=== PATIENT | female | born 1945 | race Caucasian/White ===

== ENCOUNTER 2016-09-04 14:56 | Emergency (ER) | payer MEDICARE ==
[2016-09-04 16:29] LABS: Urine Bacteria 3+ (Absent); Urine Bilirubin Negative (Negative); Urine Glucose Negative (Negative); Urine Nitrite Negative (Negative)
--- NOTE | 2016-09-04 17:33 | RAD ---
HISTORY: Weakness COMPARISONS: June 07, 2013 VIEWS:1: Single frontal portable view of the chest at 5:14 PM FINDINGS: LINES AND TUBES: None. CARDIOMEDIASTINAL SILHOUETTE: The cardiomediastinal silhouette is normal for portable technique. PLEURA: The costophrenic angles are sharp. No pleural abnormalities are noted. LUNG PARENCHYMA: The lungs are clear. ABDOMEN: The upper abdomen is clear. There is no subphrenic gas. 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
[2016-09-04] MEDS: NS 0.9% 1000 ML* 2,000 ML IV ONE (17:38)
[2016-09-04 17:41] LABS: Hematocrit 34 % (35-47); Hemoglobin 11.6 g/dl (12.0-16.0); Mean Corpuscular HGB Conc 34 g/dl (31-36); Mean Corpuscular Hemoglobin 31 pg (27-31); Mean Corpuscular Volume 90 fL (80-97); Mean Platelet Volume 11 um3 (7.4-10.4); Red Blood Count 3.79 10^6/ul (4.0-5.4); Red Cell Distribution Width 14 % (10.5-15); White Blood Count 9.5 10^3/ul (3.5-10.8)
[2016-09-04 18:02] LABS: Troponin I 0.01 ng/mL (<0.04)
[2016-09-04 18:08] LABS: ALT < 3 U/L (7-52); AST 9 U/L (13-39); Albumin 3.7 g/dL (3.2-5.2); Alkaline Phosphatase 57 U/L (34-104); Anion Gap 7 mmol/L (2-11); Blood Urea Nitrogen 29 mg/dL (6-24); C Reactive Protein 4.89 mg/L (< 5.00); CO2 Carbon Dioxide 25 mmol/L (22-32); Calcium 9.3 mg/dL (8.6-10.3); Chloride 102 mmol/L (101-111); Creatine Kinase 85 U/L (10-223); EGFR African American 51.3 (>60); EGFR Non-African American 39.9 (>60); Globulin 3.9 g/dL (2-4); Glucose 106 mg/dL (70-100); Lipase 18 U/L (11.0-82.0); Magnesium 2.2 mg/dL (1.9-2.7); Potassium 3.6 mmol/L (3.5-5.0); Sodium 134 mmol/L (133-145); Total Protein 7.6 g/dL (6.4-8.9)
[2016-09-04 18:44] LABS: TSH (Thyroid Stimulating Horm) 1.31 mcIU/mL (0.34-5.60)
[2016-09-04] MEDS ORDERED: Nitrofurantoin Macrocrystals* 50 MG CAP PO ONE (19:01)
--- NOTE | 2016-09-04 19:30 | ED ---
Cony Bartlett Matthew, scribed for Cecilio Read MD on 09/04/16 at 1713 . GI/ HPI - HPI Summary HPI Summary: A 71 y/o female presents to the ED with diarrhea since Jul. The patient has been having watery diarrhea approximately 3 times daily. The patient was seen at her neurologist's office to check-up on the patient's Parkinson's. At that time, she was having difficulty sleeping because of the resting tremors, so she was started on Comtan. After starting the new medication, the patient began to have diarrhea. She hasn't taken the medication since 08/23, but continues to have diarrhea. Associated symptoms include weakness and decreased appetite. The patient denies chest pain, SOB, cough, and abdominal pain. As a result of the weakness, the patient states that she fell 2 days ago. - History of Current Complaint Chief Complaint: EDWeakness Time Seen by Provider: 09/04/16 16:27 Stated Complaint: WEAKNESS/DIARRHEA Hx Obtained From: Patient, Family/Scrap Drop Engineer - Onset/Duration: Started Weeks Ago, Atraumatic, Still Present Timing: Constant Severity: Moderate Current Severity: Moderate Pain Intensity: 0 Associated Signs and Symptoms: Positive: Weakness, Diarrhea, Change in Appetite - decreased. Negative: Abdominal Pain, Cough, Chest Pain - Allergy/Home Medications Allergies/Adverse Reactions: Allergies Allergy/AdvReac Type Severity Reaction Status Date / Time Penicillin V [From Pen-Vee-K] Allergy Intermediate Rash Verified 11/12/13 07:58 Lisinopril Allergy Mild Rash Verified 11/12/13 07:58 Prasugrel [From Effient] Allergy FULL BODY Verified 11/12/13 07:58 RASH PMH/Surg Hx/FS Hx/Imm Hx Endocrine/Hematology History: Reports: Hx Diabetes - DM2 Denies: Hx Anticoagulant Therapy, Hx Thyroid Disease, Hx Anemia Cardiovascular History: Reports: Hx Hypercholesterolemia, Hx Hypertension Respiratory History: Denies: Hx Seasonal Allergies, Hx Sleep Apnea GI History: Denies: Hx Diverticulosis, Hx Gall Bladder Disease, Hx Gastroesophageal Reflux Disease, Hx Irritable Bowel, Hx Ulcer Musculoskeletal History: Reports: Hx Arthritis - knees and shoulders, Hx Bursitis Denies: Hx Fibromyalgia, Hx Gout, Hx Osteoporosis Sensory History: Reports: Hx Contacts or Glasses - reading only Denies: Hx Hearing Aid Opthamlomology History: Reports: Hx Contacts or Glasses - reading only Neurological History: Reports: Other Neuro Impairments/Disorders - tremors Denies: Hx Headaches, Hx Migraine, Hx Seizures Psychiatric History: Reports: Hx Depression - citalapram Denies: Hx Eating Disorder, Hx Panic Disorder, Hx Post Traumatic Stress Disorder, Hx Suicide Attempt, Hx Substance Abuse Infectious Disease History: No Infectious Disease History: Denies: Hx Hepatitis, Traveled Outside the [place] in Last 30 Days - Family History Known Family History: Positive: Cardiac Disease - Social History Lives: With Family Alcohol Use: None Substance Use Type: Reports: None Review of Systems Constitutional: Other - decreased appetite Eyes: Negative ENT: Negative Cardiovascular: Negative Negative: Chest Pain Respiratory: Negative Negative: Shortness Of Breath Positive: Diarrhea. Negative: Abdominal Pain, Nausea Genitourinary: Negative Musculoskeletal: Negative Skin: Negative Positive: Weakness - generalized Psychological: Normal All Other Systems Reviewed And Are Negative: Yes Physical Exam Triage Information Reviewed: Yes Vital Signs On Initial Exam: Initial Vitals Temp Pulse Resp BP Pulse Ox 98.2 F 79 18 87/56 100 09/04/16 14:59 09/04/16 14:59 09/04/16 14:59 09/04/16 14:59 09/04/16 14:59 Vital Signs Reviewed: Yes Appearance: Positive: No Pain Distress, Obese Skin: Positive: Warm, Dry Head/Face: Positive: Normal Head/Face Inspection Eyes: Positive: EOMI, ДМИТРИЙ ENT: Positive: Normal ENT inspection Neck: Positive: Supple, Nontender Respiratory/Lung Sounds: Positive: Clear to Auscultation, Breath Sounds Present Cardiovascular: Positive: RRR, Murmur Abdomen Description: Positive: Nontender, Soft Bowel Sounds: Positive: Present Musculoskeletal: Positive: Strength/ROM Intact Neurological: Positive: Other - parkinson's resting tremors Psychiatric: Positive: Normal Diagnostics - Vital Signs Vital Signs Temp Pulse Resp BP Pulse Ox 09/04/16 16:33 97.3 F 73 18 142/122 100 09/04/16 14:59 98.2 F 79 18 87/56 100 - Laboratory Lab Results: Lab Results 09/04/16 Range/Units 15:55 Urine Color Yellow Urine Appearance Cloudy Urine pH 6.0 (5-9) Ur Specific Leigh 1.011 (1.010-1.030) Urine Protein Negative (Negative) Urine Ketones Negative (Negative) Urine Blood Negative (Negative) Urine Nitrate Negative (Negative) Urine Bilirubin Negative (Negative) Urine Urobilinogen Negative (Negative) Ur Leukocyte Esterase 2+ H (Negative) Urine WBC (Auto) 2+(11-20/hpf) H (Absent) Urine RBC (Auto) Trace(0-2/hpf) (Absent) Ur Squamous Epith Cells Present H (Absent) Urine Bacteria 3+ H (Absent) Urine Glucose Negative (Negative) Result Diagrams: 09/04/16 17:30 09/04/16 17:30 Lab Statement: Any lab studies that have been ordered have been reviewed, and results considered in the medical decision making process. - Radiology CXR Xray Interpretation: No Acute Changes - IMPRESSION: NO ACTIVE CARDIOPULMONARY DISEASE. Radiology Interpretation Completed By: Radiologist - EKG 15:24 Cardiac Rate: NL - 74 bpm EKG Rhythm: Sinus Rhythm Ectopy: None EKG Interpretation: Flipped T Waves in the anterior and inferior leads GIGU Course/Dx - Course Assessment/Plan: DISCUSSED RESULTS WITH PATIENT. SHE WISHES TO GO HOME IF POSSIBLE. RX MACROBID FOR UTI. AFTER IVF IN ED, WILL CHECK FOR STRENGTH/ABILITY TO GO HOME SAFELY. IF SHE IS AT HER BASELINE STRENGTH, SHE WILL BE DISCHARGE HOME STABLE. - Diagnoses Provider Diagnoses: Dehydration, UTI (urinary tract infection), Weakness Discharge - Discharge Plan Condition: Stable Disposition: HOME Prescriptions: Nitrofurantoin Monohyd Macro [Macrobid] 100 mg PO BID #13 cap Patient Education Materials: Dehydration (ED), Urinary Tract Infection in Women (ED) Referrals: Jacques Kumar MD [Primary Care Provider] - Additional Instructions: FOLLOW UP WITH YOUR DOCTOR. RETURN TO THE EMERGENCY DEPARTMENT FOR ANY WORSENING OF YOUR CONDITION; WEAKNESS , YOU FEEL ILL OR QUESTIONS OR CONCERNS. The documentation as recorded by the [facility] Matthew accurately reflects the service I personally performed and the decisions made by me, Cecilio Read MD.
[2016-09-04 20:29] VITALS: BP 109/81
== END 2016-09-04 21:05 | disposition home or self-care (01) ==
LOC: ED 14:56
DX: N39.0 Urinary tract infection, site not specified (principal); R53.1 Weakness; R19.7 Diarrhea, unspecified; E86.0 Dehydration
CPT/HCPCS: 36415; 71010; 80053; 81003; 81015; 82550; 82553; 83605; 83690; 83735; 83880; 84443; 84484; 85025; 85610; 85730; 86140; 87086; 93005; 99283; A9270-GY

== ENCOUNTER 2016-09-21 14:09 | Inpatient (IN) | payer MEDICARE ==
[2016-09-21] MEDS ORDERED: NS 0.9% 1000 ML* 1,000 ML IV ONE ×2 (15:37→16:46)
[2016-09-21 15:57] LABS: Hematocrit 32 % (35-47); Hemoglobin 11.1 g/dl (12.0-16.0); Mean Corpuscular HGB Conc 35 g/dl (31-36); Mean Corpuscular Hemoglobin 31 pg (27-31); Mean Corpuscular Volume 89 fL (80-97); Mean Platelet Volume 11 um3 (7.4-10.4); Red Cell Distribution Width 14 % (10.5-15); White Blood Count 9.5 10^3/ul (3.5-10.8)
[2016-09-21 16:07] LABS: Ammonia 24 mol/L (16-53)
[2016-09-21 16:10] LABS: ALT < 3 U/L (7-52); AST 11 U/L (13-39); Albumin 3.5 g/dL (3.2-5.2); Alkaline Phosphatase 60 U/L (34-104); Amylase 44 U/L (29-103); BUN/Creatinine Ratio 17.1 (8-20); Blood Urea Nitrogen 37 mg/dL (6-24); C Reactive Protein 5.23 mg/L (< 5.00); CO2 Carbon Dioxide 22 mmol/L (22-32); Calcium 8.9 mg/dL (8.6-10.3); Chloride 95 mmol/L (101-111); Creatine Kinase 54 U/L (10-223); EGFR African American 29.1 (>60); EGFR Non-African American 22.6 (>60); Globulin 3.9 g/dL (2-4); Glucose 128 mg/dL (70-100); Lipase 41 U/L (11.0-82.0); Magnesium 2.4 mg/dL (1.9-2.7); Sodium 127 mmol/L (133-145); Total Protein 7.4 g/dL (6.4-8.9); Troponin I 0.03 ng/mL (<0.04)
[2016-09-21 16:12] LABS: B Type Natriuretic Peptide 41 pg/mL
[2016-09-21 16:26] LABS: Anion Gap 10 mmol/L (2-11); Potassium 2.7 mmol/L (3.5-5.0)
--- NOTE | 2016-09-21 16:33 | RAD ---
Indication: Weakness, diarrhea. Flat and decubitus views of the abdomen demonstrates no free air. Degenerative changes of lower lumbar spine is noted. Pelvic ring is intact. IMPRESSION: No free air or obstruction is noted.
[2016-09-21] MEDS ORDERED: Potassium Chloride LIQUID* 20 MEQ PACKET PO ONE (16:45)
[2016-09-21] MEDS ORDERED: NS 0.9% 1000 ML* 2,000 ML IV ONE (17:18)
[2016-09-21] MEDS ORDERED: Ondansetron INJ* 2 MG/ML VIAL IV PRN (17:18)
[2016-09-21] MEDS ORDERED: Potassium Chlor TAB* 10 MEQ TAB.ER PO ONE ×2 (17:22→22:00)
[2016-09-21] MEDS ORDERED: Magnesium Sulf 4 GM/100 ML IV* 4,000 MG/100 ML BAG IVPB ONE (17:23)
[2016-09-21] MEDS ORDERED: Potassium Phosphate IV* 15 MMOLE in NS 0.9% 250 ML* 250 ML IVPB ONE (17:25)
[2016-09-21 17:45] LABS: Phosphorus 4.2 mg/dL (2.5-5.0)
--- NOTE | 2016-09-21 18:41 | ED ---
Cony Bartlett Matthew, scribed for Luis Wade MD on 09/21/16 at 1544 . Complex/Multi-Sys Presentation - HPI Summary HPI Summary: A 71 y/o female presents to the ED c/o of general weakness. Associated symptoms include diarrhea for the past 2 months at a frequency of 2-3 times per day, and decreased PO intake. The patient denies blood w/ stool, SOB, fever, abdominal pain, chest pain, headache, and dizziness. The patient had a UTI a couple of weeks ago and was treated with Abx. She also reports that she fell 2 weeks ago. - History Of Current Complaint Chief Complaint: EDGeneral Time Seen by Provider: 09/21/16 15:32 Hx Obtained From: Patient Onset/Duration: Lasting Days, Still Present Timing: Constant Severity Currently: Moderate Severity Initially: Moderate Associated Signs And Symptoms: Positive: Weakness, Diarrhea, Decreased Oral Intake. Negative: Dizziness, Headache, SOB, Chest Pain, Fever - Allergies/Home Medications Allergies/Adverse Reactions: Allergies Allergy/AdvReac Type Severity Reaction Status Date / Time Penicillin V [From Pen-Vee-K] Allergy Intermediate Rash Verified 11/12/13 07:58 Lisinopril Allergy Mild Rash Verified 11/12/13 07:58 Prasugrel [From Effient] Allergy FULL BODY Verified 11/12/13 07:58 RASH Home Medications: Home Medications Carbidopa/Levodop CR 50/200(*) [Sinemet CR 50/200(*)] 1 tab.cr PO DAILY [History Confirmed 09/21/16] Ticagrelor* [Brilinta*] 180 mg PO DAILY 09/21/16 [History Confirmed 09/21/16] Triamterene/HCTZ 37.5-25 MG* [Dyazide CAP*] 1 cap PO DAILY 09/21/16 [History Confirmed 09/21/16] PMH/Surg Hx/FS Hx/Imm Hx Endocrine/Hematology History: Reports: Hx Diabetes - DM2 Denies: Hx Anticoagulant Therapy, Hx Thyroid Disease, Hx Anemia Cardiovascular History: Reports: Hx Hypercholesterolemia, Hx Hypertension Respiratory History: Denies: Hx Seasonal Allergies, Hx Sleep Apnea GI History: Denies: Hx Diverticulosis, Hx Gall Bladder Disease, Hx Gastroesophageal Reflux Disease, Hx Irritable Bowel, Hx Ulcer Musculoskeletal History: Reports: Hx Arthritis - knees and shoulders, Hx Bursitis Denies: Hx Fibromyalgia, Hx Gout, Hx Osteoporosis Sensory History: Reports: Hx Contacts or Glasses - reading only Denies: Hx Hearing Aid Opthamlomology History: Reports: Hx Contacts or Glasses - reading only Neurological History: Reports: Other Neuro Impairments/Disorders - tremors Denies: Hx Headaches, Hx Migraine, Hx Seizures Psychiatric History: Reports: Hx Depression - citalapram Denies: Hx Eating Disorder, Hx Panic Disorder, Hx Post Traumatic Stress Disorder, Hx Suicide Attempt, Hx Substance Abuse Infectious Disease History: Denies: Hx Hepatitis, Traveled Outside the [place] in Last 30 Days - Family History Known Family History: Positive: Cardiac Disease - Social History Alcohol Use: None Substance Use Type: Reports: None Smoking Status (MU): Never Smoked Tobacco Review of Systems Constitutional: Other - decreased PO intake Negative: Fever Eyes: Negative ENT: Negative Cardiovascular: Negative Negative: Chest Pain Respiratory: Negative Negative: Shortness Of Breath Positive: Diarrhea Genitourinary: Negative Musculoskeletal: Negative Skin: Negative Positive: Weakness - general Psychological: Normal All Other Systems Reviewed And Are Negative: Yes Physical Exam - Summary Physical Exam Summary: Vital signs: reviewed General: Patient is an obese female who is lying comfortable in the stretcher. HEENT: within normal limits excepto for dry oral mucosa. poor dental hygiene. Lungs: CTA B/L CVS: S1 & S2 present. No murmurs appreciated. ABDOMEN: Soft, non-tender. No signs of distention. No rebound no guarding, and no masses palpated. Bowel sounds are normal. EXTREMITIES: FROM in all major joints, no edema, no cyanosis or clubbing. NEURO: Alert and oriented x 3. No acute neurological deficits. Speech is normal and follows commands. SKIN: Dry and warm Triage Information Reviewed: Yes Vital Signs On Initial Exam: Initial Vitals Temp Pulse Resp BP Pulse Ox 97.4 F 64 16 114/95 100 09/21/16 14:12 09/21/16 14:12 09/21/16 14:12 09/21/16 14:12 09/21/16 14:12 Vital Signs Reviewed: Yes Diagnostics - Vital Signs Vital Signs Temp Pulse Resp BP Pulse Ox 09/21/16 15:06 97.2 F 63 16 75/45 99 09/21/16 14:12 97.4 F 64 16 114/95 100 - Laboratory Lab Results: Lab Results 09/21/16 09/21/16 09/21/16 Range/Units 15:26 15:26 15:26 WBC 9.5 (3.5-10.8) 10^3/ul RBC 3.60 L (4.0-5.4) 10^6/ul Hgb 11.1 L (12.0-16.0) g/dl Hct 32 L (35-47) % MCV 89 (80-97) fL MCH 31 (27-31) pg MCHC 35 (31-36) g/dl RDW 14 (10.5-15) % Plt Count 184 (150-450) 10^3/ul MPV 11 H (7.4-10.4) um3 Neut % (Auto) 75.8 (38-83) % Lymph % (Auto) 13.8 L (25-47) % Trinity % (Auto) 8.6 (1-9) % Eos % (Auto) 1.3 (0-6) % Baso % (Auto) 0.5 (0-2) % Absolute Neuts (auto) 7.2 (1.5-7.7) 10^3/ul Absolute Lymphs (auto) 1.3 (1.0-4.8) 10^3/ul Absolute Monos (auto) 0.8 (0-0.8) 10^3/ul Absolute Eos (auto) 0.1 (0-0.6) 10^3/ul Absolute Basos (auto) 0 (0-0.2) 10^3/ul Absolute Nucleated RBC 0 10^3/ul Nucleated RBC % 0 Sodium 127 L (133-145) mmol/L Potassium 2.7 L* (3.5-5.0) mmol/L Chloride 95 L (101-111) mmol/L Carbon Dioxide 22 (22-32) mmol/L Anion Gap 10 (2-11) mmol/L BUN 37 H (6-24) mg/dL Creatinine 2.16 H (0.51-0.95) mg/dL Est GFR ( Amer) 29.1 (>60) Est GFR (Non-Af Amer) 22.6 (>60) BUN/Creatinine Ratio 17.1 (8-20) Glucose 128 H (70-100) mg/dL Lactic Acid 0.9 (0.5-2.0) mmol/L Calcium 8.9 (8.6-10.3) mg/dL Phosphorus 4.2 (2.5-5.0) mg/dL Magnesium 2.4 (1.9-2.7) mg/dL Total Bilirubin 0.30 (0.2-1.0) mg/dL AST 11 L (13-39) U/L ALT < 3 L (7-52) U/L Alkaline Phosphatase 60 (34-104) U/L Ammonia (16-53) mol/L Total Creatine Kinase 54 (10-223) U/L Troponin I 0.03 (<0.04) ng/mL C-Reactive Protein 5.23 H (< 5.00) mg/L B-Natriuretic Peptide ( - 100) pg/mL Total Protein 7.4 (6.4-8.9) g/dL Albumin 3.5 (3.2-5.2) g/dL Globulin 3.9 (2-4) g/dL Albumin/Globulin Ratio 0.9 L (1-3) Amylase 44 (29-103) U/L Lipase 41 (11.0-82.0) U/L / Range/Units 15:26 WBC (3.5-10.8) 10^3/ul RBC (4.0-5.4) 10^6/ul Hgb (12.0-16.0) g/dl Hct (35-47) % MCV (80-97) fL MCH (27-31) pg MCHC (31-36) g/dl RDW (10.5-15) % Plt Count (150-450) 10^3/ul MPV (7.4-10.4) um3 Neut % (Auto) (38-83) % Lymph % (Auto) (25-47) % Trinity % (Auto) (1-9) % Eos % (Auto) (0-6) % Baso % (Auto) (0-2) % Absolute Neuts (auto) (1.5-7.7) 10^3/ul Absolute Lymphs (auto) (1.0-4.8) 10^3/ul Absolute Monos (auto) (0-0.8) 10^3/ul Absolute Eos (auto) (0-0.6) 10^3/ul Absolute Basos (auto) (0-0.2) 10^3/ul Absolute Nucleated RBC 10^3/ul Nucleated RBC % Sodium (133-145) mmol/L Potassium (3.5-5.0) mmol/L Chloride (101-111) mmol/L Carbon Dioxide (22-32) mmol/L Anion Gap (2-11) mmol/L BUN (6-24) mg/dL Creatinine (0.51-0.95) mg/dL Est GFR ( Amer) (>60) Est GFR (Non-Af Amer) (>60) BUN/Creatinine Ratio (8-20) Glucose (70-100) mg/dL Lactic Acid (0.5-2.0) mmol/L Calcium (8.6-10.3) mg/dL Phosphorus (2.5-5.0) mg/dL Magnesium (1.9-2.7) mg/dL Total Bilirubin (0.2-1.0) mg/dL AST (13-39) U/L ALT (7-52) U/L Alkaline Phosphatase (34-104) U/L Ammonia 24 (16-53) mol/L Total Creatine Kinase (10-223) U/L Troponin I (<0.04) ng/mL C-Reactive Protein (< 5.00) mg/L B-Natriuretic Peptide 41 ( - 100) pg/mL Total Protein (6.4-8.9) g/dL Albumin (3.2-5.2) g/dL Globulin (2-4) g/dL Albumin/Globulin Ratio (1-3) Amylase (29-103) U/L Lipase (11.0-82.0) U/L Result Diagrams: 09/21/16 15:26 09/21/16 15:26 Lab Statement: Any lab studies that have been ordered have been reviewed, and results considered in the medical decision making process. Complex Multi-Symp Course/Dx Assessment/Plan: A 71 y/o female presents to the ED c/o of general weakness. Associated symptoms include diarrhea for the past 2 months at a frequency of 2- 3 times per day, and decreased PO intake. The patient denies blood w/ stool, SOB , fever, abdominal pain, chest pain, headache, and dizziness. The patient had a UTI a couple of weeks ago and was treated with Abx. She also reports that she fell 2 weeks ago. Blood work WNL except chronic anemia, sodium 127, potassium of 2.7, chloride 95. Acute and chronic renal failure, glucose 128. Abd XR shows no free air or obstruction. In the ED course, the patient was started with IV fluids since the patient appears dehydrate, potassium chloride PO, and also IV x3 runs. The patient seems to be very weak and dehydrated. She hasnt been able to give any urine after 2L of fluids. Possibly this is due to her chronic diarrhea and decreased PO intake. I discussed the case with Dr. Jada Srivastava who is covering for Dr. Kumar and she requested the patient be admitted to the hospitalist services. Therefore I discussed the case with Dr. Mae who accepted the patient for admission. The patient is hemodynamically stable. Dr. Mae will follow-up on cultures for stool and CDiff. - Diagnoses Differential Diagnoses/HQI/PQRI: Urinary Tract Infection, Other - Pneumonia, CVA , ACS, weakness, fatigue Provider Diagnoses: Hypokalemia, Chronic diarrhea, Dehydration, Acute on chronic renal failure - Physician Notifications Discussed Care Of Patient With: Dr. Arzate (PCP) at 17:08 -- Notified of patient's history and requested the patient be admitted. Dr. Mae ( Hospitalist) at 17:13 -- Notified of patient's history and will admit the patient into his servcies. Discharge - Discharge Plan Condition: Stable Disposition: [facility]ITT[facility] TO [facility] The documentation as recorded by the [facility] Matthew accurately reflects the service I personally performed and the decisions made by me, Luis Wade MD.
[2016-09-21] MEDS: Carvedilol TAB* 6.25 MG PO SCH (20:34)
[2016-09-21] MEDS: Pregabalin CAP(*) 50 MG PO SCH (20:34)
[2016-09-21] MEDS: Acetaminophen TAB* 325 MG PO PRN (20:35)
[2016-09-21] MEDS ORDERED: Losartan TAB* 25 MG PO SCH (21:00)
[2016-09-21] MEDS: Primidone TAB(*) 50 MG PO SCH (22:03)
[2016-09-21] MEDS: Heparin VIAL(*) 5000 UNITS/ML VIAL (FIVE THOUSAND) SUBCUT SCH (22:03)
[2016-09-21] MEDS: KCL 10 MEQ/50 ML IVPREMIX* 10 MEQ/50 ML BAG IV SCH ×2 (22:23→22:24)
[2016-09-21 22:52] LABS: Urine Bacteria 2+ (Absent); Urine Bilirubin Negative (Negative); Urine Glucose Negative (Negative); Urine Nitrite Negative (Negative)
[2016-09-21] MEDS ORDERED: KCL 20 MEQ/100 ML IVPREMIX* 100 ML BAG IV ONE (23:00)
[2016-09-22 01:04] LABS: BUN/Creatinine Ratio 18.5 (8-20); Calcium 8.4 mg/dL (8.6-10.3); EGFR African American 38.9 (>60); EGFR Non-African American 30.2 (>60); Potassium 3.3 mmol/L (3.5-5.0)
--- NOTE | 2016-09-22 01:06 | HP ---
HISTORY AND PHYSICAL: DATE OF ADMISSION: 09/21/16 TIME OF MY EVALUATION: 5 p.m. PRIMARY CARE PROVIDER: Jacques Kumar MD. CHIEF COMPLAINT: Ongoing diarrhea and weakness. HISTORY OF PRESENT ILLNESS: Ms. Cooper is a pleasant 71-year-old female who is accompanied by her and other family members in the emergency room. I am asked to evaluate her for ongoing diarrhea, multiple electrolyte abnormalities, dehydration, and weakness. Ms. Cooper explains that she has been having progressive and steady diarrhea for the past 2 months. She states that his happened at the time that she started extended release carbidopa/levodopa and also approximately around this time she started taking Comtan, both for Parkinson's disease. The Comtan was quickly stopped as was the extended release carbidopa/levodopa. She remains on her longstanding carbidopa/levodopa that she has tolerated well. The patient did have one course of antibiotics - nitrofurantoin - in response to a lower urinary tract infection, but the diarrhea had already started before this. To my knowledge, she has not been tested for Clostridium difficile nor did she have a history of that. She does not have a history of any diarrheal illnesses. She has not traveled to any area. She has not eaten suspicious foods. She does not describe any rectal bleeding. The patient has not tried any antimotility agents. Currently, she is lying in a hospital [facility] and is not in any distress. She has had an episode of diarrhea which was sent to the lab for both Clostridium difficile and stool cultures. The patient is subjectively weak and referred to the hospitalist service for admission on behalf of Dr. Jacques Kumar. Multiple electrolyte abnormalities include a sodium that is depressed at 127, a potassium low at 2.7, elevated CRP of 5.23, but a normal white count at 9.5. Her abdominal x-ray in the emergency room showed no free air or obstruction. She did not have a surgical abdomen per the emergency room provider. Likewise, she denies any shortness of breath, fever, abdominal pain, headache, or dizziness. She did have a fall about 2 weeks ago, but did not suffer any significant injury. PAST MEDICAL HISTORY: 1. Type 2 diabetes mellitus - fairly well controlled - hemoglobin A1c not in our system recently. 2. Hyperlipidemia. 3. Hypertension. 4. Osteoarthritis of shoulders, knees/back. 5. Obesity. 6. Simple depression. 7. Essential tremor. 8. Parkinson's disease. 9. History of candidal infection of the skin. 10. History of colonic polyps. 11. History of punctured right ear drum. 12. Menopause at age 56. PAST SURGICAL HISTORY: 1. Tonsillectomy. 2. Left knee arthroscopy. OUTPATIENT MEDICATIONS: 1. Calcium carbonate/vitamin D 600/400 two tabs by mouth once daily. 2. Ibuprofen 600 mg by mouth every 6 hours p.r.n. pain/fever. 3. Multivitamin with minerals 1 tablet by mouth twice daily. 4. Triamterene/hydrochlorothiazide 37.5/25 one capsule by mouth twice daily. 5. Enteric-coated aspirin 81 mg by mouth daily. 6. Lipitor 80 mg by mouth daily. 7. Carbidopa/levodopa CR 50/200 one tab by mouth daily. 8. Coreg 6.25 mg by mouth twice daily. 9. Losartan 100 mg by mouth at bedtime. 10. Pregabalin/Lyrica 150 mg by mouth twice daily. 11. Mysoline/primidone 50 mg by mouth twice daily. 12. Brilinta 180 mg by mouth daily. ALLERGIES: PENICILLIN B, LISINOPRIL, PRASUGREL. FAMILY HISTORY: Reviewed but noncontributory based on the current presentation. SOCIAL HISTORY: The patient lives with her who accompanies her now. The patient is a nonsmoker, nondrinker. The patient does occasionally drink caffeine. REVIEW OF SYSTEMS: The patient reports diminished appetite. She has been trying to keep up with her liquids, but has found this difficult. She certainly feels dehydrated. The patient thinks she might have fibromyalgia. PHYSICAL EXAMINATION ON ADMISSION GENERAL APPEARANCE: Elderly appearing woman lying in the [facility] in no apparent distress, but tired appearing and obese. VITAL SIGNS: Temperature 97.4 degrees Fahrenheit, pulse 64, respirations 16, oxygen saturation 100% on room air, blood pressure one teens/90s. Initially, she was as low as the 80s/50s, but with hydration, systolics are now above 100. HEENT: Oropharynx is clear. Mucous membranes are dry. No posterior pharyngeal erythema or exudate. NECK: Supple. No elevated JVD. The patient was positioned at 45 degrees. CHEST: Clear to auscultation. No rales, rhonchi, or wheezing noted. HEART: Regular rhythm. No murmurs appreciated. ABDOMEN: Obese and diffusely tender. Her bladder, she expressed the desire to urinate when I pressed her lower abdomen, but certainly not an acute abdomen. SKIN: Dry and intact. No rashes, lesions, or breakdown. EXTREMITIES: Without clubbing, cyanosis, or edema. She was not walked in the emergency room. NEUROLOGIC: I did not perform a complete neurologic evaluation. Her diarrhea was observed as collected by the nursing staff and was nonbloody. ADMISSION DATA: Included an abdominal x-ray as above without free air or other abnormality noted. No evidence of obstruction. Labs were significant for sodium of 127 with a normal baseline, potassium of 2.7 , chloride of 95, elevated creatinine to 2.16 with baseline noted at 0.54, elevated BUN to 37 with similarly baseline in the teens, glucose elevated at 128 - known diabetes. Preserved phosphorus and magnesium at 4.2 and 2.4 respectively, AST and ALT of 11 and less than 3 respectively. CRP 5.23. Amylase and lipase 44 and 41 respectively. White blood cell count was normal at 9.5, hemoglobin 11.1, platelets 184. Stool cultures were sent and pending as is a C. difficile PCR. IMPRESSION: Ms. Cooper is a 71-year-old female with Parkinson's disease and diabetes who has 1 to 2 months of diarrhea with multiple episodes per day, weakness, acute renal failure, and electrolyte deficiencies as a result. She is being admitted to the hospital by the hospitalist service. I will contact Dr. Kumar in the morning to see about his intentions of following this patient in the hospital, although we would be willing to do so on his behalf. In the interim, I am hydrating the patient as she is certainly dehydrated evidenced by the acute renal failure and she has also lost significant electrolytes as evidenced by the hypokalemia undoubtedly from her diarrhea. In terms of the etiology of the diarrhea, I think we have to rule out Clostridium difficile. I am going to treat the patient with empiric Flagyl at this time until the stool cultures come back. It may be that the patient wound benefit from a colonoscopy and I will contact GI in the morning and also review her medication list for a couple of medications. Carbidopa/levodopa does cause diarrhea in less than 5% of patients. Though she has been taking this normally , it seems to be the extended release formulation that caused the problem. Likewise, the Comtan the patient was taking is also known to cause diarrhea, but this was discontinued sometime ago. In terms of her other medications, the Lyrica, the primidone, the Brilinta, the Coreg, her Lipitor, I do not see in my initial research that these are classic causes for diarrhea. It is possible she might be suffering from intestinal overgrowth owing to her limited mobility and if she does not have C. difficile, it might be reasonable to try an antimotility agent. For her other conditions, we will continue her normal outpatient regimen, specifically for coronary artery disease, we will continue her statin, aspirin, and beta brianna as well as her ARB for concurrent hypertension and diabetes, but also Brilinta as per outpatient regimen. In terms of her diabetes, we will follow fingersticks every 6 hours. I am going to go ahead and give her a regular diet to see how she tolerates it after rehydration and further decisions will be based on her clinical course. The patient is full code. Her surrogate decision maker is her . TIME SPENT: Total time taken to admit Ms. Cooper was 75 minutes, greater than half that time was spent conducting the interview in the emergency room, physical examination, and explaining the hospital plan of care to the patient at the bedside. CC: Jacques Kumar MD* [id number]/[facility] #: [id number] EVIE
[2016-09-22] MEDS: KCL 10 MEQ/50 ML IVPREMIX* 10 MEQ/50 ML BAG IV SCH ×2 (01:23→02:17)
[2016-09-22] MEDS ORDERED: KCL 20 MEQ/100 ML IVPREMIX* 40 MEQ/200 ML BAG ONE (01:27)
[2016-09-22] MEDS: Heparin VIAL(*) 5000 UNITS/ML VIAL (FIVE THOUSAND) SUBCUT SCH ×3 (06:31→22:21)
[2016-09-22 06:32] LABS: Hematocrit 30 % (35-47); Hemoglobin 10.3 g/dl (12.0-16.0); Mean Corpuscular HGB Conc 34 g/dl (31-36); Mean Corpuscular Hemoglobin 30 pg (27-31); Mean Corpuscular Volume 89 fL (80-97); Mean Platelet Volume 11 um3 (7.4-10.4); Red Cell Distribution Width 14 % (10.5-15); White Blood Count 8.8 10^3/ul (3.5-10.8)
--- NOTE | 2016-09-22 08:12 | PN ---
Subjective - Subjective History: I reviewed her presentation with the patient and with Dr. Mae's admitting H and P. She has a history of progressive, watery diarrhea. Outpatient evaluation recently demonstrated this to be inflammatory. She presented with hypovolemia, pre-renal acute renal insufficiency, hypotension, weakness and electrolyte abnormalities. She has had no history of travel, there have been no contacts with similar conditions. She notes the changes in her Parkinson's drugs mentioned in Dr. Mae's H and P. She has no abdominal pain, nausea/vomiting. She has a poor appetite. This morning she has no new symptoms - but she continues to have diarrhea. There has been no blood in the diarrhea. She denies chest pain, dyspnea, palpitations, cough, sputum. She has no dysuria/hematuria. She denies headache. She feels generally weak. Active Problems: Active Problems Diarrhea (Acute) R19.7 Hypovolemia (Acute) E86.1 Prerenal renal failure (Acute) N19 Weakness (Acute) R53.1 Coronary artery disease (Chronic) I25.10 Essential hypertension (Chronic) I10 History of falling (Chronic) Z91.81 Hyperlipidemia (Chronic) E78.5 Morbid obesity (Chronic) E66.01 Parkinsons disease (Chronic) G20 Type 2 diabetes mellitus (Chronic) Current Medications: Current Medications Acetaminophen (Tylenol Tab*) 650 mg PO Q4H PRN PRN Reason: FEVER/PAIN Last Admin: 09/21/16 20:35 Dose: 650 mg Aspirin (Aspirin Ec Low Dose*) 81 mg PO DAILY [facility] Atorvastatin Calcium (Lipitor*) 80 mg PO DAILY [facility] Carbidopa/Levodopa (Sinemet Cr 50/200(*)) 1 tab.cr PO DAILY [facility] Carvedilol (Coreg Tab*) 6.25 mg PO BID [facility] Last Admin: 09/21/16 20:34 Dose: 6.25 mg Heparin Sodium (Porcine) (Heparin Vial(*)) 5,000 units SUBCUT Q8HR [facility] Last Admin: 09/22/16 06:31 Dose: 5,000 units Losartan Potassium (Cozaar Tab*) 100 mg PO BEDTIME [facility] Last Admin: 09/21/16 20:35 Dose: 100 mg Ondansetron HCl (Zofran Inj*) 4 mg IV Q4H PRN PRN Reason: NAUSEA/VOMITING Pregabalin (Lyrica Cap(*)) 150 mg PO BID [facility] Last Admin: 09/21/16 20:34 Dose: 150 mg Primidone (Mysoline Tab(*)) 50 mg PO BID [facility] Last Admin: 09/21/16 22:03 Dose: 50 mg Ticagrelor (Brilinta*) 180 mg PO DAILY [facility] Home Medications: Home Medications Medication Instructions Recorded Confirmed Type Aspirin EC Low Dose* [Ecotrin EC 81 mg PO DAILY 06/07/13 09/21/16 History Low Dose 81 MG*] Atorvastatin* [Lipitor*] 80 mg PO DAILY 06/07/13 09/21/16 History Calcium Carbonate-Vitamin D 2 tab PO DAILY 06/07/13 09/21/16 History [Calcium 600+D3] Ibuprofen TAB* [Motrin TAB*] 600 mg PO Q6H PRN 06/07/13 09/21/16 History Losartan TAB* [Cozaar TAB*] 100 mg PO BEDTIME 06/07/13 09/21/16 History Multivitamins/Minerals TAB* [Thera 1 tab PO DAILY 06/07/13 09/21/16 History M Plus TAB*] Pregabalin CAP(*) [Lyrica CAP(*)] 150 mg PO BID 06/07/13 09/21/16 History Primidone TAB(*) [Mysoline(*)] 50 mg PO BID 06/07/13 09/21/16 History Carvedilol TAB* [Coreg TAB*] 6.25 mg PO BID 10/30/13 09/21/16 History Carbidopa/Levodop CR 50/200(*) 1 tab.cr PO DAILY 09/21/16 09/21/16 History [Sinemet CR 50/200(*)] Ticagrelor* [Brilinta*] 180 mg PO DAILY 09/21/16 09/21/16 History Triamterene/HCTZ 37.5-25 MG* 1 cap PO DAILY 09/21/16 09/21/16 History [Dyazide CAP*] Allergies: Allergies Allergy/AdvReac Type Severity Reaction Status Date / Time Penicillin V [From Pen-Vee-K] Allergy Intermediate Rash Verified 11/12/13 07:58 Lisinopril Allergy Mild Rash Verified 11/12/13 07:58 Prasugrel [From Effient] Allergy FULL BODY Verified 11/12/13 07:58 RASH Objective - Vital Signs Vital Signs: Vital Signs 09/21/16 09/21/16 09/21/16 17:30 18:00 18:30 Temperature Pulse Rate 68 Respiratory 11 13 13 Rate Blood Pressure 112/85 107/56 (mmHg) O2 Sat by Pulse 100 Oximetry 09/21/16 09/21/16 09/21/16 19:00 19:27 19:44 Temperature 98.0 F 98.3 F Pulse Rate 66 72 Respiratory 14 15 16 Rate Blood Pressure 102/57 102/57 117/41 (mmHg) O2 Sat by Pulse 99 Oximetry 09/21/16 09/21/16 09/21/16 20:34 22:34 23:32 Temperature 100.1 F Pulse Rate 67 Respiratory 14 16 16 Rate Blood Pressure 95/36 (mmHg) O2 Sat by Pulse 98 Oximetry 09/22/16 09/22/16 04:07 08:00 Temperature 97.5 F 97.6 F Pulse Rate 66 70 Respiratory 16 18 Rate Blood Pressure 86/45 91/42 (mmHg) O2 Sat by Pulse 97 100 Oximetry - Intake and Output Intake and Output: Intake & Output 09/19/16 09/20/16 09/21/16 09/22/16 11:59 11:59 11:59 11:59 Intake Total 2037 Output Total 0 Balance 2037 Weight 202 lb 9.6 oz Intake: IV Fluids 1275 NS (0.9%) 275 IVPB 323 KCL in Sterile Water 224 Oral 440 Output: Urine 0 Other: Estimated Void Medium # Bowel Movements 1 Estimated Stool Amount Large # Voids 10 Intake and Output Start: 09/21/16 19: 00 Freq: DAILY@0600,1400,2200 Status: Active Document 09/21/16 22:00 [id number] (Rec: 09/21/16 23:35 [id number]) Document 09/22/16 06:00 [id number] (Rec: 09/22/16 06:22 [id number]) - Physical Exam General Physical Exam Comment: She is weak, pale, has her usual tremor. Her mucus membranes are dry. General: No Cyanosis, No Anemia, No Jaundice, No Clubbing Lungs and Chest: Yes: Chest Expansion Full, Chest Expansion Symetrica, Percussion Note Resonant, Vessicular Breath Sounds, Other - anterior chest only. No: Crackles, Wheezes, Respiratory Distress, Use of Accessory Muscles Heart Rate and Rhythm: Regular Additional Cardiovascular: Yes: Normal Heart Sounds, Pedal Edema - trace. No: Heart Murmur, Carotid Bruits Abdominal Exam: Yes: Soft, Bowel Sounds Present. No: Distention, Abdominal Mass , Hepatomegaly, Splenomegaly, Abdominal Tenderness, Guarding, Rebound Tenderness - Extremities Cranial Nerves II-XII Intact: Yes Limbs: Abnormal Power - generalized weakness - Neuro Orientation: A/O x3 Speech: Normal, Dysphasia, Dysarthria - caused by Parkinson's Results - Results Lab Results: Laboratory Results - last 24 hr 09/21/16 09/22/16 09/22/16 22:25 00:40 06:14 WBC 8.8 RBC 3.40 L Hgb 10.3 L Hct 30 L MCV 89 MCH 30 MCHC 34 RDW 14 Plt Count 149 L MPV 11 H Neut % (Auto) 65.0 Lymph % (Auto) 20.7 L [place] % (Auto) 12.1 H Eos % (Auto) 1.5 Baso % (Auto) 0.7 Absolute Neuts (auto) 5.7 Absolute Lymphs (auto) 1.8 Absolute Monos (auto) 1.1 H Absolute Eos (auto) 0.1 Absolute Basos (auto) 0.1 Absolute Nucleated RBC 0.02 Nucleated RBC % 0.3 Sodium 131 L Potassium 3.3 L Chloride 104 Carbon Dioxide 19 L Anion Gap 8 BUN 31 H Creatinine 1.68 H Est GFR ( Amer) 38.9 Est GFR (Non-Af Amer) 30.2 BUN/Creatinine Ratio 18.5 Glucose 103 H Calcium 8.4 L Urine Color Straw Urine Appearance Cloudy Urine pH 6.0 Ur Specific [place] 1.004 L Urine Protein Negative Urine Ketones Negative Urine Blood 1+ H Urine Nitrate Negative Urine Bilirubin Negative Urine Urobilinogen Negative Ur Leukocyte Esterase 2+ H Urine WBC (Auto) Trace(0-5/hpf) Urine RBC (Auto) 1+(3-5/hpf) H Ur Squamous Epith Cells Present H Urine Bacteria 2+ H Urine Glucose Negative Assessment - Problem List Assessment: Patient Problems Diarrhea (Acute) Hypovolemia (Acute) Prerenal renal failure (Acute) Weakness (Acute) Coronary artery disease (Chronic) Essential hypertension (Chronic) History of falling (Chronic) Hyperlipidemia (Chronic) Morbid obesity (Chronic) Parkinsons disease (Chronic) Type 2 diabetes mellitus (Chronic) Plan: Diarrhea (Acute) She has had diarrhea since June. At that time C. diff was negative. on 09/14 a test for Calprotectin was 592 (normal <50) strongly suggestive of inflammatory diarrhea. She also now has a positive lactoferrin - confirming this. She requires a GI consultation and colonoscopy to determine if this is a form of colitis (infectious or otherwise). I will replace her potassium/Magnesium. I note her CRP is not elevated particularly and she has not got a high WBC - this makes infection less likely. Hypovolemia (Acute) She is hypotensive and I think hypovolemic. I am giving her an IV saline bolus and continued IVF. I will check her troponin I and EKG. Prerenal renal failure (Acute) this is secondary to her hypovolemia Weakness (Acute) She has chronic weakness from her Parkinoson's disease, this is exacerbated by her acute electrolyte abnormalities Coronary artery disease (Chronic) She has no cardiac symptoms. I will check an EKG Essential hypertension (Chronic) inactive History of falling (Chronic) This is due to her weakness Hyperlipidemia (Chronic) secondary diagnosis Morbid obesity (Chronic) she has been losing weight Parkinsons disease (Chronic) major secondary diagnosis Type 2 diabetes mellitus (Chronic) This is controlled by diet and is not exacerbated. I explained the above with the patient and called her . He has cellulitis of her legs. He will try to come up to the hospital later.
[2016-09-22 08:22] LABS: Calcium 8.2 mg/dL (8.6-10.3); EGFR African American 45.3 (>60); EGFR Non-African American 35.2 (>60)
[2016-09-22] MEDS ORDERED: NS 0.9% 500 ML BAG* 500 ML IV ONE (08:45)
[2016-09-22] MEDS: Primidone TAB(*) 50 MG PO SCH ×2 (08:52→20:24)
[2016-09-22] MEDS: Carvedilol TAB* 6.25 MG PO SCH ×2 (08:52→20:24)
[2016-09-22] MEDS: Atorvastatin* 80 MG TAB PO SCH (08:52)
[2016-09-22] MEDS: Aspirin EC Low Dose* 81 MG TAB.EC PO SCH (08:53)
[2016-09-22] MEDS: Ticagrelor* 90 MG TAB PO SCH (08:53)
[2016-09-22] MEDS: Carbidopa/Levodop CR 50/200(*) TAB.CR PO SCH (08:53)
[2016-09-22] MEDS: Pregabalin CAP(*) 50 MG PO SCH ×2 (08:53→20:25)
[2016-09-22] MEDS ORDERED: NS 0.9% w/ 40 Meq KCL 1000 ML* 1,000 ML IV SCH (09:00)
[2016-09-22 09:37] LABS: Magnesium 3.1 mg/dL (1.9-2.7)
[2016-09-22 09:39] LABS: Troponin I 0.02 ng/mL (<0.04)
[2016-09-22] MEDS ORDERED: Midazolam* 1 MG/ML 10 ML VIAL (10 MG) ONE (13:48)
[2016-09-22] MEDS ORDERED: fentaNYL* 50 MCG/ML 2 ML VIAL (100 MCG VIAL) ONE (13:48)
[2016-09-22 15:53] LABS: Magnesium 2.9 mg/dL (1.9-2.7)
[2016-09-22 16:05] LABS: BUN/Creatinine Ratio 16.1 (8-20); Calcium 8.2 mg/dL (8.6-10.3); EGFR African American 55.2 (>60); EGFR Non-African American 42.9 (>60); Potassium 3.5 mmol/L (3.5-5.0)
[2016-09-22] MEDS ORDERED: D5W 1/2 NS KCl 20 Meq 1000 ML* 1,000 ML IV SCH (18:00)
[2016-09-23] MEDS: Heparin VIAL(*) 5000 UNITS/ML VIAL (FIVE THOUSAND) SUBCUT SCH ×3 (06:19→21:28)
[2016-09-23] MEDS: Atorvastatin* 80 MG TAB PO SCH (08:00)
[2016-09-23] MEDS: Ticagrelor* 90 MG TAB PO SCH (08:00)
[2016-09-23] MEDS: Pregabalin CAP(*) 50 MG PO SCH ×2 (08:00→21:24)
[2016-09-23] MEDS: Carvedilol TAB* 6.25 MG PO SCH ×2 (08:01→21:24)
[2016-09-23] MEDS: Carbidopa/Levodop CR 50/200(*) TAB.CR PO SCH (08:01)
[2016-09-23] MEDS: Aspirin EC Low Dose* 81 MG TAB.EC PO SCH (08:01)
[2016-09-23] MEDS: Primidone TAB(*) 50 MG PO SCH ×2 (08:01→21:24)
[2016-09-23] MEDS: CMCS: Budesonide CAP(NF) 3 MG PO SCH (08:01)
--- NOTE | 2016-09-23 09:57 | PN ---
Subjective - Subjective Reason for Note: Progress Note History: She is tearful and depressed this morning as she wants to get home. She continues to have diarrhea, but she states it has improved since she started the budesonide yesterday. She is eating and drinking - with a poor appetite. She has no pain/dyspnea or palpitations. Active Problems: Active Problems Colitis (Acute) K52.9 Diarrhea (Acute) R19.7 Hypovolemia (Acute) E86.1 Prerenal renal failure (Acute) N19 Weakness (Acute) R53.1 Coronary artery disease (Chronic) I25.10 Essential hypertension (Chronic) I10 History of falling (Chronic) Z91.81 Hyperlipidemia (Chronic) E78.5 Morbid obesity (Chronic) E66.01 Parkinsons disease (Chronic) G20 Type 2 diabetes mellitus (Chronic) Current Medications: Current Medications Acetaminophen (Tylenol Tab*) 650 mg PO Q4H PRN PRN Reason: FEVER/PAIN Last Admin: 09/21/16 20:35 Dose: 650 mg Aspirin (Aspirin Ec Low Dose*) 81 mg PO DAILY [facility] Last Admin: 09/23/16 08:01 Dose: 81 mg Atorvastatin Calcium (Lipitor*) 80 mg PO DAILY [facility] Last Admin: 09/23/16 08:00 Dose: 80 mg Budesonide (Budesonide Cap(Nf)) 9 mg PO DAILY [facility] Last Admin: 09/23/16 08:01 Dose: 9 mg Carbidopa/Levodopa (Sinemet Cr 50/200(*)) 1 tab.cr PO DAILY [facility] Last Admin: 09/23/16 08:01 Dose: 1 tab.cr Carvedilol (Coreg Tab*) 6.25 mg PO BID [facility] Last Admin: 09/23/16 08:01 Dose: 6.25 mg Heparin Sodium (Porcine) (Heparin Vial(*)) 5,000 units SUBCUT Q8HR [facility] Last Admin: 09/23/16 06:19 Dose: 5,000 units Potassium Chloride/Dextrose (D5w 1/2 Ns Kcl 20 Meq 1000 Ml*) 1,000 mls @ 100 mls/hr IV PER RATE [facility] Last Admin: 09/22/16 23:22 Dose: 100 mls/hr Ondansetron HCl (Zofran Inj*) 4 mg IV Q4H PRN PRN Reason: NAUSEA/VOMITING Pregabalin (Lyrica Cap(*)) 150 mg PO BID [facility] Last Admin: 09/23/16 08:00 Dose: 150 mg Primidone (Mysoline Tab(*)) 50 mg PO BID [facility] Last Admin: 09/23/16 08:01 Dose: 50 mg Ticagrelor (Brilinta*) 180 mg PO DAILY [facility] Last Admin: 09/23/16 08:00 Dose: 180 mg Home Medications: Home Medications Medication Instructions Recorded Confirmed Type Aspirin EC Low Dose* [Ecotrin EC 81 mg PO DAILY 06/07/13 09/21/16 History Low Dose 81 MG*] Atorvastatin* [Lipitor*] 80 mg PO DAILY 06/07/13 09/21/16 History Calcium Carbonate-Vitamin D 2 tab PO DAILY 06/07/13 09/21/16 History [Calcium 600+D3] Ibuprofen TAB* [Motrin TAB*] 600 mg PO Q6H PRN 06/07/13 09/21/16 History Losartan TAB* [Cozaar TAB*] 100 mg PO BEDTIME 06/07/13 09/21/16 History Multivitamins/Minerals TAB* [Thera 1 tab PO DAILY 06/07/13 09/21/16 History M Plus TAB*] Pregabalin CAP(*) [Lyrica CAP(*)] 150 mg PO BID 06/07/13 09/21/16 History Primidone TAB(*) [Mysoline(*)] 50 mg PO BID 06/07/13 09/21/16 History Carvedilol TAB* [Coreg TAB*] 6.25 mg PO BID 10/30/13 09/21/16 History Carbidopa/Levodop CR 50/200(*) 1 tab.cr PO DAILY 09/21/16 09/21/16 History [Sinemet CR 50/200(*)] Ticagrelor* [Brilinta*] 180 mg PO DAILY 09/21/16 09/21/16 History Triamterene/HCTZ 37.5-25 MG* 1 cap PO DAILY 09/21/16 09/21/16 History [Dyazide CAP*] Allergies: Allergies Allergy/AdvReac Type Severity Reaction Status Date / Time Penicillin V [From Pen-Vee-K] Allergy Intermediate Rash Verified 11/12/13 07:58 Lisinopril Allergy Mild Rash Verified 11/12/13 07:58 Prasugrel [From Effient] Allergy FULL BODY Verified 11/12/13 07:58 RASH Objective - Vital Signs Vital Signs: Vital Signs 09/22/16 09/22/16 09/22/16 10:53 12:40 15:36 Temperature 97.7 F 97.2 F Pulse Rate 98 64 Respiratory 18 16 Rate Blood Pressure 119/74 122/80 (mmHg) O2 Sat by Pulse 93 97 Oximetry 09/22/16 09/22/16 09/22/16 20:00 20:25 20:40 Temperature 97.6 F Pulse Rate 262 84 Respiratory 16 18 Rate Blood Pressure 147/99 (mmHg) O2 Sat by Pulse 89 Oximetry 09/22/16 09/22/16 09/22/16 22:25 23:16 23:55 Temperature 98.5 F Pulse Rate 216 76 Respiratory 16 20 Rate Blood Pressure 135/66 (mmHg) O2 Sat by Pulse Oximetry 09/23/16 09/23/16 09/23/16 03:24 04:00 07:26 Temperature 97.9 F 98.2 F Pulse Rate 236 76 72 Respiratory 20 14 Rate Blood Pressure 102/51 121/43 (mmHg) O2 Sat by Pulse 97 100 Oximetry 09/23/16 09/23/16 08:00 08:43 Temperature Pulse Rate Respiratory 18 18 Rate Blood Pressure (mmHg) O2 Sat by Pulse Oximetry - Intake and Output Intake and Output: Intake & Output 09/20/16 09/21/16 09/22/16 09/23/16 11:59 11:59 11:59 11:59 Intake Total 2158 3698 Output Total 0 0 Balance 2158 3698 Weight 202 lb 9.6 oz Intake: IV Fluids 1275 2998 D5W 1/2 NS 20 meq KCL 694 NS (0.9%) 275 500 NS (0.9%) 40 meq KCL 1804 IVPB 323 KCL in Sterile Water 224 Oral 560 700 Output: Urine 0 0 Other: Estimated Void Medium Small # Bowel Movements 1 1 Estimated Stool Amount Large Medium # Voids 10 1 ADLs: Meal Record Start: 09/21/16 19: 00 Freq: DAILY@0900,1400,1800 Status: Active Document 09/22/16 09:00 [id number] (Rec: 09/22/16 10:35 [id number] MED-C09) Document 09/22/16 14:00 [id number] (Rec: 09/22/16 14:54 [id number] MED-C09) Document 09/22/16 18:00 [id number] (Rec: 09/22/16 22:26 [id number] MED-C11) Intake and Output Start: 09/21/16 19: 00 Freq: DAILY@0600,1400,2200 Status: Active Document 09/21/16 22:00 [id number] (Rec: 09/21/16 23:35 [id number] MED-C11) Document 09/22/16 06:00 [id number] (Rec: 09/22/16 06:22 [id number] MEDL-C01) Document 09/22/16 14:00 [id number] (Rec: 09/22/16 14:54 [id number] MED-C09) Document 09/22/16 22:00 [id number] (Rec: 09/22/16 22:31 [id number] MED-C11) Document 09/23/16 05:32 [id number] (Rec: 09/23/16 05:33 [id number] MED-C42) - Physical Exam General: No Cyanosis, Yes Anemia, No Jaundice, No Clubbing Lungs and Chest: Yes: Chest Expansion Full, Chest Expansion Symetrica, Percussion Note Resonant, Vessicular Breath Sounds. No: Crackles, Wheezes, Respiratory Distress, Use of Accessory Muscles Heart Rate and Rhythm: Regular Additional Cardiovascular: Yes: Normal Heart Sounds, Pedal Edema - 1+. No: Heart Murmur Abdominal Exam: Yes: Soft, Bowel Sounds Present. No: Distention, Abdominal Mass , Hepatomegaly, Abdominal Tenderness Results - Results Lab Results: Laboratory Results - last 24 hr 09/22/16 09/22/16 15:31 15:31 Sodium 134 Potassium 3.5 Chloride 108 Carbon Dioxide 20 L Anion Gap 6 BUN 20 Creatinine 1.24 H Est GFR ( Amer) 55.2 Est GFR (Non-Af Amer) 42.9 BUN/Creatinine Ratio 16.1 Glucose 125 H Lactic Acid 1.0 Calcium 8.2 L Magnesium 2.9 H EKG Report: SR 60 ID 71 QTC 380 Q%RS axis 27 Diffuse T wave abnormalities Assessment - Problem List Assessment: Patient Problems Colitis (Acute) Diarrhea (Acute) Hypovolemia (Acute) Prerenal renal failure (Acute) Weakness (Acute) Coronary artery disease (Chronic) Essential hypertension (Chronic) History of falling (Chronic) Hyperlipidemia (Chronic) Morbid obesity (Chronic) Parkinsons disease (Chronic) Type 2 diabetes mellitus (Chronic) Plan: Colitis (Acute) Dr. Nuno found diffuse colitis during his colonoscopy. Pathology of biopsies are pending. Dr. Nuno has started her on budesonide - we will discover from the pathology and also from her response if she needs a systemic steroid. Diarrhea (Acute) This has yet to resolve Hypovolemia (Acute) This has resolved. I have stopped IVF. She has some 3rd spacing of the fluid. I will add a diuretic for this today. She is now eating /drinking Prerenal renal failure (Acute) Mostly resolved Weakness (Acute) She needs OT/PT evaluation Coronary artery disease (Chronic) No evidence of acute problems Essential hypertension (Chronic) BP not elevated History of falling (Chronic) This remains a risk Hyperlipidemia (Chronic) continue current rx Morbid obesity (Chronic) Barrier. Parkinsons disease (Chronic) Barrier to mobilization Type 2 diabetes mellitus (Chronic) She is not hyperglycemic and is back on her usual diet. Phone call to . He has cellulitis/ulcer of his foot. He is not going to be able to help her transfer. He is not confident that he has enough family to be there at night. She needs to be able to get out of bed to transfer her to the commode. He is going to figure out if home is a realistic plan.
[2016-09-23] MEDS ORDERED: Furosemide TAB* 40 MG PO ONE (10:04)
--- NOTE | 2016-09-23 11:58 | PRO ---
PROCEDURE NOTE: DATE OF PROCEDURE: 09/22/16 - inpatient, room #420-01 PROCEDURE: Colonoscopy with biopsies. MEDICINES USED: 1. Versed 3 mg IV. 2. Fentanyl 25 mcg IV. NARRATIVE: Ms. Cooper is a 71-year-old woman with a background history of coronary disease with stent, Parkinson's disease, and diabetes. For the last 2 months, she has had high-volume dehydrating diarrhea. She has had no associated rectal bleeding or abdominal pain. She was admitted for this reason and was found to have evidence of electrolyte imbalances consistent with dehydration. Stool evaluation demonstrates no sign of infection, but positive lactoferrin. She did have a colonoscopy about 5 or 6 years ago for screening purposes which was a normal study. Due to her ongoing symptoms, colonoscopy was recommended. Of note, this is an unprepped exam. DESCRIPTION OF PROCEDURE: After the procedure was discussed with the patient and her daughter, risks and benefits were outlined, written consent was obtained. The patient was placed in the left lateral decubitus position and a rectal exam was performed. The rectal exam was normal without any palpable abnormality. At that point, colonoscopy was carried out. A video pediatric flexible colonoscope was inserted anally and advanced very carefully into the cecum. The cecum was identified by the appendiceal orifice and the ileocecal valve. This was an unprepped exam and there was murky fluid seen throughout but quite liquid in consistency and easy to aspirate that. The patient tolerated the procedure well. There were no immediate complications. FINDINGS: Colonoscopy to the cecum was successful. At that level, the colonoscope was slowly withdrawn and careful inspection was carried out. Diffusely throughout the colon, there was a mild inflammatory change characterized by a reduced vascular pattern and some minimal friability to the mucosa. There was no true erosion or ulceration, I do not appreciate any diverticulosis, polyp, or mass. I did perform biopsies throughout the colon. The rectum was viewed both in the forward view and retroflex manner and notable for internal hemorrhoids, but no other pathology. CONCLUSION: Mild nonspecific colitis involving the entire colon, which may be consistent with microscopic colitis (biopsies obtained). RECOMMENDATION: We will certainly await the results of the biopsies. I am going to put her on budesonide 9 mg a day to see if she would respond as I do think it is quite likely she may have microscopic colitis. Additionally, the patient uses NSAIDs fairly regularly and to a high dose and that may be inducing colopathy or an enteropathy, which may also account for her diarrhea and I have counseled the patient to refrain from NSAID use. Thank you very much, Dr. Kumar, for involving me in the care of this pleasant woman. CC: Dr. Kumar* [id number]/[facility] #: [id number] MTDD
[2016-09-23 12:07] LABS: Hematocrit 29 % (35-47); Hemoglobin 9.9 g/dl (12.0-16.0); Mean Corpuscular HGB Conc 34 g/dl (31-36); Mean Corpuscular Hemoglobin 31 pg (27-31); Mean Corpuscular Volume 90 fL (80-97); Mean Platelet Volume 11 um3 (7.4-10.4); Red Blood Count 3.25 10^6/ul (4.0-5.4); Red Cell Distribution Width 14 % (10.5-15)
[2016-09-23 12:57] LABS: ALT < 3 U/L (7-52); Albumin 2.9 g/dL (3.2-5.2); Alkaline Phosphatase 53 U/L (34-104); Anion Gap 5 mmol/L (2-11); Blood Urea Nitrogen 13 mg/dL (6-24); C Reactive Protein 6.93 mg/L (< 5.00); CO2 Carbon Dioxide 20 mmol/L (22-32); Calcium 8.2 mg/dL (8.6-10.3); Chloride 109 mmol/L (101-111); EGFR African American 70.7 (>60); Globulin 3.1 g/dL (2-4); Glucose 125 mg/dL (70-100); Potassium 3.7 mmol/L (3.5-5.0); Sodium 134 mmol/L (133-145)
[2016-09-23 12:58] LABS: AST 13 U/L (13-39); Indirect Bilirubin 0.2 mg/dL (0.3-1.0)
[2016-09-24] MEDS: Heparin VIAL(*) 5000 UNITS/ML VIAL (FIVE THOUSAND) SUBCUT SCH ×3 (05:43→22:00)
[2016-09-24] MEDS: Primidone TAB(*) 50 MG PO SCH ×2 (07:33→20:00)
[2016-09-24] MEDS: CMCS: Budesonide CAP(NF) 3 MG PO SCH (07:33)
[2016-09-24] MEDS: Carbidopa/Levodop CR 50/200(*) TAB.CR PO SCH (07:33)
[2016-09-24] MEDS: Carvedilol TAB* 6.25 MG PO SCH ×2 (07:37→19:56)
[2016-09-24] MEDS: Atorvastatin* 80 MG TAB PO SCH (07:37)
[2016-09-24] MEDS: Aspirin EC Low Dose* 81 MG TAB.EC PO SCH (07:37)
[2016-09-24] MEDS: Ticagrelor* 90 MG TAB PO SCH (07:38)
[2016-09-24] MEDS: Pregabalin CAP(*) 50 MG PO SCH ×2 (07:38→19:56)
[2016-09-24] MEDS: Triamterene/HCTZ 37.5-25 MG* CAP PO SCH (07:38)
--- NOTE | 2016-09-24 11:44 | PN ---
Subjective - Subjective Reason for Note: Progress Note History: She is a little stronger today - she stood for 1 minute. I reviewed PT yesterday - she was not yet able to have the strength and endurance to be independent enough for transfers. Her diarrhea has improved - she thinks she had none overnight and that her diarrhea in the commode was more formed this morning. She is tolerating the budesonide. Active Problems: Active Problems Colitis (Acute) K52.9 Diarrhea (Acute) R19.7 Hypovolemia (Acute) E86.1 Prerenal renal failure (Acute) N19 Weakness (Acute) R53.1 Coronary artery disease (Chronic) I25.10 Essential hypertension (Chronic) I10 History of falling (Chronic) Z91.81 Hyperlipidemia (Chronic) E78.5 Morbid obesity (Chronic) E66.01 Parkinsons disease (Chronic) G20 Type 2 diabetes mellitus (Chronic) Current Medications: Current Medications Acetaminophen (Tylenol Tab*) 650 mg PO Q4H PRN PRN Reason: FEVER/PAIN Last Admin: 09/21/16 20:35 Dose: 650 mg Aspirin (Aspirin Ec Low Dose*) 81 mg PO DAILY [facility] Last Admin: 09/24/16 07:37 Dose: 81 mg Atorvastatin Calcium (Lipitor*) 80 mg PO DAILY [facility] Last Admin: 09/24/16 07:37 Dose: 80 mg Budesonide (Budesonide Cap(Nf)) 9 mg PO DAILY [facility] Last Admin: 09/24/16 07:33 Dose: 9 mg Carbidopa/Levodopa (Sinemet Cr 50/200(*)) 1 tab.cr PO DAILY [facility] Last Admin: 09/24/16 07:33 Dose: 1 tab.cr Carvedilol (Coreg Tab*) 6.25 mg PO BID [facility] Last Admin: 09/24/16 07:37 Dose: 6.25 mg Heparin Sodium (Porcine) (Heparin Vial(*)) 5,000 units SUBCUT Q8HR [facility] Last Admin: 09/24/16 05:43 Dose: 5,000 units Ondansetron HCl (Zofran Inj*) 4 mg IV Q4H PRN PRN Reason: NAUSEA/VOMITING Pregabalin (Lyrica Cap(*)) 150 mg PO BID [facility] Last Admin: 09/24/16 07:38 Dose: 150 mg Primidone (Mysoline Tab(*)) 50 mg PO BID [facility] Last Admin: 09/24/16 07:33 Dose: 50 mg Ticagrelor (Brilinta*) 180 mg PO DAILY [facility] Last Admin: 09/24/16 07:38 Dose: 180 mg Triamterene/HCTZ (Dyazide Cap*) 1 cap PO DAILY [facility] Last Admin: 09/24/16 07:38 Dose: 1 cap Home Medications: Home Medications Medication Instructions Recorded Confirmed Type Aspirin EC Low Dose* [Ecotrin EC 81 mg PO DAILY 06/07/13 09/21/16 History Low Dose 81 MG*] Atorvastatin* [Lipitor*] 80 mg PO DAILY 06/07/13 09/21/16 History Calcium Carbonate-Vitamin D 2 tab PO DAILY 06/07/13 09/21/16 History [Calcium 600+D3] Ibuprofen TAB* [Motrin TAB*] 600 mg PO Q6H PRN 06/07/13 09/21/16 History Losartan TAB* [Cozaar TAB*] 100 mg PO BEDTIME 06/07/13 09/21/16 History Multivitamins/Minerals TAB* [Thera 1 tab PO DAILY 06/07/13 09/21/16 History M Plus TAB*] Pregabalin CAP(*) [Lyrica CAP(*)] 150 mg PO BID 06/07/13 09/21/16 History Primidone TAB(*) [Mysoline(*)] 50 mg PO BID 06/07/13 09/21/16 History Carvedilol TAB* [Coreg TAB*] 6.25 mg PO BID 10/30/13 09/21/16 History Carbidopa/Levodop CR 50/200(*) 1 tab.cr PO DAILY 09/21/16 09/21/16 History [Sinemet CR 50/200(*)] Ticagrelor* [Brilinta*] 180 mg PO DAILY 09/21/16 09/21/16 History Triamterene/HCTZ 37.5-25 MG* 1 cap PO DAILY 09/21/16 09/21/16 History [Dyazide CAP*] Allergies: Allergies Allergy/AdvReac Type Severity Reaction Status Date / Time Penicillin V [From Pen-Vee-K] Allergy Intermediate Rash Verified 11/12/13 07:58 Lisinopril Allergy Mild Rash Verified 11/12/13 07:58 Prasugrel [From Effient] Allergy FULL BODY Verified 11/12/13 07:58 RASH Objective - Vital Signs Vital Signs: Vital Signs 09/23/16 09/23/16 09/23/16 12:01 15:27 19:54 Temperature 97.6 F 97.8 F Pulse Rate 67 81 73 Respiratory 15 16 16 Rate Blood Pressure 148/48 126/80 (mmHg) O2 Sat by Pulse 100 100 99 Oximetry 09/23/16 09/23/16 09/23/16 20:00 21:24 23:24 Temperature Pulse Rate Respiratory 18 18 16 Rate Blood Pressure (mmHg) O2 Sat by Pulse Oximetry 09/23/16 09/24/16 09/24/16 23:29 03:03 07:16 Temperature 97.8 F 97.8 F 97.8 F Pulse Rate 76 70 75 Respiratory 19 18 15 Rate Blood Pressure 125/54 123/57 124/71 (mmHg) O2 Sat by Pulse 93 98 99 Oximetry 09/24/16 09/24/16 09/24/16 07:38 08:53 09:38 Temperature Pulse Rate Respiratory 18 18 20 Rate Blood Pressure (mmHg) O2 Sat by Pulse Oximetry - Intake and Output Intake and Output: Intake & Output 09/21/16 09/22/16 09/23/16 09/24/16 11:59 11:59 11:59 11:59 Intake Total 2158 4058 1932 Output Total 0 400 300 Balance 2158 3658 1632 Weight 202 lb 9.6 oz Intake: IV Fluids 1275 2998 1152 D5W 1/2 NS 20 meq KCL 694 1152 NS (0.9%) 275 500 NS (0.9%) 40 meq KCL 1804 IVPB 323 KCL in Sterile Water 224 Oral 560 1060 780 Output: Urine 0 0 300 Liquid Stool 400 Other: Estimated Void Medium Small Medium # Bowel Movements 1 2 0 Estimated Stool Amount Large Medium Small # Voids 10 1 1 ADLs: Meal Record Start: 09/21/16 19: 00 Freq: DAILY@0900,1400,1800 Status: Active Document 09/22/16 09:00 [id number] (Rec: 09/22/16 10:35 [id number] MED-C09) Document 09/22/16 14:00 [id number] (Rec: 09/22/16 14:54 [id number] MED-C09) Document 09/22/16 18:00 [id number] (Rec: 09/22/16 22:26 [id number] MED-C11) Document 09/23/16 09:00 [id number] (Rec: 09/23/16 15:18 [id number] MED-C09) Document 09/23/16 14:00 [id number] (Rec: 09/23/16 15:20 [id number] MED-C09) Document 09/23/16 18:00 [id number] (Rec: 09/23/16 20:43 [id number] MED-C11) Document 09/24/16 09:00 [id number] (Rec: 09/24/16 09:19 [id number] MED-C11) Intake and Output Start: 09/21/16 19: 00 Freq: DAILY@0600,1400,2200 Status: Active Document 09/21/16 22:00 [id number] (Rec: 09/21/16 23:35 [id number] MED-C11) Document 09/22/16 06:00 [id number] (Rec: 09/22/16 06:22 [id number] MEDL-C01) Document 09/22/16 14:00 [id number] (Rec: 09/22/16 14:54 [id number] MED-C09) Document 09/22/16 22:00 [id number] (Rec: 09/22/16 22:31 [id number] MED-C11) Document 09/23/16 05:32 [id number] (Rec: 09/23/16 05:33 [id number] MED-C42) Document 09/23/16 14:00 [id number] (Rec: 09/23/16 15:20 [id number] MED-C09) Document 09/23/16 22:00 [id number] (Rec: 09/23/16 22:08 [id number] MED-C11) Document 09/24/16 05:46 [id number] (Rec: 09/24/16 05:47 [id number] MED-C11) - Physical Exam General: No Cyanosis, Yes Anemia, No Jaundice, No Clubbing Lungs and Chest: Yes: Chest Expansion Full, Chest Expansion Symetrica, Percussion Note Resonant, Vessicular Breath Sounds. No: Crackles, Wheezes Heart Rate and Rhythm: Regular JVP: Not Elevated Additional Cardiovascular: Yes: Normal Heart Sounds, Pedal Edema - trace. No: Heart Murmur Abdominal Exam: Yes: Soft, Bowel Sounds Present. No: Distention, Abdominal Tenderness Results - Results Lab Results: Laboratory Results - last 24 hr 09/23/16 09/23/16 11:51 11:51 WBC 7.0 RBC 3.25 L Hgb 9.9 L Hct 29 L MCV 90 MCH 31 MCHC 34 RDW 14 Plt Count 154 MPV 11 H Neut % (Auto) 67.0 Lymph % (Auto) 18.5 L [place] % (Auto) 11.4 H Eos % (Auto) 2.1 Baso % (Auto) 1.0 Absolute Neuts (auto) 4.7 Absolute Lymphs (auto) 1.3 Absolute Monos (auto) 0.8 Absolute Eos (auto) 0.1 Absolute Basos (auto) 0.1 Absolute Nucleated RBC 0 Nucleated RBC % 0.1 Sodium 134 Potassium 3.7 Chloride 109 Carbon Dioxide 20 L Anion Gap 5 BUN 13 Creatinine 1.00 H Est GFR ( Amer) 70.7 Est GFR (Non-Af Amer) 55.0 BUN/Creatinine Ratio 13.0 Glucose 125 H Calcium 8.2 L Total Bilirubin 0.30 Direct Bilirubin 0.10 Indirect Bilirubin 0.2 L AST 13 ALT < 3 L Alkaline Phosphatase 53 C-Reactive Protein 6.93 H Total Protein 6.0 L Albumin 2.9 L Globulin 3.1 Albumin/Globulin Ratio 0.9 L Assessment - Problem List Assessment: Patient Problems Colitis (Acute) Diarrhea (Acute) Hypovolemia (Acute) Prerenal renal failure (Acute) Weakness (Acute) Coronary artery disease (Chronic) Essential hypertension (Chronic) History of falling (Chronic) Hyperlipidemia (Chronic) Morbid obesity (Chronic) Parkinsons disease (Chronic) Type 2 diabetes mellitus (Chronic) Plan: Colitis (Acute) Diarrhea (Acute) The results of her colonoscopic biopsies are pending. She appears to be improving with her current diet/budesonide. However , she is very weak. I think she needs another day of acute medical care for her electrolytes/diarrhea. Hypovolemia (Acute) resolved Prerenal renal failure (Acute) Mostly resolved Weakness (Acute) History of falling (Chronic) I will ask for a PMRU consult Coronary artery disease (Chronic) no evidence of acute issue Essential hypertension (Chronic) stable Hyperlipidemia (Chronic) continue current Rx Morbid obesity (Chronic) major secondary diagnosis Parkinsons disease (Chronic) barrier to mobilization Type 2 diabetes mellitus (Chronic) controlled I spent 20 mins speaking with the patient,daughter and son. She would like to go home, but she remains too weak to be safe. I will obtain OT/PT consult. I explained that she would likely need / care at home as her has cellulitis at present. She would benefit from either PMRU or subacute rehab. However, I would like to have OT/PT/PMRU consult first. She agrees with this. I discussed her depression - she thinks this is reactive and due to circumstances - not a barrier to rehab.
[2016-09-24 12:50] LABS: C Reactive Protein 4.58 mg/L (< 5.00); EGFR Non-African American 49.8 (>60); Potassium 3.7 mmol/L (3.5-5.0)
[2016-09-24 13:00] LABS: Hematocrit 33 % (35-47); Hemoglobin 11.2 g/dl (12.0-16.0); Mean Corpuscular HGB Conc 34 g/dl (31-36); Mean Corpuscular Hemoglobin 30 pg (27-31); Mean Corpuscular Volume 89 fL (80-97); Mean Platelet Volume 11 um3 (7.4-10.4); Red Blood Count 3.71 10^6/ul (4.0-5.4); Red Cell Distribution Width 15 % (10.5-15); White Blood Count 9.2 10^3/ul (3.5-10.8)
[2016-09-25] MEDS: Heparin VIAL(*) 5000 UNITS/ML VIAL (FIVE THOUSAND) SUBCUT SCH (06:16)
--- NOTE | 2016-09-25 07:26 | PN ---
Subjective - Subjective Reason for Note: Discharge Note History: She is much better - no bowel movements since yesterday. Her came in and thinks he can manage with transfers. She wants to go home. She has had some problems with urination overnight Active Problems: Active Problems Colitis (Acute) K52.9 Diarrhea (Acute) R19.7 Hypovolemia (Acute) E86.1 Prerenal renal failure (Acute) N19 Weakness (Acute) R53.1 Coronary artery disease (Chronic) I25.10 Essential hypertension (Chronic) I10 History of falling (Chronic) Z91.81 Hyperlipidemia (Chronic) E78.5 Morbid obesity (Chronic) E66.01 Parkinsons disease (Chronic) G20 Type 2 diabetes mellitus (Chronic) Current Medications: Current Medications Acetaminophen (Tylenol Tab*) 650 mg PO Q4H PRN PRN Reason: FEVER/PAIN Last Admin: 09/21/16 20:35 Dose: 650 mg Aspirin (Aspirin Ec Low Dose*) 81 mg PO DAILY [facility] Last Admin: 09/24/16 07:37 Dose: 81 mg Atorvastatin Calcium (Lipitor*) 80 mg PO DAILY [facility] Last Admin: 09/24/16 07:37 Dose: 80 mg Budesonide (Budesonide Cap(Nf)) 9 mg PO DAILY [facility] Last Admin: 09/24/16 07:33 Dose: 9 mg Carbidopa/Levodopa (Sinemet Cr 50/200(*)) 1 tab.cr PO DAILY [facility] Last Admin: 09/24/16 07:33 Dose: 1 tab.cr Carvedilol (Coreg Tab*) 6.25 mg PO BID [facility] Last Admin: 09/24/16 19:56 Dose: 6.25 mg Heparin Sodium (Porcine) (Heparin Vial(*)) 5,000 units SUBCUT Q8HR [facility] Last Admin: 09/25/16 06:16 Dose: 5,000 units Ondansetron HCl (Zofran Inj*) 4 mg IV Q4H PRN PRN Reason: NAUSEA/VOMITING Pregabalin (Lyrica Cap(*)) 150 mg PO BID [facility] Last Admin: 09/24/16 19:56 Dose: 150 mg Primidone (Mysoline Tab(*)) 50 mg PO BID [facility] Last Admin: 09/24/16 20:00 Dose: 50 mg Ticagrelor (Brilinta*) 180 mg PO DAILY [facility] Last Admin: 09/24/16 07:38 Dose: 180 mg Triamterene/HCTZ (Dyazide Cap*) 1 cap PO DAILY [facility] Last Admin: 09/24/16 07:38 Dose: 1 cap Home Medications: Home Medications Medication Instructions Recorded Confirmed Type Aspirin EC Low Dose* [Ecotrin EC 81 mg PO DAILY 06/07/13 09/21/16 History Low Dose 81 MG*] Atorvastatin* [Lipitor 80 MG*] 80 mg PO DAILY 06/07/13 09/21/16 History Calcium Carbonate-Vitamin D 2 tab PO DAILY 06/07/13 09/21/16 History [Calcium 600+D3 600-400 mg-Unit] Ibuprofen TAB* [Motrin TAB* 600 MG] 600 mg PO Q6H PRN 06/07/13 09/21/16 History Losartan TAB* [Cozaar TAB*] 100 mg PO BEDTIME 06/07/13 09/21/16 History Multivitamins/Minerals TAB* [Thera 1 tab PO DAILY 06/07/13 09/21/16 History M Plus TAB*] Pregabalin CAP(*) [Lyrica CAP(*)] 150 mg PO BID 06/07/13 09/21/16 History Primidone TAB(*) [Mysoline TAB(*)] 50 mg PO BID 06/07/13 09/21/16 History Carvedilol TAB* [Coreg TAB*] 6.25 mg PO BID 10/30/13 09/21/16 History Carbidopa/Levodop CR 50/200(*) 1 tab.cr PO DAILY 09/21/16 09/21/16 History [Sinemet CR 50/200(*)] Ticagrelor* [Brilinta 90 MG*] 180 mg PO DAILY 09/21/16 09/21/16 History Triamterene/HCTZ 37.5-25 MG* 1 cap PO DAILY 09/21/16 09/21/16 History [Dyazide CAP*] Budesonide CAP(NF) 9 mg PO DAILY #270 cap 09/25/16 Rx Allergies: Allergies Allergy/AdvReac Type Severity Reaction Status Date / Time Penicillin V [From Pen-Vee-K] Allergy Intermediate Rash Verified 11/12/13 07:58 Lisinopril Allergy Mild Rash Verified 11/12/13 07:58 Prasugrel [From Effient] Allergy FULL BODY Verified 11/12/13 07:58 RASH Objective - Vital Signs Vital Signs: Vital Signs 09/24/16 09/24/16 09/24/16 07:38 08:53 09:38 Temperature Pulse Rate Respiratory 18 18 20 Rate Blood Pressure (mmHg) O2 Sat by Pulse Oximetry 09/24/16 09/24/16 09/24/16 12:11 15:56 19:52 Temperature 98.4 F 99.4 F 98.9 F Pulse Rate 76 81 Respiratory 15 20 Rate Blood Pressure 122/62 134/78 (mmHg) O2 Sat by Pulse 100 100 Oximetry 09/24/16 09/24/16 09/24/16 19:56 20:00 22:00 Temperature Pulse Rate Respiratory 18 18 18 Rate Blood Pressure (mmHg) O2 Sat by Pulse Oximetry 09/24/16 23:55 Temperature 97.6 F Pulse Rate 73 Respiratory 16 Rate Blood Pressure 126/62 (mmHg) O2 Sat by Pulse 99 Oximetry - Intake and Output Intake and Output: Intake & Output 09/22/16 09/23/16 09/24/16 09/25/16 11:59 11:59 11:59 11:59 Intake Total 2158 4058 1932 590 Output Total 0 400 300 300 Balance 2158 3658 1632 290 Weight 202 lb 9.6 oz Intake: IV Fluids 1275 2998 1152 D5W 1/2 NS 20 meq KCL 694 1152 NS (0.9%) 275 500 NS (0.9%) 40 meq KCL 1804 IVPB 323 KCL in Sterile Water 224 Oral 560 1060 780 590 Output: Urine 0 0 300 300 Liquid Stool 400 Other: Estimated Void Medium Small Medium Small # Bowel Movements 1 2 0 0 Estimated Stool Amount Large Medium Small # Voids 10 1 1 0 ADLs: Meal Record Start: 09/21/16 19: 00 Freq: DAILY@0900,1400,1800 Status: Active Document 09/22/16 09:00 [id number] (Rec: 09/22/16 10:35 [id number] MED-C09) Document 09/22/16 14:00 [id number] (Rec: 09/22/16 14:54 [id number] MED-C09) Document 09/22/16 18:00 [id number] (Rec: 09/22/16 22:26 [id number] MED-C11) Document 09/23/16 09:00 [id number] (Rec: 09/23/16 15:18 [id number] MED-C09) Document 09/23/16 14:00 [id number] (Rec: 09/23/16 15:20 [id number] MED-C09) Document 09/23/16 18:00 [id number] (Rec: 09/23/16 20:43 [id number] MED-C11) Document 09/24/16 09:00 [id number] (Rec: 09/24/16 09:19 [id number] MED-C11) Document 09/24/16 13:13 [id number] (Rec: 09/24/16 13:13 [id number] MED-C11) Document 09/24/16 18:00 [id number] (Rec: 09/24/16 19:00 [id number] MED-C11) Intake and Output Start: 09/21/16 19: 00 Freq: DAILY@0600,1400,2200 Status: Active Document 09/21/16 22:00 [id number] (Rec: 09/21/16 23:35 [id number] MED-C11) Document 09/22/16 06:00 [id number] (Rec: 09/22/16 06:22 [id number] MEDL-C01) Document 09/22/16 14:00 [id number] (Rec: 09/22/16 14:54 [id number] MED-C09) Document 09/22/16 22:00 [id number] (Rec: 09/22/16 22:31 [id number] MED-C11) Document 09/23/16 05:32 [id number] (Rec: 09/23/16 05:33 [id number] MED-C42) Document 09/23/16 14:00 [id number] (Rec: 09/23/16 15:20 [id number] MED-C09) Document 09/23/16 22:00 [id number] (Rec: 09/23/16 22:08 [id number] MED-C11) Document 09/24/16 05:46 [id number] (Rec: 09/24/16 05:47 [id number] MED-C11) Document 09/24/16 14:00 [id number] (Rec: 09/24/16 14:43 [id number] MED-C11) Document 09/24/16 21:48 [id number] (Rec: 09/24/16 22:05 [id number] MED-C11) Document 09/25/16 06:00 [id number] (Rec: 09/25/16 06:21 [id number] MED-C09) - Physical Exam General: No Cyanosis, Yes Anemia, No Jaundice, No Clubbing Lungs and Chest: Yes: Chest Expansion Full, Chest Expansion Symetrica, Percussion Note Resonant, Vessicular Breath Sounds. No: Crackles, Wheezes Heart Rate and Rhythm: Regular Additional Cardiovascular: Yes: Normal Heart Sounds. No: Heart Murmur, Pedal Edema Abdominal Exam: Yes: Soft, Bowel Sounds Present. No: Distention, Abdominal Tenderness Results - Results Lab Results: Laboratory Results - last 24 hr 09/24/16 09/24/16 12:19 12:19 WBC 9.2 RBC 3.71 L Hgb 11.2 L Hct 33 L MCV 89 MCH 30 MCHC 34 RDW 15 Plt Count 174 MPV 11 H Neut % (Auto) 74.7 Lymph % (Auto) 14.9 L [place] % (Auto) 8.7 Eos % (Auto) 1.2 Baso % (Auto) 0.5 Absolute Neuts (auto) 6.9 Absolute Lymphs (auto) 1.4 Absolute Monos (auto) 0.8 Absolute Eos (auto) 0.1 Absolute Basos (auto) 0 Absolute Nucleated RBC 0 Nucleated RBC % 0 Sodium 133 Potassium 3.7 Chloride 106 Carbon Dioxide 20 L Anion Gap 7 BUN 12 Creatinine 1.09 H Est GFR ( Amer) 64.0 Est GFR (Non-Af Amer) 49.8 BUN/Creatinine Ratio 11.0 Glucose 128 H Calcium 9.0 C-Reactive Protein 4.58 Assessment - Problem List Assessment: Patient Problems Colitis (Acute) Diarrhea (Acute) Hypovolemia (Acute) Prerenal renal failure (Acute) Weakness (Acute) Coronary artery disease (Chronic) Essential hypertension (Chronic) History of falling (Chronic) Hyperlipidemia (Chronic) Morbid obesity (Chronic) Parkinsons disease (Chronic) Type 2 diabetes mellitus (Chronic) Plan: Colitis (Acute) Diarrhea (Acute) Improving rapidly. She will go home on budesonide Hypovolemia (Acute) resolved Prerenal renal failure (Acute) resolved Weakness (Acute) Requires home PT Coronary artery disease (Chronic) stable Essential hypertension (Chronic) stable History of falling (Chronic) Big concern - discussed with patient/ Hyperlipidemia (Chronic) secondary diagnosis Morbid obesity (Chronic) secondary diagnosis Parkinsons disease (Chronic) secondary diagnosis Type 2 diabetes mellitus (Chronic) secondary diagnosis - controlled I spoke with the patient and her . The family are putting together a plan for home coverage. They want home PT. I think she is ready for discharge clinically
[2016-09-25 07:27] LABS: Hematocrit 31 % (35-47); Hemoglobin 10.7 g/dl (12.0-16.0); Mean Corpuscular HGB Conc 34 g/dl (31-36); Mean Corpuscular Hemoglobin 31 pg (27-31); Mean Corpuscular Volume 90 fL (80-97); Mean Platelet Volume 10 um3 (7.4-10.4); Red Blood Count 3.48 10^6/ul (4.0-5.4); Red Cell Distribution Width 15 % (10.5-15); White Blood Count 7.8 10^3/ul (3.5-10.8)
[2016-09-25 07:44] LABS: BUN/Creatinine Ratio 11.3 (8-20); C Reactive Protein 3.21 mg/L (< 5.00); Calcium 8.9 mg/dL (8.6-10.3); EGFR African American 66.1 (>60); EGFR Non-African American 51.4 (>60); Potassium 3.1 mmol/L (3.5-5.0)
[2016-09-25] MEDS: Acetaminophen TAB* 325 MG PO PRN (08:05)
[2016-09-25 08:35] VITALS: BP 145/68
[2016-09-25] MEDS: CMCS: Budesonide CAP(NF) 3 MG PO SCH (09:09)
[2016-09-25] MEDS: Carbidopa/Levodop CR 50/200(*) TAB.CR PO SCH (09:10)
[2016-09-25] MEDS: Aspirin EC Low Dose* 81 MG TAB.EC PO SCH (09:10)
[2016-09-25] MEDS: Carvedilol TAB* 6.25 MG PO SCH (09:10)
[2016-09-25] MEDS: Atorvastatin* 80 MG TAB PO SCH (09:10)
[2016-09-25] MEDS: Pregabalin CAP(*) 50 MG PO SCH (09:11)
[2016-09-25] MEDS: Primidone TAB(*) 50 MG PO SCH (09:11)
[2016-09-25] MEDS: Ticagrelor* 90 MG TAB PO SCH (09:13)
[2016-09-25] MEDS: Triamterene/HCTZ 37.5-25 MG* CAP PO SCH (09:14)
--- NOTE | 2016-09-30 01:52 | DS ---
CC: Dr. Ivan Nuno DISCHARGE SUMMARY: DATE OF ADMISSION: 09/21/16 DATE OF DISCHARGE: 09/25/16 DISCHARGE DIAGNOSES: 1. Severe diarrhea. 2. Prerenal failure. 3. Electrolyte imbalance. 4. Superficial colitis with focal cryptitis. 5. Generalized weakness. SECONDARY DIAGNOSES: 1. Parkinson's disease. 2. Coronary artery disease. 3. Essential hypertension. 4. History of falling. 5. Dyslipidemia. 6. Morbid obesity. 7. Controlled type 2 diabetes mellitus. HISTORY: Dori Cooper is a 71-year-old white female. Her presentation is documented in Dr. Irineo gomez's admitting history and physical, which is part of the electronic medical record. She has h ad ongoing diarrhea for approximately 2 months. This appears to be inflammatory as she had a positi ve stool calprotectin of 592 on 09/14/16. She became increasingly weak and the diarrhea more severe , hence she presented to the emergency room. Physical examination in the emergency room, temperature 97.4, oxygen saturation 100%, blood pressure systolic between 90s and one-teens as low as 80/50. Abdomen: Obese, tender diffusely, not an acute abdomen. Otherwise, her chest is clear. Heart: Normal to auscultation. Initial investigation, sodium 137, potassium 2.7, chloride 95, creatinine 2.16 with a baseline of 0. 54, BUN 37, hemoglobin 11.1, platelets 184. White cells 9.5. She was admitted for IV fluids, rule out C difficile, treated with empiric metronidazole. PROCEDURES: On 09/22/16, she had a colonoscopy with Dr. Nuno, mild nonspecific colitis involving the entire colon consistent with microscopic colitis. Biopsies were positive for acute superficial colitis with focal cryptitis, minimal architectural disorder. CONSULTATIONS: She was seen in consultation by Dr. Nuno, who suggested starting her on budesonide orally. OTHER INVESTIGATIONS: On 09/21/16, abdominal x-ray, no free air or obstruction. Other labs that are significant, stool was negative for C difficile, negative for Shigella toxin 1 and 2. Urine cultur e was positive for Klebsiella pneumoniae. Blood cultures were negative. HOSPITAL COURSE: During the hospital stay, the patient's diarrhea slowly improved and her electroly gretta corrected with IV fluids. We treated her aggressively initially for hypokalemia. On the day of discharge, she is feeling much better. She had no bowel movements overnight. She had no abdominal pain, nausea, vomiting. She was feeling stronger. She had managed to work with physic al therapy, stand and walk a few steps. PHYSICAL EXAMINATION: On the day of discharge, temperature 97.7, pulse 77, respirations 16, oxygen saturation 98%, blood pressure 145/68. She had no cyanosis, anemia, jaundice, clubbing or lymphaden opathy. Her chest is clear. Cardiovascular System: Pulse is regular. Normal character and volume. Heart sounds are normal. Abdomen: Not distended. Bowel sounds are present. There is no abdomin al tenderness or organomegaly. LABORATORY DATA: Chemistry on the day of discharge, sodium 134, potassium 3.1, chloride 104, bicarb 25, anion gap 5, BUN 12, creatinine 1.42, eGFR 51.4. DISCHARGE MEDICATIONS: 1. Budesonide 9 mg daily. 2. Phenytoin 50 mg twice daily. 3. Pregabalin 150 mg twice daily. 4. Multivitamin one a day. 5. Ibuprofen 600 mg every 6 hours as needed for pain. 6. Calcium carbonate vitamin D 600/400 two tablets a day. 7. Atorvastatin 80 mg at bedtime. 8. Losartan 100 mg daily. 9. Carvedilol 6.25 mg twice daily. 10. Carbidopa/levodopa 50/200 one tablet every day, extended release. 11. Dyazide one tablet daily. 12. Ticagrelor 180 mg daily. 13. Aspirin 81 mg daily. We have arranged home PT. We had a family discussion about her management and safety. She was ruchi amezcua safe to go home and she has a followup at my office. [id number]/[facility] #: [id number]
== END 2016-09-25 11:45 | disposition home health service (06) | DRG 392 ==
LOC: ED 14:09 → MED 17:18
PROVIDERS: ADMIT Internal Medicine; ATTEND Internal Medicine
PROC: 0DBN8ZX Excision of Sigmoid Colon, Via Natural or Artificial Opening Endoscopic, Diagnostic (ICD-10-PCS; principal; 2016-09-22)
PROC: 0DBH8ZX Excision of Cecum, Via Natural or Artificial Opening Endoscopic, Diagnostic (ICD-10-PCS; 2016-09-22)
DX: K52.9 Noninfective gastroenteritis and colitis, unspecified (principal); N17.9 Acute kidney failure, unspecified; I95.9 Hypotension, unspecified; G20 Parkinson's disease; E11.22 Type 2 diabetes mellitus with diabetic chronic kidney disease; Z68.41 Body mass index [BMI] 40.0-44.9, adult; E86.0 Dehydration; M17.0 Bilateral primary osteoarthritis of knee; M19.012 Primary osteoarthritis, left shoulder; M19.011 Primary osteoarthritis, right shoulder; M47.9 Spondylosis, unspecified; F32.9 Major depressive disorder, single episode, unspecified; E87.6 Hypokalemia; I12.9 Hypertensive chronic kidney disease with stage 1 through stage 4 chronic kidney disease, or unspecified chronic kidney disease; N18.9 Chronic kidney disease, unspecified; E86.1 Hypovolemia; I25.10 Atherosclerotic heart disease of native coronary artery without angina pectoris; E66.01 Morbid (severe) obesity due to excess calories; R47.02 Dysphasia; R47.1 Dysarthria and anarthria; G25.0 Essential tremor; K64.8 Other hemorrhoids; E78.00 Pure hypercholesterolemia, unspecified; D53.9 Nutritional anemia, unspecified; Z88.0 Allergy status to penicillin; Z88.8 Allergy status to other drugs, medicaments and biological substances; Z82.49 Family history of ischemic heart disease and other diseases of the circulatory system; Z87.440 Personal history of urinary (tract) infections; Z86.19 Personal history of other infectious and parasitic diseases; Z91.81 History of falling; Z86.010 Personal history of colon polyps; Z95.5 Presence of coronary angioplasty implant and graft
CPT/HCPCS: 36415; 74020; 80048; 80053; 80076; 81003; 81015; 82140; 82150; 82550; 83605; 83630; 83690; 83735; 83880; 84100; 84484; 85025; 86140; 87040; 87045; 87046; 87077; 87086; 87186; 87493; 87899; 88305; 93005; A9270-GY; J1644; J2250; J3010; J3480

== ENCOUNTER 2016-11-05 08:34 | Emergency (ER) | payer MEDICARE ==
[2016-11-05] MEDS ORDERED: NS 0.9% 1000 ML* 1,000 ML IV ONE (09:23)
[2016-11-05 09:59] LABS: Hematocrit 38 % (35-47); Hemoglobin 12.7 g/dl (12.0-16.0); Mean Corpuscular HGB Conc 33 g/dl (31-36); Mean Corpuscular Hemoglobin 31 pg (27-31); Mean Corpuscular Volume 94 fL (80-97); Mean Platelet Volume 9 um3 (7.4-10.4); Red Blood Count 4.06 10^6/ul (4.0-5.4); Red Cell Distribution Width 16 % (10.5-15); White Blood Count 6.7 10^3/ul (3.5-10.8)
--- NOTE | 2016-11-05 10:01 | RAD ---
HISTORY: Abdominal pain COMPARISONS: September 21, 2016 VIEWS: Frontal supine and upright views of the abdomen. FINDINGS: BOWEL: There is a nonobstructive bowel gas pattern. There is a large amount of stool within the colon. CALCULI: There are no abnormal calculi. BONES AND SOFT TISSUES: There is a scoliotic curvature of the spine. Degenerative changes are noted OTHER FINDINGS: The lung bases are clear. There is no subphrenic gas. IMPRESSION: NONOBSTRUCTIVE BOWEL GAS PATTERN. NO SUBPHRENIC GAS.
[2016-11-05 10:09] LABS: Urine Bilirubin Negative (Negative); Urine Glucose Negative (Negative); Urine Nitrite Negative (Negative)
[2016-11-05 10:15] LABS: Albumin 3.1 g/dL (3.2-5.2); BUN/Creatinine Ratio 22.6 (8-20); C Reactive Protein 2.26 mg/L (< 5.00); Calcium 8.5 mg/dL (8.6-10.3); EGFR African American 76.9 (>60); EGFR Non-African American 59.8 (>60); Globulin 3.5 g/dL (2-4); Potassium 3.1 mmol/L (3.5-5.0); Total Bilirubin 0.3 mg/dL (0.2-1.0); Total Protein 6.6 g/dL (6.4-8.9)
[2016-11-05] MEDS ORDERED: Iodixanol* (CONTRAST) 320 MG/ML 100 ML SDV IV ONE (12:17)
--- NOTE | 2016-11-05 13:05 | RAD ---
CLINICAL HISTORY: Abdominal pain COMPARISON: None TECHNIQUE: Multiple contiguous axial CT scans were obtained of the abdomen and pelvis after the administration of intravenous contrast. Coronal and sagittal multiplanar reformations are submitted for review. Oral contrast was administered. Delayed images were obtained through the abdomen and pelvis. FINDINGS: LUNG BASES: The lung bases are clear. LIVER: The liver is normal in shape, size, contour, and attenuation. BILE DUCTS: There is no intrahepatic or extrahepatic biliary dilatation. GALLBLADDER: The gallbladder is normal, without pericholecystic inflammatory change. PANCREAS: The pancreas is normal, without mass or ductal dilatation. SPLEEN: Normal in size and appearance. UPPER GI TRACT: Evaluation of the gastrointestinal tract is limited by incomplete gastric distention. The upper GI tract is unremarkable. SMALL BOWEL AND MESENTERY: The small bowel is normal in contour, course, and caliber. There is no obstruction or dilatation. COLON: The colon is normal in contour, course, caliber. There is no pericolonic inflammatory change. ADRENALS: Normal bilaterally. KIDNEYS: The kidneys are normal in shape, size, contour, and axis. There is no hydronephrosis or nephrolithiasis. BLADDER: The bladder is smooth in contour. PELVIC ORGANS: There is hypoattenuation centrally within the body of the uterus measuring up to 1.4 cm in caliber which may represent fluid within endometrial cavity versus thickening of the endometrium. The pelvic organs are otherwise normal for age and technique AORTA: There is calcific atherosclerotic disease of the abdominal aorta and its branches, without aneurysmal dilatation IVC: Unremarkable LYMPH NODES: There is no lymphadenopathy by size criteria. ABDOMINAL WALL: There is no evidence for abdominal wall hernia. BONES AND SOFT TISSUES: There is a scoliotic curvature of the spine. Degenerative changes are noted of the spine OTHER: None IMPRESSION: 1. ENDOMETRIAL THICKENING VERSUS FLUID WITHIN THE ENDOMETRIAL CAVITY, NOT EXPECTED TO BE PHYSIOLOGIC WITHIN A POSTMENOPAUSAL FEMALE. RECOMMEND CONSIDERATION OF CORRELATION WITH DEDICATED IMAGING OF THE PELVIS IN THE NONACUTE SETTING AND/OR GYNECOLOGIC CONSULTATION. 2. ATHEROSCLEROSIS
[2016-11-05] MEDS ORDERED: Potassium Chlor TAB* 20 MEQ TAB.ER PO ONE (13:47)
[2016-11-05 14:03] VITALS: BP 113/61
--- NOTE | 2016-11-05 18:29 | ED ---
Kyle Bartlett Auryana, scribed for Luis Wade MD on 11/05/16 at 1050 . Abdominal Pain/Female - HPI Summary HPI Summary: 71 year old female presents with suprapubic pain starting a few days ago. She reports that with initial urination she urinated a lot but much smaller amounts after that. She denies any nausea, vomiting, or burning with urination. PMHx is significant for DM, HTN, HLD, ID, OA, obesity, depression, Parkinsons disease, colon polyps, and U.T.I. - History of Current Complaint Chief Complaint: EDAbdPain Stated Complaint: POSSIBLE UTI Time Seen by Provider: 11/05/16 09:17 Hx Last Menstrual Period: N/A ?: No Onset/Duration: Gradual Onset, Lasting Days - FEW DAYS AGO, Still Present Timing: Constant Severity Initially: Mild Severity Currently: Moderate Pain Intensity: 8 Pain Scale Used: 0-10 Numeric Location: Suprapubic Radiates: No Associated Signs and Symptoms: Positive: Urinary Symptoms - see HPI. Negative: Nausea, Vomiting Simlar Episode/Dx as:: HISTORY OF U.T.I. Allergies/Adverse Reactions: Allergies Allergy/AdvReac Type Severity Reaction Status Date / Time Penicillin V [From Pen-Vee-K] Allergy Intermediate Rash Verified 11/05/16 08:35 Lisinopril Allergy Mild Rash Verified 11/05/16 08:35 Prasugrel [From Effient] Allergy FULL BODY Verified 11/05/16 08:35 RASH PMH/Surg Hx/FS Hx/Imm Hx Endocrine/Hematology History: Reports: Hx Diabetes - DM2, Hx Anemia Denies: Hx Anticoagulant Therapy, Hx Thyroid Disease Cardiovascular History: Reports: Hx Hypercholesterolemia, Hx Hypertension Respiratory History: Denies: Hx Seasonal Allergies, Hx Sleep Apnea GI History: Denies: Hx Diverticulosis, Hx Gall Bladder Disease, Hx Gastroesophageal Reflux Disease, Hx Irritable Bowel, Hx Jaundice, Hx Ulcer Musculoskeletal History: Reports: Hx Arthritis - knees and shoulders, Hx Bursitis Denies: Hx Fibromyalgia, Hx Gout, Hx Osteoporosis Sensory History: Denies: Hx Contacts or Glasses, Hx Hearing Aid Opthamlomology History: Denies: Hx Contacts or Glasses Neurological History: Reports: Other Neuro Impairments/Disorders - tremors Denies: Hx Headaches, Hx Migraine, Hx Seizures Psychiatric History: Reports: Hx Depression - citalapram Denies: Hx Eating Disorder, Hx Panic Disorder, Hx Post Traumatic Stress Disorder, Hx Suicide Attempt, Hx Substance Abuse Infectious Disease History: No Infectious Disease History: Denies: Hx Hepatitis, Traveled Outside the [place] in Last 30 Days - Family History Known Family History: Positive: Cardiac Disease - Social History Occupation: Retired Lives: With Family Alcohol Use: None Substance Use Type: Reports: None Smoking Status (MU): Never Smoked Tobacco Review of Systems Constitutional: Negative Negative: Fever Eyes: Negative ENT: Negative Cardiovascular: Negative Respiratory: Negative Positive: Abdominal Pain - suprapubic . Negative: Vomiting, Nausea Genitourinary: Negative Positive: no symptoms reported Musculoskeletal: Negative Skin: Negative Neurological: Negative Psychological: Normal All Other Systems Reviewed And Are Negative: Yes Physical Exam - Summary Physical Exam Summary: VITAL SIGNS: Reviewed. GENERAL: Patient is a well-developed and obese female who is lying comfortable in the stretcher. Patient is not in any acute respiratory distress. HEAD AND FACE: Normocephalic and atraumatic. EYES: PERRLA, EOMI x 2, No injected conjunctiva. EARS: Hearing grossly intact. Ear canals and tympanic membranes are WNL. MOUTH: Oropharynx within normal limits. NECK: Supple, trachea is midline, no adenopathy, no JVD. CHEST: Symmetric, no tenderness at palpation LUNGS: Clear to auscultation bilaterally. No wheezing or crackles. CVS: RRR, S1 and S2 present, no murmurs or gallops appreciated. ABDOMEN: Soft, non-tender, and obese. No signs of distention. Positive bowel sounds. No rebound no guarding, and no masses palpated. No abdominal bruit or pulsations. EXTREMITIES: FROM in all major joints, no edema, no cyanosis or clubbing. Tremor in the upper extremities - parkinsons dx. NEURO: Alert and oriented x 3. No acute neurological deficits. Speech is normal. SKIN: Dry and warm Triage Information Reviewed: Yes Vital Signs On Initial Exam: Initial Vitals Temp Pulse Resp BP Pulse Ox 97.7 F 88 18 86/67 99 11/05/16 08:36 11/05/16 08:36 11/05/16 08:36 11/05/16 08:36 11/05/16 08:36 Vital Signs Reviewed: Yes Diagnostics - Vital Signs Vital Signs Temp Pulse Resp BP Pulse Ox 11/05/16 08:36 97.7 F 88 18 86/67 99 - Laboratory Lab Results: Lab Results 11/05/16 11/05/16 11/05/16 Range/Units 08:45 09:23 09:23 WBC (3.5-10.8) 10^3/ul RBC (4.0-5.4) 10^6/ul Hgb (12.0-16.0) g/dl Hct (35-47) % MCV (80-97) fL MCH (27-31) pg MCHC (31-36) g/dl RDW (10.5-15) % Plt Count (150-450) 10^3/ul MPV (7.4-10.4) um3 Neut % (Auto) (38-83) % Lymph % (Auto) (25-47) % Bay % (Auto) (1-9) % Eos % (Auto) (0-6) % Baso % (Auto) (0-2) % Absolute Neuts (auto) (1.5-7.7) 10^3/ul Absolute Lymphs (auto) (1.0-4.8) 10^3/ul Absolute Monos (auto) (0-0.8) 10^3/ul Absolute Eos (auto) (0-0.6) 10^3/ul Absolute Basos (auto) (0-0.2) 10^3/ul Absolute Nucleated RBC 10^3/ul Nucleated RBC % Sodium 133 (133-145) mmol/L Potassium 3.1 L (3.5-5.0) mmol/L Chloride 97 L (101-111) mmol/L Carbon Dioxide 30 (22-32) mmol/L Anion Gap 6 (2-11) mmol/L BUN 21 (6-24) mg/dL Creatinine 0.93 (0.51-0.95) mg/dL Est GFR ( Amer) 76.9 (>60) Est GFR (Non-Af Amer) 59.8 (>60) BUN/Creatinine Ratio 22.6 H (8-20) Glucose 120 H (70-100) mg/dL Lactic Acid 1.7 (0.5-2.0) mmol/L Calcium 8.5 L (8.6-10.3) mg/dL Total Bilirubin 0.30 (0.2-1.0) mg/dL AST 17 (13-39) U/L ALT 4 L (7-52) U/L Alkaline Phosphatase 45 (34-104) U/L C-Reactive Protein 2.26 (< 5.00) mg/L Total Protein 6.6 (6.4-8.9) g/dL Albumin 3.1 L (3.2-5.2) g/dL Globulin 3.5 (2-4) g/dL Albumin/Globulin Ratio 0.9 L (1-3) Lipase 35 (11.0-82.0) U/L Urine Color Colorless Urine Appearance Clear Urine pH 7.0 (5-9) Ur Specific [place] 1.004 L (1.010-1.030) Urine Protein Negative (Negative) Urine Ketones Negative (Negative) Urine Blood Negative (Negative) Urine Nitrate Negative (Negative) Urine Bilirubin Negative (Negative) Urine Urobilinogen Negative (Negative) Ur Leukocyte Esterase Negative (Negative) Urine Glucose Negative (Negative) 11/05/16 Range/Units 09:49 WBC 6.7 (3.5-10.8) 10^3/ul RBC 4.06 (4.0-5.4) 10^6/ul Hgb 12.7 (12.0-16.0) g/dl Hct 38 (35-47) % MCV 94 (80-97) fL MCH 31 (27-31) pg MCHC 33 (31-36) g/dl RDW 16 H (10.5-15) % Plt Count 228 (150-450) 10^3/ul MPV 9 (7.4-10.4) um3 Neut % (Auto) 68.4 (38-83) % Lymph % (Auto) 17.4 L (25-47) % Bay % (Auto) 8.9 (1-9) % Eos % (Auto) 4.0 (0-6) % Baso % (Auto) 1.3 (0-2) % Absolute Neuts (auto) 4.6 (1.5-7.7) 10^3/ul Absolute Lymphs (auto) 1.2 (1.0-4.8) 10^3/ul Absolute Monos (auto) 0.6 (0-0.8) 10^3/ul Absolute Eos (auto) 0.3 (0-0.6) 10^3/ul Absolute Basos (auto) 0.1 (0-0.2) 10^3/ul Absolute Nucleated RBC 0 10^3/ul Nucleated RBC % 0.1 Sodium (133-145) mmol/L Potassium (3.5-5.0) mmol/L Chloride (101-111) mmol/L Carbon Dioxide (22-32) mmol/L Anion Gap (2-11) mmol/L BUN (6-24) mg/dL Creatinine (0.51-0.95) mg/dL Est GFR ( Amer) (>60) Est GFR (Non-Af Amer) (>60) BUN/Creatinine Ratio (8-20) Glucose (70-100) mg/dL Lactic Acid (0.5-2.0) mmol/L Calcium (8.6-10.3) mg/dL Total Bilirubin (0.2-1.0) mg/dL AST (13-39) U/L ALT (7-52) U/L Alkaline Phosphatase (34-104) U/L C-Reactive Protein (< 5.00) mg/L Total Protein (6.4-8.9) g/dL Albumin (3.2-5.2) g/dL Globulin (2-4) g/dL Albumin/Globulin Ratio (1-3) Lipase (11.0-82.0) U/L Urine Color Urine Appearance Urine pH (5-9) Ur Specific [place] (1.010-1.030) Urine Protein (Negative) Urine Ketones (Negative) Urine Blood (Negative) Urine Nitrate (Negative) Urine Bilirubin (Negative) Urine Urobilinogen (Negative) Ur Leukocyte Esterase (Negative) Urine Glucose (Negative) Result Diagrams: 11/05/16 09:49 11/05/16 09:23 Lab Statement: Any lab studies that have been ordered have been reviewed, and results considered in the medical decision making process. - Radiology ABD XR Xray Interpretation: No Acute Changes - IMPRESSION: NONOBSTRUCTIVE BOWEL GAS PATTERN. NO SUBPHRENIC GAS. Radiology Interpretation Completed By: Radiologist - CT ABD/PEL CT Interpretation: Positive (See Comments) - IMPRESSION: 1. ENDOMETRIAL THICKENING VERSUS FLUID WITHIN THE ENDOMETRIAL CAVITY, NOT EXPECTED TO BE PHYSIOLOGIC WITHIN A POSTMENOPAUSAL FEMALE. RECOMMEND CONSIDERATION OF CORRELATION WITH DEDICATED IMAGING OF THE PELVIS IN THE NONACUTE SETTING AND/OR GYNECOLOGIC CONSULTATION. 2. ATHEROSCLEROSIS CT Interpretation Completed By: Radiologist Abdominal Pain Fem Course/Dx - Course Course Of Treatment: ASSESSMENT AND PLAN: 71 year old female presents with suprapubic pain starting a few days ago. She reports that with initial urination she urinated a lot but much smaller amounts after that. She denies any nausea, vomiting, or burning with urination. PMHx is significant for DM, HTN , HLD, ID, OA, obesity, depression, Parkinsons disease, colon polyps, and U.T.I. Test results WNL except potassium 3.1 given potassium chloride, glucose 120, calcium 8.5 . UA shows no U.T.I. ABD XR- IMPRESSION: NONOBSTRUCTIVE BOWEL GAS PATTERN. NO SUBPHRENIC GAS. In ED course patient was give IV fluids. Since patient has no U.T.I. and slight lower abdominal pain did CT to r/o diverticulitis. CT ABD pel IMPRESSION: 1. ENDOMETRIAL THICKENING VERSUS FLUID WITHIN THE ENDOMETRIAL CAVITY, NOT EXPECTED TO BE PHYSIOLOGIC WITHIN A POSTMENOPAUSAL FEMALE. RECOMMEND CONSIDERATION OF CORRELATION WITH DEDICATED IMAGING OF THE PELVIS IN THE NONACUTE SETTING AND/OR GYNECOLOGIC CONSULTATION. 2. ATHEROSCLEROSIS. At this time, I offered patient pelvic exam and patient declined. Patient reports that she would prefer an OB/ BGYN referral. Patient is comfortable and denies any abdominal pain at the moment but because of the endometrial thickening she probably needs an endometrial biopsy to r/o malignancy. Therefore, since patient is asymptomatic, I will discharge patient home with referral to GENETIC COORDINATOR physician. The patient s daughter and were emphasized in the importance of follow up with OB/ [facility]BLER and they understand. Patient will be discharged home with PCP physician and follow up with [facility]ET[facility] COORDINATOR. I discussed all the findings and test results with the patient. Patient was instructed to return to the emergency room immediately if any of the symptoms return or worsens. They were explained the possibility of an early abdominal pathology which was not detected at this time despite the physical exam and testing. They understand and agree. Abdominal exam before discharge: Soft, NT. No signs of distention. BS present. No rebound no guarding, and no masses palpated. Patient is alert and oriented and hemodynamically stable. Patient is to follow up with primary care physician in the next 2 to 3 days. Patient agree and understands. - Diagnoses Differential Diagnosis: Positive: Bowel Obstruction, Constipation, Diverticulitis, Renal Colic, Urinary Tract Infection Provider Diagnoses: Pelvic pain, Abdominal pain Discharge - Discharge Plan Condition: Stable Disposition: HOME Patient Education Materials: Abdominal Pain (ED), Pelvic Pain (ED) Referrals: Patrizia Galan MD [Medical Doctor] - 2 Days The documentation as recorded by the Kyle park Auryana accurately reflects the service I personally performed and the decisions made by Mauro dawson Walter, MD.
== END 2016-11-05 14:07 | disposition home or self-care (01) ==
LOC: ED 08:34
DX: R10.2 Pelvic and perineal pain (principal); R10.9 Unspecified abdominal pain; I70.90 Unspecified atherosclerosis
CPT/HCPCS: 36415; 74020; 74177; 80053; 81003; 83605; 83690; 85025; 86140; 96360; 99283; A9270-GY; Q9967

== ENCOUNTER 2016-11-09 11:38 | Inpatient (IN) | payer MEDICARE ==
[2016-11-09] MEDS ORDERED: NS 0.9% 1000 ML* 1,000 ML IV ONE ×2 (12:12→16:37)
[2016-11-09] MEDS ORDERED: methylPREDNISolone 125 MG* 2 ML VIAL IV ONE (12:14)
[2016-11-09 12:20] LABS: Hematocrit 39 % (35-47); Hemoglobin 12.8 g/dl (12.0-16.0); Mean Corpuscular HGB Conc 33 g/dl (31-36); Mean Corpuscular Hemoglobin 31 pg (27-31); Mean Corpuscular Volume 95 fL (80-97); Mean Platelet Volume 9 um3 (7.4-10.4); Red Blood Count 4.07 10^6/ul (4.0-5.4); Red Cell Distribution Width 16 % (10.5-15); White Blood Count 13.1 10^3/ul (3.5-10.8)
[2016-11-09 12:32] LABS: Albumin 2.7 g/dL (3.2-5.2); BUN/Creatinine Ratio 22.2 (8-20); C Reactive Protein 22.77 mg/L (< 5.00); Calcium 8.3 mg/dL (8.6-10.3); EGFR Non-African American 45.9 (>60); Globulin 3.2 g/dL (2-4); Potassium 3.6 mmol/L (3.5-5.0); Total Bilirubin 0.4 mg/dL (0.2-1.0); Total Protein 5.9 g/dL (6.4-8.9)
[2016-11-09 12:33] LABS: Troponin I 0.01 ng/mL (<0.04)
--- NOTE | 2016-11-09 12:45 | RAD ---
HISTORY: Sepsis COMPARISONS: September 04, 2016 VIEWS:1: Single frontal portable view of the chest at 12:35 PM FINDINGS: LINES AND TUBES: None. CARDIOMEDIASTINAL SILHOUETTE: The cardiomediastinal silhouette is normal for portable technique. PLEURA: The costophrenic angles are sharp. No pleural abnormalities are noted. LUNG PARENCHYMA: The lungs are clear. ABDOMEN: The upper abdomen is clear. There is no subphrenic gas. BONES AND SOFT TISSUES: Degenerative changes are noted of the spine and shoulders IMPRESSION: NO ACTIVE CARDIOPULMONARY DISEASE.
[2016-11-09 13:37] LABS: Urine Bacteria 1+ (Absent); Urine Bilirubin Negative (Negative); Urine Glucose Negative (Negative); Urine Nitrite Negative (Negative)
[2016-11-09] MEDS ORDERED: Levofloxacin 750 MG IVPREMIX(* 750 MG/150 ML BAG IVPB ONE (13:49)
--- NOTE | 2016-11-09 19:04 | ED ---
Nneo Bartlett Benjamin, scribed for Quique Warren MD on 11/09/16 at 1225 . Complex/Multi-Sys Presentation - HPI Summary HPI Summary: 71yo female c/o weakness with low BP this morning. Measured BP this morning was 65/44. Pt was recently seen for UTI and cervix enlargement. Pt still states having trouble urinating. Hx of Parkinson's disease. Denies abdominal pain. - History Of Current Complaint Chief Complaint: EDGeneral Time Seen by Provider: 11/09/16 11:53 Hx Obtained From: Patient, Family/Official Court Reporter - Onset/Duration: Sudden Onset, Still Present Timing: Constant Severity Currently: Mild Severity Initially: Mild Associated Signs And Symptoms: Positive: Weakness, Other - low BP - Allergies/Home Medications Allergies/Adverse Reactions: Allergies Allergy/AdvReac Type Severity Reaction Status Date / Time Penicillin V [From Pen-Vee-K] Allergy Intermediate Rash Verified 11/05/16 08:35 Lisinopril Allergy Mild Rash Verified 11/05/16 08:35 Prasugrel [From Effient] Allergy FULL BODY Verified 11/05/16 08:35 RASH IV Contrast Allergy Rash Uncoded 11/09/16 16:15 Home Medications: Home Medications Calcium Carbonate-Vitamin D W/ [Calcium 1200] 1 chw PO DAILY 11/09/16 [History Confirmed 11/09/16] Carbidopa/Levodop 25/100 MG(*) [Sinemet 25/100 TAB(*)] 1 tab PO QID 11/09/16 [ History Confirmed 11/09/16] Carbidopa/Levodop CR 50/200(*) [Sinemet CR 50/200(*)] 1 tab.cr PO BEDTIME [History Confirmed 11/09/16] Lansoprazole CAP (NF) [Prevacid CAP (NF)] 15 mg PO DAILY 11/09/16 [History Confirmed 11/09/16] Ticagrelor* [Brilinta*] 90 mg PO BID 11/09/16 [History Confirmed 11/09/16] PMH/Surg Hx/FS Hx/Imm Hx Endocrine/Hematology History: Reports: Hx Diabetes - DM2, Hx Anemia Denies: Hx Anticoagulant Therapy, Hx Thyroid Disease Cardiovascular History: Reports: Hx Hypercholesterolemia, Hx Hypertension Respiratory History: Denies: Hx Seasonal Allergies, Hx Sleep Apnea GI History: Denies: Hx Diverticulosis, Hx Gall Bladder Disease, Hx Gastroesophageal Reflux Disease, Hx Irritable Bowel, Hx Jaundice, Hx Ulcer Musculoskeletal History: Reports: Hx Arthritis - knees and shoulders, Hx Bursitis Denies: Hx Fibromyalgia, Hx Gout, Hx Osteoporosis Sensory History: Denies: Hx Contacts or Glasses, Hx Hearing Aid Opthamlomology History: Denies: Hx Contacts or Glasses Neurological History: Reports: Other Neuro Impairments/Disorders - tremors Denies: Hx Headaches, Hx Migraine, Hx Seizures Psychiatric History: Reports: Hx Depression - citalapram Denies: Hx Eating Disorder, Hx Panic Disorder, Hx Post Traumatic Stress Disorder, Hx Suicide Attempt, Hx Substance Abuse Infectious Disease History: No Infectious Disease History: Denies: Hx Hepatitis, Traveled Outside the [place] in Last 30 Days - Family History Known Family History: Positive: Cardiac Disease - Social History Occupation: Retired Lives: With Family Alcohol Use: None Substance Use Type: Reports: None Smoking Status (MU): Never Smoked Tobacco Review of Systems Constitutional: Negative Eyes: Negative ENT: Negative Cardiovascular: Negative Respiratory: Negative Gastrointestinal: Negative Positive: dysuria, urgency Musculoskeletal: Negative Skin: Negative Positive: Weakness Psychological: Normal All Other Systems Reviewed And Are Negative: Yes Physical Exam Triage Information Reviewed: Yes Vital Signs On Initial Exam: Initial Vitals Temp Pulse Resp BP Pulse Ox 98.1 F 91 20 92/56 98 11/09/16 11:44 11/09/16 11:44 11/09/16 11:44 11/09/16 11:44 11/09/16 11:44 Vital Signs Reviewed: Yes Appearance: Positive: No Pain Distress, Obese Skin: Positive: Warm, Skin Color Reflects Adequate Perfusion, Erythema @ - diffusely, Other - urticaria diffusely Head/Face: Positive: Normal Head/Face Inspection Eyes: Positive: Normal ENT: Positive: Normal ENT inspection Neck: Positive: Supple, Nontender Respiratory/Lung Sounds: Positive: Clear to Auscultation, Breath Sounds Present Cardiovascular: Positive: RRR Abdomen Description: Positive: Nontender, Soft Bowel Sounds: Positive: Present Musculoskeletal: Positive: Normal Neurological: Positive: Alert, Oriented to Person Place, Time, CN Intact II-III , Reflexes Intact, Other - resting tremmers Psychiatric: Positive: Affect/Mood Appropriate Diagnostics - Vital Signs Vital Signs Temp Pulse Resp BP Pulse Ox 11/09/16 11:46 98.1 F 91 99 11/09/16 11:44 98.1 F 91 98 - Laboratory Lab Results: Lab Results 11/09/16 11/09/16 11/09/16 Range/Units 12:00 12:00 12:00 WBC 13.1 H (3.5-10.8) 10^3/ul RBC 4.07 (4.0-5.4) 10^6/ul Hgb 12.8 (12.0-16.0) g/dl Hct 39 (35-47) % MCV 95 (80-97) fL MCH 31 (27-31) pg MCHC 33 (31-36) g/dl RDW 16 H (10.5-15) % Plt Count 237 (150-450) 10^3/ul MPV 9 (7.4-10.4) um3 Neut % (Auto) 82.9 (38-83) % Lymph % (Auto) 5.1 L (25-47) % [place] % (Auto) 5.3 (1-9) % Eos % (Auto) 6.3 H (0-6) % Baso % (Auto) 0.4 (0-2) % Absolute Neuts (auto) 10.9 H (1.5-7.7) 10^3/ul Absolute Lymphs (auto) 0.7 L (1.0-4.8) 10^3/ul Absolute Monos (auto) 0.7 (0-0.8) 10^3/ul Absolute Eos (auto) 0.8 H (0-0.6) 10^3/ul Absolute Basos (auto) 0 (0-0.2) 10^3/ul Absolute Nucleated RBC 0 10^3/ul Nucleated RBC % 0 INR (Anticoag Therapy) 0.90 (0.89-1.11) APTT 26.5 (26.0-36.3) seconds Sodium 128 L (133-145) mmol/L Potassium 3.6 (3.5-5.0) mmol/L Chloride 97 L (101-111) mmol/L Carbon Dioxide 24 (22-32) mmol/L Anion Gap 7 (2-11) mmol/L BUN 26 H (6-24) mg/dL Creatinine 1.17 H (0.51-0.95) mg/dL Est GFR ( Amer) 59.0 (>60) Est GFR (Non-Af Amer) 45.9 (>60) BUN/Creatinine Ratio 22.2 H (8-20) Glucose 136 H (70-100) mg/dL Lactic Acid (0.5-2.0) mmol/L Calcium 8.3 L (8.6-10.3) mg/dL Total Bilirubin 0.40 (0.2-1.0) mg/dL AST 13 (13-39) U/L ALT 4 L (7-52) U/L Alkaline Phosphatase 39 (34-104) U/L Troponin I 0.01 (<0.04) ng/mL C-Reactive Protein 22.77 H (< 5.00) mg/L Total Protein 5.9 L (6.4-8.9) g/dL Albumin 2.7 L (3.2-5.2) g/dL Globulin 3.2 (2-4) g/dL Albumin/Globulin Ratio 0.8 L (1-3) Urine Color Urine Appearance Urine pH (5-9) Ur Specific [place] (1.010-1.030) Urine Protein (Negative) Urine Ketones (Negative) Urine Blood (Negative) Urine Nitrate (Negative) Urine Bilirubin (Negative) Urine Urobilinogen (Negative) Ur Leukocyte Esterase (Negative) Urine WBC (Auto) (Absent) Urine RBC (Auto) (Absent) Ur Squamous Epith Cells (Absent) Urine Bacteria (Absent) Hyaline Casts (Absent) Urine Glucose (Negative) 11/09/16 11/09/16 Range/Units 12:00 13:13 WBC (3.5-10.8) 10^3/ul RBC (4.0-5.4) 10^6/ul Hgb (12.0-16.0) g/dl Hct (35-47) % MCV (80-97) fL MCH (27-31) pg MCHC (31-36) g/dl RDW (10.5-15) % Plt Count (150-450) 10^3/ul MPV (7.4-10.4) um3 Neut % (Auto) (38-83) % Lymph % (Auto) (25-47) % [place] % (Auto) (1-9) % Eos % (Auto) (0-6) % Baso % (Auto) (0-2) % Absolute Neuts (auto) (1.5-7.7) 10^3/ul Absolute Lymphs (auto) (1.0-4.8) 10^3/ul Absolute Monos (auto) (0-0.8) 10^3/ul Absolute Eos (auto) (0-0.6) 10^3/ul Absolute Basos (auto) (0-0.2) 10^3/ul Absolute Nucleated RBC 10^3/ul Nucleated RBC % INR (Anticoag Therapy) (0.89-1.11) APTT (26.0-36.3) seconds Sodium (133-145) mmol/L Potassium (3.5-5.0) mmol/L Chloride (101-111) mmol/L Carbon Dioxide (22-32) mmol/L Anion Gap (2-11) mmol/L BUN (6-24) mg/dL Creatinine (0.51-0.95) mg/dL Est GFR ( Amer) (>60) Est GFR (Non-Af Amer) (>60) BUN/Creatinine Ratio (8-20) Glucose (70-100) mg/dL Lactic Acid 2.4 H* (0.5-2.0) mmol/L Calcium (8.6-10.3) mg/dL Total Bilirubin (0.2-1.0) mg/dL AST (13-39) U/L ALT (7-52) U/L Alkaline Phosphatase (34-104) U/L Troponin I (<0.04) ng/mL C-Reactive Protein (< 5.00) mg/L Total Protein (6.4-8.9) g/dL Albumin (3.2-5.2) g/dL Globulin (2-4) g/dL Albumin/Globulin Ratio (1-3) Urine Color Yellow Urine Appearance Cloudy Urine pH 6.0 (5-9) Ur Specific [place] 1.011 (1.010-1.030) Urine Protein Negative (Negative) Urine Ketones Negative (Negative) Urine Blood Negative (Negative) Urine Nitrate Negative (Negative) Urine Bilirubin Negative (Negative) Urine Urobilinogen Negative (Negative) Ur Leukocyte Esterase 1+ H (Negative) Urine WBC (Auto) 2+(11-20/hpf) H (Absent) Urine RBC (Auto) 1+(3-5/hpf) H (Absent) Ur Squamous Epith Cells Present H (Absent) Urine Bacteria 1+ H (Absent) Hyaline Casts Present H (Absent) Urine Glucose Negative (Negative) Result Diagrams: 11/09/16 12:00 11/09/16 12:00 Lab Statement: Any lab studies that have been ordered have been reviewed, and results considered in the medical decision making process. - Radiology CXR Xray Interpretation: No Acute Changes Radiology Interpretation Completed By: Radiologist - EKG 12:02. Cardiac Rate: NL - 87bpm EKG Rhythm: Sinus Rhythm Complex Multi-Symp Course/Dx Course Of Treatment: Dori Cooper was quite hypotensive in the rig and still 80/ 60 on arrival. She was C/O weakness only. She has had a recent allergic reaction and took benadryl yesterday. She had mild diffuse urticaria on arrival that she says is improved. (No benadryl today). She has had recent dysuria, frequency, and urgency that is beiing worked up. She is also on chronic PO steroids. She was given IV fluids, steroids and antibiotics and her BP improved and remained stable here. I'm not sure if this is sepsis, anaphylaxis or an addisonian crisis. - Diagnoses Provider Diagnoses: Hypotension - Physician Notifications Discussed Care Of Patient With: Yolande Alegria Law(PUMPER GAUGER) and Sher - Critical Care Time Critical Care Time: 30-74 min Discharge - Discharge Plan Condition: Stable Disposition: ADMITTED TO [facility] The documentation as recorded by the [place] Benjamin accurately reflects the service I personally performed and the decisions made by me, Quique Warren MD.
[2016-11-09] MEDS: Carbidopa/Levodop 25/100 MG TAB(*) PO SCH ×2 (19:30→20:32)
[2016-11-09] MEDS: NS 0.9% 1000 ML* 1,000 ML IV SCH (19:33)
[2016-11-09] MEDS: Acetaminophen TAB* 325 MG PO PRN (20:23)
[2016-11-09] MEDS ORDERED: Ciprofloxacin TAB* 500 MG PO SCH (21:00)
[2016-11-09] MEDS: Atorvastatin* 80 MG TAB PO SCH (22:53)
[2016-11-09] MEDS: Carbidopa/Levodop CR 50/200(*) TAB.CR PO SCH (22:53)
[2016-11-09] MEDS: Sulfamethox/Trimethoprim DS 800/160* TAB PO SCH (22:54)
[2016-11-09] MEDS: Pregabalin CAP(*) 50 MG PO SCH (22:54)
[2016-11-09] MEDS: Primidone TAB(*) 50 MG PO SCH (22:54)
[2016-11-09] MEDS: Ticagrelor* 90 MG TAB PO SCH (22:55)
[2016-11-09] MEDS: Heparin VIAL(*) 5000 UNITS/ML VIAL (FIVE THOUSAND) SUBCUT SCH (22:55)
--- NOTE | 2016-11-09 23:07 | HP ---
HOSPITAL MEDICINE HISTORY AND PHYSICAL: DATE OF ADMISSION: 11/09/16 PRIMARY CARE PHYSICIAN: Dr. Kumar. ATTENDING PHYSICIAN: Dr. Mary Olivarez *(dictation provided by Marti Burk NP) . CHIEF COMPLAINT: Weakness. HISTORY OF PRESENT ILLNESS: Ms. Cooper is a 71-year-old female with a past medical history of recent diagnosis as of July of inflammatory colitis as well as long- standing history of Parkinson's and hypertension, who presents today to the hospital with concern for weakness. Ms. Cooper states that her problems started back in July when she had a change to her medications for her Parkinson's disease. It was about the same time that she developed diarrhea. She was seen in our emergency room on 09/04/16 for diarrhea and came back and was admitted on 09/21/16. At that time, the patient had a colonoscopy with Dr. Nuno, who noted that she had "mild nonspecific colitis involving the entire colon which may be consistent with microscopic colitis." The patient was started on budesonide. She reports that she had good resolution of her diarrhea. Recently, the patient saw Dr. Nuno and the plan was for her to discontinue the budesonide, as it was felt that she likely did not have colitis based on biopsy results. Since then, the patient notes that she has had increasing watery stool, but that was not clearly diarrhea. She has poor oral intake in general as sh has a poor appetite. She has not had nausea or vomiting. Her noted that she had decreased urine output. Yesterday, she seemed a bit weaker, but this morning, she was very weak. He checked her blood pressure with a wrist cuff and found that she had a systolic blood pressure running in the 60s. He asked nursing staff from [facility] to come up to check on her and they confirmed that her blood pressure was low. They called EMS for her to be brought to the emergency room. The patient denies any fevers, chills, cough, chest pain, or shortness of breath. She has discomfort in her low abdomen, which she describes as feeling that she cannot completely void. She states this has been going on for months. She has had no vaginal bleeding. The patient was recently seen in our ED on 11/05/16 with concern for feeling that she was unable to completely void and discomfort in her lower abdomen. She had a CT abdomen and pelvis, which showed that she had what appeared to be either fluid or thickening of the endometrium. The patient denies any vaginal discharge or vaginal bleeding. However she does not a history of significant uterine fibroids. She has an appointment to follow up with [facility] for likely endometrial biopsy on the 16 of November. In the emergency room, Ms. Cooper was initially hypotensive, but responded well to fluid resuscitation. Now, her systolic blood pressure running in the 90s. She is not tachycardic, but she does take carvedilol regularly. She is mildly hyponatremic with a sodium of 128. Her BUN and creatinine are mildly elevated at 26 and 1.17 respectively. Her lactic acid is mildly elevated at 2.4. She has mild leukocytosis at 13.1. Her urine shows 1+ leuk esterase and 1+ bacteria. Chest x- ray shows no acute process. PAST MEDICAL HISTORY: 1. Recent microscopic colitis. 2. Type 2 diabetes, not currently on any medications. 3. Hyperlipidemia. 4. Hypertension. 5. Osteoarthritis of shoulders, knees, back. 6. Obesity. 7. Depression. 8. Essential tremor. 9. Parkinson's disease. 10. History of colonic polyps. 11. History of punctured right eardrum. 12. Menopause at age 54 per her report today. PAST SURGICAL HISTORY: Tonsillectomy, left knee arthroscopy. MEDICATIONS: Budesonide has been discontinued. 1. The patient is on calcium carbonate with vitamin D 1 chewable tab p.o. daily. 2. Carbidopa/levodopa 25/100 one tab p.o. four times a day. 3. Carbidopa/levodopa 50/200 one tab at bedtime. 4. Carvedilol 6.25 mg p.o. b.i.d. 5. Lansoprazole 15 mg p.o. daily. 6. Losartan 50 mg p.o. at bedtime. 7. Triamterene/hydrochlorothiazide 37.5/25 one cap p.o. daily. 8. Aspirin 81 mg p.o. daily. 9. Atorvastatin 80 mg p.o. bedtime. 10. Pregabalin 150 mg p.o. b.i.d. 11. Primidone 100 mg p.o. b.i.d. 12. Ticagrelor 90 mg p.o. b.i.d. ALLERGIES: To PENICILLIN, LISINOPRIL, PRASUGREL, and IV CONTRAST. FAMILY HISTORY: Father had heart disease. Mother had kidney disease and when the patient was 5 months old. SOCIAL HISTORY: No report of alcohol, tobacco, or drug use. The patient lives with her who is the healthcare proxy. REVIEW OF SYSTEMS: A 14-point review of systems was completed with Ms. Cooper and all those not mentioned above were negative. PHYSICAL EXAMINATION GENERAL: Ms. Cooper is lying in the bed. She is in no acute distress. VITAL SIGNS: Temperature 98.1, heart rate 94, respiratory rate 13, O2 saturation 99% on room air, blood pressure is 96/43. LUNGS: Clear to auscultation bilaterally with no accessory muscle use and good aeration. HEART: S1, S2. No murmur, rub, or gallop, and regular. ABDOMEN: Soft, nontender. Bowel sounds positive x4. EXTREMITIES: No cyanosis. Positive for 1+ to 2+ edema. NEURO: She is alert. She is oriented x3. She moves all extremities equally. She has persistent tremor with intentional movement. No facial asymmetry or focal weakness. Extraocular movements are intact. SKIN: The patient does have a rash across her torso which developed after she got IV CONTRAST DYE at our hospital on 11/05/16. DIAGNOSTIC STUDIES/LAB DATA: Sodium 128, potassium 3.6, chloride 97, serum bicarbonate 24, BUN 26, creatinine 1.17, glucose 136, lactic acid 2.4. CRP 22.77. WBC 13.1, hemoglobin 12.8, hematocrit 39, platelet count 237. INR 0.90. Urine shows 1+ leuk esterase and 1+ bacteria. Chest x-ray shows no acute process. ASSESSMENT AND PLAN: Ms. Cooper is a 71-year-old female with a past medical history of recent microscopic colitis, recently discontinued her budesonide as well as hypertension, Parkinson's disease, who presents today to the hospital with concern for weakness. Our plans are for observation in the hospital for the followin. Weakness: The patient states her symptoms are exactly as she has had in the past when she has had diarrhea. She has recently discontinued budesonide under direction of Dr. Nuno and had noticed increase in the frequency and wateriness of her stools. She also has decreased appetite and poor oral intake in general. I suspect these factors plus the fact that she normally takes carvedilol, losartan, and dyazide have contributed to her hypotension and weakness. Plans will be for hydration and to hold her blood pressure medications this evening. She does have a mild leukocytosis and it appears that her UA is mildly positive. It could be a urinary tract infection is also contributing to her symptoms. She has had urinary tract infection in the past with Klebsiella pneumoniae and strep group B. Plan to treat with Bactrim for now while we await urine cultures. 2. Question of colitis: The patient does have worsening symptoms per her report since going off budesonide. I spoke with Dr. Nuno who confirmed that he did not think patient had previously had colitis based on biopsy results. He did not recommend resuming budesonide but suggested motility slowing agents if patient was actually having significant loss stool. I do not plan to start said agents at this point as she is having only three small bowel movements per day. 3. Parkinson's disease: Continue home Sinemet. 4. Type 2 diabetes: The patient is not on any home medications. Sliding scale insulin can be added as needed. 5. History of hypertension: Plan to hold losartan, carvedilol, Dyazide while she is acutely ill. 6. Endometrial thickening versus fluid in the uterus: Again, the patient has no vaginal bleeding. Recommend that she continue followup as scheduled on the 16 of November for likely biopsy. 7. DVT prophylaxis: Heparin subcu. 8. Code status is DNR and a form has been completed. TIME SPENT: Approximately 60 minutes was spent on the admission of this patient , more than half time spent with the patient at the bedside reviewing the events leading up to this hospitalization, performing the physical examination, and reviewing the plan of care. MARTI BURK NP CC: Dr. Kumar * [id number]/CPS #: [id number] EVIE
[2016-11-10] MEDS: NS 0.9% 1000 ML* 1,000 ML IV SCH (03:15)
[2016-11-10] MEDS: Heparin VIAL(*) 5000 UNITS/ML VIAL (FIVE THOUSAND) SUBCUT SCH ×3 (06:12→21:01)
[2016-11-10 06:45] LABS: Hematocrit 35 % (35-47); Hemoglobin 11.9 g/dl (12.0-16.0); Mean Corpuscular HGB Conc 34 g/dl (31-36); Mean Corpuscular Hemoglobin 32 pg (27-31); Mean Corpuscular Volume 94 fL (80-97); Mean Platelet Volume 9 um3 (7.4-10.4); Red Blood Count 3.74 10^6/ul (4.0-5.4); Red Cell Distribution Width 17 % (10.5-15)
[2016-11-10 06:54] LABS: BUN/Creatinine Ratio 18.4 (8-20); Calcium 7.8 mg/dL (8.6-10.3); EGFR Non-African American 64.6 (>60)
[2016-11-10] MEDS ORDERED: Potassium Chlor TAB* 20 MEQ TAB.ER PO ONE (07:14)
[2016-11-10 07:46] LABS: Magnesium 1.7 mg/dL (1.9-2.7)
--- NOTE | 2016-11-10 08:06 | PN ---
Subjective - Subjective Reason for Note: Progress Note History: History from patient, but mostly from her : She was seeing Dr. Nuno for presumed colitis/diarrhea and treating her successfully with budesonide. On 10/20/2016 - Dr. Nuno told her stop budesonide over a 5 day period. She was fine until this started to be tapered. 11/05/2016 - symptoms of wanting to urinate, but couldn't. CT scan/X-rays - thickening in cervix - referred to gynecology Patrizia Galan MD. She has not seen her - has appt 11/16/2016. She has had some issues with urinating. 2 days urine flow problems. She is passing water through her back passage, she had wet stool. That evening became weaker. Yesterday morning - BP 67/44 on left wrist - same bilaterally. Bought in the [employer] RN - checked BP - 70/46. No nausea or vomiting. No fevers or sweats. Feeling of wanting to urinate - but can't. Fever/sweats - no Rash - she had a contrast CT scan - developed a rash the next day. Active Problems: Active Problems Diarrhea (Acute) R19.7 Endometrial thickening on ultra sound (Acute) R93.8 Hypotension (Acute) Hypovolemia (Acute) E86.1 Prolonged QT interval (Acute) R94.31 Urinary tract infection (Acute) Weakness (Acute) R53.1 Colitis (Chronic) K52.9 Coronary artery disease (Chronic) I25.10 Depression (Chronic) F32.9 Essential hypertension (Chronic) I10 History of falling (Chronic) Z91.81 Hyperlipidemia (Chronic) E78.5 Morbid obesity (Chronic) E66.01 Parkinsons disease (Chronic) G20 Type 2 diabetes mellitus (Chronic) Current Medications: Current Medications Acetaminophen (Tylenol Tab*) 650 mg PO Q6H PRN PRN Reason: PAIN Last Admin: 11/09/16 20:23 Dose: 650 mg Aspirin (Aspirin Ec Low Dose*) 81 mg PO DAILY KEISHA Atorvastatin Calcium (Lipitor*) 80 mg PO BEDTIME KEISHA Last Admin: 11/09/16 22:53 Dose: 80 mg Carbidopa/Levodopa (Sinemet Cr 50/200(*)) 1 tab.cr PO BEDTIME KEISHA Last Admin: 11/09/16 22:53 Dose: 1 tab.cr Carbidopa/Levodopa (Sinemet 25/100 Tab(*)) 1 tab PO 0900,1200,1500,1800 [facility] Heparin Sodium (Porcine) (Heparin Vial(*)) 5,000 units SUBCUT Q8HR [facility] Last Admin: 11/10/16 06:12 Dose: 5,000 units Sodium Chloride (Ns 0.9% 1000 Ml*) 1,000 mls @ 125 mls/hr IV PER RATE [facility] Last Admin: 11/10/16 03:15 Dose: 125 mls/hr Potassium Chloride (Potassium Chloride 20 Meq/100 Ml Ivpremix*) 20 meq in 100 mls @ 50 mls/hr IV Q2H [facility] Stop: 11/10/16 11:59 Pregabalin (Lyrica Cap(*)) 150 mg PO BID [facility] Last Admin: 11/09/16 22:54 Dose: 150 mg Primidone (Mysoline Tab(*)) 100 mg PO BID [facility] Last Admin: 11/09/16 22:54 Dose: 100 mg Ticagrelor (Brilinta*) 90 mg PO BID [facility] Last Admin: 11/09/16 22:55 Dose: 90 mg Trimethoprim/Sulfamethoxazole (Bactrim Ds 800/160 Tab*) 1 tab PO BID [facility] Last Admin: 11/09/16 22:54 Dose: 1 tab Home Medications: Home Medications Medication Instructions Recorded Confirmed Type Aspirin EC Low Dose* [Ecotrin EC 81 mg PO DAILY 06/07/13 11/09/16 History Low Dose 81 MG*] Atorvastatin* [Lipitor 80 MG*] 80 mg PO BEDTIME 06/07/13 11/09/16 History Losartan TAB* [Cozaar TAB*] 50 mg PO BEDTIME 06/07/13 11/09/16 History Pregabalin CAP(*) [Lyrica CAP(*)] 150 mg PO BID 06/07/13 11/09/16 History Primidone TAB(*) [Mysoline TAB(*)] 100 mg PO BID 06/07/13 11/09/16 History Carvedilol TAB* [Coreg TAB*] 6.25 mg PO BID 10/30/13 11/09/16 History Triamterene/HCTZ 37.5-25 MG* 1 cap PO DAILY 09/21/16 11/09/16 History [Dyazide CAP*] Budesonide CAP(NF) 9 mg PO DAILY #270 cap 09/25/16 11/09/16 Rx Calcium Carbonate-Vitamin D W/ 1 chw PO DAILY 11/09/16 11/09/16 History [Calcium 1200] Carbidopa/Levodop 25/100 MG(*) 1 tab PO QID 11/09/16 11/09/16 History [Sinemet 25/100 TAB(*)] Carbidopa/Levodop CR 50/200(*) 1 tab.cr PO BEDTIME 11/09/16 11/09/16 History [Sinemet CR 50/200(*)] Lansoprazole CAP (NF) [Prevacid 15 mg PO DAILY 11/09/16 11/09/16 History CAP (NF)] Ticagrelor* [Brilinta*] 90 mg PO BID 11/09/16 11/09/16 History Allergies: Allergies Allergy/AdvReac Type Severity Reaction Status Date / Time Penicillin V [From Pen-Vee-K] Allergy Intermediate Rash Verified 11/05/16 08:35 Lisinopril Allergy Mild Rash Verified 11/05/16 08:35 Iodinated Diagnostic Agents Allergy See Comment Verified 11/10/16 07:56 Prasugrel [From Effient] Allergy FULL BODY Verified 11/05/16 08:35 RASH IV Contrast Allergy Rash Uncoded 11/09/16 16:15 Objective - Vital Signs Vital Signs: Vital Signs 11/09/16 11/09/16 11/09/16 16:46 16:50 17:00 Temperature Pulse Rate 97 105 98 Respiratory 15 16 16 Rate Blood Pressure 171/131 98/49 99/59 (mmHg) O2 Sat by Pulse 99 99 99 Oximetry 11/09/16 11/09/16 11/09/16 18:40 18:45 20:02 Temperature 99.2 F 99.2 F 98.7 F Pulse Rate 103 103 98 Respiratory 18 18 20 Rate Blood Pressure 125/98 125/98 89/52 (mmHg) O2 Sat by Pulse 100 100 100 Oximetry 11/09/16 11/09/16 11/09/16 20:04 22:54 23:24 Temperature 99.4 F Pulse Rate 233 Respiratory 18 20 Rate Blood Pressure 98/60 96/52 (mmHg) O2 Sat by Pulse 98 Oximetry 11/09/16 11/10/16 11/10/16 23:46 00:54 04:09 Temperature 98.4 F Pulse Rate 99 101 Respiratory 16 Rate Blood Pressure 122/69 146/81 (mmHg) O2 Sat by Pulse 92 80 Oximetry - Intake and Output Intake and Output: Intake & Output 11/07/16 11/08/16 11/09/16 11/10/16 11:59 11:59 11:59 11:59 Intake Total 5 Output Total 700 Balance 1355 Weight 184 lb Intake: IV Fluids 1954 Oral 100 Output: Urine 700 Other: # Bowel Movements 0 ADLs: Meal Record Start: 11/09/16 17: 11 Freq: DAILY@0900,1400,1800 Status: Active Created 11/09/16 17:11 System (Rec: 11/09/16 17:11 System [id number]) Intake and Output Start: 11/09/16 11: 45 Freq: Status: Cancelled Created 11/09/16 11:45 System (Rec: 11/09/16 11:45 System ED-C24) Intake and Output Start: 11/09/16 16: 37 Freq: 06,14,2200 Status: Active Created 11/09/16 16:37 [id number] (Rec: 11/09/16 16:37 [facility]-BG10) Document 11/09/16 22:00 [id number] (Rec: 11/09/16 22:11 [id number] MED-C09) Document 11/10/16 06:00 [id number] (Rec: 11/10/16 06:37 [id number] MEDL-C02) Intake and Output Start: 11/09/16 17: 11 Freq: DAILY@0600,1400,2200 Status: Complete Created 11/09/16 17:11 System (Rec: 11/09/16 17:11 System MED-C04) Document 11/09/16 22:00 [id number] (Rec: 11/09/16 22:11 [id number] MED-C09) - Physical Exam General Physical Exam Comment: She is distressed and unable to think clearly, give a clear account of herself. General: No Cyanosis, Yes Anemia, No Jaundice, No Clubbing Skin: Abnormal: Rash - maculopapular rash over chest, elbow flexures, axilla Lungs and Chest: Yes: Chest Expansion Full, Chest Expansion Symetrica, Percussion Note Resonant, Vessicular Breath Sounds. No: Crackles, Wheezes Heart Rate and Rhythm: Regular JVP: Not Elevated Additional Cardiovascular: Yes: Normal Heart Sounds. No: Heart Murmur, Pedal Edema Abdominal Exam: Yes: Distention, Soft, Bowel Sounds Present. No: Abdominal Mass , Hepatomegaly, Abdominal Tenderness Results - Results Lab Results: Laboratory Results - last 24 hr 11/09/16 11/10/16 11/10/16 18:08 06:27 06:27 WBC 9.0 RBC 3.74 L Hgb 11.9 L Hct 35 MCV 94 MCH 32 H MCHC 34 RDW 17 H Plt Count 210 MPV 9 Neut % (Auto) 77.2 Lymph % (Auto) 10.7 L Nash % (Auto) 8.0 Eos % (Auto) 3.4 Baso % (Auto) 0.7 Absolute Neuts (auto) 7.0 Absolute Lymphs (auto) 1.0 Absolute Monos (auto) 0.7 Absolute Eos (auto) 0.3 Absolute Basos (auto) 0.1 Absolute Nucleated RBC 0.01 Nucleated RBC % 0.1 Sodium 130 L Potassium 3.0 L Chloride 100 L Carbon Dioxide 25 Anion Gap 5 BUN 16 Creatinine 0.87 Est GFR ( Amer) 83.0 Est GFR (Non-Af Amer) 64.6 BUN/Creatinine Ratio 18.4 Glucose 85 Lactic Acid 1.4 Calcium 7.8 L Magnesium 1.7 L Radiology Results: Patient Name: JOSIAS JCAKSON Medical Record#: [id number] Ordering Physician: Quique Warren MD Acct.#: [id number] : 1945 Age: 71 Sex: F Location: EMERGENCY DEPARTMENT Exam Date: 11/09/16 121 ADM Status: REG ER Order Information: CHEST AP PORTABLE Accession Number: [id number] CPT: 87029 HISTORY: Sepsis COMPARISONS: September 04, 2016 VIEWS:1: Single frontal portable view of the chest at 12:35 PM FINDINGS: LINES AND TUBES: None. CARDIOMEDIASTINAL SILHOUETTE: The cardiomediastinal silhouette is normal for portable technique. PLEURA: The costophrenic angles are sharp. No pleural abnormalities are noted. LUNG PARENCHYMA: The lungs are clear. ABDOMEN: The upper abdomen is clear. There is no subphrenic gas. BONES AND SOFT TISSUES: Degenerative changes are noted of the spine and shoulders IMPRESSION: NO ACTIVE CARDIOPULMONARY DISEASE. <Electronically signed by Rod Derw MD in OV> 11/09/16 1242 Dictated By: Rod Drew MD Dictated Date/Time: 11/09/16 1242 Transcribed Date/Time: 11/09/16 1241 Copy to: CC:Jacques Kumar MD; Quique Warren MD Imaging - [facility] Imaging - [place] [facility] [place] Imaging - [facility] [address] [address] ph ([phone]) ph ([phone]) ph ([phone]) Patient Name: JOSIAS JACKSON Medical Record#: [id number] Ordering Physician: Luis Wade MD Acct.#: [id number] : 1945 Age: 71 Sex: F Location: EMERGENCY DEPARTMENT Exam Date: 11/05/16 1027 ADM Status: REG ER Order Information: CT ABD/PEL W Accession Number: [id number] CPT: 90364 CLINICAL HISTORY: Abdominal pain COMPARISON: None TECHNIQUE: Multiple contiguous axial CT scans were obtained of the abdomen and pelvis after the administration of intravenous contrast. Coronal and sagittal multiplanar reformations are submitted for review. Oral contrast was administered. Delayed images were obtained through the abdomen and pelvis. FINDINGS: LUNG BASES: The lung bases are clear. LIVER: The liver is normal in shape, size, contour, and attenuation. BILE DUCTS: There is no intrahepatic or extrahepatic biliary dilatation. GALLBLADDER: The gallbladder is normal, without pericholecystic inflammatory change. PANCREAS: The pancreas is normal, without mass or ductal dilatation. SPLEEN: Normal in size and appearance. UPPER GI TRACT: Evaluation of the gastrointestinal tract is limited by incomplete gastric distention. The upper GI tract is unremarkable. SMALL BOWEL AND MESENTERY: The small bowel is normal in contour, course, and caliber. There is no obstruction or dilatation. COLON: The colon is normal in contour, course, caliber. There is no pericolonic inflammatory change. ADRENALS: Normal bilaterally. KIDNEYS: The kidneys are normal in shape, size, contour, and axis. There is no hydronephrosis or nephrolithiasis. BLADDER: The bladder is smooth in contour. PELVIC ORGANS: There is hypoattenuation centrally within the body of the uterus measuring up to 1.4 cm in caliber which may represent fluid within endometrial cavity versus thickening of the endometrium. The pelvic organs are otherwise normal for age and technique AORTA: There is calcific atherosclerotic disease of the abdominal aorta and its branches, without aneurysmal dilatation IVC: Unremarkable LYMPH NODES: There is no lymphadenopathy by size criteria. ABDOMINAL WALL: There is no evidence for abdominal wall hernia. BONES AND SOFT TISSUES: There is a scoliotic curvature of the spine. Degenerative changes are noted of the spine OTHER: None IMPRESSION: 1. ENDOMETRIAL THICKENING VERSUS FLUID WITHIN THE ENDOMETRIAL CAVITY, NOT EXPECTED TO BE PHYSIOLOGIC WITHIN A POSTMENOPAUSAL FEMALE. RECOMMEND CONSIDERATION OF CORRELATION WITH DEDICATED IMAGING OF THE PELVIS IN THE NONACUTE SETTING AND/OR GYNECOLOGIC CONSULTATION. 2. ATHEROSCLEROSIS [facility] IMAGING Patient Name:JOSIAS JACKSON MR: [id number] : 1944 <Electronically signed by Rod Drew MD in OV> 11/05/16 1301 Dictated By: Rod Drew MD Dictated Date/Time: 11/05/16 1301 Transcribed Date/Time: 11/05/16 1258 Copy to: CC:Jacques Kumar MD; Luis Wade MD Imaging - [facility] Imaging - [place] [facility] [place] Imaging - [facility] [address] [address] ph [phone]) ph ([phone]) ph ([phone]) 2 of 2 1 of 2 1 of 1 EKG Report: sinus rhythm 87 [place] 169 QTc 574 QRS axis 7. Prolonged QTc Assessment - Problem List Assessment: Patient Problems Diarrhea (Acute) Endometrial thickening on ultra sound (Acute) Hypotension (Acute) Hypovolemia (Acute) Prolonged QT interval (Acute) Urinary tract infection (Acute) Weakness (Acute) Colitis (Chronic) Coronary artery disease (Chronic) Depression (Chronic) Essential hypertension (Chronic) History of falling (Chronic) Hyperlipidemia (Chronic) Morbid obesity (Chronic) Parkinsons disease (Chronic) Type 2 diabetes mellitus (Chronic) Plan: Hypotension (Acute)Hypovolemia (Acute) She presented after stopping budesonide with hypotension, hypovolemia, mild pre-renal azotemia, urinary tract infection. She is feeling improved on IVF. Differential diagnosis includes recurrent diarrhea with volume loss, poor intake/failure to thrive/adrenal insufficiency from discontinuation of budesonide. She is hypokalemic - I will correct this. Her BUN/Cr have recovered. I note that she has no elevation of her CRP. Diarrhea (Acute) The patient states she has not had recurrent diarrhea. Her states she has loose stool and water coming out her rectum. Dr. Nuno is supposed to not think she has colitis, and has recommended anti diarrhea agent Endometrial thickening on ultra sound (Acute) This is a skilled nursing problem and doesn't account for her urinary symptoms. Prolonged QT interval (Acute) I have asked pharmacy to review her medications. I will restore her electrolyte imbalance (hypomagnesemia/hypokalemia) Urinary tract infection (Acute) We have started her on oral bactrim Weakness (Acute) She is weak from her Parkinson's, but she is showing signs of acute weakness ontop of this associated with her presentation. I have requested a stat cortisol. I will check a cosyntropin test and then start her on an oral steroid for tapering Colitis (Chronic) This diagnosis is in question Coronary artery disease (Chronic) ongoing - maintain her anti-platelet agents plus heparin Depression (Chronic) She is tearful and wants to go home - but understands she needs to be here Essential hypertension (Chronic) I have stopped her anti-hypertensives History of falling (Chronic) ongoing problem - I will mobilize her Hyperlipidemia (Chronic) secondary diagnosis Morbid obesity (Chronic) secondary diagnosis Parkinsons disease (Chronic) major disability Type 2 diabetes mellitus (Chronic) controlled by diet I discussed the above with her
[2016-11-10] MEDS: Pregabalin CAP(*) 50 MG PO SCH ×2 (08:16→21:00)
[2016-11-10] MEDS: KCL 20 MEQ/100 ML IVPREMIX* 20 MEQ/100 ML BAG IV SCH ×2 (08:17→10:13)
[2016-11-10] MEDS: Sulfamethox/Trimethoprim DS 800/160* TAB PO SCH ×2 (08:17→21:00)
[2016-11-10] MEDS: Acetaminophen TAB* 325 MG PO PRN (08:17)
[2016-11-10] MEDS: Primidone TAB(*) 50 MG PO SCH ×2 (08:17→20:59)
[2016-11-10] MEDS: Aspirin EC Low Dose* 81 MG TAB.EC PO SCH (08:17)
[2016-11-10] MEDS: Carbidopa/Levodop 25/100 MG TAB(*) PO SCH ×4 (08:22→17:46)
[2016-11-10] MEDS ORDERED: Cosyntropin* 0.001 MG in Sodium Chloride * 0.5 ML IV ONE (08:25)
[2016-11-10] MEDS ORDERED: Magnesium Sulfate 2 GM IV* 2 GM/50 ML BAG IVPB ONE (08:27)
[2016-11-10] MEDS ORDERED: diPHENhydraMINE PO* 25 MG PO PRN (09:08)
[2016-11-10] MEDS: Potassium Chlor TAB* 20 MEQ TAB.ER PO SCH ×2 (09:55→20:59)
[2016-11-10] MEDS: Ticagrelor* 90 MG TAB PO SCH ×2 (10:25→20:59)
[2016-11-10] MEDS: diPHENhydraMINE PO* 50 MG PO PRN ×2 (11:23→21:02)
[2016-11-10] MEDS: Carbidopa/Levodop CR 50/200(*) TAB.CR PO SCH (21:00)
[2016-11-10] MEDS: Atorvastatin* 80 MG TAB PO SCH (21:00)
[2016-11-11] MEDS: Heparin VIAL(*) 5000 UNITS/ML VIAL (FIVE THOUSAND) SUBCUT SCH (05:47)
[2016-11-11 08:01] VITALS: BP 152/89
[2016-11-11 08:50] LABS: Hematocrit 39 % (35-47); Hemoglobin 13.2 g/dl (12.0-16.0); Mean Corpuscular HGB Conc 34 g/dl (31-36); Mean Corpuscular Hemoglobin 32 pg (27-31); Mean Corpuscular Volume 93 fL (80-97); Mean Platelet Volume 9 um3 (7.4-10.4); Red Blood Count 4.17 10^6/ul (4.0-5.4); Red Cell Distribution Width 16 % (10.5-15)
[2016-11-11 08:51] LABS: Add Diff/Slide Review? Slide Review Added; Comments Flag Yes
[2016-11-11] MEDS: Acetaminophen TAB* 325 MG PO PRN (09:04)
[2016-11-11] MEDS: Potassium Chlor TAB* 20 MEQ TAB.ER PO SCH (09:04)
[2016-11-11] MEDS: Pregabalin CAP(*) 50 MG PO SCH (09:04)
[2016-11-11] MEDS: Aspirin EC Low Dose* 81 MG TAB.EC PO SCH (09:05)
[2016-11-11] MEDS: Sulfamethox/Trimethoprim DS 800/160* TAB PO SCH (09:05)
[2016-11-11] MEDS: Ticagrelor* 90 MG TAB PO SCH (09:05)
[2016-11-11] MEDS: diPHENhydraMINE PO* 50 MG PO PRN (09:05)
[2016-11-11] MEDS: Primidone TAB(*) 50 MG PO SCH (09:05)
[2016-11-11] MEDS: Carbidopa/Levodop 25/100 MG TAB(*) PO SCH (09:05)
[2016-11-11 09:25] LABS: C Reactive Protein 17.58 mg/L (< 5.00); Magnesium 2.1 mg/dL (1.9-2.7)
--- NOTE | 2016-11-11 09:51 | PN ---
Subjective - Subjective Reason for Note: Discharge Note History: She is much improved today. She is eating and drinking independently. She had a normally formed BM yesterday. The discomfort on urination has gone. Her rash is improving Active Problems: Active Problems Allergic drug rash (Acute) L27.0 Diarrhea (Acute) R19.7 Endometrial thickening on ultra sound (Acute) R93.8 Hypotension (Acute) Hypovolemia (Acute) E86.1 Prolonged QT interval (Acute) R94.31 Urinary tract infection (Acute) Weakness (Acute) R53.1 Colitis (Chronic) K52.9 Coronary artery disease (Chronic) I25.10 Depression (Chronic) F32.9 Essential hypertension (Chronic) I10 History of falling (Chronic) Z91.81 Hyperlipidemia (Chronic) E78.5 Morbid obesity (Chronic) E66.01 Parkinsons disease (Chronic) G20 Type 2 diabetes mellitus (Chronic) Current Medications: Current Medications Acetaminophen (Tylenol Tab*) 650 mg PO Q6H PRN PRN Reason: PAIN Last Admin: 11/11/16 09:04 Dose: 650 mg Aspirin (Aspirin Ec Low Dose*) 81 mg PO DAILY [facility] Last Admin: 11/11/16 09:05 Dose: 81 mg Atorvastatin Calcium (Lipitor*) 80 mg PO BEDTIME [facility] Last Admin: 11/10/16 21:00 Dose: 80 mg Carbidopa/Levodopa (Sinemet Cr 50/200(*)) 1 tab.cr PO BEDTIME [facility] Last Admin: 11/10/16 21:00 Dose: 1 tab.cr Carbidopa/Levodopa (Sinemet 25/100 Tab(*)) 1 tab PO 0900,1200,1500,1800 [facility] Last Admin: 11/11/16 09:05 Dose: 1 tab Diphenhydramine HCl (Benadryl Po*) 25 mg PO Q8H PRN PRN Reason: ITCHINESS Diphenhydramine HCl (Benadryl Po*) 50 mg PO Q8H PRN PRN Reason: ITCHINESS Last Admin: 11/11/16 09:05 Dose: 50 mg Heparin Sodium (Porcine) (Heparin Vial(*)) 5,000 units SUBCUT Q8HR [facility] Last Admin: 11/11/16 05:47 Dose: 5,000 units Potassium Chloride (Klor Con Er Tab*) 20 meq PO BID [facility] Last Admin: 11/11/16 09:04 Dose: 20 meq Pregabalin (Lyrica Cap(*)) 150 mg PO BID [facility] Last Admin: 11/11/16 09:04 Dose: 150 mg Primidone (Mysoline Tab(*)) 100 mg PO BID [facility] Last Admin: 11/11/16 09:05 Dose: 100 mg Ticagrelor (Brilinta*) 90 mg PO BID [facility] Last Admin: 11/11/16 09:05 Dose: 90 mg Trimethoprim/Sulfamethoxazole (Bactrim Ds 800/160 Tab*) 1 tab PO BID [facility] Last Admin: 11/11/16 09:05 Dose: 1 tab Home Medications: Home Medications Medication Instructions Recorded Confirmed Type Aspirin EC Low Dose* [Ecotrin EC 81 mg PO DAILY 06/07/13 11/09/16 History Low Dose 81 MG*] Atorvastatin* [Lipitor 80 MG*] 80 mg PO BEDTIME 06/07/13 11/09/16 History Losartan TAB* [Cozaar TAB*] 50 mg PO BEDTIME 06/07/13 11/09/16 History Pregabalin CAP(*) [Lyrica CAP(*)] 150 mg PO BID 06/07/13 11/09/16 History Primidone TAB(*) [Mysoline TAB(*)] 100 mg PO BID 06/07/13 11/09/16 History Carvedilol TAB* [Coreg TAB*] 6.25 mg PO BID 10/30/13 11/09/16 History Triamterene/HCTZ 37.5-25 MG* 1 cap PO DAILY 09/21/16 11/09/16 History [Dyazide CAP*] Budesonide CAP(NF) 9 mg PO DAILY #270 cap 09/25/16 11/09/16 Rx Calcium Carbonate-Vitamin D W/ 1 chw PO DAILY 11/09/16 11/09/16 History [Calcium 1200] Carbidopa/Levodop 25/100 MG(*) 1 tab PO QID 11/09/16 11/09/16 History [Sinemet 25/100 TAB(*)] Carbidopa/Levodop CR 50/200(*) 1 tab.cr PO BEDTIME 11/09/16 11/09/16 History [Sinemet CR 50/200(*)] Lansoprazole CAP (NF) [Prevacid 15 mg PO DAILY 11/09/16 11/09/16 History CAP (NF)] Ticagrelor* [Brilinta*] 90 mg PO BID 11/09/16 11/09/16 History Allergies: Allergies Allergy/AdvReac Type Severity Reaction Status Date / Time Penicillin V [From Pen-Vee-K] Allergy Intermediate Rash Verified 11/05/16 08:35 Lisinopril Allergy Mild Rash Verified 11/05/16 08:35 Iodinated Diagnostic Agents Allergy See Comment Verified 11/10/16 07:56 Prasugrel [From Effient] Allergy FULL BODY Verified 11/05/16 08:35 RASH IV Contrast Allergy Rash Uncoded 11/09/16 16:15 Objective - Vital Signs Vital Signs: Vital Signs 11/10/16 11/10/16 11/10/16 10:16 11:23 13:23 Temperature Pulse Rate Respiratory 16 18 16 Rate Blood Pressure (mmHg) O2 Sat by Pulse Oximetry 11/10/16 11/10/16 11/10/16 16:27 19:59 20:00 Temperature 98.0 F 98.7 F Pulse Rate 89 96 Respiratory 20 20 16 Rate Blood Pressure 120/67 136/66 (mmHg) O2 Sat by Pulse 99 100 Oximetry 11/10/16 11/10/16 11/10/16 21:00 21:02 23:00 Temperature Pulse Rate Respiratory 16 16 16 Rate Blood Pressure (mmHg) O2 Sat by Pulse Oximetry 11/10/16 11/11/16 11/11/16 23:42 00:09 00:10 Temperature 96.4 F 98.7 F Pulse Rate 92 Respiratory 16 Rate Blood Pressure 110/64 (mmHg) O2 Sat by Pulse 97 Oximetry 11/11/16 11/11/16 11/11/16 04:14 07:29 09:04 Temperature 97.4 F 98.4 F Pulse Rate 99 90 Respiratory 16 18 20 Rate Blood Pressure 123/54 152/89 (mmHg) O2 Sat by Pulse 100 100 Oximetry 11/11/16 09:05 Temperature Pulse Rate Respiratory 20 Rate Blood Pressure (mmHg) O2 Sat by Pulse Oximetry - Intake and Output Intake and Output: Intake & Output 11/08/16 11/09/16 11/10/16 11/11/16 11:59 11:59 11:59 11:59 Intake Total 460 1160 Output Total 1600 Balance 460 -440 Intake: IVPB 100 Oral 360 1160 Output: Urine 1600 Other: Estimated Void Small Medium # Bowel Movements 1 Estimated Stool Amount Medium Medium # Voids 1 ADLs: Meal Record Start: 11/09/16 17: 11 Freq: DAILY@0900,1400,1800 Status: Active Created 11/09/16 17:11 System (Rec: 11/09/16 17:11 System MED-C04) Document 11/10/16 09:00 [id number] (Rec: 11/10/16 10:57 [id number] MED-C11) Document 11/10/16 14:00 [id number] (Rec: 11/10/16 14:41 [id number] MED-C11) Document 11/10/16 18:00 [id number] (Rec: 11/10/16 18:23 [id number] MED-C09) Intake and Output Start: 11/09/16 11: 45 Freq: Status: Cancelled Created 11/09/16 11:45 System (Rec: 11/09/16 11:45 System ED-C24) Intake and Output Start: 11/09/16 16: 37 Freq: 06,14,2200 Status: Active Created 11/09/16 16:37 [id number] (Rec: 11/09/16 16:37 BKG [id number]) Document 11/09/16 22:00 [id number] (Rec: 11/09/16 22:11 [id number] MED-C09) Document 11/10/16 06:00 [id number] (Rec: 11/10/16 06:37 [id number] MEDL-C02) Document 11/10/16 14:00 [id number] (Rec: 11/10/16 14:41 [id number] MED-C11) Document 11/10/16 22:00 [id number] (Rec: 11/10/16 22:03 [id number] MED-C09) Document 11/11/16 05:56 [id number] (Rec: 11/11/16 05:57 [id number] MED-C42) Intake and Output Start: 11/09/16 17: 11 Freq: DAILY@0600,1400,2200 Status: Complete Created 11/09/16 17:11 System (Rec: 11/09/16 17:11 System MED-C04) Document 11/09/16 22:00 [id number] (Rec: 11/09/16 22:11 [id number] [facility]-C09) - Physical Exam General Physical Exam Comment: Her rash is slowly diminishing General: No Cyanosis, No Jaundice, No Clubbing Lungs and Chest: Yes: Chest Expansion Full, Chest Expansion Symetrica, Percussion Note Resonant, Vessicular Breath Sounds. No: Crackles, Wheezes, Respiratory Distress Heart Rate and Rhythm: Regular JVP: Not Elevated Additional Cardiovascular: Yes: Normal Heart Sounds. No: Heart Murmur, Pedal Edema Abdominal Exam: Yes: Soft, Bowel Sounds Present. No: Distention, Abdominal Tenderness Results - Results Lab Results: Laboratory Results - last 24 hr 11/10/16 11/10/16 11/10/16 11:19 12:54 17:42 WBC RBC Hgb Hct MCV MCH MCHC RDW Plt Count MPV Neut % (Auto) Lymph % (Auto) Bland % (Auto) Eos % (Auto) Baso % (Auto) Absolute Neuts (auto) Absolute Lymphs (auto) Absolute Monos (auto) Absolute Eos (auto) Absolute Basos (auto) Absolute Nucleated RBC Nucleated RBC % POC Glucose (mg/dL) 118 H 125 H Magnesium C-Reactive Protein Cortisol 29.72 11/11/16 11/11/16 11/11/16 08:11 08:39 08:39 WBC 13.0 H RBC 4.17 Hgb 13.2 Hct 39 MCV 93 MCH 32 H MCHC 34 RDW 16 H Plt Count 216 MPV 9 Neut % (Auto) 70.8 Lymph % (Auto) 11.0 L Bland % (Auto) 6.8 Eos % (Auto) 10.9 H Baso % (Auto) 0.5 Absolute Neuts (auto) 9.2 H Absolute Lymphs (auto) 1.4 Absolute Monos (auto) 0.9 H Absolute Eos (auto) 1.4 H Absolute Basos (auto) 0.1 Absolute Nucleated RBC 0.02 Nucleated RBC % 0.1 POC Glucose (mg/dL) 111 H Magnesium 2.1 C-Reactive Protein 17.58 H Cortisol Assessment - Problem List Assessment: Patient Problems Allergic drug rash (Acute) Diarrhea (Acute) Endometrial thickening on ultra sound (Acute) Hypotension (Acute) Hypovolemia (Acute) Prolonged QT interval (Acute) Urinary tract infection (Acute) Weakness (Acute) Colitis (Chronic) Coronary artery disease (Chronic) Depression (Chronic) Essential hypertension (Chronic) History of falling (Chronic) Hyperlipidemia (Chronic) Morbid obesity (Chronic) Parkinsons disease (Chronic) Type 2 diabetes mellitus (Chronic) Plan: Urinary tract infection (Acute) E.coli with multiple sensitivities including bactrim - I think this is the underlying problem leading to her admission Allergic drug rash (Acute) improving Diarrhea (Acute) This has stopped Endometrial thickening on ultra sound (Acute) We will follow this as an out patient Hypotension (Acute) Resolved Hypovolemia (Acute) resolved Prolonged QT interval (Acute) ongoing Weakness (Acute) improving Colitis (Chronic) this is improved Coronary artery disease (Chronic) ongoing Depression (Chronic) improved Essential hypertension (Chronic) I will hold her antihypertensives History of falling (Chronic) Hyperlipidemia (Chronic) continue Rx Morbid obesity (Chronic) Parkinsons disease (Chronic) Major issue Type 2 diabetes mellitus (Chronic) controlled with diet I spoke to patient and family and they agree with plan
--- NOTE | 2016-11-11 21:05 | DS ---
DISCHARGE SUMMARY: DATE OF ADMISSION: 11/09/16 DATE OF DISCHARGE: 11/11/16 DISCHARGE DIAGNOSES: 1. Urinary tract infection. 2. Hypovolemia. 3. Dehydration. 4. Weakness. 5. Recent history of diarrhea, resolved. COMORBIDITIES: Severe Parkinson's disease. SECONDARY DIAGNOSES: 1. Morbid obesity. 2. Hyperlipidemia. 3. History of falling. 4. Essential hypertension. 5. Depression. 6. Coronary artery disease. 7. Colitis. 8. Prolonged QT interval. 9. Endometrial thickening on ultrasound. 10. Type 2 diabetes mellitus. HISTORY: Dori Cooper is a 71-year-old white female. Her presentation is documented in Marti Burk, nurse practitioner's admitting history and physical which is part of the electronic medical record. In short, she had recently stopped taking budesonide for an inflammatory colitis. She had poor oral intake of fluids. She became progressively weaker. She had some problems with urination. She denied fevers or chills. She had discomfort in her lower abdomen as though she could not fully void. PHYSICAL EXAMINATION: Temperature 98.1, heart rate 94, respirations 13, oxygen saturation 99% on room air. No focal findings on physical examination aside from her Parkinson's disease and a rash which she obtained from [facility] on 11/05/16. DIAGNOSTIC STUDIES/LAB DATA: Sodium 128, potassium 3.6, chloride 97, bicarbonate 24, BUN 26, creatinine 1.17, glucose 136, lactic acid 2.4, CRP 32.77. White count 13.1, hemoglobin 12.8, hematocrit 39, platelets 237. Urinalysis showed 1+ esterase, 1+ bacteria. Chest x-ray noted nothing acute. Initial impression was weakness and a number of different possibilities were entertained including the recent discontinuation of budesonide. Decreased appetite, poor oral intake, urinary tract infection. INVESTIGATIONS: Microbiology: E. coli growing from her urine, colony count 10, 000 to 25,000 sensitive to oral antibacterials including Bactrim. Other laboratory findings: Initial percent neutrophils 82.9%, on the day of discharge 70.8%. CRP came down to 18 on the day of discharge. HOSPITAL COURSE: We started her on Bactrim DS 1 twice a day. She had a rapid improvement in her symptoms with following replacement and holding her antihypertensives. Her sensation of difficulty in voiding urine and pain in the lower abdomen when she tried disappeared. Her weakness improved. PHYSICAL EXAMINATION ON THE DAY OF DISCHARGE: Temperature 98.4, pulse 90, respirations 18, oxygen saturation 100% on room air, blood pressure 152/89. No cyanosis, anemia, jaundice, clubbing, or adenopathy. She has stigmata of advanced Parkinson's disease with marked tremor. Cardiovascular System: Pulse regular, normal character and volume. Heart sounds normal. No added sounds or murmurs. No pedal edema. Respiratory System: Her chest was clear. Abdomen: Soft, nontender, obese. No masses or organomegaly. Bowel sounds present. Nervous System: Alert and oriented, normal speech, Parkinson's disease findings ; otherwise, no focal neurological problems. ASSESSMENT AND PLAN: 1. Urinary tract infection. I think this is the underlying cause of her problems. Her symptoms are much improved. I will check a post void volume of her bladder; however, she has not had prior problems with urinary tract infection. We will complete a 1-week course of Bactrim and determine if she has any problems with urine outflow tract. I have also encouraged her to drink more fluids which is difficult when she has such a strong underlying tremor, particularly when she has an acute illness. 2. Hypovolemia, prerenal azotemia. This has all resolved. 3. Allergic drug rash. This was to [facility]. This should be placed on her allergy list. 4. Endometrial thickening on ultrasound. She will follow up as an outpatient with Gynecology. 5. History of colitis and diarrhea, this has resolved. She had an episode of bowel movement that was normal and had no frequency of bowel movements during the hospitalization. 6. Hypertension. We have stopped her antihypertensives on this admission owing to her presentation with hypovolemia. I will review this as an outpatient. 7. Prolonged QTc interval. We will ensure she does not take agents to exacerbate this. 8. Coronary artery disease. She will remain on her usual antiplatelet medications, which include clopidogrel and aspirin. 9. Depression. This seems to have cleared now that she knows she is going home. 10. Hyperlipidemia. Continue current treatment. 11. Parkinson's disease. Per Neurology. 12. Type 2 diabetes mellitus, essentially well controlled on consistent carbohydrate diet DISCHARGE MEDICATIONS: 1. Bactrim DS 1 twice a day for 7 days. 2. Diphenhydramine 25 mg every 8 hours as needed for rash, she can double this if needed. 3. Primidone 100 mg twice daily. 4. Pregabalin 150 mg twice daily. 5. Aspirin 81 mg daily. 6. Atorvastatin 80 mg q.h.s. 7. Carvedilol 6.25 mg twice daily. 8. Lansoprazole 15 mg daily. 9. Carbidopa/L-dopa 50/200 one at bedtime. 10. Carbidopa/L-dopa 25/100 one 4 times a day. 11. Ticagrelor 90 mg twice daily. I had held losartan, triamterene/hydrochlorothiazide, budesonide, and calcium carbonate until she sees me as an outpatient. DISCHARGE INSTRUCTIONS: I have stressed to the patient and the family that they need to ensure she drinks 2 L of fluids a day even when she stops to get sick. [id number]/CPS #: [id number] MTDD
== END 2016-11-11 11:00 | disposition home or self-care (01) | DRG 690 ==
LOC: ED 11:38 → MED 16:36 → OBSVTOIN 11-10 08:45
PROVIDERS: ADMIT Hospitalist; ATTEND Internal Medicine
DX: N39.0 Urinary tract infection, site not specified (principal); G20 Parkinson's disease; I11.9 Hypertensive heart disease without heart failure; B96.20 Unspecified Escherichia coli [E. coli] as the cause of diseases classified elsewhere; F32.9 Major depressive disorder, single episode, unspecified; E11.9 Type 2 diabetes mellitus without complications; E86.1 Hypovolemia; E86.0 Dehydration; E66.9 Obesity, unspecified; Z68.38 Body mass index [BMI] 38.0-38.9, adult; E78.5 Hyperlipidemia, unspecified; I25.10 Atherosclerotic heart disease of native coronary artery without angina pectoris; K52.9 Noninfective gastroenteritis and colitis, unspecified; I45.81 Long QT syndrome; L23.3 Allergic contact dermatitis due to drugs in contact with skin; T50.8X5A Adverse effect of diagnostic agents, initial encounter; Y92.9 Unspecified place or not applicable; X58.XXXA Exposure to other specified factors, initial encounter; M19.012 Primary osteoarthritis, left shoulder; M19.011 Primary osteoarthritis, right shoulder; M17.0 Bilateral primary osteoarthritis of knee; M47.9 Spondylosis, unspecified; G25.0 Essential tremor; Z79.82 Long term (current) use of aspirin; Z79.84 Long term (current) use of oral hypoglycemic drugs; Z79.899 Other long term (current) drug therapy; Z88.0 Allergy status to penicillin; Z88.8 Allergy status to other drugs, medicaments and biological substances; Z91.041 Radiographic dye allergy status; Z82.49 Family history of ischemic heart disease and other diseases of the circulatory system; Z84.1 Family history of disorders of kidney and ureter
CPT/HCPCS: 36415; 71010; 80048; 80053; 81003; 81015; 82533; 83605; 83735; 84484; 85025; 85610; 85730; 86140; 87040; 87077; 87086; 87186; 93005; A9270-GY; G0378; J0834; J1644; J2930; J3480

== ENCOUNTER 2017-05-28 09:08 | Inpatient (IN) | payer MEDICARE ==
[2017-05-28] MEDS ORDERED: Ketorolac INJ* 30 MG/ML 1 ML VIAL IV ONE (09:47)
[2017-05-28] MEDS ORDERED: NS 0.9% 1000 ML* 1,000 ML IV ONE (09:47)
[2017-05-28 10:08] LABS: Hematocrit 40 % (35-47); Hemoglobin 13.5 g/dl (12.0-16.0); Mean Corpuscular HGB Conc 33 g/dl (31-36); Mean Corpuscular Hemoglobin 30 pg (27-31); Mean Corpuscular Volume 89 fL (80-97); Mean Platelet Volume 10 um3 (7.4-10.4); Red Blood Count 4.52 10^6/ul (4.0-5.4); Red Cell Distribution Width 19 % (10.5-15); White Blood Count 6.6 10^3/ul (3.5-10.8)
[2017-05-28 10:24] LABS: Albumin 3.2 g/dL (3.2-5.2); BUN/Creatinine Ratio 27.5 (8-20); C Reactive Protein 1.44 mg/L (< 5.00); Calcium 9.4 mg/dL (8.6-10.3); EGFR African American 108.2 (>60); EGFR Non-African American 84.1 (>60); Globulin 4.2 g/dL (2-4); Magnesium 2.1 mg/dL (1.9-2.7); Potassium 3.8 mmol/L (3.5-5.0); Total Bilirubin 0.5 mg/dL (0.2-1.0); Total Protein 7.4 g/dL (6.4-8.9)
[2017-05-28 10:26] LABS: Troponin I 0.01 ng/mL (<0.04)
[2017-05-28 10:57] LABS: TSH (Thyroid Stimulating Horm) 1.69 mcIU/mL (0.34-5.60)
[2017-05-28] MEDS ORDERED: Morphine INJ* 4 MG/ML 1 ML CARPUJECT IV ONE (12:10)
[2017-05-28 12:20] LABS: Urine Bilirubin Negative (Negative); Urine Glucose Negative (Negative); Urine Nitrite Negative (Negative)
[2017-05-28] MEDS ORDERED: traMADol TAB* 50 MG PO PRN (13:19)
[2017-05-28] MEDS ORDERED: Ondansetron INJ* 2 MG/ML VIAL IV PRN (13:19)
[2017-05-28] MEDS ORDERED: Carbidopa/Levodop 25/100 MG TAB(*) ONE (13:30)
[2017-05-28] MEDS: Carbidopa/Levodop 25/100 MG TAB(*) PO SCH ×2 (13:34→15:14)
--- NOTE | 2017-05-28 13:50 | RAD ---
INDICATION: Weakness COMPARISON: Most recent comparison chest x-rays dated January 24, 2017 TECHNIQUE: Single AP portable view of the chest was obtained. FINDINGS: Image quality is compromised due to the relative inferiority of a portable chest x-ray. The heart and mediastinum exhibit normal size and contour. The lungs are grossly clear. There is no evidence of a large pleural effusion. Again noted are advanced degenerative changes of the bilateral glenohumeral joints. IMPRESSION: No radiographic evidence for acute cardiopulmonary abnormality on this portable chest x-ray.
--- NOTE | 2017-05-28 14:14 | RAD ---
INDICATION: Right flank pain COMPARISON: CT abdomen pelvis October 28, 2016 TECHNIQUE: Noncontrast axial source images were acquired from the level hemidiaphragms to the symphysis pubis as part of CT imaging for renal stone. Lung bases: The lung bases are clear. Liver: The liver is normal in size. Noncontrast imaging shows no evidence of a hepatic mass or ductal dilatation. Gallbladder: There are no calcified gallstones. There is no evidence of wall thickening or pericholecystic fluid.. Spleen: The spleen is normal in size. The noncontrast CT appearance is normal. Pancreas: Noncontrast imaging shows no pancreatic mass or ductal dilitation. Adrenal glands: No masses are identified. Kidneys/Bladder: There is nonobstructive right-sided nephrolithiasis with a 3 mm mid pole calculus and adjacent 2 mm calculus. There is no CT evidence of hydronephrosis. Noncontrast imaging shows no evidence of a new renal mass. There is a lower pole cyst of the right measuring 1.3 cm which is better imaged on the earlier contrast-enhanced exam The bladder is decompressed with a Nagel catheter. Adenopathy: There is no evidence of intraperitoneal or retroperitoneal adenopathy. Evaluation is limited without oral contrast. Fluid collections: There are no free or localized fluid collections. Vessels: There are atherosclerotic changes of the aorta and iliac vessels. There is no focal aneurysm. The IVC appears normal Pelvic organs: The uterus and adnexa appear normal GI tract: Evaluation of the bowel is limited without oral contrast. The stomach, small bowel, and lower GI tract appear grossly normal. There are no obstructive findings. The appendix is visualized and appears normal. Soft tissues: No soft tissue abnormalities of the extraperitoneal abdomen or pelvis are identified. Osseous structures: There is advanced spondylitic change of the lumbar spine. Please refer to corresponding CT lumbar spine report IMPRESSION: NONOBSTRUCTIVE RIGHT-SIDED NEPHROLITHIASIS
--- NOTE | 2017-05-28 14:15 | RAD ---
HISTORY: Low back pain COMPARISONS: None TECHNIQUE: Multiple contiguous axial CT scans were obtained of the lumbar spine without intravenous contrast, with coronal and sagittal multiplanar reformations. FINDINGS: SPINAL CANAL: Evaluation of the central canal is limited on CT technique; however, there is no obvious canalicular mass or epidural hemorrhage. ALIGNMENT: There is a scoliotic curvature of the spine. VERTEBRAL BODIES: There is diffuse osteopenia. Is multilevel anterolateral marginal osteophyte formation. JOINTS: There is diffuse facet osteoarthritis MUSCULATURE: Unremarkable INTERVERTEBRAL DISCS: There is diffuse loss of intervertebral disc height throughout the spine. AXIAL IMAGES: T10-T11: There is posterior osteophytic ridging at bilateral facet hypertrophy. There is moderate bilateral neuroforaminal narrowing. There is moderate narrowing of the central canal. T11-T12: There is posterior osteophytic ridging with bilateral facet hypertrophy. There is a calcified disc protrusion versus posterior osteophyte in the left paracentral space measuring 0.8 cm in depth. There is moderate narrowing of the central canal. There is moderate bilateral neural foraminal narrowing. T12-L1: There is bilateral facet hypertrophy. There is moderate bilateral neuroforaminal narrowing. There is no osseous central canal stenosis. There is a small right lateral recess calcified disc protrusion versus posterior osteophyte measuring 0.3 cm in depth. L1-L2: There is bilateral facet hypertrophy. There is vacuum phenomena consistent with a left lateral recess inferior disc extrusion measuring 0.4 cm in depth and 0.7 cm in craniocaudal dimension. There is posterior osteophytic ridging with marginal osteophyte formation at the neural foramina bilaterally. There is severe bilateral neural foraminal narrowing. There is mild narrowing of central canal. L2-L3: There is posterior osteophytic ridging with bilateral facet hypertrophy and marginal osteophyte formation at the neural foramina bilaterally. There is severe bilateral neural foraminal narrowing. There is moderate narrowing of the central canal. L3-L4: There is a broad-based disc bulge with a broad-based right lateral recess disc protrusion versus ossified disc measuring 0.5 cm in depth. There is severe left and moderate right neural foraminal narrowing. There is mild narrowing of the central canal. L4-L5: There is broad-based disc bulge. There is marginal osteophyte formation at the neural foramina bilaterally. There is severe bilateral neural foraminal narrowing. There is mild narrowing of central canal. L5-S1: There is bilateral facet hypertrophy. There is marginal osteophyte formation at the neural foramina bilaterally. There is a broad-based disc bulge. There is severe bilateral neuroforaminal narrowing. There is no osseous central canal stenosis. SOFT TISSUES: There is atherosclerosis of the abdominal aorta. OTHER: None IMPRESSION: 1. SCOLIOSIS. 2. OSTEOPENIA. 3. DEGENERATIVE DISC DISEASE AND OSTEOARTHRITIS. 4. THERE IS MODERATE NARROWING OF CENTRAL CANAL AT T10-T11, T11-T12, AND L2-L3, WITH MILD NARROWING AT L1-L2 AND L3-L4. 5. THERE IS MULTILEVEL NEURAL FORAMINAL NARROWING DESCRIBED ABOVE. 6. THERE IS A LEFT-SIDED DISC EXTRUSION AT L1-L2.
--- NOTE | 2017-05-28 15:12 | HP ---
CC: Dr. Kumar * HISTORY AND PHYSICAL: DATE OF ADMISSION: 05/28/17 PRIMARY CARE PROVIDER: Dr. Kumar. ATTENDING PHYSICIAN WHILE IN THE HOSPITAL: Dr. Mae * (report being dictated by Atul Nevarez NP) CHIEF COMPLAINT: Weakness. HISTORY OF PRESENT ILLNESS: Mrs. Cooper is a 72-year-old female patient, who has a history of microscopic colitis, former history of diabetes, history of hyperlipidemia, hypertension, osteoarthritis, obesity, depression, history of essential tremor, Parkinson's, polyps. She has a history of CAD, NH, uterine cancer, status post hysterectomy just done in February and a history of a right punctured eardrum. She comes in to our ER today. The says that since February after having surgery, she has had a decline and even before then , they have noticed that she has been declining in the sense that she has been requiring more care at home with her and has not really been walking as much as what she used to. I noticed today that the patient was sitting on the commode and she could not get up. She normally can stand and pivot, sometimes she can walk a short distance with a walker, but today she was having pain in the right buttock, right flank and going down the backside of her leg, and the says that she has been having this pain ever since having her hysterectomy done in February and it has not been getting any better. She denied having any abdominal pain and there has been no vaginal bleeding she has reported. No dysuria or frequency and she says that she has not been having any diarrhea. In fact, she said she felt constipated, but she has been taking [id number] stool softeners and this has been helping. There was concern though today because when they tried to stand her up, she says her right leg felt very weak and she was having a significant amount of pain down that right buttock and down the back side of her right leg. The was concerned because this was not her baseline and he called 911 because he could not get her up. There has been no reports of fevers or chills or vomiting or diarrhea. She says she has not been incontinent of urine or stool and she says that the right leg to her feels a little more weak than her baseline at this point, but there has been no numbness or tingling, exception in her right toes and again mostly the pain is in the right buttock down the backside of the right leg described as a shooting stabbing pain. This has been intermittent since the surgery in February. She denied any chest pain, denied any shortness of breath. There has been no coughing. There has been no upper respiratory symptoms. No aching and no arthralgias or myalgias. She was evaluated in the ED because of the weakness. We were asked to evaluate for admission. PAST MEDICAL HISTORY: Again significant for: 1. Microscopic colitis. 2. Diabetes in the past. 3. Hyperlipidemia. 4. Hypertension. 5. Osteoarthritis. 6. Obesity. 7. Depression. 8. Essential tremor. 9. Parkinson's. 10. History of polyps. 11. Menopause at age 54. 12. CAD. 13. History of NH. 14. Uterine cancer. 15. Ruptured right eardrum. PAST SURGICAL HISTORY: 1. The patient has had a tonsillectomy. 2. Left knee arthroscopy. 3. Hysterectomy. 4. Cardiac catheterization. MEDICATIONS: Home meds according to the list that she provided to us includes: 1. Carbidopa/levodopa controlled release 1 tablet at 1700. 2. Carbidopa/levodopa immediate release 1.5 tabs at 8:30, 12:30, and 1530. 3. Atorvastatin 80 mg a day. 4. Tylenol extra strength 1000 to 1500 mg p.o. t.i.d. 5. Prevacid 15 mg daily. 6. Carbidopa/levodopa 50/200 controlled release 1 tablet at bedtime. 7. Calcium with vitamin D 2 tablets p.o. daily. 8. Primidone 100 mg p.o. b.i.d. 9. Lyrica 150 mg a day. 10. Coreg 6.25 mg p.o. b.i.d. 11. Aspirin 81 mg a day. 12. Brilinta 90 mg p.o. b.i.d. ALLERGIES TO MEDICATIONS: Include PENICILLIN, LISINOPRIL, EFFIENT, and IV DYE. FAMILY HISTORY: Mother had a history of kidney disease. Father had a history of heart disease. SOCIAL HISTORY: She does not smoke. She does not drink. She lives with her , who is also her surrogate decision maker. REVIEW OF SYSTEMS: There is no documented fever. She denied any significant weight change. There was no double vision. She denied having any ear discharge. There was no rhinorrhea. No sore throat. No thyroid enlargement. Denied having any chest pain. There was no orthopnea. No nocturnal dyspnea. She denied any abdominal pain. No nausea. No vomiting. There was no dysuria. No frequency. There was no seizure. She denied having any loss of consciousness. No pruritus and no skin ulcerations. Review of 14 systems completed, all others negative. PHYSICAL EXAMINATION GENERAL: At this time, Mrs. Cooper is a 72-year-old female patient. She is sitting in the ED stretcher. She does not appear to be in any acute distress. She is awake and she is alert. VITAL SIGNS: Blood pressure 158/89, pulse 98, respirations 18, O2 sat 99%, and temperature 97.4. HEENT: Head: Atraumatic. Eyes: Sclerae anicteric, not pale. Throat: Oral mucosa appears to be dry. No oropharyngeal erythema. NECK: Supple. LUNGS: Clear to auscultation. No wheezes, rales, or rhonchi. HEART: Sounds S1, S2. Regular rate and rhythm. No murmurs, rubs, or gallops. ABDOMEN: Soft, flat, nontender. She did have some CVA tenderness on the right side. She had no palpable tenderness along the lumbar and thoracic spine. EXTREMITIES: Pulses were 2+ throughout. She did have +2 pitting edema bilaterally. She had about 4/5 strength bilaterally to the lower extremities. She had positive plantar and dorsiflexion with 5/5 strength. Flexion at the knee bilaterally. She had about 4/5 strength at this point. She had a negative straight leg test bilaterally. No obvious focal weaknesses were noted and there was no decreased sensation noted in the lower extremities. NEUROLOGIC: She is awake, alert. She is oriented x3. Her speech was slow, but according to the family, at her baseline. Tongue was midline. Brace End [place] Former were equal. She had no gross focal deficits. SKIN: Intact. DIAGNOSTIC STUDIES/LAB DATA: WBC of 6.6, RBC of 4.52, hemoglobin of 13.5, hematocrit of 40, platelet count of 192,000. Sodium 135, potassium 3.8, chloride of 102, bicarb 28, BUN 19, creatinine 0.69, glucose 117, lactic 0.8, calcium 9.4, mag 2.1. Total bili 0.5, AST 20, ALT 3, alk phos 52. Troponin 0.01. CRP at 1.44. BNP 125. TSH normal. Urine was negative. She did have an EKG obtained today as well, showed a normal sinus rhythm, rate of 91. No ST elevations or T-waves inversions were noted. Old medical records were reviewed. ASSESSMENT AND PLAN: Mrs. Cooper is a 72-year-old female patient with Parkinson disease coming into our ER today with complaints of weakness and having trouble transferring from a commode today and had progressive decline since February. We were asked to evaluate for admission. She will be admitted under observation status for: 1. Weakness. Again, I suspect this is probably related to her lumbar radiculopathy and possible sciatic nerve pain. She is nontender. There is no incontinence of urine or stools. I do not think a stat MRI is needed at this point, but my plan will be to at least get the lumbar spine CT. There was no reports of trauma, so I think a fracture is less likely. She probably has some spinal stenosis which could be contributing to this pain. I would get a CT. I am going to put her on Lidoderm patch, give her tramadol as well. We will do the CT of the abdomen and pelvis because of the recent hysterectomy and because she did have some CVA tenderness to make sure she does not have a stone, although I think this is highly unlikely given the negative urine. Await the imaging. If we need to, we can consider getting neurosurgical input, but at this point I think we will get PT/OT, tramadol, Lidoderm patch. I discussed with my attending, Dr. Mae, he was in agreement and we will continue to follow her closely. There was no active sign of infection. If she spikes a fever, I would put her on antibiotics, but at this point no obvious source was noted. I also will be checking a chest x- ray. 2. History of microscopic colitis. At this point not an active issue. Follow up with primary. 3. Diabetes. Again, this is stable with diet management. 4. Hyperlipidemia. Continue statin therapy. 5. Hypertension. Continue her Coreg. 6. Osteoarthritis. I have ordered p.r.n. tramadol and Tylenol for pain. 7. History of depression. Continue supportive care. 8. History of Parkinson's. Continue meds as prescribed. 9. Essential tremor. Continue meds as prescribed. 10. History of coronary artery disease. She is on aspirin, statin, Brilinta, and a beta brianna. We will continue these medications. 11. DVT prophylaxis. She is high risk. I am going to put her on heparin subcu. 12. Code status. Full code. 13. Fluids, electrolytes, and nutrition. She can have a regular diet. TIME SPENT: On the admission 60 minutes, greater than half the time spent face- to- face with the patient obtaining my history and physical, other half of the time spent going over the plan of care with the patient and implementing my plan of care. I did discuss plan of care with my attending, Dr. Mae, who is in agreement. ATUL NEVAREZ, PAOLA [id number]/CPS #: [id number] EVIE
[2017-05-28] MEDS: Heparin VIAL(*) 5000 UNITS/ML VIAL (FIVE THOUSAND) SUBCUT SCH ×2 (15:14→21:09)
[2017-05-28] MEDS: Lidocaine PATCH 5%* 1 PATCH TRANSDERM SCH (15:15)
--- NOTE | 2017-05-28 18:15 | ED ---
[facility] Angela, scribed for Quique Warren MD on 05/28/17 at 0952 . Neurological HPI - HPI Summary HPI Summary: This pt is a 72 y/o female, accompanied by her , presenting to [facility] c/o increased weakness and low back pain for the past few days. reports that this morning it was difficult for the pt to ambulate from her bed to the commode (which is next to her bed). Pt fell over and had to hold her up. Pt has taken acetaminophen and ibuprofen for her back pain with minimal relief over the past few days. PMHx includes Parkinson's disease, [place] with cardiac stent, HTN, uterine CA s/p hysterectomy. - History of Current Complaint Chief Complaint: EDWeakness Stated Complaint: GENERAL ILLNESS Time Seen by Provider: 05/28/17 09:16 Hx Obtained From: Patient Hx Last Menstrual Period: N/A Onset/Duration: Started days ago, Still Present Timing: Constant Pain Intensity: 10 Pain Scale Used: 0-10 Numeric Character: Weak - increased, Other: - low back pain Associated Signs and Symptoms: Positive: Weakness - Additional Pertinent History Primary Care Physician: [id number] - Allergy/Home Medications Allergies/Adverse Reactions: Allergies Allergy/AdvReac Type Severity Reaction Status Date / Time Penicillin V [From Pen-Vee-K] Allergy Intermediate Rash Verified 11/05/16 08:35 Lisinopril Allergy Mild Rash Verified 11/05/16 08:35 Iodinated Diagnostic Agents Allergy See Comment Verified 11/10/16 07:56 Prasugrel [From Effient] Allergy FULL BODY Verified 11/05/16 08:35 RASH IV Contrast Allergy Rash Uncoded 11/09/16 16:15 Home Medications: Home Medications Acetaminophen [Acetaminophen Extra Stren] 1,000 - 1,500 mg PO TID 05/28/17 [ History Confirmed 05/28/17] Calcium Carbonate-Vitamin D W/ [Caltrate 600+D Plus] 2 tab PO DAILY 05/28/17 [ History Confirmed 05/28/17] Carbidopa/Levodop Cr 25/100 1 tab.cr PO 1700 05/28/17 [History Confirmed ] PMH/Surg Hx/FS Hx/Imm Hx Endocrine/Hematology History: Reports: Hx Diabetes - DM2, Hx Anemia Denies: Hx Anticoagulant Therapy, Hx Thyroid Disease Cardiovascular History: Reports: Hx Hypercholesterolemia, Hx Hypertension Respiratory History: Denies: Hx Seasonal Allergies, Hx Sleep Apnea GI History: Denies: Hx Diverticulosis, Hx Gall Bladder Disease, Hx Gastroesophageal Reflux Disease, Hx Irritable Bowel, Hx Jaundice, Hx Ulcer Musculoskeletal History: Reports: Hx Arthritis - knees and shoulders, Hx Bursitis Denies: Hx Fibromyalgia, Hx Gout, Hx Osteoporosis Sensory History: Denies: Hx Contacts or Glasses, Hx Hearing Aid Opthamlomology History: Denies: Hx Contacts or Glasses Neurological History: Reports: Other Neuro Impairments/Disorders - tremors, Parkinson's disease Denies: Hx Headaches, Hx Migraine, Hx Seizures Psychiatric History: Reports: Hx Depression - citalapram Denies: Hx Eating Disorder, Hx Panic Disorder, Hx Post Traumatic Stress Disorder, Hx Suicide Attempt, Hx Substance Abuse - Cancer History Cancer Type, Location and Year: Uterine CA - Surgical History Surgery Procedure, Year, and Place: Hysterectomy Infectious Disease History: No Infectious Disease History: Denies: Hx Hepatitis, Traveled Outside the [place] in Last 30 Days - Family History Known Family History: Positive: Cardiac Disease - Social History Alcohol Use: None Substance Use Type: Reports: None Smoking Status (MU): Never Smoked Tobacco Review of Systems Negative: Fever, Chills Eyes: Negative ENT: Negative Cardiovascular: Negative Musculoskeletal: Other - low back pain Positive: Weakness - generalized All Other Systems Reviewed And Are Negative: Yes Physical Exam - Summary Physical Exam Summary: Appearance: The patient is well-nourished in no acute distress. Skin: The skin is warm and dry and skin color reflects adequate perfusion. HEENT: The head is normocephalic and atraumatic. The pupils are equal and reactive. The conjunctivae are clear and without drainage. Nares are patent and without drainage. Mouth reveals moist mucous membranes and the throat is without erythema and exudate. The external ears are intact. The ear canals are patent and without drainage. The tympanic membranes are intact. Neck: the neck is supple with full range of motion and non-tender. There are no carotid bruits. There is no neck vein distension. Respiratory: Chest is non-tender. Lungs are clear to auscultation and breath sounds are symmetrical and equal. Cardiovascular: Heart is regular rate and rhythm. There is no murmur or rub auscultated. There is no peripheral edema and pulses are symmetrical and equal. Abdomen: The abdomen is soft and non-tender. There are normal bowel sounds heard in all four quadrants and there is no organomegaly palpated. Musculoskeletal: There is no back tenderness noted. Extremities are non-tender with full range of motion. There is good capillary refill. There is no peripheral edema or calf tenderness elicited. Neurological: Patient is alert and oriented to person, place and time. The patient has symmetrical motor strength in all four extremities. Cranial nerves are grossly intact. Deep tendon reflexes are symmetrical and equal in all four extremities. Psychiatric: The patient has an appropriate affect and does not exhibit any anxiety or depression. Triage Information Reviewed: Yes Vital Signs On Initial Exam: Initial Vitals Temp Pulse Resp BP Pulse Ox 97.4 F 92 12 169/89 100 05/28/17 09:14 05/28/17 09:14 05/28/17 09:14 05/28/17 09:14 05/28/17 09:14 Vital Signs Reviewed: Yes - [place] Coma Scale Coma Scale Total: 15 Diagnostics - Vital Signs Vital Signs Temp Pulse Resp BP Pulse Ox 05/28/17 09:14 97.4 F 92 12 169/89 100 - Laboratory Lab Results: Lab Results 05/28/17 05/28/17 05/28/17 Range/Units 09:57 09:57 09:57 WBC 6.6 (3.5-10.8) 10^3/ul RBC 4.52 (4.0-5.4) 10^6/ul Hgb 13.5 (12.0-16.0) g/dl Hct 40 (35-47) % MCV 89 (80-97) fL MCH 30 (27-31) pg MCHC 33 (31-36) g/dl RDW 19 H (10.5-15) % Plt Count 192 (150-450) 10^3/ul MPV 10 (7.4-10.4) um3 Neut % (Auto) 73.3 (38-83) % Lymph % (Auto) 13.4 L (25-47) % [place] % (Auto) 9.8 H (1-9) % Eos % (Auto) 2.6 (0-6) % Baso % (Auto) 0.9 (0-2) % Absolute Neuts (auto) 4.9 (1.5-7.7) 10^3/ul Absolute Lymphs (auto) 0.9 L (1.0-4.8) 10^3/ul Absolute Monos (auto) 0.6 (0-0.8) 10^3/ul Absolute Eos (auto) 0.2 (0-0.6) 10^3/ul Absolute Basos (auto) 0.1 (0-0.2) 10^3/ul Absolute Nucleated RBC 0.01 10^3/ul Nucleated RBC % 0.2 Sodium 135 (133-145) mmol/L Potassium 3.8 (3.5-5.0) mmol/L Chloride 102 (101-111) mmol/L Carbon Dioxide 28 (22-32) mmol/L Anion Gap 5 (2-11) mmol/L BUN 19 (6-24) mg/dL Creatinine 0.69 (0.51-0.95) mg/dL Est GFR ( Amer) 108.2 (>60) Est GFR (Non-Af Amer) 84.1 (>60) BUN/Creatinine Ratio 27.5 H (8-20) Glucose 117 H (70-100) mg/dL Lactic Acid 0.8 (0.5-2.0) mmol/L Calcium 9.4 (8.6-10.3) mg/dL Magnesium 2.1 (1.9-2.7) mg/dL Total Bilirubin 0.50 (0.2-1.0) mg/dL AST 20 (13-39) U/L ALT 3 L (7-52) U/L Alkaline Phosphatase 62 (34-104) U/L Troponin I 0.01 (<0.04) ng/mL C-Reactive Protein 1.44 (< 5.00) mg/L B-Natriuretic Peptide ( - 100) pg/mL Total Protein 7.4 (6.4-8.9) g/dL Albumin 3.2 (3.2-5.2) g/dL Globulin 4.2 H (2-4) g/dL Albumin/Globulin Ratio 0.8 L (1-3) TSH 1.69 (0.34-5.60) mcIU/mL Urine Color Urine Appearance Urine pH (5-9) Ur Specific [place] (1.010-1.030) Urine Protein (Negative) Urine Ketones (Negative) Urine Blood (Negative) Urine Nitrate (Negative) Urine Bilirubin (Negative) Urine Urobilinogen (Negative) Ur Leukocyte Esterase (Negative) Urine Glucose (Negative) 05/28/17 05/28/17 Range/Units 09:57 12:09 WBC (3.5-10.8) 10^3/ul RBC (4.0-5.4) 10^6/ul Hgb (12.0-16.0) g/dl Hct (35-47) % MCV (80-97) fL MCH (27-31) pg MCHC (31-36) g/dl RDW (10.5-15) % Plt Count (150-450) 10^3/ul MPV (7.4-10.4) um3 Neut % (Auto) (38-83) % Lymph % (Auto) (25-47) % [facility] % (Auto) (1-9) % Eos % (Auto) (0-6) % Baso % (Auto) (0-2) % Absolute Neuts (auto) (1.5-7.7) 10^3/ul Absolute Lymphs (auto) (1.0-4.8) 10^3/ul Absolute Monos (auto) (0-0.8) 10^3/ul Absolute Eos (auto) (0-0.6) 10^3/ul Absolute Basos (auto) (0-0.2) 10^3/ul Absolute Nucleated RBC 10^3/ul Nucleated RBC % Sodium (133-145) mmol/L Potassium (3.5-5.0) mmol/L Chloride (101-111) mmol/L Carbon Dioxide (22-32) mmol/L Anion Gap (2-11) mmol/L BUN (6-24) mg/dL Creatinine (0.51-0.95) mg/dL Est GFR ( Amer) (>60) Est GFR (Non-Af Amer) (>60) BUN/Creatinine Ratio (8-20) Glucose (70-100) mg/dL Lactic Acid (0.5-2.0) mmol/L Calcium (8.6-10.3) mg/dL Magnesium (1.9-2.7) mg/dL Total Bilirubin (0.2-1.0) mg/dL AST (13-39) U/L ALT (7-52) U/L Alkaline Phosphatase (34-104) U/L Troponin I (<0.04) ng/mL C-Reactive Protein (< 5.00) mg/L B-Natriuretic Peptide 125 H ( - 100) pg/mL Total Protein (6.4-8.9) g/dL Albumin (3.2-5.2) g/dL Globulin (2-4) g/dL Albumin/Globulin Ratio (1-3) TSH (0.34-5.60) mcIU/mL Urine Color Yellow Urine Appearance Clear Urine pH 7.0 (5-9) Ur Specific [place] 1.005 L (1.010-1.030) Urine Protein Negative (Negative) Urine Ketones Negative (Negative) Urine Blood Negative (Negative) Urine Nitrate Negative (Negative) Urine Bilirubin Negative (Negative) Urine Urobilinogen Negative (Negative) Ur Leukocyte Esterase Negative (Negative) Urine Glucose Negative (Negative) Result Diagrams: 05/28/17 09:57 05/28/17 09:57 Lab Statement: Any lab studies that have been ordered have been reviewed, and results considered in the medical decision making process. - Radiology Chest XR Xray Interpretation: No Acute Changes - IMPRESSION: No radiographic evidence for acute cardiopulmonary abnormality on this portable chest x-ray. Dr. Warren has reviewed this radiology report. Radiology Interpretation Completed By: Radiologist - EKG 09:53 Cardiac Rate: NL EKG Rhythm: Sinus Rhythm - at 91 bpm EKG Interpretation: Non-specific inferior changes. Course/Dx - Course Course Of Treatment: There is some confusion in the story but it appears that Ms. Cooper has a long history of back pain for which she take ibuprofen and acetaminophen. She has been getting weaker and weaker over the last few days and has had decreased input, has not been taking the pain meds and has increased low back pain. Her W/U was unremarkable and I'm not sure why she is so weak but she is unable to take care of herself. - Diagnoses Provider Diagnoses: Weakness - Physician Notifications Discussed Care Of Patient With: Atul Nevarez Time Discussed With Above Provider: 11:39 Instructed by Provider To: Other - I discussed pt care with STEVE Nye, who will consult with the pt in the ED. [12:41] I discussed pt's case with Dr. Kumar. Discharge - Discharge Plan Condition: Stable Disposition: ADMITTED TO [facility] documentation as recorded by the [facility] [place] [facility] accurately reflects the service I personally performed and the decisions made by me, Quique Warren MD.
[2017-05-28] MEDS: Carbidopa/Levodop CR 50/200(*) TAB.CR PO SCH (19:16)
[2017-05-28] MEDS ORDERED: oxyCODONE TAB* 5 MG TAB ONE (20:19)
[2017-05-28] MEDS: oxyCODONE TAB* 5 MG TAB PO PRN (20:20)
[2017-05-28] MEDS ORDERED: Carbidopa/Levodop CR 50/200(*) TAB.CR PO SCH (21:00)
[2017-05-28] MEDS: Primidone TAB(*) 50 MG PO SCH (21:13)
[2017-05-28] MEDS: Pregabalin CAP(*) 50 MG PO SCH (21:14)
[2017-05-28] MEDS: Ticagrelor* 90 MG TAB PO SCH (21:14)
[2017-05-28] MEDS: Carvedilol TAB* 6.25 MG PO SCH (21:16)
[2017-05-28] MEDS: Atorvastatin* 80 MG TAB PO SCH (21:16)
[2017-05-28] MEDS: Lidocaine Patch REMOVE* 1 NOTE MISC SCH (21:18)
[2017-05-29] MEDS: Heparin VIAL(*) 5000 UNITS/ML VIAL (FIVE THOUSAND) SUBCUT SCH ×3 (04:32→21:38)
[2017-05-29 05:51] LABS: Hematocrit 32 % (35-47); Hemoglobin 10.9 g/dl (12.0-16.0); Mean Corpuscular HGB Conc 34 g/dl (31-36); Mean Corpuscular Hemoglobin 31 pg (27-31); Mean Corpuscular Volume 90 fL (80-97); Mean Platelet Volume 10 um3 (7.4-10.4); Red Blood Count 3.58 10^6/ul (4.0-5.4); Red Cell Distribution Width 18 % (10.5-15); White Blood Count 5.6 10^3/ul (3.5-10.8)
[2017-05-29 06:04] LABS: BUN/Creatinine Ratio 29.9 (8-20); Calcium 8.9 mg/dL (8.6-10.3); EGFR African American 111.9 (>60); Potassium 3.5 mmol/L (3.5-5.0)
[2017-05-29] MEDS: traMADol TAB* 50 MG PO PRN ×2 (06:35→13:12)
--- NOTE | 2017-05-29 08:33 | PN ---
Subjective - Subjective Reason for Note: Progress Note History: I have reviewed the history of her presentation with the patient, her and the H and P provided by Atul Nevarez NP. She has a longstanding history of Parkinson's disease. She was unable to get out of bed yesterday due to weakness in her legs and pain in her right leg. Her is her primary care provider and was unable to manage her ADLs due to her pain and weakness. 02/15/2017 she had a total hysterectomy for pT1aNx endometriod adenocarcinoma of the endometrium. The pain in her right leg dates from this. She has had anorexia and progressive weight loss. Last night it was reported she had leg cramps and restless legs. Active Problems: Active Problems Lumbar radiculopathy (Acute) M54.16 Right leg pain (Acute) M79.604 Spinal stenosis of lumbar region (Acute) M48.061 Weakness (Acute) R53.1 Colitis (Chronic) K52.9 Coronary artery disease (Chronic) I25.10 Depression (Chronic) F32.9 Endometrioid adenocarcinoma of uterus (Chronic) C55 Essential hypertension (Chronic) I10 History of falling (Chronic) Z91.81 History of hysterectomy for cancer (Chronic) Z90.710 Hyperlipidemia (Chronic) E78.5 Morbid obesity (Chronic) E66.01 Parkinsons disease (Chronic) G20 Prolonged QT interval (Chronic) R94.31 Type 2 diabetes mellitus (Chronic) Current Medications: Current Medications Acetaminophen (Tylenol Tab*) 650 mg PO Q4H PRN PRN Reason: FEVER/PAIN Aspirin (Aspirin Ec Low Dose*) 81 mg PO DAILY [facility] Atorvastatin Calcium (Lipitor*) 80 mg PO BEDTIME KEISHA Last Admin: 05/28/17 21:16 Dose: 80 mg Carbidopa/Levodopa (Sinemet Cr 50/200(*)) 0.5 tab.cr PO 1700 KEISHA Last Admin: 05/28/17 19:16 Dose: 0.5 tab.cr Carbidopa/Levodopa (Sinemet 25/100 Tab(*)) 1.5 tab PO 0830,1230,1530 KEISHA Last Admin: 05/28/17 15:14 Dose: 1.5 tab Carbidopa/Levodopa (Sinemet Cr 50/200(*)) 1 tab.cr PO BEDTIME KEISHA Last Admin: 05/28/17 21:13 Dose: 1 tab.cr Carvedilol (Coreg Tab*) 6.25 mg PO BID [facility] Last Admin: 05/28/17 21:16 Dose: 6.25 mg Heparin Sodium (Porcine) (Heparin Vial(*)) 5,000 units SUBCUT Q8HR [facility] Last Admin: 05/29/17 04:32 Dose: Not Given Lidocaine (Lidoderm 5% Patch*) 1 patch TRANSDERM DAILY [facility] Last Admin: 05/28/17 15:15 Dose: 1 patch Omeprazole (Prilosec Cap*) 15 mg PO DAILY [facility] PRN Reason: Protocol Ondansetron HCl (Zofran Inj*) 4 mg IV Q6H PRN PRN Reason: NAUSEA Oxycodone HCl (Roxycodone Tab*) 2.5 mg PO Q6H PRN PRN Reason: PAIN Last Admin: 05/28/17 20:20 Dose: 2.5 mg Pharmacy Profile Note (Lidocaine Patch Remove*) 1 note N/A 2100 [facility] Last Admin: 05/28/17 21:18 Dose: Not Given Pregabalin (Lyrica Cap(*)) 150 mg PO BID [facility] Last Admin: 05/28/17 21:14 Dose: 150 mg Primidone (Mysoline Tab(*)) 100 mg PO BID [facility] Last Admin: 05/28/17 21:13 Dose: 100 mg Ticagrelor (Brilinta*) 90 mg PO BID [facility] Last Admin: 05/28/17 21:14 Dose: 90 mg Tramadol HCl (Ultram*) 50 mg PO Q6H PRN PRN Reason: PAIN Last Admin: 05/29/17 06:35 Dose: 50 mg - Review of Systems Constitutional Symptoms: Yes: Weight Loss, Fatigue Dermatology: Normal: No Pulmonary: Negative: Cough, Sputum, Respiratory Distress Cardiology: Negative: Chest Pain, Palpitations, Swelling of Ankles Gastroenterology: Positive: Anorexia Negative: Abdominal Pain, Nausea, Vomiting, Change in Bowel Habits Genital - Urinary: Positive: Normal Home Medications: Home Medications Medication Instructions Recorded Confirmed Type Aspirin EC Low Dose* [Ecotrin EC 81 mg PO DAILY 06/07/13 05/28/17 History Low Dose 81 MG*] Atorvastatin* [Lipitor 80 MG*] 80 mg PO BEDTIME 06/07/13 05/28/17 History Pregabalin CAP(*) [Lyrica CAP(*)] 150 mg PO BID 06/07/13 05/28/17 History Primidone TAB(*) [Mysoline TAB(*)] 100 mg PO BID 06/07/13 05/28/17 History Carvedilol TAB* [Coreg TAB*] 6.25 mg PO BID 10/30/13 05/28/17 History Carbidopa/Levodop 25/100 MG(*) 1.5 tab PO 0830,1230,1530 11/09/16 05/28/17 History [Sinemet 25/100 TAB(*)] Carbidopa/Levodop CR 50/200(*) 1 tab.cr PO BEDTIME 11/09/16 05/28/17 History [Sinemet CR 50/200(*)] Lansoprazole CAP (NF) [Prevacid 15 mg PO DAILY 11/09/16 05/28/17 History CAP (NF)] Ticagrelor* [Brilinta 90 MG*] 90 mg PO BID 11/09/16 05/28/17 History Acetaminophen [Acetaminophen Extra 1,000 - 1,500 mg PO TID 05/28/17 05/28/17 History Stren] Calcium Carbonate-Vitamin D W/ 2 tab PO DAILY 05/28/17 05/28/17 History [Caltrate 600+D Plus] Carbidopa/Levodop Cr 25/100 1 tab.cr PO 1700 05/28/17 05/28/17 History Allergies: Allergies Allergy/AdvReac Type Severity Reaction Status Date / Time Penicillin V [From Pen-Vee-K] Allergy Intermediate Rash Verified 11/05/16 08:35 Lisinopril Allergy Mild Rash Verified 11/05/16 08:35 Iodinated Diagnostic Agents Allergy See Comment Verified 11/10/16 07:56 Prasugrel [From Effient] Allergy FULL BODY Verified 11/05/16 08:35 RASH IV Contrast Allergy Rash Uncoded 11/09/16 16:15 Objective - Vital Signs Vital Signs: Vital Signs 05/28/17 05/28/17 05/28/17 14:40 19:10 19:30 Temperature 98.0 F 97.9 F Pulse Rate 90 213 Respiratory 18 16 18 Rate Blood Pressure 105/83 143/89 (mmHg) O2 Sat by Pulse 100 98 Oximetry 05/28/17 05/28/17 05/28/17 20:01 20:20 21:14 Temperature Pulse Rate 89 Respiratory 20 18 Rate Blood Pressure (mmHg) O2 Sat by Pulse Oximetry 05/28/17 05/28/17 05/28/17 22:59 23:02 23:42 Temperature 98.1 F Pulse Rate 79 Respiratory 18 18 16 Rate Blood Pressure 114/35 (mmHg) O2 Sat by Pulse 98 Oximetry 05/29/17 05/29/17 05/29/17 00:39 03:10 06:35 Temperature 97.5 F Pulse Rate 81 Respiratory 18 12 18 Rate Blood Pressure 102/58 (mmHg) O2 Sat by Pulse 100 Oximetry - Intake and Output Intake and Output: Intake & Output 05/26/17 05/27/17 05/28/17 05/29/17 11:59 11:59 11:59 11:59 Intake Total 190 Output Total 350 Balance -160 Weight 171 lb Intake: Oral 190 Output: Urine 0 Nagel 350 Other: # Bowel Movements 0 Intake and Output Start: 05/28/17 14: 40 Freq: DAILY@0600,1400,2200 Status: Active Protocol: Document 05/28/17 20:43 [id number] (Rec: 05/28/17 20:44 [id number]) Document 05/29/17 05:49 [id number] (Rec: 05/29/17 05:50 [id number] [id number]) - Physical Exam General Physical Exam Comment: She has a tremor and signs of Parkinson's disease (advanced). Power normal in arms. Legs - right left. Hip flexion 3 4- (right limited pain). Knee flexion 3 3. ankle dorsiflexion 3 3. Plantar responses downgoing bilaterally General: No Cyanosis, No Anemia, No Jaundice, No Clubbing Skin: Normal: Rash Endocrine: Yes Central Obesity, No Acromegaly, No Vitiligo, No Flushing, No Acanthosis nigricans, No Violaceious striae, No Tate Syndrome, No Buccal pigmenatation, No Echeverria Crease Pigmentation Lungs and Chest: Yes: Chest Expansion Full, Chest Expansion Symetrica, Percussion Note Resonant, Vessicular Breath Sounds. No: Crackles, Wheezes Heart Rate and Rhythm: Regular JVP: Not Elevated Additional Cardiovascular: Yes: Normal Heart Sounds. No: Heart Murmur, Pedal Edema Abdominal Exam: Yes: Soft, Bowel Sounds Present. No: Distention, Abdominal Mass , Hepatomegaly, Abdominal Tenderness - Extremities Posterior Tibial Pulse: Bilateral Normal Dorsalis Pedis Pulses: Bilateral Normal Cranial Nerves II-XII Intact: Yes Limbs: Abnormal Power - Neuro Orientation: A/O x3 Speech: Normal Results - Results Lab Results: Laboratory Results - last 24 hr 05/29/17 05/29/17 05/29/17 05:30 05:30 05:30 WBC 5.6 RBC 3.58 L Hgb 10.9 L Hct 32 L MCV 90 MCH 31 MCHC 34 RDW 18 H Plt Count 165 MPV 10 Neut % (Auto) 68.0 Lymph % (Auto) 16.7 L [place] % (Auto) 12.0 H Eos % (Auto) 2.2 Baso % (Auto) 1.1 Absolute Neuts (auto) 3.8 Absolute Lymphs (auto) 0.9 L Absolute Monos (auto) 0.7 Absolute Eos (auto) 0.1 Absolute Basos (auto) 0.1 Absolute Nucleated RBC 0.01 Nucleated RBC % 0.3 INR (Anticoag Therapy) 0.90 Sodium 135 Potassium 3.5 Chloride 105 Carbon Dioxide 27 Anion Gap 3 BUN 20 Creatinine 0.67 Est GFR ( Amer) 111.9 Est GFR (Non-Af Amer) 87.0 BUN/Creatinine Ratio 29.9 H Glucose 83 Calcium 8.9 Radiology Results: Patient Name: JOSIAS COOPER Medical Record#: [id number] Ordering Physician: Quique Warren MD Acct.#: [id number] : 1945 Age: 72 Sex: F Location: EMERGENCY DEPARTMENT Exam Date: 05/28/17 1242 ADM Status: REG ER Order Information: CHEST AP PORTABLE Accession Number: [id number] CPT: 29365 INDICATION: Weakness COMPARISON: Most recent comparison chest x-rays dated January 24, 2017 TECHNIQUE: Single AP portable view of the chest was obtained. FINDINGS: Image quality is compromised due to the relative inferiority of a portable chest x-ray. The heart and mediastinum exhibit normal size and contour. The lungs are grossly clear. There is no evidence of a large pleural effusion. Again noted are advanced degenerative changes of the bilateral glenohumeral joints. IMPRESSION: No radiographic evidence for acute cardiopulmonary abnormality on this portable chest x-ray. <Electronically signed by Calvin Marsh MD in [place]> 05/28/17 1346 Dictated By: Calvin Marsh MD Dictated Date/Time: 05/28/17 1346 Transcribed Date/Time: 05/28/17 1346 Copy to: CC:Jacques Kumar MD; Quique Warren MD Imaging - [facility] Imaging - [facility] Imaging - [facility] [address] [address] ph ([phone]) ph ([phone]) ph ([phone]) Patient Name: JOSIAS COOPER Medical Record#: [id number] Ordering Physician: Atul Nevarez CLINIC ASSISTANT Acct.#: [id number] : 1945 Age: 72 Sex: F Location: EMERGENCY DEPARTMENT Exam Date: 05/28/17 1319 ADM Status: REG ER Order Information: CT ABD/PEL W/O Accession Number: [id number] CPT: 05384 INDICATION: Right flank pain COMPARISON: CT abdomen pelvis October 28, 2016 TECHNIQUE: Noncontrast axial source images were acquired from the level hemidiaphragms to the symphysis pubis as part of CT imaging for renal stone. Lung bases: The lung bases are clear. Liver: The liver is normal in size. Noncontrast imaging shows no evidence of a hepatic mass or ductal dilatation. Gallbladder: There are no calcified gallstones. There is no evidence of wall thickening or pericholecystic fluid.. Spleen: The spleen is normal in size. The noncontrast CT appearance is normal. Pancreas: Noncontrast imaging shows no pancreatic mass or ductal dilitation. Adrenal glands: No masses are identified. Kidneys/Bladder: There is nonobstructive right-sided nephrolithiasis with a 3 mm mid pole calculus and adjacent 2 mm calculus. There is no CT evidence of hydronephrosis. Noncontrast imaging shows no evidence of a new renal mass. There is a lower pole cyst of the right measuring 1.3 cm which is better imaged on the earlier contrast- enhanced exam The bladder is decompressed with a Nagel catheter. Adenopathy: There is no evidence of intraperitoneal or retroperitoneal adenopathy. Evaluation is limited without oral contrast. Fluid collections: There are no free or localized fluid collections. Vessels: There are atherosclerotic changes of the aorta and iliac vessels. There is no focal aneurysm. The IVC appears normal Pelvic organs: The uterus and adnexa appear normal GI tract: Evaluation of the bowel is limited without oral contrast. The stomach , small bowel, and lower GI tract appear grossly normal. There are no obstructive findings. The appendix is visualized and appears normal. Soft tissues: No soft tissue abnormalities of the extraperitoneal abdomen or pelvis are identified. Osseous structures: There is advanced spondylitic change of the lumbar spine. Please refer to corresponding CT lumbar spine report IMPRESSION: NONOBSTRUCTIVE RIGHT-SIDED NEPHROLITHIASIS <Electronically signed by Cecilio Randall MD in [place]> 05/28/171409 Dictated By: Cecilio Randall MD Dictated Date/Time: 05/28/171409 1 of 2 Patient Name: JOSIAS COOPER Medical Record#: [id number] Ordering Physician: Atul Nevarez CLINIC ASSISTANT Acct.#: [id number] : 1945 Age: 72 Sex: F Location: EMERGENCY DEPARTMENT Exam Date: 05/28/17 1319 ADM Status: REG ER Order Information: CT SPINE LUMBAR W/O Accession Number: [id number] CPT: 83561 HISTORY: Low back pain COMPARISONS: None TECHNIQUE: Multiple contiguous axial CT scans were obtained of the lumbar spine without intravenous contrast, with coronal and sagittal multiplanar reformations. FINDINGS: SPINAL CANAL: Evaluation of the central canal is limited on CT technique; however, there is no obvious canalicular mass or epidural hemorrhage. ALIGNMENT: There is a scoliotic curvature of the spine. VERTEBRAL BODIES: There is diffuse osteopenia. Is multilevel anterolateral marginal osteophyte formation. JOINTS: There is diffuse facet osteoarthritis MUSCULATURE: Unremarkable INTERVERTEBRAL DISCS: There is diffuse loss of intervertebral disc height throughout the spine. AXIAL IMAGES: T10-T11: There is posterior osteophytic ridging at bilateral facet hypertrophy. There is moderate bilateral neuroforaminal narrowing. There is moderate narrowing of the central canal. T11-T12: There is posterior osteophytic ridging with bilateral facet hypertrophy. There is a calcified disc protrusion versus posterior osteophyte in the left paracentral space measuring 0.8 cm in depth. There is moderate narrowing of the central canal. There is moderate bilateral neural foraminal narrowing. T12-L1: There is bilateral facet hypertrophy. There is moderate bilateral neuroforaminal narrowing. There is no osseous central canal stenosis. There is a small right lateral recess calcified disc protrusion versus posterior osteophyte measuring 0.3 cm in depth. L1-L2: There is bilateral facet hypertrophy. There is vacuum phenomena consistent with a left lateral recess inferior disc extrusion measuring 0.4 cm in depth and 0.7 cm in craniocaudal dimension. There is posterior osteophytic ridging with marginal osteophyte formation at the neural foramina bilaterally. There is severe bilateral neural foraminal narrowing. There is mild narrowing of central canal. L2-L3: There is posterior osteophytic ridging with bilateral facet hypertrophy and marginal osteophyte formation at the neural foramina bilaterally. There is severe bilateral neural foraminal narrowing. There is moderate narrowing of the central canal. L3-L4: There is a broad-based disc bulge with a broad-based right lateral recess disc protrusion versus ossified disc measuring 0.5 cm in depth. There is severe left and moderate right neural foraminal narrowing. There is mild narrowing of the central canal. L4-L5: There is broad-based disc bulge. There is marginal osteophyte formation at the neural foramina bilaterally. There is severe bilateral neural foraminal narrowing. There is mild narrowing of central canal. L5-S1: There is bilateral facet hypertrophy. There is marginal osteophyte formation at the neural foramina bilaterally. There is a broad-based disc bulge. There is severe bilateral neuroforaminal narrowing. There is no osseous central canal stenosis. SOFT TISSUES: There is atherosclerosis of the abdominal aorta. OTHER: None IMPRESSION: 1. SCOLIOSIS. 2. OSTEOPENIA. 3. DEGENERATIVE DISC DISEASE AND OSTEOARTHRITIS.[facility] Patient Name:JOSIAS COOPER MR:[id number] : 4. THERE IS MODERATE NARROWING OF CENTRAL CANAL AT T10-T11, T11-T12, AND L2-L3 , WITH MILD NARROWING AT L1-L2 AND L3-L4. 5. THERE IS MULTILEVEL NEURAL FORAMINAL NARROWING DESCRIBED ABOVE. 6. THERE IS A LEFT-SIDED DISC EXTRUSION AT L1-L2. <Electronically signed by Rod Drew MD in [place]> 05/28/17 1411 Dictated By: Rod Drew MD Dictated Date/Time: 05/28/17 1411 Transcribed Date/Time: 05/28/17 1404 Copy to: CC:Jacques Kumar MD; Atul Nevarez CLINIC ASSISTANT; Quique Warren MD Imaging - [facility] Imaging - [facility] [address] [place] [address] ph [phone]) ph ([phone]) ph ([phone]) 2 of 2 EKG Report: Sinus rhythm 91 NE 160 QTC 436 QRS - 5 deg Mild T wave abnormalities - no acute changes. Assessment - Problem List Assessment: Patient Problems Lumbar radiculopathy (Acute) Right leg pain (Acute) Spinal stenosis of lumbar region (Acute) Weakness (Acute) Colitis (Chronic) Coronary artery disease (Chronic) Depression (Chronic) Endometrioid adenocarcinoma of uterus (Chronic) Essential hypertension (Chronic) History of falling (Chronic) History of hysterectomy for cancer (Chronic) Hyperlipidemia (Chronic) Morbid obesity (Chronic) Parkinsons disease (Chronic) Prolonged QT interval (Chronic) Type 2 diabetes mellitus (Chronic) Plan: Lumbar radiculopathy (Acute) Right leg pain (Acute) Spinal stenosis of lumbar region (Acute)Weakness (Acute) Parkinsons disease (Chronic) She has pain in the lateral right leg that has occurred since her hysterectomy. This limits her ability to mobilize. She has had generalized weakness of both legs. The CT scan of the lumbar spine shows multilevel spinal stenosis lower thoracic and lumbar region. She has a disc herniation L1/2 on the left side which doesn't explain her leg pain. The weakness in her legs is multifactorial. She has advanced Parkinson's disease, spinal stenosis, progressive weakness from poor nutrition/weight loss, spinal stenosis and possible lumbar radiculopathy. I think we should do our best to identify the relative contribution of each of these problems and whether we should address any of them individually. I have asked Dr. Rigo Cooper to see her for neurology. I will also ask for an OT/PT assessment. Endometrioid adenocarcinoma of uterus (Chronic)/History of hysterectomy for cancer (Chronic) This was T1aNx - the CT of the abdomen and pelvis shows no evidence of spread. I doubt this is responsible for her current symptoms. However, we could consider a bone scan/MRI DNR status - she wishes to be DNR - MOLST signed Colitis (Chronic) inactive Coronary artery disease (Chronic) secondary diagnosis Depression (Chronic) secondary diagnosis Essential hypertension (Chronic) Endometrioid adenocarcinoma of uterus (Chronic) History of falling (Chronic) High risk Hyperlipidemia (Chronic) Endometrioid adenocarcinoma of uterus (Chronic) Morbid obesity (Chronic) Endometrioid adenocarcinoma of uterus (Chronic) Prolonged QT interval (Chronic) no worse Type 2 diabetes mellitus (Chronic) good control She had restless legs and leg cramps last night. I wonder if neurology will suggest any further treatment above and beyond the levo-dopa. I discussed the above with the patient and her . She requires a full acute hospital admission. They agree with the management plan
[2017-05-29] MEDS ORDERED: Omeprazole CAP* 20 MG PO SCH (09:00)
[2017-05-29] MEDS: Carbidopa/Levodop 25/100 MG TAB(*) PO SCH ×3 (09:08→16:05)
[2017-05-29] MEDS: Primidone TAB(*) 50 MG PO SCH ×2 (09:09→21:35)
[2017-05-29] MEDS: Carvedilol TAB* 6.25 MG PO SCH ×2 (09:09→21:35)
[2017-05-29] MEDS: Lidocaine PATCH 5%* 1 PATCH TRANSDERM SCH (09:09)
[2017-05-29] MEDS: Ticagrelor* 90 MG TAB PO SCH ×2 (09:09→21:34)
[2017-05-29] MEDS: Aspirin EC Low Dose* 81 MG TAB.EC PO SCH (09:09)
[2017-05-29] MEDS: Pregabalin CAP(*) 50 MG PO SCH ×2 (09:10→21:37)
[2017-05-29 12:38] LABS: Folate 18.69 ng/mL (>3.99)
[2017-05-29] MEDS: Carbidopa/Levodop CR 50/200(*) TAB.CR PO SCH ×2 (18:27→21:37)
--- NOTE | 2017-05-29 19:01 | CONS ---
CONSULTATION REPORT: DATE OF CONSULT: 05/29/17 LOCATION: Room 422. PRIMARY CARE PROVIDER: Dr. Kumar. HOSPITAL ATTENDING: Dr. Mae. CHIEF COMPLAINT: Bilateral lower extremity weakness right greater than left with some right-sided leg pain and back pain. HISTORY OF PRESENT ILLNESS: I spoke with Dr. Kumar this morning, he was asking me to see this very pleasant 72-year-old female with a history of advanced Parkinson disease, followed by Dr. Baltazar in Clinic, currently on a regimen of Sinemet. She takes 25/100, 1.5 tabs at 8:30, 12:30 and 3:30; takes Sinemet CR 50/200 one-half tab at 5 o'clock and Sinemet CR 50/200 one tab at bedtime. She underwent a hysterectomy in February 2017 for history of endometrioid adenocarcinoma of the endometrium. She also has a history of diabetes, hyperlipidemia, hypertension, osteoarthritis, depression, essential tremor, [place], coronary artery disease and a right eardrum puncture. Her is at the bedside who is able to provide some additional history. Per the patient and her , she was able to ambulate prior to the surgery, but had a difficult time and had to use a walker. Since the surgery, the and patient note that she has had more back pain, more right- sided leg pain and feels that her weakness has progressed to the point where she is unable to ambulate safely at this point. She has also required more personal care from her . She had a difficult time getting up from the toilet on the day of admission and was unable to ambulate at all with her walker. At that time she noted pain in her right leg, which she states radiated from her back into the buttocks along the side of her right leg and on the posterior aspect of her right leg. Again, this is worsened since admission. She denies any urinary incontinence. No dysuria. Some constipation, has been taking some over-the- counters for that. Over the course of the day, she continued to have pain in her right leg, right buttock and back, worse in her baseline and was brought to the ER. She notes worsened weakness in her legs bilaterally, but states that her right leg seems to be more weak than the left leg. She also notes numbness and tingling below her knees bilaterally as well as some pain in her knees and hip joints. She describes the pain in her buttocks and leg as sharp and shooting in nature. She has had no recent chest pain, shortness of breath, dyspnea on exertion above her baseline. She has had no recent falls, head trauma. No upper extremity weakness, numbness or tingling. No direct muscle pain. No joint erythema or redness. She does note that in the morning she seems to be more stiff in her legs. Her last dose of Sinemet is usually at bedtime. PAST MEDICAL HISTORY: As noted above. PAST SURGICAL HISTORY: Includes tonsillectomy, left knee arthroscopy, cardiac catheterization with stent placement, and hysterectomy. CURRENT MEDICATIONS IN THE HOSPITAL: 1. She is on Tylenol p.r.n. 2. Aspirin 81 mg daily. 3. Lipitor 80 mg p.o. at bedtime. 4. Carbidopa/levodopa 25/100 one and a half tabs at 8:30, 12:30 and 3:30. 5. Carbidopa/levodopa CR 50/200 one-half tablet at 5 p.m. 6. Carbidopa levodopa CR 50/200 one-half tablet at bedtime. 7. Coreg 6.25 mg p.o. b.i.d. 8. Omeprazole 50 mg daily. 9. Lidoderm patch. 10. Zofran p.r.n. nausea. 11. Oxycodone 2.5 mg p.o. q.6 hours p.r.n. pain. 12. Lyrica 150 mg p.o. b.i.d. 13. Brilinta 90 mg p.o. b.i.d. 14. Tramadol 50 mg q.6 hours. 15. Mysoline 100 mg p.o. b.i.d. ALLERGIES: Include PENICILLIN, IV CONTRAST DYE, EFFIENT and LISINOPRIL. FAMILY HISTORY: Coronary artery disease in her father and kidney disease in her mother. SOCIAL HISTORY: No tobacco, alcohol or drug use and she currently lives with her . REVIEW OF SYSTEMS: In 14-organ systems as noted above, otherwise negative. PHYSICAL EXAM: Vital Signs: Temp of 97.5 this morning, pulse of 81, respiratory rate of 12, pulse ox of 100%. Blood pressure 158/89 to 105/83, 143/ 89, 114/35 and 102/58. In general, she is a well-nourished, well-developed female in no acute distress. She is sitting in her hospital chair, currently comfortable. HEENT: She is normocephalic atraumatic. Sclerae are anicteric. Mucous membranes are moist. Oropharynx is clear. Neck is supple. No thyromegaly. No carotid bruits. No meningismus. Chest: Clear to auscultation bilaterally. Cardiovascular: Regular rate and rhythm. Abdomen: Some point tenderness with palpation on the right flank. No spine tenderness. Extremities : She has 2+ edema bilaterally in the lower extremities to the shins. Skin is warm and dry. On neurologic exam, she is awake, alert, oriented x3. Her speech is fluent. There is no significant dysarthria. Recall of recent and remote events is intact. Her mood is dysthymic. Affect, mood congruent. She has decreased facial expression, decreased blink. Cranial Nerves: Pupils are equal round and reactive to light. Extraocular muscles are intact. Visual gr are full to confrontation. Face is symmetric. Facial sensation is intact to light touch. Her hearing is grossly intact to finger rub bilaterally. Tongue is midline. Palate raises symmetrically. On motor exam, she spontaneously moves all extremities. Upper extremities, she is 4+/5 bilaterally with increased tone, mild cogwheeling at the left greater than right wrist. In the lower extremities, she is able to raise both legs off the bed, has 4/5 weakness proximally in the upper extremities, 4/5 weakness distally in the upper extremities. Her right leg movement is somewhat limited by pain in her buttocks. Tone in the leg is increased throughout. Bulk appears normal. Tremor, she has a resting tremor left greater than right hand pill rolling in nature. No tremors in the lower extremities. No [id number] tremor. Sensation: She has diminished light touch, pinprick, vibration, and proprioception in the legs from the knees down to the feet in the stalking distribution. No sensory loss in the upper extremities. She also has pain in her right leg in the dorsal lateral surface radiating down from her buttocks that is intermittent in nature. I could not reproduce the pain with leg raise, but she has limited movement currently. She has no significant pain in her upper extremities, DTRs were 1+ in the upper extremities, trace at the patella bilaterally, absent at the ankles, withdrawal on the left, equivocal on the right. Gait cannot be tested at this time. DIAGNOSTIC STUDIES: 1. She had a chest x-ray done that showed no acute disease. 2. CT of the abdomen and pelvis done showed non-obstructive right-sided nephrolithiasis. No evidence of intraperitoneal or retroperitoneal adenopathy. The abdominal organs appear intact with no major abnormalities. No obstructive findings in the GI tract. No soft tissue abnormalities in the extraperitoneal abdomen or pelvis. 3. CT of the lumbar spine reviewed. Findings: No obvious epidural hemorrhage or mass. Curvature of the spine noted. Diffuse osteopenia noted. Diffuse facet osteoarthritis. Diffuse loss of intracerebral disk height. Axial image: T10-11. There is posterior osteophytic ridging and bilateral facet hypertrophy. There is moderate bilateral neuroforaminal narrowing. There is moderate narrowing of the central canal. T11-12. There is posterior osteophytic riding with bilateral facet hypertrophy. There is a calcified disk protrusion versus posterior osteophyte in the left paracentral space measuring 0.8 cm in depth. There is moderate narrowing in the central canal. There is moderate bilateral neuroforaminal narrowing. T12-L1. There is bilateral facet hypertrophy. There is moderate bilateral neuroforaminal narrowing. There is no osseous central canal stenosis. There is a small right lateral recess calcified disk protrusion versus posterior osteophyte measuring 0.3 cm in depth. L1-2. There is bilateral facet hypertrophy. There is a vacuum phenomenon consistent with a left lateral recess, inferior disk extrusion measuring 0.4 cm in depth and 0.7 cm in craniocaudal dimension. There is posterior osteophytic ridging with marginal osteophyte formation at the neural foramen bilaterally. There is severe bilateral neuroforaminal narrowing. There is mild narrowing of the central canal. L2-3. There is posterior orthopedic ridging with bilateral facet hypertrophy and marginal osteophyte formation at the neural foramen bilaterally. There is severe bilateral neuroforaminal narrowing. There is moderate narrowing at the central canal. L3-4. There is broad-based disk bulge with a broad-based right lateral recess disk protrusion versus ossified disk measuring 0.5 cm in depth. There is severe left and moderate right neuroforaminal narrowing. There is mild narrowing of the central canal. L4-5. There is broad-based disk bulge. There is a marginal osteophyte formation at the neural foramen bilaterally. There are severe bilateral neuroforaminal narrowing. There is a mild narrowing of the central canal. L5-S1. There is bilateral facet hypertrophy. There is marginal osteophyte formation at the neural foramen bilaterally. There is a broad-based disk bulge. There is severe bilateral neuroforaminal narrowing. There is no osseous central canal stenosis, soft tissue. There is atherosclerosis of the abdominal aorta. ASSESSMENT AND PLAN: Ms. Cooper is a 72-year-old female with a history of advanced Parkinson disease, followed by Dr. Baltazar on a regimen of Sinemet as noted above. She also has a history of recent hysterectomy secondary to cancer in February, did have some difficulty ambulating prior to the surgery, but since the surgery has had worsening low back pain, some pain in the buttock on the right side with pain radiating down the right leg as well as weakness bilaterally affecting her gait. She has been unable to ambulate safely and has been declining. While the states she has been declining slowly over the last several years, she seems to have worsened in the last few months after the surgery. 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 She does have evidence of a peripheral neuropathy as well on examination. Straight leg raise was difficult , but appears she has some radicular pain on the right side. The CT of the lumbar spine shows significant neuroforaminal narrowing at multiple levels. 1. My plan is to get an MRI of her lumbar spine to look more closely for any nerve compression. She does have some spinal stenosis, but my concern for an acute spinal cord compression is low. More likely, she is suffering from either sciatica versus multilevel neuroforaminal narrowing and nerve root compression on the right side. She is having no significant left-sided symptoms , but she is weak. The distribution of her weaknesses is proximal and distal, but certainly a myopathy could add to her weakness. I am going to check a CK myoglobin as well. I would hold off on any steroids at this point, pending evaluation of her lumbar spine. PT/OT as tolerated. 2. Parkinson disease. 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 I am going to increase her nighttime dose of Sinemet CR to 1.5 tablets of the 50/200 to see if that does not give her more control in the morning. This is something that can be managed as an outpatient as well and I defer to Dr. Baltazar for long- term management. 3. My suspicion for restless legs is low and I suspect that what she is suffering from in the morning is more related to wearing off. With that said, she is on Lyrica a derivative of gabapentin, gabapentin can often help with restless leg symptoms. We can consider titrating up her Lyrica, but I would hold for now. This could also help with her what sounds like radicular type pain. 4. Physical Therapy as tolerated could help alleviate some of the pain as well. I suspect that since the surgery she has had some deconditioning, which is leading to the lower extremity weakness. Obviously, falls are a major concern and to the extent that she is able to ambulate, she needs to do so with a 4-point walker at all times. 5. It appears that she has peripheral neuropathy. I am going to check a B12 and folate. There is a history of some diabetes, although most recent blood sugars appear to be well controlled. Thyroid level is normal. This is likely idiopathic in nature. CRP was 1.44. We will continue to follow this and again , she is not having any direct pain from this, but the pain may be controlled with the Lyrica that she is already on. 6. It appears that she has some kidney stones on the right side, but no evidence of hydronephrosis. My suspicion that this is contributing to her pain is very low. Overall, my suspicion is that she is suffering from the effects of severe degenerative disk disease of the lumbar spine plus or minus a radicular component, plus or minus sciatica. Conservative management is most likely the appropriate course, but we will check the MRI of the lumbar spine to look for any acute issues. In addition, I suspect that she is suffering from deconditioning, which is likely related to her recent surgery and has progressed to the extent that she is able to participate in physical therapy that could help. Her Parkinson disease seems to be with worse in the morning and I suspect that she is wearing off. For now we will increase her nighttime dose of Sinemet in the hopes that this may help with her morning symptoms. I will continue to follow her and make further recommendations as necessary. Thank you for the opportunity to participate in her care. [id number]/[facility] [place] #: [id number] [facility] CENTERAugust
[2017-05-29] MEDS: Acetaminophen TAB* 325 MG PO PRN (21:34)
[2017-05-29] MEDS: Atorvastatin* 80 MG TAB PO SCH (21:36)
[2017-05-29] MEDS: Lidocaine Patch REMOVE* 1 NOTE MISC SCH (21:46)
[2017-05-30] MEDS: Heparin VIAL(*) 5000 UNITS/ML VIAL (FIVE THOUSAND) SUBCUT SCH ×3 (05:26→20:39)
--- NOTE | 2017-05-30 07:57 | RAD ---
HISTORY: Leg weakness, low back pain COMPARISONS: None TECHNIQUE: The following sequences were obtained of the lumbar spine: Sagittal and axial T1- and T2-weighted images, coronal T2-weighted images, and sagittal STIR images. FINDINGS: SPINAL CORD, CONUS, AND CAUDA EQUINA: The visualized spinal cord, conus, and cauda equina are normal in caliber, position, and signal intensity. ALIGNMENT: There is a scoliotic curvature of the spine. VERTEBRAL BODIES: There is extensive multilevel anterolateral marginal osteophyte formation. JOINTS: There is extensive diffuse facet osteoarthritic change. MUSCULATURE: There is mild atrophy of the multifidus and erector spinae. INTERVERTEBRAL DISCS: There is diffuse loss of intervertebral disc height and T2 signal throughout the spine. AXIAL IMAGES: T8-T9: There is a broad-based disc bulge. There is bilateral facet hypertrophy with marginal osteophyte formation at the neural foramina bilaterally. There is severe bilateral neuroforaminal narrowing. There is mild narrowing of the central canal. T9-T10: There is a broad-based disc bulge with facet and ligamentous of atrophy. There is severe bilateral neural foraminal narrowing. There is moderate narrowing of the central canal. T10-T11: There is broad-based disc bulge with ligamentous and facet hypertrophy. There is severe bilateral neural foraminal narrowing. There is moderate narrowing of the central canal. T11-T12: There is a broad-based disc bulge at bilateral facet hypertrophy. There is severe bilateral neural foraminal narrowing. There is moderate narrowing of the central canal. T12-L1: There is a broad-based disc bulge. There is bilateral facet hypertrophy. There is marginal osteophyte formation at the neural foramina bilaterally. There is moderate to severe bilateral neural foraminal narrowing. There is moderate narrowing of the central canal. L1-L2: There is a broad-based disc bulge with a superimposed left lateral recess disc protrusion measuring 0.4 centers in depth. This is likely partially calcified. There is bilateral facet hypertrophy. There is severe bilateral neural foraminal narrowing. There is moderate narrowing of the central canal. L2-L3: There is a broad-based disc bulge with ligamentous and facet hypertrophy. There is severe bilateral neural foraminal narrowing. There is severe narrowing of the central canal. L3-L4: There is a broad-based disc bulge with ligamentous and facet hypertrophy. There is severe bilateral neural foraminal narrowing. There is severe narrowing of the central canal. L4-L5: There is a broad-based disc bulge with facet and ligamentous hypertrophy. There is severe bilateral neural foraminal narrowing. There is moderate narrowing of the central canal. There is a superimposed right lateral recess inferior disc extrusion measuring 0.7 cm in depth. L5-S1: There is a broad-based disc bulge. There is ligamentous and facet hypertrophy. There is a central disc protrusion measuring 0.4 centers in depth and is likely partially calcified. There is marginal osteophyte formation at the neural foramina bilaterally. There is severe bilateral neural foraminal narrowing. There is no significant central canal stenosis. SOFT TISSUES: The visualized soft tissues of the abdomen are unremarkable. OTHER: None. IMPRESSION: 1. SCOLIOSIS. 2. EXTENSIVE DEGENERATIVE DISC DISEASE AND OSTEOARTHRITIS OF THE LOWER THORACIC AND LUMBAR SPINE. 3. THERE IS MODERATE NARROWING OF THE CENTRAL CANAL FROM T9-T10 THROUGH L1-L2. 4. THERE IS SEVERE NARROWING OF CENTRAL CANAL AT L2-L3 THROUGH L4-L5. 5. THERE IS MILD NARROWING OF THE CENTRAL CANAL AT T8-T9. 6. THERE IS EXTENSIVE MODERATE TO SEVERE MULTILEVEL NEURAL FORAMINAL NARROWING DESCRIBED ABOVE
--- NOTE | 2017-05-30 08:42 | PN ---
Subjective - Subjective Reason for Note: Progress Note History: She describes pain in her right leg and some in her right shoulder from the activity yesterday. She would like improved pain control. She denies any other new symptoms. She is constipated. Active Problems: Active Problems Lumbar radiculopathy (Acute) M54.16 Right leg pain (Acute) M79.604 Spinal stenosis of lumbar region (Acute) M48.061 Weakness (Acute) R53.1 Colitis (Chronic) K52.9 Coronary artery disease (Chronic) I25.10 Depression (Chronic) F32.9 Endometrioid adenocarcinoma of uterus (Chronic) C55 Essential hypertension (Chronic) I10 History of falling (Chronic) Z91.81 History of hysterectomy for cancer (Chronic) Z90.710 Hyperlipidemia (Chronic) E78.5 Morbid obesity (Chronic) E66.01 Parkinsons disease (Chronic) G20 Prolonged QT interval (Chronic) R94.31 Type 2 diabetes mellitus (Chronic) Current Medications: Current Medications Acetaminophen (Tylenol Tab*) 650 mg PO Q4H PRN PRN Reason: FEVER/PAIN Last Admin: 05/29/17 21:34 Dose: 650 mg Aspirin (Aspirin Ec Low Dose*) 81 mg PO DAILY [facility] Last Admin: 05/29/17 09:09 Dose: 81 mg Atorvastatin Calcium (Lipitor*) 80 mg PO BEDTIME [facility] Last Admin: 05/29/17 21:36 Dose: 80 mg Carbidopa/Levodopa (Sinemet Cr 50/200(*)) 0.5 tab.cr PO 1700 [facility] Last Admin: 05/29/17 18:27 Dose: 0.5 tab.cr Carbidopa/Levodopa (Sinemet 25/100 Tab(*)) 1.5 tab PO 0830,1230,1530 [facility] Last Admin: 05/29/17 16:05 Dose: 1.5 tab Carbidopa/Levodopa (Sinemet Cr 50/200(*)) 1.5 tab.cr PO BEDTIME [facility] Last Admin: 05/29/17 21:37 Dose: 1.5 tab.cr Carvedilol (Coreg Tab*) 6.25 mg PO BID [facility] Last Admin: 05/29/17 21:35 Dose: 6.25 mg Heparin Sodium (Porcine) (Heparin Vial(*)) 5,000 units SUBCUT Q8HR [facility] Last Admin: 05/30/17 05:26 Dose: 5,000 units Lidocaine (Lidoderm 5% Patch*) 1 patch TRANSDERM DAILY [facility] Last Admin: 05/29/17 09:09 Dose: 1 patch Omeprazole (Prilosec Cap*) 15 mg PO DAILY [facility] PRN Reason: Protocol Last Admin: 05/29/17 09:11 Dose: Not Given Ondansetron HCl (Zofran Inj*) 4 mg IV Q6H PRN PRN Reason: NAUSEA Oxycodone HCl (Roxycodone Tab*) 2.5 mg PO Q6H PRN PRN Reason: PAIN Last Admin: 05/28/17 20:20 Dose: 2.5 mg Pharmacy Profile Note (Lidocaine Patch Remove*) 1 note N/A 2100 [facility] Last Admin: 05/29/17 21:46 Dose: 1 note Pregabalin (Lyrica Cap(*)) 150 mg PO BID [facility] Last Admin: 05/29/17 21:37 Dose: 150 mg Primidone (Mysoline Tab(*)) 100 mg PO BID [facility] Last Admin: 05/29/17 21:35 Dose: 100 mg Ticagrelor (Brilinta*) 90 mg PO BID [facility] Last Admin: 05/29/17 21:34 Dose: 90 mg Tramadol HCl (Ultram*) 50 mg PO Q6H PRN PRN Reason: PAIN Last Admin: 05/29/17 13:12 Dose: 50 mg Home Medications: Home Medications Medication Instructions Recorded Confirmed Type Aspirin EC Low Dose* [Ecotrin EC 81 mg PO DAILY 06/07/13 05/28/17 History Low Dose 81 MG*] Atorvastatin* [Lipitor 80 MG*] 80 mg PO BEDTIME 06/07/13 05/28/17 History Pregabalin CAP(*) [Lyrica CAP(*)] 150 mg PO BID 06/07/13 05/28/17 History Primidone TAB(*) [Mysoline TAB(*)] 100 mg PO BID 06/07/13 05/28/17 History Carvedilol TAB* [Coreg TAB*] 6.25 mg PO BID 10/30/13 05/28/17 History Carbidopa/Levodop 25/100 MG(*) 1.5 tab PO 0830,1230,1530 11/09/16 05/28/17 History [Sinemet 25/100 TAB(*)] Carbidopa/Levodop CR 50/200(*) 1 tab.cr PO BEDTIME 11/09/16 05/28/17 History [Sinemet CR 50/200(*)] Lansoprazole CAP (NF) [Prevacid 15 mg PO DAILY 11/09/16 05/28/17 History CAP (NF)] Ticagrelor* [Brilinta 90 MG*] 90 mg PO BID 11/09/16 05/28/17 History Acetaminophen [Acetaminophen Extra 1,000 - 1,500 mg PO TID 05/28/17 05/28/17 History Stren] Calcium Carbonate-Vitamin D W/ 2 tab PO DAILY 05/28/17 05/28/17 History [Caltrate 600+D Plus] Carbidopa/Levodop Cr 25/100 1 tab.cr PO 1700 05/28/17 05/28/17 History Allergies: Allergies Allergy/AdvReac Type Severity Reaction Status Date / Time Penicillin V [From Pen-Vee-K] Allergy Intermediate Rash Verified 11/05/16 08:35 Lisinopril Allergy Mild Rash Verified 11/05/16 08:35 Iodinated Diagnostic Agents Allergy See Comment Verified 11/10/16 07:56 Prasugrel [From Effient] Allergy FULL BODY Verified 11/05/16 08:35 RASH IV Contrast Allergy Rash Uncoded 11/09/16 16:15 Objective - Vital Signs Vital Signs: Vital Signs 05/29/17 05/29/17 05/29/17 09:10 11:23 13:12 Temperature 98.2 F Pulse Rate 81 Respiratory 17 16 18 Rate Blood Pressure 106/65 (mmHg) O2 Sat by Pulse 100 Oximetry 05/29/17 05/29/17 05/29/17 14:36 15:31 16:05 Temperature 98.2 F Pulse Rate 77 Respiratory 18 20 18 Rate Blood Pressure 133/61 (mmHg) O2 Sat by Pulse 98 Oximetry 05/29/17 05/29/17 05/29/17 19:36 20:00 21:37 Temperature 97.9 F Pulse Rate 91 Respiratory 20 20 20 Rate Blood Pressure 152/68 (mmHg) O2 Sat by Pulse 99 Oximetry 05/29/17 05/29/17 05/30/17 23:35 23:40 03:31 Temperature 97.9 F Pulse Rate 69 Respiratory 16 16 15 Rate Blood Pressure 112/50 (mmHg) O2 Sat by Pulse 98 Oximetry 05/30/17 04:04 Temperature 97.0 F Pulse Rate 75 Respiratory 16 Rate Blood Pressure 154/78 (mmHg) O2 Sat by Pulse 99 Oximetry - Intake and Output Intake and Output: Intake & Output 05/27/17 05/28/17 05/29/17 05/30/17 11:59 11:59 11:59 11:59 Intake Total 200 Output Total 1550 Balance -1350 Weight 171 lb Intake: Oral 200 Output: Nagel 1550 Other: # Bowel Movements 0 ADLs: Meal Record Start: 05/28/17 14: 40 Freq: DAILY@0900,1400,1800 Status: Active Protocol: Document 05/29/17 09:00 [id number] (Rec: 05/29/17 09:47 [id number] MED-C09) Document 05/29/17 18:00 [id number] (Rec: 05/29/17 21:23 [id number] MED-C11) Intake and Output Start: 05/28/17 14: 40 Freq: DAILY@0600,1400,2200 Status: Active Protocol: Document 05/28/17 20:43 [id number] (Rec: 05/28/17 20:44 [id number] MED-C11) Document 05/29/17 05:49 [id number] (Rec: 05/29/17 05:50 [id number] MED-C26) Document 05/29/17 13:40 [id number] (Rec: 05/29/17 13:41 [id number] MED-C11) Document 05/29/17 21:24 [id number] (Rec: 05/29/17 21:25 [id number] MED-C11) Document 05/30/17 06:00 [id number] (Rec: 05/30/17 06:25 [id number] MEDL-C01) - Physical Exam General Physical Exam Comment: She has signs of advanced Parkinson's disease. General: No Cyanosis, No Anemia, No Jaundice, No Clubbing Skin: Normal: Rash Lungs and Chest: Yes: Chest Expansion Full, Chest Expansion Symetrica, Percussion Note Resonant, Vessicular Breath Sounds. No: Crackles, Wheezes Heart Rate and Rhythm: Regular JVP: Not Elevated Additional Cardiovascular: Yes: Normal Heart Sounds, Heart Murmur - 2/6 SIGRID aortic area. No: Carotid Bruits, Pedal Edema Abdominal Exam: Yes: Soft, Bowel Sounds Present. No: Distention, Abdominal Mass - Extremities Cranial Nerves II-XII Intact: Yes Limbs: Abnormal Power, Abnormal Tone - Neuro Orientation: A/O x3 Speech: Normal, Dysarthria - Affected by Parkinson's Results - Results Lab Results: Laboratory Results - last 24 hr 05/29/17 12:21 Total Creatine Kinase 54 Myoglobin 101.5 H Radiology Results: Patient Name: JOSIAS COOPER Medical Record#: [id number] Ordering Physician: Marciano Cooper MD Acct.#: [id number] : 1945 Age: 72 Sex: F Location: [address] [place] [address] - MEDICAL Exam Date: 05/29/17 103 ADM Status: ADM IN Order Information: MRI LUMBAR SPINE W/O Accession Number: [id number] CPT: 53799 HISTORY: Leg weakness, low back pain COMPARISONS: None TECHNIQUE: The following sequences were obtained of the lumbar spine: Sagittal and axial T1- and T2-weighted images, coronal T2-weighted images, and sagittal STIR images. FINDINGS: SPINAL CORD, CONUS, AND CAUDA EQUINA: The visualized spinal cord, conus, and cauda equina are normal in caliber, position, and signal intensity. ALIGNMENT: There is a scoliotic curvature of the spine. VERTEBRAL BODIES: There is extensive multilevel anterolateral marginal osteophyte formation. JOINTS: There is extensive diffuse facet osteoarthritic change. MUSCULATURE: There is mild atrophy of the multifidus and erector spinae. INTERVERTEBRAL DISCS: There is diffuse loss of intervertebral disc height and T2 signal throughout the spine. AXIAL IMAGES: T8-T9: There is a broad-based disc bulge. There is bilateral facet hypertrophy with marginal osteophyte formation at the neural foramina bilaterally. There is severe bilateral neuroforaminal narrowing. There is mild narrowing of the central canal. T9-T10: There is a broad-based disc bulge with facet and ligamentous of atrophy. There is severe bilateral neural foraminal narrowing. There is moderate narrowing of the central canal. T10-T11: There is broad-based disc bulge with ligamentous and facet hypertrophy. There is severe bilateral neural foraminal narrowing. There is moderate narrowing of the central canal. T11-T12: There is a broad-based disc bulge at bilateral facet hypertrophy. There is severe bilateral neural foraminal narrowing. There is moderate narrowing of the central canal. T12-L1: There is a broad-based disc bulge. There is bilateral facet hypertrophy. There is marginal osteophyte formation at the neural foramina bilaterally. There is moderate to severe bilateral neural foraminal narrowing. There is moderate narrowing of the central canal. L1-L2: There is a broad-based disc bulge with a superimposed left lateral recess disc protrusion measuring 0.4 centers in depth. This is likely partially calcified. There is bilateral facet hypertrophy. There is severe bilateral neural foraminal narrowing. There is moderate narrowing of the central canal. L2-L3: There is a broad-based disc bulge with ligamentous and facet hypertrophy. There is severe bilateral neural foraminal narrowing. There is severe narrowing of the central canal. L3-L4: There is a broad-based disc bulge with ligamentous and facet hypertrophy. There is severe bilateral neural foraminal narrowing. There is severe narrowing of the central canal. L4-L5: There is a broad-based disc bulge with facet and ligamentous hypertrophy. There is severe bilateral neural foraminal narrowing. There is moderate narrowing of the central canal. There is a superimposed right lateral recess inferior disc extrusion measuring 0.7 cm in depth. L5-S1: There is a broad-based disc bulge. There is ligamentous and facet hypertrophy. There is a central disc protrusion measuring 0.4 centers in depth and is likely partially calcified. There is marginal osteophyte formation at the neural foramina bilaterally. There is severe bilateral neural foraminal narrowing. There is no significant central canal stenosis. SOFT TISSUES: The visualized soft tissues of the abdomen are unremarkable. 1 of 2 [facility] Patient Name:JOSIAS COOPER MR:[id number] : 1945 OTHER: None. IMPRESSION: 1. SCOLIOSIS. 2. EXTENSIVE DEGENERATIVE DISC DISEASE AND OSTEOARTHRITIS OF THE LOWER THORACIC AND LUMBAR SPINE. 3. THERE IS MODERATE NARROWING OF THE CENTRAL CANAL FROM T9-T10 THROUGH L1-L2. 4. THERE IS SEVERE NARROWING OF CENTRAL CANAL AT L2-L3 THROUGH L4-L5. 5. THERE IS MILD NARROWING OF THE CENTRAL CANAL AT T8-T9. 6. THERE IS EXTENSIVE MODERATE TO SEVERE MULTILEVEL NEURAL FORAMINAL NARROWING DESCRIBED ABOVE <Electronically signed by Rod Drew MD in [place]> 05/30/174 Dictated By: Rod Drew MD Dictated Date/Time: 05/30/17 0754 Transcribed Date/Time: 05/30/17 0748 Copy to: CC:Jacques Kumar MD; Marciano Cooper MD; Irineo Mae MD Imaging - [facility] - [facility] - [facility] [address] [facility] [address] [address] ph [phone]) ph [phone]) ph ([phone]) 2 of 2 Assessment - Problem List Assessment: Patient Problems Lumbar radiculopathy (Acute) Right leg pain (Acute) Spinal stenosis of lumbar region (Acute) Weakness (Acute) Colitis (Chronic) Coronary artery disease (Chronic) Depression (Chronic) Endometrioid adenocarcinoma of uterus (Chronic) Essential hypertension (Chronic) History of falling (Chronic) History of hysterectomy for cancer (Chronic) Hyperlipidemia (Chronic) Morbid obesity (Chronic) Parkinsons disease (Chronic) Prolonged QT interval (Chronic) Type 2 diabetes mellitus (Chronic) Plan: Lumbar radiculopathy (Acute)Right leg pain (Acute)Spinal stenosis of lumbar region (Acute)Weakness (Acute)Parkinsons disease (Chronic) I have reviewed Dr. Rigo Cooper's consultation note. He identifies multiple factors contributing to her weakness, pain and loss of mobility: - Parkinson's disease - severe. Suggests she has a dose of sinemet late at night to help with bottle hop mobility - Right sciatica vs multi level lumbar spine foramina disease - I spoke with Dr. Cooper - he thinks looking at the MRI there is clear reason for her pain as her spine is so degenerative. However, she is a poor neurosurgical candidate as she would have a poor rehab potential with her severe Parkinson's disease. I discussed steroid treatment - he thinks it is worthwhile obtaining a consultation for an epidural steroid injection. 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 - Peripheral neuropathy Colitis (Chronic) Inactive - she is currently constipated Coronary artery disease (Chronic) secondary diagnosis Depression (Chronic) secondary diagnosis Endometrioid adenocarcinoma of uterus (Chronic) secondary diagnosis - this was resolved surgically (T1aN0) Essential hypertension (Chronic) secondary diagnosis History of falling (Chronic) High risk History of hysterectomy for cancer (Chronic) Hyperlipidemia (Chronic) secondary diagnosis Morbid obesity (Chronic) She is losing weight Parkinsons disease (Chronic) see above Prolonged QT interval (Chronic) This is not especially prolonged - I will make the tramadol routine and then recheck an EKG Type 2 diabetes mellitus (Chronic) controlled I spoke with her RN. She thinks she didn't receive her tramadol last night as it was confused with tylenol. I am prescribing this routinely. I am exploring the possibility of an epidural steroid injection. She is a good candidate for PMRU. 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
[2017-05-30] MEDS: Primidone TAB(*) 50 MG PO SCH ×2 (08:51→20:38)
[2017-05-30] MEDS: Pregabalin CAP(*) 50 MG PO SCH ×2 (08:52→20:37)
[2017-05-30] MEDS: traMADol TAB* 50 MG PO SCH ×3 (08:52→20:43)
[2017-05-30] MEDS: Carbidopa/Levodop 25/100 MG TAB(*) PO SCH ×3 (08:52→16:32)
[2017-05-30] MEDS: Carvedilol TAB* 6.25 MG PO SCH ×2 (08:53→20:37)
[2017-05-30] MEDS: Aspirin EC Low Dose* 81 MG TAB.EC PO SCH (08:53)
[2017-05-30] MEDS: Lidocaine PATCH 5%* 1 PATCH TRANSDERM SCH (08:53)
[2017-05-30] MEDS: Ticagrelor* 90 MG TAB PO SCH ×2 (08:53→20:57)
[2017-05-30] MEDS: Docusate CAP* 100 MG PO PRN ×2 (09:19→20:39)
[2017-05-30] MEDS: Omeprazole CAP* 20 MG PO SCH (09:19)
--- NOTE | 2017-05-30 11:13 | PN ---
PROGRESS NOTE: DATE OF SERVICE: 05/30/17 LOCATION: She is currently in 422, bed 1. SUBJECTIVE: Overnight, the patient continues to have pain in the left greater than right leg. She also notes weakness bilaterally in her legs. She continues to have back pain as well. This morning, after receiving her Sinemet CR, increased dose at night, 1.5 tablet, she did not notice any real benefit. I did speak with Dr. Kumar about her condition and the case, reviewed her MRI imaging of the lumbar spine. She has had no new issues overnight, continues to need pain medication for her symptoms. VITAL SIGNS: Temp of 97.0, pulse of 75, respiratory rate 16, pulse ox 99%, blood pressure 112/50 to 154/78. CURRENT MEDICATIONS: 1. Tylenol 650 p.r.n. 2. Aspirin 81 mg q. day. 3. Lipitor 80 mg q. bedtime. 4. Sinemet 25/100 regular release, 1.5 tabs at 8:30, 12:30, and 3:30; Sinemet CR 50/200, one-half tab at 5; Sinemet CR 50/200, 1.5 tab at bedtime. 5. Coreg 6.25 mg p.o. b.i.d. 6. DVT prophylaxis with heparin. 7. Lidoderm patch. 8. Prilosec. 9. Zofran p.r.n. 10. Oxycodone 2.5 mg p.o. q.6 hours p.r.n. 11. Lyrica 150 mg p.o. b.i.d. 12. Mysoline 100 mg p.o. b.i.d. 13. Brilinta 90 mg p.o. b.i.d. 14. Tramadol 50 mg p.o. q.6 hours. OBJECTIVE: In general, she is a well-nourished, well-developed female, lying in her hospital bed, flat. Her is at the bedside. She is pleasant, well dressed, well groomed. HEENT: She is normocephalic, atraumatic. Mucous membranes are moist. Neck is slightly stiff. Chest: Clear to auscultation bilaterally. Cardiovascular: Regular rate and rhythm. Abdomen is nontender. Extremities: There is 2+ edema in the lower extremities bilaterally. Neurologic : She is awake, alert, oriented x3. Her speech is fluent. She has decreased facial expression and hypophonia, decreased blink. No obvious resting tremors this morning. She is currently off medication. She is moving all extremities, although has some difficulty with her bilateral lower extremities, 4-/5 proximally on the right, 4/5 on the left, 4/5 distally bilaterally. She does have continued radicular type pain in the right leg that is intermittent in nature and diminished light touch and pinprick in her legs from the knees down. IMAGING: She did have the MRI of the lumbar spine. I did review the films. In summary, she has multilevel degenerative disc disease. She has severe narrowing of the central canal at L2-L3 and L4-L5. She has mild narrowing at T8 -T9. There is extensive [id number] multilevel neural foraminal narrowing, moderate narrowing of the central canal at T9-T10 and L1-L2. ASSESSMENT AND PLAN: Ms. Cooper is a 72-year-old female with a history of Parkinson disease, history of recent hysterectomy in February 2017. Since that time has had worsening back pain, radicular type pain down her right leg, but also pain in her left leg at times, weakness in her lower extremities. I was consulted regarding her leg pain to see if there is anything else that we could do. At this point, I suspect that her leg pain and weakness is related to her underlying severe lumbosacral spine disease. I did speak with Dr. Kumar about this. Given her extensive comorbidities, I do not think surgery would be an option. We did discuss multiple options including the possibility of steroids, but I defer it to him, also possible injections, but most importantly she needs physical therapy, which Dr. Kumar is working on. I think she would do well in PM and R, as mobilization would likely help with some of her symptoms. With that said, she is dealing with a chronic issue, because of her Parkinson disease that is going to limit her movement, which is going to make physical therapy somewhat difficult. As far as her Parkinson disease is concerned, I am going to continue her on the increased dose of Sinemet CR at night in the hopes that it might help with some of her wearing off symptoms in the morning. My suspicion for underlying restless leg in the morning is low. I suspect this is more related to wearing off of medication. She is to follow up with Dr. Baltazar as an outpatient. He can make further medication changes at that time. I will sign off for now, but remain available for any new issues. Thank you for the opportunity to participate in her care. [id number]/[facility] #: [id number] EVIE
[2017-05-30] MEDS: Carbidopa/Levodop CR 50/200(*) TAB.CR PO SCH ×2 (17:57→20:35)
[2017-05-30] MEDS: Atorvastatin* 80 MG TAB PO SCH (20:37)
[2017-05-30] MEDS: oxyCODONE TAB* 5 MG TAB PO PRN (20:38)
[2017-05-30] MEDS: Polyethylene Glycol 3350* 17 GM PACKET PO PRN (20:43)
[2017-05-30] MEDS: Lidocaine Patch REMOVE* 1 NOTE MISC SCH (20:55)
[2017-05-31] MEDS: Heparin VIAL(*) 5000 UNITS/ML VIAL (FIVE THOUSAND) SUBCUT SCH ×3 (05:09→21:45)
[2017-05-31] MEDS: traMADol TAB* 50 MG PO SCH ×4 (05:09→21:44)
[2017-05-31 08:10] LABS: Hematocrit 34 % (35-47); Hemoglobin 11.3 g/dl (12.0-16.0); Mean Corpuscular HGB Conc 34 g/dl (31-36); Mean Corpuscular Hemoglobin 30 pg (27-31); Mean Corpuscular Volume 89 fL (80-97); Mean Platelet Volume 10 um3 (7.4-10.4); Red Blood Count 3.75 10^6/ul (4.0-5.4); Red Cell Distribution Width 19 % (10.5-15); White Blood Count 9.6 10^3/ul (3.5-10.8)
--- NOTE | 2017-05-31 08:22 | PN ---
Subjective - Subjective Reason for Note: Progress Note History: She is concerned at her urinary incontinence and her urgency in urination and also about her constipation. She has much less tremor in general over the past couple of days, especially this morning. Her pain remains present - she states that fear of falling/pain are the largest barriers to mobilization. However, her pain control is much better with routine tramadol. She has no other new symptoms. Active Problems: Active Problems Lumbar radiculopathy (Acute) M54.16 Right leg pain (Acute) M79.604 Spinal stenosis of lumbar region (Acute) M48.061 Weakness (Acute) R53.1 Colitis (Chronic) K52.9 Coronary artery disease (Chronic) I25.10 Depression (Chronic) F32.9 Endometrioid adenocarcinoma of uterus (Chronic) C55 Essential hypertension (Chronic) I10 History of falling (Chronic) Z91.81 History of hysterectomy for cancer (Chronic) Z90.710 Hyperlipidemia (Chronic) E78.5 Morbid obesity (Chronic) E66.01 Parkinsons disease (Chronic) G20 Prolonged QT interval (Chronic) R94.31 Type 2 diabetes mellitus (Chronic) Current Medications: Current Medications Acetaminophen (Tylenol Tab*) 650 mg PO Q4H PRN PRN Reason: FEVER/PAIN Last Admin: 05/29/17 21:34 Dose: 650 mg Aspirin (Aspirin Ec Low Dose*) 81 mg PO DAILY [facility] Last Admin: 05/30/17 08:53 Dose: 81 mg Atorvastatin Calcium (Lipitor*) 80 mg PO BEDTIME [facility] Last Admin: 05/30/17 20:37 Dose: 80 mg Carbidopa/Levodopa (Sinemet Cr 50/200(*)) 0.5 tab.cr PO 1700 [facility] Last Admin: 05/30/17 17:57 Dose: 0.5 tab.cr Carbidopa/Levodopa (Sinemet 25/100 Tab(*)) 1.5 tab PO 0830,1230,1530 [facility] Last Admin: 05/30/17 16:32 Dose: 1.5 tab Carbidopa/Levodopa (Sinemet Cr 50/200(*)) 1.5 tab.cr PO BEDTIME [facility] Last Admin: 05/30/17 20:35 Dose: 1.5 tab.cr Carvedilol (Coreg Tab*) 6.25 mg PO BID [facility] Last Admin: 05/30/17 20:37 Dose: 6.25 mg Docusate Sodium (Colace Cap*) 100 mg PO DAILY PRN PRN Reason: CONSTIPATION Last Admin: 05/30/17 20:39 Dose: 100 mg Heparin Sodium (Porcine) (Heparin Vial(*)) 5,000 units SUBCUT Q8HR [facility] Last Admin: 05/31/17 05:09 Dose: 5,000 units Lidocaine (Lidoderm 5% Patch*) 1 patch TRANSDERM DAILY [facility] Last Admin: 05/30/17 08:53 Dose: 1 patch Omeprazole (Prilosec Cap*) 20 mg PO DAILY [facility] PRN Reason: Protocol Last Admin: 05/30/17 09:19 Dose: 20 mg Ondansetron HCl (Zofran Inj*) 4 mg IV Q6H PRN PRN Reason: NAUSEA Oxycodone HCl (Roxycodone Tab*) 2.5 mg PO Q6H PRN PRN Reason: PAIN Last Admin: 05/30/17 20:38 Dose: 2.5 mg Pharmacy Profile Note (Lidocaine Patch Remove*) 1 note N/A 2100 [facility] Last Admin: 05/30/17 20:55 Dose: 1 note Polyethylene Glycol/Electrolytes (Miralax*) 17 gm PO DAILY PRN PRN Reason: CONSTIPATION Last Admin: 05/30/17 20:43 Dose: 17 gm Pregabalin (Lyrica Cap(*)) 150 mg PO BID [facility] Last Admin: 05/30/17 20:37 Dose: 150 mg Primidone (Mysoline Tab(*)) 100 mg PO BID [facility] Last Admin: 05/30/17 20:38 Dose: 100 mg Ticagrelor (Brilinta*) 90 mg PO BID [facility] Last Admin: 05/30/17 20:57 Dose: 90 mg Tramadol HCl (Ultram*) 50 mg PO Q6H [facility] Last Admin: 05/31/17 05:09 Dose: 50 mg Home Medications: Home Medications Medication Instructions Recorded Confirmed Type Aspirin EC Low Dose* [Ecotrin EC 81 mg PO DAILY 06/07/13 05/28/17 History Low Dose 81 MG*] Atorvastatin* [Lipitor 80 MG*] 80 mg PO BEDTIME 06/07/13 05/28/17 History Pregabalin CAP(*) [Lyrica CAP(*)] 150 mg PO BID 06/07/13 05/28/17 History Primidone TAB(*) [Mysoline TAB(*)] 100 mg PO BID 06/07/13 05/28/17 History Carvedilol TAB* [Coreg TAB*] 6.25 mg PO BID 10/30/13 05/28/17 History Carbidopa/Levodop 25/100 MG(*) 1.5 tab PO 0830,1230,1530 11/09/16 05/28/17 History [Sinemet 25/100 TAB(*)] Carbidopa/Levodop CR 50/200(*) 1 tab.cr PO BEDTIME 11/09/16 05/28/17 History [Sinemet CR 50/200(*)] Lansoprazole CAP (NF) [Prevacid 15 mg PO DAILY 11/09/16 05/28/17 History CAP (NF)] Ticagrelor* [Brilinta 90 MG*] 90 mg PO BID 11/09/16 05/28/17 History Acetaminophen [Acetaminophen Extra 1,000 - 1,500 mg PO TID 05/28/17 05/28/17 History Stren] Calcium Carbonate-Vitamin D W/ 2 tab PO DAILY 05/28/17 05/28/17 History [Caltrate 600+D Plus] Carbidopa/Levodop Cr 25/100 1 tab.cr PO 1700 05/28/17 05/28/17 History Allergies: Allergies Allergy/AdvReac Type Severity Reaction Status Date / Time Penicillin V [From Pen-Vee-K] Allergy Intermediate Rash Verified 11/05/16 08:35 Lisinopril Allergy Mild Rash Verified 11/05/16 08:35 Iodinated Diagnostic Agents Allergy See Comment Verified 11/10/16 07:56 Prasugrel [From Effient] Allergy FULL BODY Verified 11/05/16 08:35 RASH IV Contrast Allergy Rash Uncoded 11/09/16 16:15 Objective - Vital Signs Vital Signs: Vital Signs 05/30/17 05/30/17 05/30/17 08:52 11:29 11:34 Temperature 98.2 F Pulse Rate 71 Respiratory 18 16 Rate Blood Pressure 90/69 98/58 (mmHg) O2 Sat by Pulse 100 Oximetry 05/30/17 05/30/17 05/30/17 12:00 15:35 16:31 Temperature 97.9 F Pulse Rate 70 Respiratory 16 16 16 Rate Blood Pressure 118/50 125/65 (mmHg) O2 Sat by Pulse 100 Oximetry 05/30/17 05/30/17 05/30/17 18:31 20:00 20:28 Temperature 98.1 F Pulse Rate 68 Respiratory 17 18 16 Rate Blood Pressure 133/61 (mmHg) O2 Sat by Pulse 100 Oximetry 05/30/17 05/30/17 05/30/17 20:37 20:38 20:43 Temperature Pulse Rate Respiratory 18 18 18 Rate Blood Pressure (mmHg) O2 Sat by Pulse Oximetry 05/30/17 05/31/17 05/31/17 23:51 01:01 02:09 Temperature 97.4 F 97.4 F Pulse Rate 70 70 Respiratory 20 16 17 Rate Blood Pressure 124/53 121/67 (mmHg) O2 Sat by Pulse 99 99 Oximetry 05/31/17 05/31/17 05:09 07:56 Temperature Pulse Rate Respiratory 18 16 Rate Blood Pressure (mmHg) O2 Sat by Pulse Oximetry - Intake and Output Intake and Output: Intake & Output 05/28/17 05/29/17 05/30/17 05/31/17 11:59 11:59 11:59 11:59 Intake Total 920 1140 Output Total 1550 250 Balance -630 890 Weight 171 lb 154 lb 9.6 oz Intake: IV Fluids 10 NS (0.9%) 10 Oral 920 1130 Output: Urine 250 Nagel 1550 Other: Estimated Void Large # Bowel Movements 0 0 # Voids 1 ADLs: Meal Record Start: 05/28/17 14: 40 Freq: DAILY@0900,1400,1800 Status: Active Protocol: Document 05/29/17 09:00 [id number] (Rec: 05/29/17 09:47 [id number] MED-C09) Document 05/29/17 18:00 [id number] (Rec: 05/29/17 21:23 [id number] MED-C11) Document 05/30/17 09:00 [id number] (Rec: 05/30/17 09:50 [id number] MED-C11) Document 05/30/17 14:00 [id number] (Rec: 05/30/17 14:45 [id number] MED-C09) Document 05/30/17 18:00 [id number] (Rec: 05/30/17 21:21 [id number] MED-C09) Intake and Output Start: 05/28/17 14: 40 Freq: DAILY@0600,1400,2200 Status: Active Protocol: Document 05/28/17 20:43 [id number] (Rec: 05/28/17 20:44 [id number] MED-C11) Document 05/29/17 05:49 [id number] (Rec: 05/29/17 05:50 [id number] MED-C26) Document 05/29/17 13:40 [id number] (Rec: 05/29/17 13:41 [id number] MED-C11) Document 05/29/17 21:24 [id number] (Rec: 05/29/17 21:25 [id number] MED-C11) Document 05/30/17 06:00 [id number] (Rec: 05/30/17 06:25 [id number] MEDL-C01) Document 05/30/17 14:00 [id number] (Rec: 05/30/17 14:45 [id number] MED-C09) Document 05/30/17 22:00 [id number] (Rec: 05/30/17 23:28 [id number] MED-C09) Document 05/31/17 06:00 [id number] (Rec: 05/31/17 06:01 [id number] MED-C42) - Physical Exam General: No Cyanosis, No Anemia, No Jaundice, No Clubbing Lungs and Chest: Yes: Chest Expansion Full, Chest Expansion Symetrica, Percussion Note Resonant, Vessicular Breath Sounds. No: Crackles, Wheezes Heart Rate and Rhythm: Regular Additional Cardiovascular: Yes: Normal Heart Sounds, Heart Murmur. No: Pedal Edema Abdominal Exam: Yes: Soft, Bowel Sounds Present. No: Distention, Abdominal Tenderness - Extremities Cranial Nerves II-XII Intact: Yes Limbs: Abnormal Power, Abnormal Tone - Neuro Orientation: A/O x3 Speech: Normal, Dysarthria Results - Results Lab Results: Laboratory Results - last 24 hr 05/31/17 07:27 WBC 9.6 RBC 3.75 L Hgb 11.3 L Hct 34 L MCV 89 MCH 30 MCHC 34 RDW 19 H Plt Count 144 L MPV 10 Neut % (Auto) 80.3 Lymph % (Auto) 9.3 L [place] % (Auto) 9.1 H Eos % (Auto) 1.1 Baso % (Auto) 0.2 Absolute Neuts (auto) 7.7 Absolute Lymphs (auto) 0.9 L Absolute Monos (auto) 0.9 H Absolute Eos (auto) 0.1 Absolute Basos (auto) 0 Absolute Nucleated RBC 0 Nucleated RBC % 0 EKG Report: 04/30/2017 - after tramadol: rate 76 SR [place] 146 QTc 410 axis 10 No acute changes - old IWMI Assessment - Problem List Assessment: Patient Problems Lumbar radiculopathy (Acute) Right leg pain (Acute) Spinal stenosis of lumbar region (Acute) Weakness (Acute) Colitis (Chronic) Coronary artery disease (Chronic) Depression (Chronic) Endometrioid adenocarcinoma of uterus (Chronic) Essential hypertension (Chronic) History of falling (Chronic) History of hysterectomy for cancer (Chronic) Hyperlipidemia (Chronic) Morbid obesity (Chronic) Parkinsons disease (Chronic) Prolonged QT interval (Chronic) Type 2 diabetes mellitus (Chronic) Plan: Lumbar radiculopathy (Acute)Right leg pain (Acute)Spinal stenosis of lumbar region (Acute) I discussed with Dr. Mary Jo Quintero the possibility of an epidural steroid injection - unfortunately she would have to stop her anti-platelet agent. I think the chance of this causing an acute cardiac problem is too great. I also worry about systemic steroids for the pain. Instead, I think we should use PT to help her with her core strength and not intervene. She is doing far better with routine tramadol - her QTc interval is not discernably lengthened. Constipation - for castor oil Urinary incontinence - for u/a Parkinson's disease - improved with the late dose of sinemet. She is awaiting acute or subacute rehabilitation. I discussed the above with the patient and her .
[2017-05-31] MEDS ORDERED: Castor Oil (Pharmaceutic Aid)* 118 ML BTL PO ONE (08:23)
[2017-05-31] MEDS: Primidone TAB(*) 50 MG PO SCH ×2 (09:36→21:59)
[2017-05-31] MEDS: Pregabalin CAP(*) 50 MG PO SCH ×2 (09:37→21:39)
[2017-05-31] MEDS: Carvedilol TAB* 6.25 MG PO SCH ×2 (09:40→21:44)
[2017-05-31] MEDS: Ticagrelor* 90 MG TAB PO SCH ×2 (09:40→21:44)
[2017-05-31] MEDS: Omeprazole CAP* 20 MG PO SCH (09:40)
[2017-05-31] MEDS: Aspirin EC Low Dose* 81 MG TAB.EC PO SCH (09:40)
[2017-05-31] MEDS: Carbidopa/Levodop 25/100 MG TAB(*) PO SCH ×3 (09:42→15:43)
[2017-05-31] MEDS: Lidocaine PATCH 5%* 1 PATCH TRANSDERM SCH (09:42)
[2017-05-31] MEDS: Carbidopa/Levodop CR 50/200(*) TAB.CR PO SCH ×2 (17:14→21:43)
[2017-05-31] MEDS: Atorvastatin* 80 MG TAB PO SCH (21:40)
[2017-05-31] MEDS: Nystatin TOP POWDER* 15 GM BTL TOPICAL SCH (21:45)
[2017-05-31] MEDS: Lidocaine Patch REMOVE* 1 NOTE MISC SCH (21:59)
[2017-06-01] MEDS: traMADol TAB* 50 MG PO SCH ×4 (02:01→22:45)
[2017-06-01 02:23] LABS: Urine Bacteria 2+ (Absent); Urine Bilirubin Negative (Negative); Urine Glucose Negative (Negative); Urine Nitrite Positive (Negative)
[2017-06-01] MEDS: Heparin VIAL(*) 5000 UNITS/ML VIAL (FIVE THOUSAND) SUBCUT SCH ×3 (04:27→22:47)
--- NOTE | 2017-06-01 07:47 | PN ---
Subjective - Subjective History: I discussed the events of the past 24 hours. She had watery diarrhea and cleared her constipated colon with the castor oil - this has now ceased. She developed symptoms of a UTI (incontinence and frequent urination), this was confirmed with a u/a. Otherwise, she remains weak. She has no change in her pain. Active Problems: Active Problems Lumbar radiculopathy (Acute) M54.16 Right leg pain (Acute) M79.604 Spinal stenosis of lumbar region (Acute) M48.061 Weakness (Acute) R53.1 Colitis (Chronic) K52.9 Coronary artery disease (Chronic) I25.10 Depression (Chronic) F32.9 Endometrioid adenocarcinoma of uterus (Chronic) C55 Essential hypertension (Chronic) I10 History of falling (Chronic) Z91.81 History of hysterectomy for cancer (Chronic) Z90.710 Hyperlipidemia (Chronic) E78.5 Morbid obesity (Chronic) E66.01 Parkinsons disease (Chronic) G20 Prolonged QT interval (Chronic) R94.31 Type 2 diabetes mellitus (Chronic) Current Medications: Current Medications Acetaminophen (Tylenol Tab*) 650 mg PO Q4H PRN PRN Reason: FEVER/PAIN Last Admin: 05/29/17 21:34 Dose: 650 mg Aspirin (Aspirin Ec Low Dose*) 81 mg PO DAILY [facility] Last Admin: 05/31/17 09:40 Dose: 81 mg Atorvastatin Calcium (Lipitor*) 80 mg PO BEDTIME [facility] Last Admin: 05/31/17 21:40 Dose: 80 mg Carbidopa/Levodopa (Sinemet Cr 50/200(*)) 0.5 tab.cr PO 1700 [facility] Last Admin: 05/31/17 17:14 Dose: 0.5 tab.cr Carbidopa/Levodopa (Sinemet 25/100 Tab(*)) 1.5 tab PO 0830,1230,1530 [facility] Last Admin: 05/31/17 15:43 Dose: 1.5 tab Carbidopa/Levodopa (Sinemet Cr 50/200(*)) 1.5 tab.cr PO BEDTIME [facility] Last Admin: 05/31/17 21:43 Dose: 1.5 tab.cr Carvedilol (Coreg Tab*) 6.25 mg PO BID [facility] Last Admin: 05/31/17 21:44 Dose: 6.25 mg Docusate Sodium (Colace Cap*) 100 mg PO DAILY PRN PRN Reason: CONSTIPATION Last Admin: 05/30/17 20:39 Dose: 100 mg Heparin Sodium (Porcine) (Heparin Vial(*)) 5,000 units SUBCUT Q8HR [facility] Last Admin: 06/01/17 04:27 Dose: 5,000 units Lidocaine (Lidoderm 5% Patch*) 1 patch TRANSDERM DAILY [facility] Last Admin: 05/31/17 09:42 Dose: 1 patch Nystatin (Nystatin Top Powder*) 1 applic TOPICAL BID [facility] Last Admin: 05/31/17 21:45 Dose: 1 applic Omeprazole (Prilosec Cap*) 20 mg PO DAILY [facility] PRN Reason: Protocol Last Admin: 05/31/17 09:40 Dose: 20 mg Ondansetron HCl (Zofran Inj*) 4 mg IV Q6H PRN PRN Reason: NAUSEA Oxycodone HCl (Roxycodone Tab*) 2.5 mg PO Q6H PRN PRN Reason: PAIN Last Admin: 05/30/17 20:38 Dose: 2.5 mg Pharmacy Profile Note (Lidocaine Patch Remove*) 1 note N/A 2100 [facility] Last Admin: 05/31/17 21:59 Dose: 1 note Polyethylene Glycol/Electrolytes (Miralax*) 17 gm PO DAILY PRN PRN Reason: CONSTIPATION Last Admin: 05/30/17 20:43 Dose: 17 gm Pregabalin (Lyrica Cap(*)) 150 mg PO BID [facility] Last Admin: 05/31/17 21:39 Dose: 150 mg Primidone (Mysoline Tab(*)) 100 mg PO BID [facility] Last Admin: 05/31/17 21:59 Dose: Not Given Ticagrelor (Brilinta*) 90 mg PO BID [facility] Last Admin: 05/31/17 21:44 Dose: 90 mg Tramadol HCl (Ultram*) 50 mg PO Q6H [facility] Last Admin: 06/01/17 02:01 Dose: 50 mg Home Medications: Home Medications Medication Instructions Recorded Confirmed Type Aspirin EC Low Dose* [Ecotrin EC 81 mg PO DAILY 06/07/13 05/28/17 History Low Dose 81 MG*] Atorvastatin* [Lipitor 80 MG*] 80 mg PO BEDTIME 06/07/13 05/28/17 History Pregabalin CAP(*) [Lyrica CAP(*)] 150 mg PO BID 06/07/13 05/28/17 History Primidone TAB(*) [Mysoline TAB(*)] 100 mg PO BID 06/07/13 05/28/17 History Carvedilol TAB* [Coreg TAB*] 6.25 mg PO BID 10/30/13 05/28/17 History Carbidopa/Levodop 25/100 MG(*) 1.5 tab PO 0830,1230,1530 11/09/16 05/28/17 History [Sinemet 25/100 TAB(*)] Carbidopa/Levodop CR 50/200(*) 1 tab.cr PO BEDTIME 11/09/16 05/28/17 History [Sinemet CR 50/200(*)] Lansoprazole CAP (NF) [Prevacid 15 mg PO DAILY 11/09/16 05/28/17 History CAP (NF)] Ticagrelor* [Brilinta 90 MG*] 90 mg PO BID 11/09/16 05/28/17 History Acetaminophen [Acetaminophen Extra 1,000 - 1,500 mg PO TID 05/28/17 05/28/17 History Stren] Calcium Carbonate-Vitamin D W/ 2 tab PO DAILY 05/28/17 05/28/17 History [Caltrate 600+D Plus] Carbidopa/Levodop Cr 25/100 1 tab.cr PO 1700 05/28/17 05/28/17 History Allergies: Allergies Allergy/AdvReac Type Severity Reaction Status Date / Time Penicillin V [From Pen-Vee-K] Allergy Intermediate Rash Verified 11/05/16 08:35 Lisinopril Allergy Mild Rash Verified 11/05/16 08:35 Iodinated Diagnostic Agents Allergy See Comment Verified 11/10/16 07:56 Prasugrel [From Effient] Allergy FULL BODY Verified 11/05/16 08:35 RASH IV Contrast Allergy Rash Uncoded 11/09/16 16:15 Objective - Vital Signs Vital Signs: Vital Signs 05/31/17 05/31/17 05/31/17 07:56 08:00 08:18 Temperature 97.7 F Pulse Rate 79 Respiratory 16 16 17 Rate Blood Pressure 124/67 (mmHg) O2 Sat by Pulse 99 Oximetry 05/31/17 05/31/17 05/31/17 09:37 09:40 15:27 Temperature 98.1 F Pulse Rate 67 Respiratory 12 12 16 Rate Blood Pressure 118/63 (mmHg) O2 Sat by Pulse 100 Oximetry 05/31/17 05/31/17 05/31/17 15:44 15:48 17:44 Temperature Pulse Rate Respiratory 12 12 14 Rate Blood Pressure (mmHg) O2 Sat by Pulse Oximetry 05/31/17 05/31/17 05/31/17 20:00 20:34 21:39 Temperature 98.6 F Pulse Rate 86 Respiratory 18 16 18 Rate Blood Pressure 124/72 (mmHg) O2 Sat by Pulse 100 Oximetry 05/31/17 05/31/17 06/01/17 21:44 23:53 00:28 Temperature 99.3 F Pulse Rate 112 Respiratory 18 16 16 Rate Blood Pressure 130/66 (mmHg) O2 Sat by Pulse 97 Oximetry 06/01/17 06/01/17 06/01/17 02:01 02:27 04:54 Temperature 97.1 F Pulse Rate 71 Respiratory 18 16 18 Rate Blood Pressure 112/57 (mmHg) O2 Sat by Pulse 100 Oximetry - Intake and Output Intake and Output: Intake & Output 05/29/17 05/30/17 05/31/17 06/01/17 11:59 11:59 11:59 11:59 Intake Total 920 1200 685 Output Total 1550 350 625 Balance -630 850 60 Weight 171 lb 154 lb 9.6 oz 155 lb 6.4 oz Intake: IV Fluids 10 5 NS (0.9%) 10 5 Oral 920 1190 680 Output: Urine 250 Nagel 1550 625 Residual 100 16 50 18 Fr 50 Other: Estimated Void Large Date of Last Bowel 05/31/2017 Movement # Bowel Movements 0 0 0 Estimated Stool Amount Small # Voids 1 275 ADLs: Meal Record Start: 05/28/17 14: 40 Freq: DAILY@0900,1400,1800 Status: Active Protocol: Document 05/29/17 09:00 [id number] (Rec: 05/29/17 09:47 [id number] MED-C09) Document 05/29/17 18:00 [id number] (Rec: 05/29/17 21:23 [id number] MED-C11) Document 05/30/17 09:00 [id number] (Rec: 05/30/17 09:50 [id number] MED-C11) Document 05/30/17 14:00 [id number] (Rec: 05/30/17 14:45 [id number] MED-C09) Document 05/30/17 18:00 [id number] (Rec: 05/30/17 21:21 [id number] MED-C09) Document 05/31/17 09:00 [id number] (Rec: 05/31/17 09:52 [id number] MED-C09) Document 05/31/17 14:00 [id number] (Rec: 05/31/17 15:02 [id number] MED-C09) Document 05/31/17 18:00 [id number] (Rec: 05/31/17 21:22 [id number] MEDL-C01) Intake and Output Start: 05/28/17 14: 40 Freq: DAILY@0600,1400,2200 Status: Active Protocol: Document 05/28/17 20:43 [id number] (Rec: 05/28/17 20:44 [id number] MED-C11) Document 05/29/17 05:49 [id number] (Rec: 05/29/17 05:50 [id number] MED-C26) Document 05/29/17 13:40 [id number] (Rec: 05/29/17 13:41 [id number] MED-C11) Document 05/29/17 21:24 [id number] (Rec: 05/29/17 21:25 [id number] MED-C11) Document 05/30/17 06:00 [id number] (Rec: 05/30/17 06:25 [id number] MEDL-C01) Document 05/30/17 14:00 [id number] (Rec: 05/30/17 14:45 [id number] MED-C09) Document 05/30/17 22:00 [id number] (Rec: 05/30/17 23:28 [id number] MED-C09) Document 05/31/17 06:00 [id number] (Rec: 05/31/17 06:01 [id number] MED-C42) Document 05/31/17 14:00 [id number] (Rec: 05/31/17 15:02 [id number] MED-C09) Document 05/31/17 22:00 [id number] (Rec: 05/31/17 22:39 [id number] MEDL-C01) Document 06/01/17 06:00 [id number] (Rec: 06/01/17 06:39 [id number] [facility] [place]) - Physical Exam General: No Cyanosis, No Anemia, No Jaundice, No Clubbing Lungs and Chest: Yes: Chest Expansion Full, Chest Expansion Symetrica, Percussion Note Resonant, Vessicular Breath Sounds. No: Crackles, Wheezes Heart Rate and Rhythm: Regular Additional Cardiovascular: Yes: Normal Heart Sounds, Heart Murmur - 2/6 SIGRID aortic area and LSE. No: Pedal Edema Abdominal Exam: Yes: Soft, Bowel Sounds Present. No: Distention, Abdominal Tenderness - Extremities Cranial Nerves II-XII Intact: Yes - Parkinson's Limbs: Abnormal Power Results - Results Lab Results: Laboratory Results - last 24 hr 05/31/17 06/01/17 07:27 02:00 WBC 9.6 RBC 3.75 L Hgb 11.3 L Hct 34 L MCV 89 MCH 30 MCHC 34 RDW 19 H Plt Count 144 L MPV 10 Neut % (Auto) 80.3 Lymph % (Auto) 9.3 L [place] % (Auto) 9.1 H Eos % (Auto) 1.1 Baso % (Auto) 0.2 Absolute Neuts (auto) 7.7 Absolute Lymphs (auto) 0.9 L Absolute Monos (auto) 0.9 H Absolute Eos (auto) 0.1 Absolute Basos (auto) 0 Absolute Nucleated RBC 0 Nucleated RBC % 0 Urine Color Yellow Urine Appearance Cloudy Urine pH 6.0 Ur Specific [place] 1.005 L Urine Protein Negative Urine Ketones Negative Urine Blood 3+ H Urine Nitrate Positive H Urine Bilirubin Negative Urine Urobilinogen Negative Ur Leukocyte Esterase 3+ H Urine WBC (Auto) 3+(>20/hpf) H Urine RBC (Auto) 3+(>10/hpf) H Urine Bacteria 2+ H Urine Glucose Negative Assessment - Problem List Assessment: Patient Problems Lumbar radiculopathy (Acute) Right leg pain (Acute) Spinal stenosis of lumbar region (Acute) Weakness (Acute) Colitis (Chronic) Coronary artery disease (Chronic) Depression (Chronic) Endometrioid adenocarcinoma of uterus (Chronic) Essential hypertension (Chronic) History of falling (Chronic) History of hysterectomy for cancer (Chronic) Hyperlipidemia (Chronic) Morbid obesity (Chronic) Parkinsons disease (Chronic) Prolonged QT interval (Chronic) Type 2 diabetes mellitus (Chronic) Plan: Lumbar radiculopathy (Acute)Right leg pain (Acute)Spinal stenosis of lumbar region (Acute)Weakness (Acute) We are awaiting PMRU decision and we will otherwise look at SNFs for subacute rehab. UTI - she had symptoms of a UTI and she has a positive U/A. We are pending bacteriology. Her most recent UTI was sensitive to all antibacterials - however , this is one was acquired in the [facility] [place] after a Nagel was placed at [facility]. We have replaced a Nagel because of incontinence. I have checked with an antibioticogram - I will use a first generation cephalosporin Colitis (Chronic) inactiv Coronary artery disease (Chronic) secondary diagnosis Depression (Chronic) secondary diagnosis Endometrioid adenocarcinoma of uterus (Chronic) secondary diagnosis Essential hypertension (Chronic) on target History of falling (Chronic) History of hysterectomy for cancer (Chronic) Hyperlipidemia (Chronic) secondary diagnosis Morbid obesity (Chronic) secondary diagnosis Parkinsons disease (Chronic) see above Prolonged QT interval (Chronic) inactive Type 2 diabetes mellitus (Chronic) on target.
[2017-06-01] MEDS: Carbidopa/Levodop 25/100 MG TAB(*) PO SCH ×3 (08:30→16:28)
[2017-06-01] MEDS: Carvedilol TAB* 6.25 MG PO SCH ×2 (08:31→22:45)
[2017-06-01] MEDS: Aspirin EC Low Dose* 81 MG TAB.EC PO SCH (08:31)
[2017-06-01] MEDS: Lidocaine PATCH 5%* 1 PATCH TRANSDERM SCH (08:31)
[2017-06-01] MEDS: Omeprazole CAP* 20 MG PO SCH (08:32)
[2017-06-01] MEDS: Pregabalin CAP(*) 50 MG PO SCH ×2 (08:33→22:44)
[2017-06-01] MEDS: Ticagrelor* 90 MG TAB PO SCH ×2 (08:34→22:45)
[2017-06-01] MEDS: Nystatin TOP POWDER* 15 GM BTL TOPICAL SCH ×2 (08:42→20:30)
[2017-06-01] MEDS: oxyCODONE TAB* 5 MG TAB PO PRN (10:48)
[2017-06-01] MEDS: Cephalexin CAP* 500 MG PO SCH ×4 (10:48→22:45)
[2017-06-01] MEDS: Primidone TAB(*) 50 MG PO SCH ×2 (10:49→22:45)
[2017-06-01] MEDS: Carbidopa/Levodop CR 50/200(*) TAB.CR PO SCH ×2 (16:34→22:46)
[2017-06-01] MEDS: Atorvastatin* 80 MG TAB PO SCH (22:44)
[2017-06-02] MEDS: Lidocaine Patch REMOVE* 1 NOTE MISC SCH ×2 (01:12→22:42)
[2017-06-02] MEDS: traMADol TAB* 50 MG PO SCH ×4 (05:57→22:19)
[2017-06-02] MEDS: Heparin VIAL(*) 5000 UNITS/ML VIAL (FIVE THOUSAND) SUBCUT SCH ×3 (05:58→22:42)
[2017-06-02] MEDS: Carbidopa/Levodop 25/100 MG TAB(*) PO SCH ×3 (09:26→16:28)
[2017-06-02] MEDS: Aspirin EC Low Dose* 81 MG TAB.EC PO SCH (09:27)
[2017-06-02] MEDS: Omeprazole CAP* 20 MG PO SCH (09:27)
[2017-06-02] MEDS: Ticagrelor* 90 MG TAB PO SCH ×2 (09:28→22:16)
[2017-06-02] MEDS: Carvedilol TAB* 6.25 MG PO SCH ×2 (09:28→22:20)
[2017-06-02] MEDS: Pregabalin CAP(*) 50 MG PO SCH ×2 (09:29→22:14)
[2017-06-02] MEDS: Cephalexin CAP* 500 MG PO SCH ×4 (09:29→22:11)
[2017-06-02] MEDS: Primidone TAB(*) 50 MG PO SCH ×2 (09:30→22:12)
[2017-06-02] MEDS: Nystatin TOP POWDER* 15 GM BTL TOPICAL SCH ×2 (09:33→22:41)
[2017-06-02] MEDS: Lidocaine PATCH 5%* 1 PATCH TRANSDERM SCH (09:34)
[2017-06-02] MEDS ORDERED: Mirtazapine TAB* 15 MG PO PRN (10:08)
--- NOTE | 2017-06-02 10:08 | PN ---
Subjective - Subjective Reason for Note: Progress Note History: 1. She describes increased pain in the right lateral leg today - no clear exacerbating factors. She is taking tramadol for this. 2. Anorexia - she is not eating sufficiently and is net catabolic. She and her ask about appetite stimulating drugs 3. UTI - she has tolerated 1 day of cephalexin - no rash. She has a Nagel in situ Active Problems: Active Problems Lumbar radiculopathy (Acute) M54.16 Right leg pain (Acute) M79.604 Spinal stenosis of lumbar region (Acute) M48.061 Weakness (Acute) R53.1 Colitis (Chronic) K52.9 Coronary artery disease (Chronic) I25.10 Depression (Chronic) F32.9 Endometrioid adenocarcinoma of uterus (Chronic) C55 Essential hypertension (Chronic) I10 History of falling (Chronic) Z91.81 History of hysterectomy for cancer (Chronic) Z90.710 Hyperlipidemia (Chronic) E78.5 Morbid obesity (Chronic) E66.01 Parkinsons disease (Chronic) G20 Prolonged QT interval (Chronic) R94.31 Type 2 diabetes mellitus (Chronic) Current Medications: Current Medications Acetaminophen (Tylenol Tab*) 650 mg PO Q4H PRN PRN Reason: FEVER/PAIN Last Admin: 05/29/17 21:34 Dose: 650 mg Aspirin (Aspirin Ec Low Dose*) 81 mg PO DAILY [facility] Last Admin: 06/02/17 09:27 Dose: 81 mg Atorvastatin Calcium (Lipitor*) 80 mg PO BEDTIME [facility] Last Admin: 06/01/17 22:44 Dose: 80 mg Carbidopa/Levodopa (Sinemet Cr 50/200(*)) 0.5 tab.cr PO 1700 [facility] Last Admin: 06/01/17 16:34 Dose: 0.5 tab.cr Carbidopa/Levodopa (Sinemet 25/100 Tab(*)) 1.5 tab PO 0830,1230,1530 [facility] Last Admin: 06/02/17 09:26 Dose: 1.5 tab Carbidopa/Levodopa (Sinemet Cr 50/200(*)) 1.5 tab.cr PO BEDTIME [facility] Last Admin: 06/01/17 22:46 Dose: 1.5 tab.cr Carvedilol (Coreg Tab*) 6.25 mg PO BID [facility] Last Admin: 12/23/17 09:28 Dose: 6.25 mg Cephalexin HCl (Keflex Cap*) 500 mg PO QID [facility] Last Admin: 06/02/17 09:29 Dose: 500 mg Docusate Sodium (Colace Cap*) 100 mg PO DAILY PRN PRN Reason: CONSTIPATION Last Admin: 05/30/17 20:39 Dose: 100 mg Heparin Sodium (Porcine) (Heparin Vial(*)) 5,000 units SUBCUT Q8HR [facility] Last Admin: 06/02/17 05:58 Dose: 5,000 units Lidocaine (Lidoderm 5% Patch*) 1 patch TRANSDERM DAILY [facility] Last Admin: 06/02/17 09:34 Dose: 1 patch Nystatin (Nystatin Top Powder*) 1 applic TOPICAL BID [facility] Last Admin: 06/02/17 09:33 Dose: 1 applic Omeprazole (Prilosec Cap*) 20 mg PO DAILY [facility] PRN Reason: Protocol Last Admin: 06/02/17 09:27 Dose: 20 mg Ondansetron HCl (Zofran Inj*) 4 mg IV Q6H PRN PRN Reason: NAUSEA Oxycodone HCl (Roxycodone Tab*) 2.5 mg PO Q6H PRN PRN Reason: PAIN Last Admin: 06/01/17 10:48 Dose: 2.5 mg Pharmacy Profile Note (Lidocaine Patch Remove*) 1 note N/A 2100 [facility] Last Admin: 06/02/17 01:12 Dose: Not Given Polyethylene Glycol/Electrolytes (Miralax*) 17 gm PO DAILY PRN PRN Reason: CONSTIPATION Last Admin: 05/30/17 20:43 Dose: 17 gm Pregabalin (Lyrica Cap(*)) 150 mg PO BID [facility] Last Admin: 06/02/17 09:29 Dose: 150 mg Primidone (Mysoline Tab(*)) 100 mg PO BID [facility] Last Admin: 06/02/17 09:30 Dose: 100 mg Ticagrelor (Brilinta*) 90 mg PO BID [facility] Last Admin: 06/02/17 09:28 Dose: 90 mg Tramadol HCl (Ultram*) 50 mg PO Q6H [facility] Last Admin: 06/02/17 09:26 Dose: 50 mg Home Medications: Home Medications Medication Instructions Recorded Confirmed Type Aspirin EC Low Dose* [Ecotrin EC 81 mg PO DAILY 06/07/13 05/28/17 History Low Dose 81 MG*] Atorvastatin* [Lipitor 80 MG*] 80 mg PO BEDTIME 06/07/13 05/28/17 History Pregabalin CAP(*) [Lyrica CAP(*)] 150 mg PO BID 06/07/13 05/28/17 History Primidone TAB(*) [Mysoline TAB(*)] 100 mg PO BID 06/07/13 05/28/17 History Carvedilol TAB* [Coreg TAB*] 6.25 mg PO BID 10/30/13 05/28/17 History Carbidopa/Levodop 25/100 MG(*) 1.5 tab PO 0830,1230,1530 11/09/16 05/28/17 History [Sinemet 25/100 TAB(*)] Carbidopa/Levodop CR 50/200(*) 1 tab.cr PO BEDTIME 11/09/16 05/28/17 History [Sinemet CR 50/200(*)] Lansoprazole CAP (NF) [Prevacid 15 mg PO DAILY 11/09/16 05/28/17 History CAP (NF)] Ticagrelor* [Brilinta 90 MG*] 90 mg PO BID 11/09/16 05/28/17 History Acetaminophen [Acetaminophen Extra 1,000 - 1,500 mg PO TID 05/28/17 05/28/17 History Stren] Calcium Carbonate-Vitamin D W/ 2 tab PO DAILY 05/28/17 05/28/17 History [Caltrate 600+D Plus] Carbidopa/Levodop Cr 25/100 1 tab.cr PO 1700 05/28/17 05/28/17 History Allergies: Allergies Allergy/AdvReac Type Severity Reaction Status Date / Time Penicillin V [From Pen-Vee-K] Allergy Intermediate Rash Verified 11/05/16 08:35 Lisinopril Allergy Mild Rash Verified 11/05/16 08:35 Iodinated Diagnostic Agents Allergy See Comment Verified 11/10/16 07:56 Prasugrel [From Effient] Allergy FULL BODY Verified 11/05/16 08:35 RASH IV Contrast Allergy Rash Uncoded 11/09/16 16:15 Objective - Vital Signs Vital Signs: Vital Signs 06/01/17 06/01/17 06/01/17 10:48 11:09 11:32 Temperature 98.2 F Pulse Rate 70 Respiratory 16 14 16 Rate Blood Pressure 114/60 (mmHg) O2 Sat by Pulse 99 Oximetry 06/01/17 06/01/17 06/01/17 13:26 15:41 16:27 Temperature 98.2 F Pulse Rate 77 Respiratory 16 16 16 Rate Blood Pressure 146/74 (mmHg) O2 Sat by Pulse 100 Oximetry 06/01/17 06/01/17 06/01/17 19:24 20:00 22:22 Temperature 98.8 F Pulse Rate 81 Respiratory 16 16 18 Rate Blood Pressure 116/72 (mmHg) O2 Sat by Pulse 100 Oximetry 06/01/17 06/01/17 06/02/17 22:44 22:45 00:00 Temperature 97.7 F Pulse Rate 78 Respiratory 18 18 16 Rate Blood Pressure 132/65 (mmHg) O2 Sat by Pulse 98 Oximetry 06/02/17 06/02/17 06/02/17 02:32 03:16 03:54 Temperature 97.0 F Pulse Rate 80 Respiratory 16 18 16 Rate Blood Pressure 114/65 (mmHg) O2 Sat by Pulse 100 Oximetry 06/02/17 06/02/17 06/02/17 05:57 07:47 09:26 Temperature 98.1 F Pulse Rate 80 Respiratory 18 14 16 Rate Blood Pressure 147/72 (mmHg) O2 Sat by Pulse 98 Oximetry 06/02/17 09:29 Temperature Pulse Rate Respiratory 16 Rate Blood Pressure (mmHg) O2 Sat by Pulse Oximetry - Intake and Output Intake and Output: Intake & Output 05/30/17 05/31/17 06/01/17 06/02/17 11:59 11:59 11:59 11:59 Intake Total 920 1200 685 990 Output Total 1550 999 215 9888 Balance -630 850 60 -60 Weight 171 lb 154 lb 9.6 oz 155 lb 6.4 oz 156 lb 3.2 oz Intake: IV Fluids 10 5 10 NS (0.9%) 10 5 10 Oral 920 1190 680 980 Output: Urine 250 0 Nagel 8508 529 1209 Residual 100 16 50 18 Fr 50 Other: Estimated Void Large Date of Last Bowel 05/31/2017 Movement # Bowel Movements 0 0 0 0 Estimated Stool Amount Small # Voids 1 275 ADLs: Meal Record Start: 05/28/17 14: 40 Freq: DAILY@0900,1400,1800 Status: Active Protocol: Document 05/29/17 09:00 [id number] (Rec: 05/29/17 09:47 [id number] MED-C09) Document 05/29/17 18:00 [id number] (Rec: 05/29/17 21:23 [id number] MED-C11) Document 05/30/17 09:00 [id number] (Rec: 05/30/17 09:50 [id number] MED-C11) Document 05/30/17 14:00 [id number] (Rec: 05/30/17 14:45 [id number] MED-C09) Document 05/30/17 18:00 [id number] (Rec: 05/30/17 21:21 [id number] MED-C09) Document 05/31/17 09:00 [id number] (Rec: 05/31/17 09:52 [id number] MED-C09) Document 05/31/17 14:00 [id number] (Rec: 05/31/17 15:02 [id number] MED-C09) Document 05/31/17 18:00 [id number] (Rec: 05/31/17 21:22 [id number] MEDL-C01) Document 06/01/17 09:00 [id number] (Rec: 06/01/17 12:15 [id number] MED-C09) Document 06/01/17 13:37 [id number] (Rec: 06/01/17 13:37 [id number] MED-C02) Document 06/01/17 18:00 [id number] (Rec: 06/01/17 18:40 [id number] MED-C11) Document 06/02/17 09:00 [id number] (Rec: 06/02/17 09:43 [id number] MED-C09) Intake and Output Start: 05/28/17 14: 40 Freq: DAILY@0600,1400,2200 Status: Active Protocol: Document 05/28/17 20:43 [id number] (Rec: 05/28/17 20:44 [id number] MED-C11) Document 05/29/17 05:49 [id number] (Rec: 05/29/17 05:50 [id number] MED-C26) Document 05/29/17 13:40 [id number] (Rec: 05/29/17 13:41 [id number] MED-C11) Document 05/29/17 21:24 [id number] (Rec: 05/29/17 21:25 [id number] MED-C11) Document 05/30/17 06:00 [id number] (Rec: 05/30/17 06:25 [id number] MEDL-C01) Document 05/30/17 14:00 [id number] (Rec: 05/30/17 14:45 [id number] MED-C09) Document 05/30/17 22:00 [id number] (Rec: 05/30/17 23:28 [id number] MED-C09) Document 05/31/17 06:00 [id number] (Rec: 05/31/17 06:01 [id number] MED-C42) Document 05/31/17 14:00 [id number] (Rec: 05/31/17 15:02 [id number] MED-C09) Document 05/31/17 22:00 [id number] (Rec: 05/31/17 22:39 [id number] MEDL-C01) Document 06/01/17 06:00 [id number] (Rec: 06/01/17 06:39 [id number] MED-C42) Document 06/01/17 21:03 [id number] (Rec: 06/01/17 21:03 [id number] MED-C11) Document 06/02/17 05:35 [id number] (Rec: 06/02/17 05:37 [id number] MED-C42) - Physical Exam General: No Cyanosis, No Anemia, No Jaundice, No Clubbing Skin: Normal: Rash Lungs and Chest: Yes: Chest Expansion Full, Chest Expansion Symetrica, Percussion Note Resonant, Vessicular Breath Sounds. No: Crackles, Wheezes Heart Rate and Rhythm: Regular Additional Cardiovascular: Yes: Normal Heart Sounds. No: Heart Murmur, Pedal Edema Abdominal Exam: Yes: Soft, Bowel Sounds Present. No: Distention, Abdominal Mass , Hepatomegaly, Abdominal Tenderness - Extremities Cranial Nerves II-XII Intact: No - Parkinson's Limbs: Abnormal Power - Parkinson's + proximal weakness, Abnormal Tone - Parkinsons - Neuro Orientation: A/O x3 Assessment - Problem List Assessment: Patient Problems Lumbar radiculopathy (Acute) Right leg pain (Acute) Spinal stenosis of lumbar region (Acute) Weakness (Acute) Colitis (Chronic) Coronary artery disease (Chronic) Depression (Chronic) Endometrioid adenocarcinoma of uterus (Chronic) Essential hypertension (Chronic) History of falling (Chronic) History of hysterectomy for cancer (Chronic) Hyperlipidemia (Chronic) Morbid obesity (Chronic) Parkinsons disease (Chronic) Prolonged QT interval (Chronic) Type 2 diabetes mellitus (Chronic) Plan: Lumbar radiculopathy (Acute)Right leg pain (Acute)Spinal stenosis of lumbar region (Acute)Parkinsons disease (Chronic)Weakness (Acute) She has increased pain today. She is becoming weaker because of prolonged recumbency and anorexia. I am loath to increase the strength of the opioiod beyond tramadol. She requires mobiliation/PT. Anorexia This is multifactorial - Sinemet, Parkinson's, prolonged recumbency, depression. I discussed 4 agents - mirtazepine, alcohol (no), megace, and dronabinol. The latter has pain modulating effects and cannabinoids help preserve striato-nigral cells in animal models. After a discussion with the patient and her , she chose the mirtazepine (antidepressant). Arq Neuropsiquiatr. 2012 Jan;70(8):617-20. Depression in Parkinson's disease: diagnosis and treatment. Anthony FH1, Lissy AL, Jacques H, Altagracia DH, Efra LOPEZ. Author information Abstract The prevalence of non-motor symptoms in Parkinson's disease (PD) is high. Depression varies from 20 to 50% of the PD patients, and is associated with increasing disability. The camp characteristics of depression are anhedonia and low mood. The recommended scales for screening purposes are: HAM-D, BDI, HADS, MADRS and GDS. As for measurement of severity: HAM-D, MADRS, BDI and SDS. In cases with mild depression, non-pharmacological intervention is the treatment of choice. In moderate depression, antidepressants are required. The choice of an antidepressant should be based mainly on the comorbidities and unique features of the patient. Evidence for antidepressant effectiveness is seen mostly with amitriptyline and nortriptyline, but one should be cautious in elderly patients. Other antidepressants that can be prescribed are: citalopram, escitalopram, sertraline, bupropion, trazodone, venlafaxine, mirtazapine and duloxetin. The dopaminergic agonist pramipexole is a treatment option. UTI - She is tolerating the cephalexin. I will remove her Nagel Colitis (Chronic) secondary diagnosis Coronary artery disease (Chronic) secondary diagnosis Depression (Chronic) secondary diagnosis Endometrioid adenocarcinoma of uterus (Chronic) secondary diagnosis Essential hypertension (Chronic) controlled History of falling (Chronic) high risk History of hysterectomy for cancer (Chronic) secondary diagnosis Hyperlipidemia (Chronic)secondary diagnosis Morbid obesity (Chronic)secondary diagnosis Prolonged QT interval (Chronic)secondary diagnosis Type 2 diabetes mellitus (Chronic)secondary diagnosis I discussed the above with the patient.
[2017-06-02] MEDS: Carbidopa/Levodop CR 50/200(*) TAB.CR PO SCH ×2 (16:28→22:10)
[2017-06-02] MEDS: Atorvastatin* 80 MG TAB PO SCH (22:18)
[2017-06-02] MEDS: Acetaminophen TAB* 325 MG PO PRN (22:47)
[2017-06-03] MEDS: traMADol TAB* 50 MG PO SCH ×4 (02:39→21:57)
[2017-06-03] MEDS: Heparin VIAL(*) 5000 UNITS/ML VIAL (FIVE THOUSAND) SUBCUT SCH ×3 (07:17→22:02)
--- NOTE | 2017-06-03 08:52 | PN ---
Subjective - Subjective Reason for Note: Progress Note History: She slept longer and deeper for her first night on mirtazepine. She has had no urinary incontinence. However, she is lying on her back on a bedpan and cannot void. She has not notice leg pain this morning. Active Problems: Active Problems Lumbar radiculopathy (Acute) M54.16 Right leg pain (Acute) M79.604 Spinal stenosis of lumbar region (Acute) M48.061 Weakness (Acute) R53.1 Colitis (Chronic) K52.9 Coronary artery disease (Chronic) I25.10 Depression (Chronic) F32.9 Endometrioid adenocarcinoma of uterus (Chronic) C55 Essential hypertension (Chronic) I10 History of falling (Chronic) Z91.81 History of hysterectomy for cancer (Chronic) Z90.710 Hyperlipidemia (Chronic) E78.5 Morbid obesity (Chronic) E66.01 Parkinsons disease (Chronic) G20 Prolonged QT interval (Chronic) R94.31 Type 2 diabetes mellitus (Chronic) Current Medications: Current Medications Acetaminophen (Tylenol Tab*) 650 mg PO Q4H PRN PRN Reason: FEVER/PAIN Last Admin: 06/02/17 22:47 Dose: 650 mg Aspirin (Aspirin Ec Low Dose*) 81 mg PO DAILY [facility] Last Admin: 06/02/17 09:27 Dose: 81 mg Atorvastatin Calcium (Lipitor*) 80 mg PO BEDTIME [facility] Last Admin: 06/02/17 22:18 Dose: 80 mg Carbidopa/Levodopa (Sinemet Cr 50/200(*)) 0.5 tab.cr PO 1700 [facility] Last Admin: 06/02/17 16:28 Dose: 0.5 tab.cr Carbidopa/Levodopa (Sinemet 25/100 Tab(*)) 1.5 tab PO 0830,1230,1530 [facility] Last Admin: 06/02/17 16:28 Dose: 1.5 tab Carbidopa/Levodopa (Sinemet Cr 50/200(*)) 1.5 tab.cr PO BEDTIME [facility] Last Admin: 06/02/17 22:10 Dose: 1.5 tab.cr Carvedilol (Coreg Tab*) 6.25 mg PO BID [facility] Last Admin: 06/02/17 22:20 Dose: 6.25 mg Cephalexin HCl (Keflex Cap*) 500 mg PO QID [facility] Last Admin: 06/02/17 22:11 Dose: 500 mg Docusate Sodium (Colace Cap*) 100 mg PO DAILY PRN PRN Reason: CONSTIPATION Last Admin: 05/30/17 20:39 Dose: 100 mg Heparin Sodium (Porcine) (Heparin Vial(*)) 5,000 units SUBCUT Q8HR [facility] Last Admin: 06/03/17 07:17 Dose: 5,000 units Lidocaine (Lidoderm 5% Patch*) 1 patch TRANSDERM DAILY [facility] Last Admin: 06/02/17 09:34 Dose: 1 patch Mirtazapine (Remeron Tab*) 15 mg PO BEDTIME PRN PRN Reason: SLEEP Last Admin: 06/02/17 22:48 Dose: 15 mg Nystatin (Nystatin Top Powder*) 1 applic TOPICAL BID [facility] Last Admin: 06/02/17 22:41 Dose: 1 applic Omeprazole (Prilosec Cap*) 20 mg PO DAILY [facility] PRN Reason: Protocol Last Admin: 06/02/17 09:27 Dose: 20 mg Ondansetron HCl (Zofran Inj*) 4 mg IV Q6H PRN PRN Reason: NAUSEA Pharmacy Profile Note (Lidocaine Patch Remove*) 1 note N/A 2100 [facility] Last Admin: 06/02/17 22:42 Dose: Not Given Polyethylene Glycol/Electrolytes (Miralax*) 17 gm PO DAILY PRN PRN Reason: CONSTIPATION Last Admin: 05/30/17 20:43 Dose: 17 gm Pregabalin (Lyrica Cap(*)) 150 mg PO BID [facility] Last Admin: 06/02/17 22:14 Dose: 150 mg Primidone (Mysoline Tab(*)) 100 mg PO BID [facility] Last Admin: 06/02/17 22:12 Dose: 100 mg Ticagrelor (Brilinta*) 90 mg PO BID [facility] Last Admin: 06/02/17 22:16 Dose: 90 mg Tramadol HCl (Ultram*) 50 mg PO Q6H [facility] Last Admin: 06/03/17 02:39 Dose: 50 mg Home Medications: Home Medications Medication Instructions Recorded Confirmed Type Aspirin EC Low Dose* [Ecotrin EC 81 mg PO DAILY 06/07/13 05/28/17 History Low Dose 81 MG*] Atorvastatin* [Lipitor 80 MG*] 80 mg PO BEDTIME 06/07/13 05/28/17 History Pregabalin CAP(*) [Lyrica CAP(*)] 150 mg PO BID 06/07/13 05/28/17 History Primidone TAB(*) [Mysoline TAB(*)] 100 mg PO BID 06/07/13 05/28/17 History Carvedilol TAB* [Coreg TAB*] 6.25 mg PO BID 10/30/13 05/28/17 History Carbidopa/Levodop 25/100 MG(*) 1.5 tab PO 0830,1230,1530 11/09/16 05/28/17 History [Sinemet 25/100 TAB(*)] Carbidopa/Levodop CR 50/200(*) 1 tab.cr PO BEDTIME 11/09/16 05/28/17 History [Sinemet CR 50/200(*)] Lansoprazole CAP (NF) [Prevacid 15 mg PO DAILY 11/09/16 05/28/17 History CAP (NF)] Ticagrelor* [Brilinta 90 MG*] 90 mg PO BID 11/09/16 05/28/17 History Acetaminophen [Acetaminophen Extra 1,000 - 1,500 mg PO TID 05/28/17 05/28/17 History Stren] Calcium Carbonate-Vitamin D W/ 2 tab PO DAILY 05/28/17 05/28/17 History [Caltrate 600+D Plus] Carbidopa/Levodop Cr 25/100 1 tab.cr PO 1700 05/28/17 05/28/17 History Allergies: Allergies Allergy/AdvReac Type Severity Reaction Status Date / Time Penicillin V [From Pen-Vee-K] Allergy Intermediate Rash Verified 11/05/16 08:35 Lisinopril Allergy Mild Rash Verified 11/05/16 08:35 Iodinated Diagnostic Agents Allergy See Comment Verified 11/10/16 07:56 Prasugrel [From Effient] Allergy FULL BODY Verified 11/05/16 08:35 RASH IV Contrast Allergy Rash Uncoded 11/09/16 16:15 Objective - Vital Signs Vital Signs: Vital Signs 06/02/17 06/02/17 06/02/17 09:26 09:29 10:49 Temperature 98.6 F Pulse Rate 87 Respiratory 16 16 16 Rate Blood Pressure 121/69 (mmHg) O2 Sat by Pulse 98 Oximetry 06/02/17 06/02/17 06/02/17 11:11 12:06 15:21 Temperature 98.7 F Pulse Rate 81 Respiratory 16 16 16 Rate Blood Pressure 108/65 (mmHg) O2 Sat by Pulse 98 Oximetry 06/02/17 06/02/17 06/02/17 16:28 19:05 20:00 Temperature 98.1 F Pulse Rate 90 Respiratory 16 20 16 Rate Blood Pressure 100/70 (mmHg) O2 Sat by Pulse 98 Oximetry 06/02/17 06/02/17 06/02/17 22:14 22:19 22:29 Temperature Pulse Rate Respiratory 18 18 18 Rate Blood Pressure (mmHg) O2 Sat by Pulse Oximetry 06/02/17 06/03/17 06/03/17 23:46 00:05 02:39 Temperature 98.2 F Pulse Rate 75 Respiratory 16 16 16 Rate Blood Pressure 86/50 (mmHg) O2 Sat by Pulse 98 Oximetry 06/03/17 06/03/17 03:52 08:08 Temperature 98.9 F 97.9 F Pulse Rate 65 80 Respiratory 16 18 Rate Blood Pressure 98/55 128/69 (mmHg) O2 Sat by Pulse 100 98 Oximetry - Intake and Output Intake and Output: Intake & Output 05/31/17 06/01/17 06/02/17 06/03/17 11:59 11:59 11:59 11:59 Intake Total 1200 685 990 500 Output Total 188 903 8089 300 Balance 850 60 -560 200 Weight 154 lb 9.6 oz 155 lb 6.4 oz 156 lb 3.2 oz 154 lb 1.6 oz Intake: IV Fluids 10 5 10 NS (0.9%) 10 5 10 Oral 1190 680 980 500 Output: Urine 250 0 300 Nagel 625 1550 Residual 100 16 50 18 Fr 50 Other: Estimated Void Large Medium Date of Last Bowel 05/31/2017 Movement # Bowel Movements 0 0 0 0 Estimated Stool Amount Small # Voids 1 275 1 ADLs: Meal Record Start: 05/28/17 14: 40 Freq: DAILY@0900,1400,1800 Status: Active Protocol: Document 05/29/17 09:00 [id number] (Rec: 05/29/17 09:47 [id number] MED-C09) Document 05/29/17 18:00 [id number] (Rec: 05/29/17 21:23 [id number] MED-C11) Document 05/30/17 09:00 [id number] (Rec: 05/30/17 09:50 [id number] MED-C11) Document 05/30/17 14:00 [id number] (Rec: 05/30/17 14:45 [id number] MED-C09) Document 05/30/17 18:00 [id number] (Rec: 05/30/17 21:21 [id number] MED-C09) Document 05/31/17 09:00 [id number] (Rec: 05/31/17 09:52 [id number] MED-C09) Document 05/31/17 14:00 [id number] (Rec: 05/31/17 15:02 [id number] MED-C09) Document 05/31/17 18:00 [id number] (Rec: 05/31/17 21:22 [id number] MEDL-C01) Document 06/01/17 09:00 [id number] (Rec: 06/01/17 12:15 [id number] MED-C09) Document 06/01/17 13:37 [id number] (Rec: 06/01/17 13:37 [id number] MED-C02) Document 06/01/17 18:00 [id number] (Rec: 06/01/17 18:40 [id number] MED-C11) Document 06/02/17 09:00 [id number] (Rec: 06/02/17 09:43 [id number] MED-C09) Document 06/02/17 13:21 [id number] (Rec: 06/02/17 13:21 [id number] MED-C09) Document 06/02/17 18:00 [id number] (Rec: 06/02/17 18:59 [id number] MED-C11) Intake and Output Start: 05/28/17 14: 40 Freq: DAILY@0600,1400,2200 Status: Active Protocol: Document 05/28/17 20:43 [id number] (Rec: 05/28/17 20:44 [id number] MED-C11) Document 05/29/17 05:49 [id number] (Rec: 05/29/17 05:50 [id number] MED-C26) Document 05/29/17 13:40 [id number] (Rec: 05/29/17 13:41 [id number] MED-C11) Document 05/29/17 21:24 [id number] (Rec: 05/29/17 21:25 [id number] MED-C11) Document 05/30/17 06:00 [id number] (Rec: 05/30/17 06:25 [id number] MEDL-C01) Document 05/30/17 14:00 [id number] (Rec: 05/30/17 14:45 [id number] MED-C09) Document 05/30/17 22:00 [id number] (Rec: 05/30/17 23:28 [id number] MED-C09) Document 05/31/17 06:00 [id number] (Rec: 05/31/17 06:01 [id number] MED-C42) Document 05/31/17 14:00 [id number] (Rec: 05/31/17 15:02 [id number] MED-C09) Document 05/31/17 22:00 [id number] (Rec: 05/31/17 22:39 [id number] MEDL-C01) Document 06/01/17 06:00 [id number] (Rec: 06/01/17 06:39 [id number] MED-C42) Document 06/01/17 21:03 [id number] (Rec: 06/01/17 21:03 [id number] MED-C11) Document 06/02/17 05:35 [id number] (Rec: 06/02/17 05:37 [id number] MED-C42) Document 06/02/17 14:00 [id number] (Rec: 06/02/17 14:41 [id number] MED-C09) Document 06/02/17 20:17 [id number] (Rec: 06/02/17 20:18 [id number] MED-C11) Document 06/03/17 04:57 [id number] (Rec: 06/03/17 04:57 [id number] MED-C42) Results - Results Other Results/Reports: RUN DATE: 06/03/17 [facility] LIVE PAGE 1 RUN TIME: [address] [place], [place] [address] Specimen Inquiry Name: JOSIAS JACKSON : [address]: Jacques Kumar MD Acct: [id number] Unit: [id number] AGE: 72 Location: [place] [address] Re05/29/17 SEX: F Status: ADM IN SPEC: [id number] BRANDON: 05/31/17-[address]: Jacques Kumar MD REQ: [id number] RECD: 05/31/17 STATUS: COMP OTHR DR: Marciano Mae MD _ Mary Jo Quintero MD SOURCE: URINE SPDESC: ORDERED: Urine Culture Procedure Result Reported Site Urine Culture Final 06/02/17709 ML Organism 1 KLEBSIELLA PNEUMONIAE [place] Count >100,000 (Many) CFU/ML 1. KLEBSIELLA PNEUMONIAE [facility] RX Ampicillin R Cefazolin <=4 S Cefepime <=1 S Ceftriaxone <=1 S Ciprofloxacin <=0.25 S Gentamicin <=1 S Levofloxacin <=0.12 S Meropenem <=0.25 S Nitrofurantoin 128 R Tetracycline <=1 S Pipercillin/Tazobactam <=4 S Trimethoprim/Sulfamethoxazole <=20 S Amoxicillin/Clavulanic Acid <=2 S Aztreonam <=1 S Contact the Microbiology Department for any additional antibiotic reporting. * ML - MAIN LAB ([facility]1) . END OF REPORT * ML = Testing performed at Main Lab DEPARTMENT OF PATHOLOGY, [address] [place] [address] Mj Duffy M.D. Director [facility] # [id number] Assessment - Problem List Assessment: Patient Problems Lumbar radiculopathy (Acute) Right leg pain (Acute) Spinal stenosis of lumbar region (Acute) Weakness (Acute) Colitis (Chronic) Coronary artery disease (Chronic) Depression (Chronic) Endometrioid adenocarcinoma of uterus (Chronic) Essential hypertension (Chronic) History of falling (Chronic) History of hysterectomy for cancer (Chronic) Hyperlipidemia (Chronic) Morbid obesity (Chronic) Parkinsons disease (Chronic) Prolonged QT interval (Chronic) Type 2 diabetes mellitus (Chronic) Plan: Right leg pain - not an issue yet today Mirtazepine/depression - she slept deeper and longer than usual. Feels this is a good thing. UTI her Klebsiella pneumoniae is sensitive to 1st generation cephalosporins - she has had no further urinary frequency or dysuria or incontinence since starting cephalexin. To use commode exclusively - no more bed luna.
[2017-06-03] MEDS: Cephalexin CAP* 500 MG PO SCH ×4 (08:59→21:59)
[2017-06-03] MEDS: Lidocaine PATCH 5%* 1 PATCH TRANSDERM SCH (08:59)
[2017-06-03] MEDS: Omeprazole CAP* 20 MG PO SCH (09:00)
[2017-06-03] MEDS: Primidone TAB(*) 50 MG PO SCH ×2 (09:00→21:58)
[2017-06-03] MEDS: Ticagrelor* 90 MG TAB PO SCH ×2 (09:00→21:58)
[2017-06-03] MEDS: Pregabalin CAP(*) 50 MG PO SCH ×2 (09:00→21:56)
[2017-06-03] MEDS: Carvedilol TAB* 6.25 MG PO SCH ×2 (09:00→21:58)
[2017-06-03] MEDS: Aspirin EC Low Dose* 81 MG TAB.EC PO SCH (09:00)
[2017-06-03] MEDS: Nystatin TOP POWDER* 15 GM BTL TOPICAL SCH ×2 (09:28→22:01)
[2017-06-03] MEDS: Carbidopa/Levodop 25/100 MG TAB(*) PO SCH ×3 (09:28→16:25)
[2017-06-03] MEDS: Carbidopa/Levodop CR 50/200(*) TAB.CR PO SCH ×2 (16:38→21:57)
[2017-06-03] MEDS: Atorvastatin* 80 MG TAB PO SCH (21:59)
[2017-06-03] MEDS: Lidocaine Patch REMOVE* 1 NOTE MISC SCH (22:00)
[2017-06-04] MEDS: traMADol TAB* 50 MG PO SCH ×4 (03:43→20:33)
[2017-06-04] MEDS: Heparin VIAL(*) 5000 UNITS/ML VIAL (FIVE THOUSAND) SUBCUT SCH ×3 (05:38→20:36)
[2017-06-04] MEDS: Primidone TAB(*) 50 MG PO SCH (08:59)
[2017-06-04] MEDS: Cephalexin CAP* 500 MG PO SCH ×4 (09:00→20:34)
[2017-06-04] MEDS: Ticagrelor* 90 MG TAB PO SCH ×2 (09:00→20:31)
[2017-06-04] MEDS: Aspirin EC Low Dose* 81 MG TAB.EC PO SCH (09:01)
[2017-06-04] MEDS: Omeprazole CAP* 20 MG PO SCH (09:01)
[2017-06-04] MEDS: Pregabalin CAP(*) 50 MG PO SCH ×2 (09:02→20:32)
[2017-06-04] MEDS: Carvedilol TAB* 6.25 MG PO SCH ×2 (09:03→20:30)
[2017-06-04] MEDS: Lidocaine PATCH 5%* 1 PATCH TRANSDERM SCH (09:04)
[2017-06-04] MEDS: Carbidopa/Levodop 25/100 MG TAB(*) PO SCH ×3 (09:14→15:14)
[2017-06-04] MEDS: Nystatin TOP POWDER* 15 GM BTL TOPICAL SCH ×2 (09:15→20:39)
--- NOTE | 2017-06-04 09:29 | PN ---
Subjective - Subjective Reason for Note: Progress Note History: She is in a chair eating her breakfast. She has back pain this morning - she just received her tramadol. Her appetite is improved - she ate more last night and this morning. She is able to void urine when on the commode, but not on a bed luna. Active Problems: Active Problems Lumbar radiculopathy (Acute) M54.16 Right leg pain (Acute) M79.604 Spinal stenosis of lumbar region (Acute) M48.061 Weakness (Acute) R53.1 Colitis (Chronic) K52.9 Coronary artery disease (Chronic) I25.10 Depression (Chronic) F32.9 Endometrioid adenocarcinoma of uterus (Chronic) C55 Essential hypertension (Chronic) I10 History of falling (Chronic) Z91.81 History of hysterectomy for cancer (Chronic) Z90.710 Hyperlipidemia (Chronic) E78.5 Morbid obesity (Chronic) E66.01 Parkinsons disease (Chronic) G20 Prolonged QT interval (Chronic) R94.31 Type 2 diabetes mellitus (Chronic) Current Medications: Current Medications Acetaminophen (Tylenol Tab*) 650 mg PO Q4H PRN PRN Reason: FEVER/PAIN Last Admin: 06/02/17 22:47 Dose: 650 mg Aspirin (Aspirin Ec Low Dose*) 81 mg PO DAILY [facility] Last Admin: 06/04/17 09:01 Dose: 81 mg Atorvastatin Calcium (Lipitor*) 80 mg PO BEDTIME [facility] Last Admin: 06/03/17 21:59 Dose: 80 mg Carbidopa/Levodopa (Sinemet Cr 50/200(*)) 0.5 tab.cr PO 1700 [facility] Last Admin: 06/03/17 16:38 Dose: 0.5 tab.cr Carbidopa/Levodopa (Sinemet 25/100 Tab(*)) 1.5 tab PO 0830,1230,1530 [facility] Last Admin: 06/04/17 09:14 Dose: 1.5 tab Carbidopa/Levodopa (Sinemet Cr 50/200(*)) 1.5 tab.cr PO BEDTIME [facility] Last Admin: 06/03/17 21:57 Dose: 1.5 tab.cr Carvedilol (Coreg Tab*) 6.25 mg PO BID [facility] Last Admin: 06/04/17 09:03 Dose: 6.25 mg Cephalexin HCl (Keflex Cap*) 500 mg PO QID [facility] Last Admin: 06/04/17 09:00 Dose: 500 mg Docusate Sodium (Colace Cap*) 100 mg PO DAILY PRN PRN Reason: CONSTIPATION Last Admin: 05/30/17 20:39 Dose: 100 mg Heparin Sodium (Porcine) (Heparin Vial(*)) 5,000 units SUBCUT Q8HR [facility] Last Admin: 06/04/17 05:38 Dose: 5,000 units Lidocaine (Lidoderm 5% Patch*) 1 patch TRANSDERM DAILY [facility] Last Admin: 06/04/17 09:04 Dose: 1 patch Mirtazapine (Remeron Tab*) 15 mg PO BEDTIME PRN PRN Reason: SLEEP Last Admin: 06/02/17 22:48 Dose: 15 mg Nystatin (Nystatin Top Powder*) 1 applic TOPICAL BID [facility] Last Admin: 06/04/17 09:15 Dose: 1 applic Omeprazole (Prilosec Cap*) 20 mg PO DAILY [facility] PRN Reason: Protocol Last Admin: 06/04/17 09:01 Dose: 20 mg Ondansetron HCl (Zofran Inj*) 4 mg IV Q6H PRN PRN Reason: NAUSEA Pharmacy Profile Note (Lidocaine Patch Remove*) 1 note N/A 2100 [facility] Last Admin: 06/03/17 22:00 Dose: Not Given Polyethylene Glycol/Electrolytes (Miralax*) 17 gm PO DAILY PRN PRN Reason: CONSTIPATION Last Admin: 05/30/17 20:43 Dose: 17 gm Pregabalin (Lyrica Cap(*)) 150 mg PO BID [facility] Last Admin: 06/04/17 09:02 Dose: 150 mg Primidone (Mysoline Tab(*)) 100 mg PO BID [facility] Last Admin: 06/04/17 08:59 Dose: 100 mg Ticagrelor (Brilinta*) 90 mg PO BID [facility] Last Admin: 06/04/17 09:00 Dose: 90 mg Tramadol HCl (Ultram*) 50 mg PO Q6H [facility] Last Admin: 06/04/17 09:00 Dose: 50 mg Home Medications: Home Medications Medication Instructions Recorded Confirmed Type Aspirin EC Low Dose* [Ecotrin EC 81 mg PO DAILY 06/07/13 05/28/17 History Low Dose 81 MG*] Atorvastatin* [Lipitor 80 MG*] 80 mg PO BEDTIME 06/07/13 05/28/17 History Pregabalin CAP(*) [Lyrica CAP(*)] 150 mg PO BID 06/07/13 05/28/17 History Primidone TAB(*) [Mysoline TAB(*)] 100 mg PO BID 06/07/13 05/28/17 History Carvedilol TAB* [Coreg TAB*] 6.25 mg PO BID 10/30/13 05/28/17 History Carbidopa/Levodop 25/100 MG(*) 1.5 tab PO 0830,1230,1530 11/09/16 05/28/17 History [Sinemet 25/100 TAB(*)] Carbidopa/Levodop CR 50/200(*) 1 tab.cr PO BEDTIME 11/09/16 05/28/17 History [Sinemet CR 50/200(*)] Lansoprazole CAP (NF) [Prevacid 15 mg PO DAILY 11/09/16 05/28/17 History CAP (NF)] Ticagrelor* [Brilinta 90 MG*] 90 mg PO BID 11/09/16 05/28/17 History Acetaminophen [Acetaminophen Extra 1,000 - 1,500 mg PO TID 05/28/17 05/28/17 History Stren] Calcium Carbonate-Vitamin D W/ 2 tab PO DAILY 05/28/17 05/28/17 History [Caltrate 600+D Plus] Carbidopa/Levodop Cr 25/100 1 tab.cr PO 1700 05/28/17 05/28/17 History Allergies: Allergies Allergy/AdvReac Type Severity Reaction Status Date / Time Penicillin V [From Pen-Vee-K] Allergy Intermediate Rash Verified 11/05/16 08:35 Lisinopril Allergy Mild Rash Verified 11/05/16 08:35 Iodinated Diagnostic Agents Allergy See Comment Verified 11/10/16 07:56 Prasugrel [From Effient] Allergy FULL BODY Verified 11/05/16 08:35 RASH IV Contrast Allergy Rash Uncoded 11/09/16 16:15 Objective - Vital Signs Vital Signs: Vital Signs 06/03/17 06/03/17 06/03/17 11:07 11:23 12:22 Temperature 97.6 F Pulse Rate 80 Respiratory 16 16 16 Rate Blood Pressure 120/69 (mmHg) O2 Sat by Pulse 99 Oximetry 06/03/17 06/03/17 06/03/17 15:46 16:24 19:22 Temperature 98.1 F Pulse Rate 82 Respiratory 16 16 16 Rate Blood Pressure 145/87 (mmHg) O2 Sat by Pulse 100 Oximetry 06/03/17 06/03/17 06/03/17 20:13 21:56 21:57 Temperature Pulse Rate Respiratory 16 16 16 Rate Blood Pressure (mmHg) O2 Sat by Pulse Oximetry 06/03/17 06/03/17 06/03/17 21:58 23:56 23:58 Temperature 98.1 F Pulse Rate 81 Respiratory 16 16 16 Rate Blood Pressure 122/61 (mmHg) O2 Sat by Pulse 100 Oximetry 06/04/17 06/04/17 06/04/17 00:00 03:13 07:45 Temperature 98.0 F 99.4 F 97.5 F Pulse Rate 68 72 91 Respiratory 16 16 16 Rate Blood Pressure 93/53 128/54 135/75 (mmHg) O2 Sat by Pulse 97 100 100 Oximetry 06/04/17 06/04/17 09:00 09:02 Temperature Pulse Rate Respiratory 16 16 Rate Blood Pressure (mmHg) O2 Sat by Pulse Oximetry - Intake and Output Intake and Output: Intake & Output 06/01/17 06/02/17 06/03/17 06/04/17 11:59 11:59 11:59 11:59 Intake Total 685 407 243 7924 Output Total 625 1550 300 700 Balance 60 -947 221 9560 Weight 155 lb 6.4 oz 156 lb 3.2 oz 154 lb 1.6 oz 154 lb 6.4 oz Intake: IV Fluids 5 10 NS (0.9%) 5 10 Oral 680 483 108 9680 Output: Urine 0 300 700 Nagel 625 1550 Other: Estimated Void Medium Large Date of Last Bowel 05/31/2017 Movement # Bowel Movements 0 0 0 0 Estimated Stool Amount Small # Voids 275 1 1 ADLs: Meal Record Start: 05/28/17 14: 40 Freq: DAILY@0900,1400,1800 Status: Active Protocol: Document 05/29/17 09:00 [id number] (Rec: 05/29/17 09:47 [id number] MED-C09) Document 05/29/17 18:00 [id number] (Rec: 05/29/17 21:23 MED-C11) Document 05/30/17 09:00 [id number] (Rec: 05/30/17 09:50 [id number] MED-C11) Document 05/30/17 14:00 [id number] (Rec: 05/30/17 14:45 [id number] MED-C09) Document 05/30/17 18:00 [id number] (Rec: 05/30/17 21:21 [id number] MED-C09) Document 05/31/17 09:00 [id number] (Rec: 05/31/17 09:52 [id number] MED-C09) Document 05/31/17 14:00 [id number] (Rec: 05/31/17 15:02 [id number] MED-C09) Document 05/31/17 18:00 [id number] (Rec: 05/31/17 21:22 [id number] MEDL-C01) Document 06/01/17 09:00 [id number] (Rec: 06/01/17 12:15 [id number] MED-C09) Document 06/01/17 13:37 [id number] (Rec: 06/01/17 13:37 [id number] MED-C02) Document 06/01/17 18:00 [id number] (Rec: 06/01/17 18:40 [id number] MED-C11) Document 06/02/17 09:00 [id number] (Rec: 06/02/17 09:43 [id number] MED-C09) Document 06/02/17 13:21 [id number] (Rec: 06/02/17 13:21 [id number] MED-C09) Document 06/02/17 18:00 [id number] (Rec: 06/02/17 18:59 [id number] MED-C11) Document 06/03/17 13:34 [id number] (Rec: 06/03/17 13:34 [id number] [facility]) Document 06/03/17 18:00 [id number] (Rec: 06/03/17 18:36 [id number] MED-C09) Intake and Output Start: 05/28/17 14: 40 Freq: DAILY@0600,1400,2200 Status: Active Protocol: Document 05/28/17 20:43 [id number] (Rec: 05/28/17 20:44 [id number] MED-C11) Document 05/29/17 05:49 [id number] (Rec: 05/29/17 05:50 [id number] MED-C26) Document 05/29/17 13:40 [id number] (Rec: 05/29/17 13:41 [id number] MED-C11) Document 05/29/17 21:24 [id number] (Rec: 05/29/17 21:25 [id number] MED-C11) Document 05/30/17 06:00 [id number] (Rec: 05/30/17 06:25 [id number] MEDL-C01) Document 05/30/17 14:00 [id number] (Rec: 05/30/17 14:45 [id number] MED-C09) Document 05/30/17 22:00 [id number] (Rec: 05/30/17 23:28 [id number] MED-C09) Document 05/31/17 06:00 [id number] (Rec: 05/31/17 06:01 [id number] MED-C42) Document 05/31/17 14:00 [id number] (Rec: 05/31/17 15:02 [id number] MED-C09) Document 05/31/17 22:00 [id number] (Rec: 05/31/17 22:39 [id number] MEDL-C01) Document 06/01/17 06:00 [id number] (Rec: 06/01/17 06:39 [id number] MED-C42) Document 06/01/17 21:03 [id number] (Rec: 06/01/17 21:03 [id number] MED-C11) Document 06/02/17 05:35 [id number] (Rec: 06/02/17 05:37 [id number] MED-C42) Document 06/02/17 14:00 [id number] (Rec: 06/02/17 14:41 [id number] MED-C09) Document 06/02/17 20:17 [id number] (Rec: 06/02/17 20:18 [id number] MED-C11) Document 06/03/17 04:57 [id number] (Rec: 06/03/17 04:57 [id number] MED-C42) Document 06/03/17 14:00 [id number] (Rec: 06/03/17 14:45 [id number] MED-C11) Document 06/03/17 22:00 [id number] (Rec: 06/03/17 22:03 [id number] MED-C09) Document 06/03/17 22:32 [id number] (Rec: 06/03/17 22:32 [id number] MED-C09) Document 06/04/17 04:15 [id number] (Rec: 06/04/17 04:15 [id number] MED-C01) Assessment - Problem List Assessment: Patient Problems Lumbar radiculopathy (Acute) Right leg pain (Acute) Spinal stenosis of lumbar region (Acute) Weakness (Acute) Colitis (Chronic) Coronary artery disease (Chronic) Depression (Chronic) Endometrioid adenocarcinoma of uterus (Chronic) Essential hypertension (Chronic) History of falling (Chronic) History of hysterectomy for cancer (Chronic) Hyperlipidemia (Chronic) Morbid obesity (Chronic) Parkinsons disease (Chronic) Prolonged QT interval (Chronic) Type 2 diabetes mellitus (Chronic) Plan: - Pain: she continues to have back pain. She doesn't think she can come off tramadol - Appetite: Improving with mirtazepine - Urinary tract infection - no frequency/incontinence. - Constipation - she has just started eating after several days. I discussed the above with the patient and her
[2017-06-04] MEDS: Acetaminophen TAB* 325 MG PO PRN (12:40)
[2017-06-04] MEDS: Carbidopa/Levodop CR 50/200(*) TAB.CR PO SCH ×2 (16:53→20:35)
[2017-06-04] MEDS: Atorvastatin* 80 MG TAB PO SCH (20:36)
[2017-06-04] MEDS: Lidocaine Patch REMOVE* 1 NOTE MISC SCH (20:38)
[2017-06-05] MEDS: traMADol TAB* 50 MG PO SCH ×2 (03:21→08:48)
[2017-06-05] MEDS: Heparin VIAL(*) 5000 UNITS/ML VIAL (FIVE THOUSAND) SUBCUT SCH (05:04)
[2017-06-05] MEDS: Polyethylene Glycol 3350* 17 GM PACKET PO PRN (05:39)
[2017-06-05] MEDS: Ticagrelor* 90 MG TAB PO SCH (08:48)
[2017-06-05] MEDS: Pregabalin CAP(*) 50 MG PO SCH (08:48)
[2017-06-05] MEDS: Omeprazole CAP* 20 MG PO SCH (08:49)
[2017-06-05] MEDS: Carbidopa/Levodop 25/100 MG TAB(*) PO SCH ×2 (08:49→12:31)
[2017-06-05] MEDS: Carvedilol TAB* 6.25 MG PO SCH (08:49)
[2017-06-05] MEDS: Aspirin EC Low Dose* 81 MG TAB.EC PO SCH (08:49)
[2017-06-05] MEDS: Cephalexin CAP* 500 MG PO SCH ×2 (08:49→12:31)
[2017-06-05] MEDS: Lidocaine PATCH 5%* 1 PATCH TRANSDERM SCH (08:56)
[2017-06-05] MEDS: Nystatin TOP POWDER* 15 GM BTL TOPICAL SCH (08:59)
[2017-06-05] MEDS ORDERED: Docusate CAP* 100 MG PO SCH (09:00)
[2017-06-05 10:13] VITALS: BP 148/75
--- NOTE | 2017-06-05 11:18 | DS ---
CC: [facility] [place] * DISCHARGE SUMMARY: DATE OF ADMISSION: 05/28/17 DATE OF DISCHARGE: 06/05/17 DISCHARGE DIAGNOSES: 1. Right lumbar radiculopathy. 2. Parkinson's disease. 3. Generalized weakness following total hysterectomy in February 2017. 4. Urinary tract infection. HISTORY: Dori Cooper is a 72-year-old white female, her presentation is documented in [facility]th[facility] Nye, admitting history and physical, which is part of the electronic record. In February 2017, she had a total abdominal hysterectomy, since that time she has developed increasing weakness and pain in her low back and right buttock down her right leg. She has also had some abdominal pain. She has not been able to transfer herself because of this pain and her called 911. PHYSICAL EXAMINATION: Vital Signs: Blood pressure 158/89, pulse 98, respirations 18, oxygen saturation 99%, temperature 97.4. She had 4/5 strength in both legs. No obvious focal weakness. INVESTIGATIONS: White count 6.6, hemoglobin 13.5, hematocrit 40, platelets 192. Sodium 135, potassium 3.8, chloride 102, bicarbonate 28, BUN 19, creatinine 0.69, glucose 117, lactate 0.8, calcium 9.4. Normal LFTs. CRP 1.44. BNP 125. INITIAL ASSESSMENT: Weakness on transferring, pain in the right leg, considered likely due to lumbar radiculopathy and sciatica. A Nagel catheter was placed. She was brought in for evaluation. INVESTIGATIONS: Imagin. 05/28/17 chest x-ray, no cardiopulmonary abnormality. 2. On 05/28/17 CT scan abdomen and pelvis: She has nonobstructive right-sided nephrolithiasis, nothing else found. 3. CT scan of the lumbar spine: Scoliosis; osteopenia; degenerative disk disease; osteoarthritis; central canal narrowing T10- T11, T11-T12, L2-L3; mild narrowing L1-L2 and L3-L4; multiple level neural foraminal narrowing; left- sided disk extrusion L1-L2. 4. On 05/29/17 MRI of lumbar spine: Scoliosis, extensive degenerative disk disease, osteoarthritis of low thoracic and lumbar spine, moderate narrowing of the canal from T10 through L1-L2, severe narrowing at L2-L3 through L4-L5, mild narrowing T8-T9, extensive severe multilevel neural foraminal narrowing. Laboratory investigations: CK 54, myoglobin 101.5, vitamin B12 of 335, folic acid 18.69, TSH 1.69. At entry, her urine was clear 06/01/17 with 3+ blood, positive nitrite, and 3+ esterase. Microbiology for urine from 05/31/17, Klebsiella pneumoniae, which was sensitive to first generation cephalosporins. CONSULTATIONS: On 05/29/17, Dr. Marciano Cooper for Neurology. His impression was severe degenerative disk disease of the upper lumbar spine +/- radicular component, +/-sciatica, suggested conservative management. For the Parkinson's disease, he suggested adding an h.s. Sinemet. He followed up on . He did not think surgery was an option. He suggested physical therapy and possible epidural steroid injections. HOSPITAL PROGRESS: Dori Cooper initially presented with pain in her low back, right abdomen, right buttock and radiating down her right leg. She had no focal weakness. Investigations were consistent with severe spinal stenosis in lumbar spine plus multiple level foraminal encroachment with likely radiculopathy. She has become progressively weak since her total hysterectomy in February 2017 for endometrioid cancer, which showed no signs of any metastatic disease. We attempted OT and PT during her hospital stay. This was limited by generalized weakness and also by pain. She had constipation from the analgesia we were giving her. She also had a poor appetite. We started her on mirtazapine 15 mg q.h.s. for the poor appetite and some depression. We considered the possibility of an epidural steroid injection and rejected it because she would have to stop Brilinta, she has severe coronary artery disease and stents. She is not a candidate for neurosurgery due to her comorbidities. We discovered a urinary tract infection after we removed her Nagel catheter, which was in for a couple of days on entry and treated this successfully with cephalexin; she has 2 more days of treatment to go on discharge. On the day of discharge, she remains in pain, which is limiting her mobilization. She has had some problems with urination. She has to sit on a commode in order to urinate and is unable to do it in bed. She otherwise continues to have some generalized weakness, anorexia. Her Parkinson's has improved since we changed her medication regimen. PHYSICAL EXAMINATION ON THE DAY OF DISCHARGE: Vital Signs: Temperature 98.1, pulse 76, respirations 16, oxygen saturation on room air 100%, blood pressure 120/64. She has no cyanosis, anemia, jaundice, clubbing, or lymphadenopathy. Cardiovascular System: Pulse regular. Normal character and volume, venous pressure not elevated. Heart sounds are normal. No added sounds or murmurs. Her chest was clear. Abdomen: She had some mild tenderness in her suprapubic and right lower quadrant. No rigidity or rebound tenderness. Bowel sounds were present. No masses or organomegaly. Nervous System: She has advanced Parkinson's disease. Cranial nerves II through XII were intact. Arms and Legs : She has right leg weakness caused by some pain for straight leg raising, otherwise she has generalized weakness. ASSESSMENT AND PLAN: 1. Right lumbar radiculopathy +/-sciatica secondary to severe degenerative spinal disease. She is weak from prolonged recumbency since her total hysterectomy in February. Pain currently is being controlled with tramadol 50 mg every 6 hours. This does not appear to be sufficient to help her mobilize, on the other hand increasing the dose may well worsen her constipation and reduce her mental state and determination. She requires a period of subacute rehabilitation PT and OT. I have considered giving her a steroid course by mouth. The problem with this approach is that she has type 2 diabetes at present, she is well controlled just on diet alone. This remains a possibility if all else fail; however, there are no signs of a prolapsed disk on the right side that would account for her pain. 2. Parkinson's disease. Management is improved with readjusting spacing of her medication. 3. Endometrioid carcinoma. This was T1N0 and is not an acute problem; however , her rehabilitation from her surgery has been problematic. 4. Type 2 diabetes mellitus, controlled with diet. 5. Hyperlipidemia. Continue current medication. 6. Urinary tract infection. She has another 2 days of cephalexin. She does have some problems with voiding and we are trying to avoid any catheterization as this likely caused her urinary tract infection in the first place. 7. Coronary artery disease. Continue current medication. 8. Anorexia and weakness. This is partly due to prolonged recumbency. I am hoping that mirtazapine will help stimulate her diet. 9. Depression. I hope mirtazapine will help with this also. 10. Essential hypertension, controlled. 11. Morbid obesity. She is losing weight; however, she is lost muscle mass, which is a problem as she is in a catabolic state. DISCHARGE MEDICATIONS: 1. Cephalexin 500 mg q.i.d. for 2 further days. 2. Docusate sodium 100 mg daily. 3. Lidocaine patch 5% applied to painful area each day. 4. Mirtazapine 15 mg q.h.s. 5. Nystatin powder 100,000 units/g to intertriginous regions in the perineal area. 6. PEG 17 g daily as needed for constipation. 7. Acetaminophen 500 mg q. 4 hours as needed, maximum daily dose 6 tablets for pain. 8. Aspirin 81 mg a day. 9. Pregabalin 150 mg twice daily. 10. Primidone 100 mg twice daily. 11. Atorvastatin 80 mg q.h.s. 12. Carvedilol 6.25 mg twice daily. 13. Lansoprazole 15 mg daily. 14. Carbidopa/levodopa CR 50/200 one tablet at bedtime. 15. Carbidopa/levodopa 25/100 1.5 tablets 8:30, 12:30, 15:30. 16. Carbidopa levodopa 25/100 1 tablet at 1700 hours. 17. Ticagrelor that is Brilinta 90 mg twice daily. 18. Calcium with vitamin D 600/800 units 2 tablets daily. [id number]/[facility] #: [id number] [facility]
== END 2017-06-05 13:35 | DRG 552 ==
LOC: ED 09:08 → MED 13:17 → OBSVTOIN 05-29 09:00 → MED 05-29 10:23
PROVIDERS: ADMIT Internal Medicine; ATTEND Internal Medicine
DX: M51.16 Intervertebral disc disorders with radiculopathy, lumbar region (principal); G20 Parkinson's disease; B96.1 Klebsiella pneumoniae [K. pneumoniae] as the cause of diseases classified elsewhere; E66.01 Morbid (severe) obesity due to excess calories; E11.9 Type 2 diabetes mellitus without complications; E78.5 Hyperlipidemia, unspecified; N39.0 Urinary tract infection, site not specified; F32.9 Major depressive disorder, single episode, unspecified; I10 Essential (primary) hypertension; Z95.5 Presence of coronary angioplasty implant and graft; I25.2 Old myocardial infarction; Z85.42 Personal history of malignant neoplasm of other parts of uterus; Z90.710 Acquired absence of both cervix and uterus; Z88.0 Allergy status to penicillin; Z88.8 Allergy status to other drugs, medicaments and biological substances; Z91.041 Radiographic dye allergy status; Z66 Do not resuscitate; M13.812 Other specified arthritis, left shoulder; M13.811 Other specified arthritis, right shoulder; M17.0 Bilateral primary osteoarthritis of knee; Z82.49 Family history of ischemic heart disease and other diseases of the circulatory system; Z83.3 Family history of diabetes mellitus; I25.10 Atherosclerotic heart disease of native coronary artery without angina pectoris; Z84.1 Family history of disorders of kidney and ureter; R63.0 Anorexia; N20.0 Calculus of kidney; M85.80 Other specified disorders of bone density and structure, unspecified site; Z79.82 Long term (current) use of aspirin; R94.31 Abnormal electrocardiogram [ECG] [EKG]; K52.9 Noninfective gastroenteritis and colitis, unspecified; K59.00 Constipation, unspecified; Z68.31 Body mass index [BMI] 31.0-31.9, adult
CPT/HCPCS: 36415; 71010; 72131; 72148; 74176; 80048; 80053; 81003; 81015; 82550; 82607; 82746; 83605; 83735; 83874; 83880; 84443; 84484; 85025; 85610; 86140; 87077; 87086; 87186; 93005; A9270-GY; J1644; J1885; J2270

== ENCOUNTER 2017-10-10 14:54 | Inpatient (IN) | payer MEDICARE ==
[2017-10-10] MEDS ORDERED: LORazepam TAB(*) 1 MG PO ONE (15:44)
[2017-10-10 15:51] LABS: Urine Appearance Clear; Urine Blood Negative (Negative); Urine Color Yellow; Urine Ketones Trace (Negative); Urine Protein Negative (Negative); Urine Specific Gravity 1.015 (1.010-1.030); Urine Urobilinogen Negative (Negative)
--- NOTE | 2017-10-10 16:38 | RAD ---
HISTORY: Weakness to bilateral upper extremities, Parkinson's disease COMPARISONS: None TECHNIQUE: The following sequences were obtained of the cervical spine: Sagittal T1- and T2-weighted images, sagittal STIR images, axial T2 and gradient echo images. FINDINGS: Evaluation is somewhat limited by patient motion artifact. BRAIN AND SPINAL CORD: There is elevated signal within the cervical cord opposite of C4 ALIGNMENT: There is trace anterolisthesis of C3 on C4 and C7 on T1 VERTEBRAL BODIES: There is multilevel anterolateral marginal osteophyte formation. JOINTS: There is diffuse uncovertebral and facet osteoarthritis. There is osteoarthritis of the atlantoaxial articulation. MUSCULATURE: Unremarkable INTERVERTEBRAL DISCS: There is diffuse loss of intervertebral disc height and T2 signal throughout the spine. AXIAL IMAGES: C2-C3: There is bilateral uncovertebral and facet hypertrophy. There is severe bilateral neuroforaminal narrowing. There is mild narrowing of the central canal. C3-C4: There is a broad-based disc osteophyte complex with bilateral uncovertebral and facet hypertrophy. There is severe bilateral neuroforaminal narrowing. There is moderate to severe narrowing of the central canal. C4-C5: There is a broad-based disc osteophyte complex with bilateral uncovertebral and facet hypertrophy. There is severe bilateral neural foraminal narrowing. There is mild narrowing of the central canal. C5-C6: There is a broad-based disc osteophyte complex with bilateral uncovertebral, facet, and ligamentous hypertrophy. There is severe bilateral neural foraminal narrowing. There is moderate to severe narrowing of the central canal. C6-C7: There is a broad-based disc osteophyte complex with bilateral uncovertebral and facet hypertrophy. There is severe bilateral neural foraminal narrowing. There is moderate narrowing of the central canal. C7-T1: There is broad-based discussed effect complex with bilateral uncovertebral and facet hypertrophy. There is severe bilateral neuroforaminal narrowing. There is no significant central canal stenosis. SOFT TISSUES: The visualized soft tissues of the neck are unremarkable. OTHER: None. IMPRESSION: 1. DEGENERATIVE DISC DISEASE AND OSTEOARTHRITIS. 2. THERE IS MODERATE TO SEVERE NARROWING OF CENTRAL CANAL AT C3-C4 AND C5-C6 WITH MODERATE NARROWING AT C6-C7 AND MILD NARROWING AT C4-C5 AND C2-C3. 3. 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
--- NOTE | 2017-10-10 19:20 | ED ---
[facility] Angela, scribed for Jovan Edmonds MD on 10/10/17 at 1534 . Neurological HPI - HPI Summary HPI Summary: This pt is a 72 y/o female presenting to [facility] referred by Dr. Taylor c/o increasing weakness to her upper and lower extremities. Pt has a hx of Parkinson 's disease. Per , pt's weakness began worsening since the end of June 2017. states the pt's legs just gave out. Pt also reports pain in her tailbone. reports the pt does pass urine on her own. Pt's neurologist is Dr. Taylor. - History of Current Complaint Chief Complaint: EDWeakness Stated Complaint: NEEDS NECK MRI PER DR TAYLOR Time Seen by Provider: 10/10/17 15:14 Hx Obtained From: Patient Hx Last Menstrual Period: N/A Onset/Duration: Started weeks ago, Still Present Timing: Constant Current Severity: Severe Neurological Deficit Location: RUE, LUE, RLE, LLE Pain Intensity: 8 Character: Weak Aggravating: Nothing Alleviating: Nothing Associated Signs and Symptoms: Positive: Weakness - Additional Pertinent History Primary Care Physician: [id number] - Allergy/Home Medications Allergies/Adverse Reactions: Allergies Allergy/AdvReac Type Severity Reaction Status Date / Time Iodinated Contrast- Oral and Allergy Rash Verified 10/10/17 15:52 IV Dye penicillin V [From Pen-Vee K] Allergy Rash Verified 10/10/17 15:52 prasugrel [From Effient] Allergy Rash Verified 10/10/17 15:52 Home Medications: Home Medications Acetaminophen [Acetaminophen Extra Strength] 500 - 1,000 mg PO TID PRN 10/10/17 [History Confirmed 10/10/17] Aspirin EC TAB* [Ecotrin EC Low Dose 81 MG*] 81 mg PO DAILY 10/10/17 [History Confirmed 10/10/17] Atorvastatin* [Lipitor*] 80 mg PO BEDTIME 10/10/17 [History Confirmed 10/10/17] Atorvastatin* [Lipitor*] 80 mg PO DAILY 10/10/17 [History Confirmed 10/10/17] Carbidopa/Levodop 25/100 MG(*) [Sinemet 25/100 TAB(*)] 1 tab PO BEDTIME [History Confirmed 10/10/17] Carbidopa/Levodop 25/100 MG(*) [Sinemet 25/100 TAB(*)] 1.5 tab PO TID 10/10/17 [ History Confirmed 10/10/17] Carbidopa/Levodop CR 50/200(*) [Sinemet CR 50/200(*)] 1 tab.cr PO BEDTIME [History Confirmed 10/10/17] Carvedilol TAB* [Coreg TAB*] 6.25 mg PO BID 10/10/17 [History Confirmed 10/10/17 ] Lansoprazole CAP (NF) [Prevacid CAP (NF)] 15 mg PO DAILY 10/10/17 [History Confirmed 10/10/17] LoraTADine TAB(NF) [Claritin 10 MG TAB(NF)] 10 mg PO DAILY 10/10/17 [History Confirmed 10/10/17] Methocarbamol TAB* [Robaxin 500 MG TAB*] 750 mg PO TID PRN 10/10/17 [History Confirmed 10/10/17] Mirtazapine TAB* [Remeron TAB*] 15 mg PO DAILY 10/10/17 [History Confirmed 10/10] Pregabalin CAP(*) [Lyrica CAP(*)] 150 mg PO BID 10/10/17 [History Confirmed 07/29] Primidone TAB(*) [Mysoline TAB(*)] 50 mg PO BID 10/10/17 [History Confirmed 07/29] Ticagrelor* [Brilinta*] 90 mg PO BID 10/10/17 [History Confirmed 10/10/17] traMADol TAB* [Ultram*] 50 mg PO Q6HR PRN 10/10/17 [History Confirmed 10/10/17] PMH/Surg Hx/FS Hx/Imm Hx Endocrine/Hematology History: Reports: Hx Diabetes Denies: Hx Anticoagulant Therapy, Hx Thyroid Disease, Hx Anemia Cardiovascular History: Reports: Hx Hypercholesterolemia, Hx Hypertension Denies: Hx Pacemaker/ICD Respiratory History: Denies: Hx Seasonal Allergies, Hx Sleep Apnea GI History: Denies: Hx Diverticulosis, Hx Gall Bladder Disease, Hx Gastroesophageal Reflux Disease, Hx Irritable Bowel, Hx Jaundice, Hx Ulcer Musculoskeletal History: Reports: Hx Arthritis - knees and shoulders, Hx Back Problems, Hx Bursitis Denies: Hx Fibromyalgia, Hx Gout, Hx Osteoporosis Sensory History: Denies: Hx Contacts or Glasses, Hx Hearing Aid Opthamlomology History: Denies: Hx Contacts or Glasses Neurological History: Reports: Other Neuro Impairments/Disorders - tremors, Parkinson's disease Denies: Hx Headaches, Hx Migraine, Hx Seizures Psychiatric History: Reports: Hx Depression - citalapram Denies: Hx Eating Disorder, Hx Panic Disorder, Hx Post Traumatic Stress Disorder, Hx Suicide Attempt, Hx Substance Abuse - Cancer History Cancer Type, Location and Year: Uterine CA - Surgical History Surgery Procedure, Year, and Place: Hysterectomy, cardiac stent placement- 2013 Infectious Disease History: No Infectious Disease History: Denies: Hx Hepatitis, Traveled Outside the [place] in Last 30 Days - Family History Known Family History: Positive: Cardiac Disease - Social History Alcohol Use: None Substance Use Type: Reports: None Smoking Status (MU): Never Smoked Tobacco Review of Systems Negative: Fever, Chills Eyes: Negative ENT: Negative Gastrointestinal: Negative Genitourinary: Negative Musculoskeletal: Other - tailbone pain Positive: Weakness - in UE and LE All Other Systems Reviewed And Are Negative: Yes Physical Exam - Summary Physical Exam Summary: Appearance: Well appearing, no pain distress Skin: warm, dry, reflects adequate perfusion. Head/face: normal Eyes: EOMI, ДМИТРИЙ ENT: normal Neck: supple, non-tender Respiratory: CTA, breath sounds present. Cardiovascular: RRR, pulses symmetrical Abdomen: non-tender, soft Bowel: present Musculoskeletal: strength/ROM intact. Bilateral lower extremity 2+ pitting edema. Neuro: A&Ox3. No effort against gravity in either lower extremity but she is able to move them. Some effort against gravity of right upper extremity. No effort against gravity on left upper extremity. Triage Information Reviewed: Yes Vital Signs On Initial Exam: Initial Vitals Temp Pulse Resp BP Pulse Ox 99.4 F 86 16 129/57 100 10/10/17 14:57 10/10/17 14:57 10/10/17 14:57 10/10/17 14:57 10/10/17 14:57 Vital Signs Reviewed: Yes Diagnostics - Vital Signs Vital Signs Temp Pulse Resp BP Pulse Ox 10/10/17 14:57 99.4 F 86 16 129/57 100 - Laboratory Lab Results: Lab Results 10/10/17 Range/Units 15:36 Urine Color Yellow Urine Appearance Clear Urine pH 6.0 (5-9) Ur Specific [place] 1.015 (1.010-1.030) Urine Protein Negative (Negative) Urine Ketones Trace A (Negative) Urine Blood Negative (Negative) Urine Nitrate Negative (Negative) Urine Bilirubin 1+ A (Negative) Urine Urobilinogen Negative (Negative) Ur Leukocyte Esterase Negative (Negative) Urine Glucose Negative (Negative) Lab Statement: Any lab studies that have been ordered have been reviewed, and results considered in the medical decision making process. - EKG 15:25 Cardiac Rate: NL - at 82 bpm EKG Rhythm: Sinus Rhythm ST Segment: Normal EKG Interpretation: Normal axis. Normal intervals. - Additional Comments Diagnostic Additional Comments: MRI Cervical Spine, as read by radiologist IMPRESSION: 1. Degenerative disc disease and osteoarthritis. 2. There is moderate to severe narrowing of central canal at C3-C4 and C5-C6 with moderate narrowing at C6-C7 and mild narrowing at C4-C5 and C2-C3. 3. There is elevated cord signal opposite of C4 which may reflect myelomalacia from a compressive myelopathy, though this is not well evaluated secondary to patient motion artifact. Dr. Edmonds has reviewed this radiology report. Re-Evaluation - Re-Evaluation First Eval Re-Evaluation Time: 17:06 Comment: I reviewed the MRI results with the pt and . Second Eval Re-Evaluation Time: 18:17 Comment: Dr. Goode in to evaluate the pt at bedside. Course/Dx - Course Course Of Treatment: Patient with MRI showing significant compressive myelopathy in the cervical spine. She is nearly quadriplegic at this point. Discussed with her neurologist and then contacted the neurosurgeon for evaluation. The neurosurgeon came to the bedside and evaluated the patient. They have agreed to pursue surgery. As such she will require further imaging, admission to the hospital. The hospitalist was contacted and will admit the patient. She currently remains continent. - Differential Dx Differential Diagnoses Neuro: Positive: Other - Cervical stenosis, tumor compression, metastasis, stroke of the spine, epidural abscess - Diagnoses Provider Diagnoses: Quadriplegia, Cervical spinal stenosis, Cord compression myelopathy - Physician Notifications Discussed Care Of Patient With: Elkin Taylor Time Discussed With Above Provider: 15:28 Instructed by Provider To: Other - I discussed pt care with Dr. Taylor, neurologist, who reports the pt has hx of uterine CA and this could be metastatic and he wants an emergent cervical spine MRI. He states pt was admitted for weakness in May. [15:32] Spoke with MRI and they report they will take the pt to MRI in 15 minutes. [18:00] I discussed with Dr. Milton, neurosurgeon, who will come evaluate the pt at bedside in the ED. He states he can do the surgery but does not know if she will get better after this. Dr. Milton will speak to the pt and . [19:12] I discussed with Dr. Olivarez , hospitalist, who has agreed to admit the pt. - Critical Care Time Critical Care Time: 30-74 min - Critical care time is exclusive of separately billable procedures. Discharge - Sign-Out/Discharge Documenting (check all that apply): Discharge/Admit/Transfer - Admit to [facility] - Discharge Plan Condition: Fair Disposition: ADMITTED TO [facility] Referrals: Jacques Kumar MD [Primary Care Provider] - - Billing Disposition and Condition Condition: FAIR Disposition: HOSP-[facility] The documentation as recorded by the [facility] accurately reflects the service I personally performed and the decisions made by me, Jovan Edmonds MD.
--- NOTE | 2017-10-10 19:43 | RAD ---
HISTORY: Increasing weakness, history of Parkinson's COMPARISONS: MRI dated October 10, 2017 TECHNIQUE: Multiple contiguous axial CT scans were obtained of the cervical spine without intravenous contrast, with coronal and sagittal multiplanar reformations. FINDINGS: BRAIN: The visualized brain is unremarkable CENTRAL CANAL: Evaluation of the central canal is limited on CT technique; however, there is no obvious canalicular mass or epidural hemorrhage. ALIGNMENT: There is a scoliotic curvature of the spine. There is trace central spaces of C3 on C4 and C7 on T1. VERTEBRAL BODIES: There is multilevel anterolateral marginal osteophyte formation. JOINTS: There is uncovertebral, facet, and atlantoaxial osteoarthritis. MUSCULATURE: Unremarkable INTERVERTEBRAL DISCS: There is diffuse loss of intervertebral disc height. AXIAL IMAGES: C2-C3: There is left greater than right uncovertebral and facet hypertrophy. There is moderate left neural foraminal narrowing. There is no osseous central canal stenosis. C3-C4: There is bilateral uncovertebral and facet hypertrophy. There is severe left and moderate right neural foraminal narrowing. There is moderate osseous narrowing of central canal. C4-C5: There is bilateral uncovertebral and facet hypertrophy. There is severe bilateral neural foraminal narrowing. There is no osseous central canal stenosis. C5-C6: There is bilateral uncovertebral and facet hypertrophy. There is severe bilateral neural foraminal narrowing. There is moderate narrowing of the central canal. C6-C7: There is bilateral vertebral and facet hypertrophy. There is moderate bilateral neural foraminal area. There is mild narrowing of central canal. C7-T1: There is bilateral facet hypertrophy. There is mild bilateral neuroforaminal narrowing. There is no osseous central canal stenosis. SOFT TISSUES: Carotid calcifications are noted. OTHER: None. IMPRESSION: 1. DEGENERATIVE DISC DISEASE AND OSTEOARTHRITIS. 2. THERE IS MODERATE NARROWING OF THE OSSEOUS CENTRAL CANAL AT C3-C4 AND C5-C6 WITH MILD NARROWING AT C6-C7. 3. THERE IS MULTILEVEL NEURAL FORAMINAL NARROWING DESCRIBED ABOVE.
[2017-10-10] MEDS ORDERED: Ondansetron INJ* 2 MG/ML VIAL IV PRN (20:01)
[2017-10-10] MEDS ORDERED: Ondansetron ODT TAB* 4 MG PO PRN (20:01)
--- NOTE | 2017-10-10 20:02 | RAD ---
HISTORY: Preop COMPARISONS: CT dated October 10, 2014 VIEWS: 5, Frontal, lateral, and open-mouth odontoid views of the cervical spine. FINDINGS: The cervical spine is visualized from the skull base through C7-T1. ALIGNMENT: Again noted is trace anterolisthesis of C3 on C4. The C7-T1 alignment is not well visualized. VERTEBRAL BODIES: There is multilevel anterolateral marginal osteophyte formation most pronounced at C5-C6 and C6-C7. JOINTS: There is diffuse uncovertebral and facet osteoarthritis. INTERVERTEBRAL DISCS: There is diffuse loss of intervertebral disc height. SOFT TISSUE: The prevertebral soft tissues are normal. OTHER: The skull base is normal. The lung apices are clear. IMPRESSION: DEGENERATIVE DISC DISEASE AND OSTEOARTHRITIS
[2017-10-10 20:32] LABS: ABS Basophils 0.1 10^3/ul (0-0.2); ABS Eosinophils 0.4 10^3/ul (0-0.6); ABS Lymphocytes 1.4 10^3/ul (1.0-4.8); ABS Monocytes 0.6 10^3/ul (0-0.8); ABS Neutrophils 4.1 10^3/ul (1.5-7.7); ABS Nucleated RBC 0 10^3/ul; Eosinophil % 5.7 % (0-6); Hematocrit 35 % (35-47); Hemoglobin 12.2 g/dl (12.0-16.0); Lymphocyte % 21.2 % (25-47); Mean Corpuscular HGB Conc 34 g/dl (31-36); Mean Corpuscular Hemoglobin 31 pg (27-31); Mean Corpuscular Volume 89 fL (80-97); Mean Platelet Volume 9.3 um3 (7.4-10.4); Nucleated Red Blood Cells % 0.1; Platelet Count 244 10^3/ul (150-450); Red Blood Count 3.99 10^6/ul (4.0-5.4); Red Cell Distribution Width 16 % (10.5-15); White Blood Count 6.6 10^3/ul (3.5-10.8)
[2017-10-10 20:41] LABS: INR 0.89 (0.77-1.02)
[2017-10-10 20:53] LABS: EGFR Non-African American 134.3 (>60)
[2017-10-10] MEDS ORDERED: Heparin VIAL(*) 5000 UNITS/ML VIAL (FIVE THOUSAND) SUBCUT SCH (22:00)
[2017-10-10] MEDS: Carvedilol TAB* 6.25 MG PO SCH (23:18)
[2017-10-10] MEDS: traMADol TAB* 50 MG PO PRN (23:24)
[2017-10-10] MEDS: Primidone TAB(*) 50 MG PO SCH (23:25)
[2017-10-10] MEDS: Carbidopa/Levodop CR 50/200(*) TAB.CR PO SCH (23:26)
[2017-10-10] MEDS: Pregabalin CAP(*) 50 MG PO SCH (23:26)
[2017-10-10] MEDS: Heparin VIAL(*) 5000 UNITS/ML VIAL (FIVE THOUSAND) SUBCUT SCH (23:27)
--- NOTE | 2017-10-10 23:38 | HP ---
CC: Dr. Kumar; Dr. Milton * HISTORY AND PHYSICAL: DATE OF ADMISSION: 10/10/17 PRIMARY CARE PROVIDER: Dr. Kumar. ATTENDING PHYSICIAN WHILE IN THE HOSPITAL: Dr. Mary Olivarez * (report being dictated by Atul Nevarez NP). CHIEF COMPLAINT: Upper extremity weakness and worsening lower extremity weakness. HISTORY OF PRESENT ILLNESS: Mrs. Cooper is a 72-year-old female patient. She carries a history of microscopic colitis, history of prediabetes, hyperlipidemia , hypertension, osteoarthritis, history of essential tremor, Parkinson's, depression, obesity, osteoarthritis, CAD, history of DE, uterine cancer, and history of spinal stenosis. She was here in May of this year. She had episodes at that time of right leg pain consistent with lumbar radiculopathy. She was sent to rehab. The patient said and her said that she did well with rehab. She was able to do transfer. She was able to take 4 to 5 steps with her walker. They were glad that how she was doing and unfortunately they noticed in mid June few weeks after being sent home after rehab, she started getting weakness in her upper extremities that just progressively got worse over the last 4 months. She to the point now where her states she cannot grasp anything in her arms, she cannot lift her arms. She has been having significant pain in both legs, having a lot of spasms in both legs and that she has been having a significant trouble and difficulty with this. She had followup today with Dr. Baltazar. The patient was seen there. He was concerned for cervical cord compression and sent her into the ER for an emergent MRI of the spine, which was found. It appears that she does have some compression and significant spinal stenosis of the cervical spine. She was evaluated by Neurosurgery and they felt that she may benefit from decompressive therapies. She denies any recent chest pain, shortness of breath, fevers, chills, nausea, or vomiting. She denies having any abdominal discomfort or any cold symptoms or coughing. She again was evaluated here in the ED because of the worsening weakness and the compression. We were asked to evaluate for admission. PAST SURGICAL HISTORY: 1. The patient has had a hysterectomy. 2. Cardiac catheterization. 3. Left knee arthroscopy. 4. Tonsillectomy. HOME MEDICATIONS: 1. She is taking carbidopa/levodopa. She is taking extended release 50/200 one tablet at bedtime and she is taking carbidopa/levodopa immediate release 1-1 /2 tablets 3 times a day at 8, 11, and 2. 2. She also is taking aspirin 81 mg daily. 3. Brilinta 90 mg p.o. b.i.d. 4. Primidone 50 mg p.o. b.i.d. 5. She is also on carvedilol 6.25 mg p.o. b.i.d. 6. Lyrica 150 mg p.o. b.i.d. 7. Prevacid 15 mg p.o. daily. 8. She is also on Tylenol 500 to 1000 mg p.o. t.i.d. 9. Tramadol 50 mg every 6 hours as needed. 10. Robaxin 750 mg p.o. t.i.d. as needed. 11. Remeron 15 mg daily. 12. Loratadine 10 mg p.o. daily. 13. She recently just stopped taking her atorvastatin. She is on a 2-week break. ALLERGIES TO MEDICATIONS: Include IV DYE, PENICILLIN, EFFIENT, and LISINOPRIL. FAMILY HISTORY: Mother had a history of kidney disease. Father had a history of heart disease. SOCIAL HISTORY: She does not smoke. She does not drink. Surrogate decision maker is her . REVIEW OF SYSTEMS: There is no documented fever. She denies having any significant weight change. There is no double vision. She denies having any ear discharge. There is no rhinorrhea. There is no sore throat. No thyroid enlargement. She denies having any chest pain. There is no orthopnea. No nocturnal dyspnea. There was no abdominal pain. No nausea. No vomiting. No dysuria. No frequency. No loss of consciousness. No pruritus. No skin ulcerations. Review of 14 systems completed, all others were negative. PHYSICAL EXAMINATION GENERAL: At this time, Mrs. Cooper is a 72-year-old female patient. She is sitting in the ED stretcher. She does not appear to be in any acute distress. VITAL SIGNS: Blood pressure 129/57, pulse 86, respirations 16, O2 sat 100%, temperature 99.4. HEENT: Head: Atraumatic, normocephalic. Eyes: EOMs are intact. Sclerae anicteric and not pale. Throat: Oral mucosa appears to be moist. No oropharyngeal erythema. NECK: Supple. LUNGS: Clear to auscultation bilaterally. No wheezes, rales, or rhonchi. HEART: Sounds S1, S2. Regular rate and rhythm. No murmurs, rubs, or gallops. ABDOMEN: Soft, flat, nontender. Bowel sounds are present. EXTREMITIES: She has flaccid quadriplegia in all 4 extremities. She does have distal pulses throughout. She has +2 pitting edema in the lower extremities. She does have some increased tone in her legs. NEUROLOGIC: She is awake, alert. She is oriented x3. Her pupils are equal and reactive to light. Visual gr were intact. Speech was clear. No dysarthria. She again had an increased tone in the legs. She is not able to move her extremities at this point. She has weak behavioral scientist to the right hand. She has a little bit of gas engine performance engineer there, but the left hand there is no gas engine performance engineer. There was no tremor noted. SKIN: Grossly intact. DIAGNOSTIC STUDIES/LAB DATA: She had a urine today, which showed trace ketones , 1+ bili. Her labs are pending. She had multiple imaging in the ED starting out with cervical spine MRI, which showed degenerative disk disease and osteoarthritis. There is [id number] narrowing of the central canal at C3 -C4 and C5-C6 with moderate narrowing at C6-C7 and mild narrowing at C4-5 and C2 -3. There is elevated cord signal episode of the C4, which may reflect myelomalacia from a compressive myelopathy, though this is not well evaluated secondary to patient's motion artifact. She did have a cervical spine CT, degenerative disk disease and osteoarthritis. There is moderate narrowing of the osseous canal at C3-C4, C5-C6 with mild narrowing at C6-C7, multilevel neural foraminal narrowing as described above. She had cervical spine x-ray which revealed degenerative disk disease and osteoarthritis. She had an EKG today obtained as well. She has normal sinus rhythm, rate of 82. No ST elevations or T-wave inversions. Old medical records were reviewed. ASSESSMENT AND PLAN: Mrs. Cooper is a 72-year-old female patient with multiple medical problems, coming into the ED today with complaints of worsening weakness on evaluation and found to have significant cord compression at C4. We were asked to evaluate for admission. She will be admitted under inpatient status for: 1. Cervical cord compression at C4. At this point, Dr. Milton did evaluate the patient and he has offered surgery. However, she is high risk, I would recommend Cardiology input prior to surgery. I think holding her Brilinta is must. We will continue the aspirin and beta-brianna. We will try to get PT efforts for the patient. However, at this point, I wanted to touch base with Dr. Milton before trying to move the patient until discussion with him, so for tonight she will just be out of bed to commode only with help for the time being. I would again get in touch with him and we will continue to follow this. We will continue with neuro checks. 2. History of microscopic colitis. Not an active issue. 3. History of prediabetes. Follow with PCP. 4. Hyperlipidemia. She is offered statin currently. This was just stopped. She is on a 2-week break. 5. Hypertension. Continue her meds as prescribed. 6. Arthritis. Continue supportive care. 7. Depression. Continue supportive care. 8. Parkinson's. Continue meds as prescribed. 9. Coronary artery disease. Again holding Brilinta. She has had a stent about 3 years ago. I will go ahead and continue the patient's aspirin and beta- brianna. 10. Uterine cancer. Follow with PCP. 11. DVT prophylaxis. She is high risk. She will be placed on heparin subcu. 12. Code status. She and her states that they would like to attempt CPR, so she is actually a full code. 13. Fluids, electrolytes, and nutrition. Heart healthy diet. TIME SPENT: Time spent on admission 60 minutes, greater than half the time was spent [id number] with the patient obtaining my history and physical, other half the time spent going over the plan of care with the patient and implementing plan of care. I did discuss the plan of care with my attending, Dr. Olivarez, she is in agreement. ATUL NEVAREZ NP [id number]/[facility] #: [id number] EVIE
[2017-10-10] MEDS: Methocarbamol TAB* 500 MG PO PRN (23:49)
--- NOTE | 2017-10-11 05:39 | CONS ---
CONSULTATION NOTE: DATE OF CONSULT: 10/10/17 HISTORY OF PRESENT ILLNESS: The patient is a very pleasant 72-year-old female with history of Parkinson disease who was referred to the emergency room by Dr. Baltazar who evaluated the patient in his office. The patient had progressive weakness, especially since June 2017. This was the last time that she was able to stand. I was requested to see the patient by the ED physician because of MRI findings consistent with multilevel degenerative disk disease and myelomalacia. The patient reports that her significant weakness in the upper and lower extremities has progressively gotten worse, especially since June. She is not able to walk and she only uses a bedside commode with assistance of her . The patient reports generalized weakness of all extremities, there is loss of dexterity. She denies any urinary or GI incontinence and she reports that her perineal sensation is intact. PAST MEDICAL HISTORY: Parkinson's, coronary artery disease. PAST SURGICAL HISTORY: 1. Hysterectomy for uterine cancer. 2. Cardiac stents. 3. Left knee arthroscopy. 4. Tonsillectomy. HOME MEDICATIONS: The patient is takin. Carbidopa/levodopa. 2. Aspirin 81. 3. Brilinta. 4. Primidone. 5. Carvedilol. 6. Lyrica. 7. Prevacid. 8. Tylenol. 9. Tramadol. 10. Robaxin. 11. Remeron. 12. Loratadine. ALLERGIES: IV DYE, PENICILLIN, EFFIENT, and LISINOPRIL. FAMILY HISTORY: Mother had kidney disease. Father had heart disease. SOCIAL HISTORY: Tobacco, negative. Alcohol, negative. Recreational drug use, negative. The patient lives at home with her who is her main caregiver. PHYSICAL EXAM: The patient is not in acute distress. She has no tenderness to palpation of the thoracic or lumbar spine. She has full range of motion of the spine. She is awake, alert and oriented x3. Her pupils are equal and reactive. Cranial nerves II through XII are grossly intact. Motor 1 to 2/5 in the upper extremities, 1 to 2/5 in the lower extremities. Sensory is grossly intact to light touch. Deep tendon reflexes +2 bilaterally. Clonus plus/minus bilaterally. Babinski negative bilaterally. De La Torre's positive bilaterally, left worse than the right. DIAGNOSTIC STUDIES: The patient had an MRI brain of her cervical spine revealing multilevel degenerative disk disease from C3 all the way to C7 and T1 with myelomalacia at the area of C4 with multilevel neuroforaminal stenosis. The patient had also CT scan of her cervical spine revealing multilevel degenerative disk disease with facet arthropathy as well as multilevel disk disease, multiple problems at C7-T1. The patient had also C-spine x-rays revealing similar findings. The SVA as measured in this limited x-ray is approximately 50 mm. ASSESSMENT: This is a very pleasant 72-year-old female with history of coronary artery disease, placed on Brilinta. Had a history of stent. 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 The patient at this point has significant weakness and is severely symptomatic from her myelopathy. She also has previous MRI of her lumbar spine revealing multilevel lumbar stenosis. At this point, we would offer the patient the option of surgical intervention in the form of posterior cervical decompression and fusion between C3- C7 or C2-T2 according to the intraoperative findings. Discussed risks and benefits of the procedure as well as the expected outcome, limitations and possible complications include but not limited to bleeding, infection, risk of damage to adjacent structures, coma, paralysis, , need for additional procedure, anesthesia risks, stroke, blindness, cancer, instability, hardware failure. The patient and her family understands that her condition may not improve and may possibly get worse after the surgery and there is no guarantee that her function will return to normal even with a successful decompression. Nevertheless, they understand that progressive myelopathy may lead to complete paralysis and even . At this point, they would like to take some time to think. If they will decide to continue with surgical intervention, the patient should be off Brilinta for 4 to 5 days unless Hematology suggests otherwise. Also will be happy to discuss with Dr. Baltazar the patient's condition to confirm that there are no other etiologic factors that can contribute to the clinical picture of this patient. The patient may benefit from a cervical collar. Discussed the above with the family and the patient. Thank you very much for allowing us to participate in the care of this patient. Please do not hesitate to contact our office in case you have any further questions or concerns regarding the care of this patient. Myla Milton MD [id number]/[facility] #: [id number] [facility]
[2017-10-11] MEDS: Heparin VIAL(*) 5000 UNITS/ML VIAL (FIVE THOUSAND) SUBCUT SCH ×3 (05:40→22:02)
--- NOTE | 2017-10-11 08:14 | PN ---
Subjective - Subjective Reason for Note: Progress Note History: Dori Cooper presents with progressive weakness of her arms and legs, with severe leg spasms. I reviewed the history of her presentation with the patient , her Elkin and Atul Nevarez, [employer]'s admitting H and P and Dr. Walker 's neurosurgical consult. She had an appointment with her neurologist Dr. Baltazar yesterday for follow up of her Parkinson's disease and her lumbar stenosis. He recognized the cervical spinal stenosis and sent her to the ED for an MRI neck. She was admitted for neurosurgery evaluation. Dr. Milton has recommended neurosurgery. She has stopped her statin recently and this has lessened her leg pains and she doesn't remember any last night. However, she has severe weakness of her arms and legs. Elkin is now having difficulty transferring her as she has become completely dependent. This morning she has a sensation she needs to urinate. Otherwise, she has no other new symptoms. She denies any pain this morning Active Problems: Active Problems Cervical stenosis of spinal canal (Acute) M48.02 Leg muscle spasm (Acute) M62.838 Quadriparesis (Acute) G82.50 Weakness (Acute) R53.1 Colitis (Chronic) K52.9 Coronary artery disease (Chronic) I25.10 Depression (Chronic) F32.9 Endometrioid adenocarcinoma of uterus (Chronic) C55 Essential hypertension (Chronic) I10 History of falling (Chronic) Z91.81 History of hysterectomy for cancer (Chronic) Z90.710 Hyperlipidemia (Chronic) E78.5 Lumbar radiculopathy (Chronic) M54.16 Morbid obesity (Chronic) E66.01 Parkinsons disease (Chronic) G20 Prolonged QT interval (Chronic) R94.31 Spinal stenosis of lumbar region (Chronic) M48.061 Type 2 diabetes mellitus (Chronic) Current Medications: Current Medications Acetaminophen (Tylenol Tab*) 650 mg PO Q4H PRN PRN Reason: FEVER/PAIN Aspirin (Aspirin Ec Tab*) 81 mg PO DAILY KEISHA Carbidopa/Levodopa (Sinemet 25/100 Tab(*)) 1.5 tab PO 0800,1100,1400 KEISHA Carbidopa/Levodopa (Sinemet Cr 50/200(*)) 1 tab.cr PO BEDTIME KEISHA Last Admin: 10/10/17 23:26 Dose: 1 tab.cr Carvedilol (Coreg Tab*) 6.25 mg PO BID [facility] Last Admin: 10/10/17 23:18 Dose: 6.25 mg Cetirizine HCl (Zyrtec*) 10 mg PO DAILY [facility] Heparin Sodium (Porcine) (Heparin Vial(*)) 5,000 units SUBCUT Q8HR [facility] Last Admin: 10/11/17 05:40 Dose: 5,000 units Methocarbamol (Robaxin Tab*) 750 mg PO TID PRN PRN Reason: PAIN Last Admin: 10/10/17 23:49 Dose: 750 mg Mirtazapine (Remeron Tab*) 15 mg PO DAILY [facility] Nystatin (Nystatin Top Powder*) 1 applic TOPICAL TID [facility] Omeprazole (Prilosec Cap*) 20 mg PO DAILY [facility] PRN Reason: Protocol Ondansetron HCl (Zofran Odt Tab*) 4 mg PO Q6H PRN PRN Reason: NAUSEA Pregabalin (Lyrica Cap(*)) 150 mg PO BID [facility] Last Admin: 10/10/17 23:26 Dose: 150 mg Primidone (Mysoline Tab(*)) 50 mg PO BID [facility] Last Admin: 10/10/17 23:25 Dose: 50 mg Tramadol HCl (Ultram*) 50 mg PO Q6H PRN PRN Reason: PAIN Last Admin: 10/10/17 23:24 Dose: 50 mg - Review of Systems Pulmonary: Negative: Cough, Sputum, Respiratory Distress Cardiology: Negative: Chest Pain, Shortness of Breath, Palpitations Gastroenterology: Negative: Abdominal Pain, Nausea, Vomiting, Difficulty Swallowing, Haematemesis Genital - Urinary: Positive: Other - she feels she has a full bladder. She likely is retaining- can't void Home Medications: Home Medications Medication Instructions Recorded Confirmed Type Acetaminophen [Acetaminophen Extra 500 - 1,000 mg PO TID PRN 10/10/17 10/10/17 History Strength] Aspirin EC TAB* [Ecotrin EC Low 81 mg PO DAILY 10/10/17 10/10/17 History Dose 81 MG*] Carbidopa/Levodop 25/100 MG(*) 1.5 tab PO TID 10/10/17 10/10/17 History [Sinemet 25/100 TAB(*)] Carbidopa/Levodop CR 50/200(*) 1 tab.cr PO BEDTIME 10/10/17 10/10/17 History [Sinemet CR 50/200(*)] Carvedilol TAB* [Coreg TAB*] 6.25 mg PO BID 10/10/17 10/10/17 History Lansoprazole CAP (NF) [Prevacid 15 mg PO DAILY 10/10/17 10/10/17 History CAP (NF)] LoraTADine TAB(NF) [Claritin 10 MG 10 mg PO DAILY 10/10/17 10/10/17 History TAB(NF)] Methocarbamol TAB* [Robaxin 500 MG 750 mg PO TID PRN 10/10/17 10/10/17 History TAB*] Mirtazapine TAB* [Remeron TAB*] 15 mg PO DAILY 10/10/17 10/10/17 History Pregabalin CAP(*) [Lyrica CAP(*)] 150 mg PO BID 10/10/17 10/10/17 History Primidone TAB(*) [Mysoline TAB(*)] 50 mg PO BID 10/10/17 10/10/17 History Ticagrelor* [Brilinta*] 90 mg PO BID 10/10/17 10/10/17 History traMADol TAB* [Ultram*] 50 mg PO Q6HR PRN 10/10/17 10/10/17 History Allergies: Allergies Allergy/AdvReac Type Severity Reaction Status Date / Time Iodinated Contrast- Oral and Allergy Rash Verified 10/10/17 15:52 IV Dye penicillin V [From Pen-Vee K] Allergy Rash Verified 10/10/17 15:52 prasugrel [From Effient] Allergy Rash Verified 10/10/17 15:52 Objective - Vital Signs Vital Signs: Vital Signs 10/10/17 10/10/17 10/10/17 20:00 20:09 20:39 Temperature Pulse Rate 84 86 84 Respiratory 19 19 15 Rate Blood Pressure 123/77 100/63 (mmHg) O2 Sat by Pulse 100 100 100 Oximetry 10/10/17 10/10/17 10/10/17 21:00 21:09 21:25 Temperature 97.8 F Pulse Rate 84 84 77 Respiratory 15 13 16 Rate Blood Pressure 109/59 109/59 (mmHg) O2 Sat by Pulse 100 100 99 Oximetry 10/10/17 10/10/17 10/10/17 21:39 22:00 22:24 Temperature 97.8 F 98.3 F Pulse Rate 77 77 74 Respiratory 20 16 18 Rate Blood Pressure 109/59 124/65 (mmHg) O2 Sat by Pulse 97 99 96 Oximetry 10/10/17 10/10/17 10/10/17 23:24 23:26 23:31 Temperature Pulse Rate 86 Respiratory 18 18 16 Rate Blood Pressure 142/81 (mmHg) O2 Sat by Pulse 100 Oximetry 10/10/17 10/11/17 10/11/17 23:49 01:14 02:04 Temperature Pulse Rate Respiratory 20 18 Rate Blood Pressure (mmHg) O2 Sat by Pulse 97 Oximetry 10/11/17 10/11/17 10/11/17 02:05 02:40 08:02 Temperature 96.9 F Pulse Rate 73 Respiratory 18 16 Rate Blood Pressure 102/68 (mmHg) O2 Sat by Pulse 100 100 Oximetry - Intake and Output Intake and Output: Intake & Output 10/08/17 10/09/17 10/10/17 10/11/17 11:59 11:59 11:59 11:59 Intake Total 0 Output Total 0 Balance 0 Weight 148 lb Intake: Oral 0 Output: Urine 0 Other: # Bowel Movements 0 Intake and Output Start: 10/10/17 21: 52 Freq: DAILY@0600,1400,2200 Status: Active Protocol: Document 10/11/17 06:00 [id number] (Rec: 10/11/17 06:02 [id number]) - Physical Exam General Physical Exam Comment: Cardiac chair. Left arm flaccid, right arm - she is able to move. She can move her toes, but not lift her legs. General: No Cyanosis, No Jaundice, No Clubbing Skin: Normal: Rash Lungs and Chest: Yes: Chest Expansion Full, Chest Expansion Symetrica, Percussion Note Resonant, Vessicular Breath Sounds. No: Crackles, Wheezes, Respiratory Distress, Use of Accessory Muscles Heart Rate and Rhythm: Regular Additional Cardiovascular: Yes: Normal Heart Sounds. No: Heart Murmur, Pedal Edema Abdominal Exam: Yes: Soft, Bowel Sounds Present. No: Distention, Hepatomegaly, Abdominal Tenderness - Extremities Cranial Nerves II-XII Intact: Yes - Speech - poor volume, Parkinsonian facies. Limbs: Abnormal Power - quadraparesis - left arm weaker than right, Abnormal Tone - flaccid - Neuro Orientation: A/O x3 Speech: Normal - poor volume/slow. Results - Results Lab Results: Laboratory Results - last 24 hr 10/10/17 10/10/17 10/10/17 20:23 20:23 20:23 WBC 6.6 RBC 3.99 L Hgb 12.2 Hct 35 MCV 89 MCH 31 MCHC 34 RDW 16 H Plt Count 244 MPV 9.3 Neut % (Auto) 62.6 Lymph % (Auto) 21.2 L [place] % (Auto) 9.3 H Eos % (Auto) 5.7 Baso % (Auto) 1.2 Absolute Neuts (auto) 4.1 Absolute Lymphs (auto) 1.4 Absolute Monos (auto) 0.6 Absolute Eos (auto) 0.4 Absolute Basos (auto) 0.1 Absolute Nucleated RBC 0 Nucleated RBC % 0.1 INR (Anticoag Therapy) 0.89 APTT 30.0 Sodium 135 L Potassium TNP Chloride 100 L Carbon Dioxide 28 Anion Gap 7 BUN 17 Creatinine 0.46 L Est GFR ( Amer) 172.7 Est GFR (Non-Af Amer) 134.3 BUN/Creatinine Ratio 37.0 H Glucose 95 Calcium 8.9 Troponin I 0.00 TSH 2.29 Radiology Results: Patient Name: DORI COOPER Medical Record#: [id number] Ordering Physician: Jovan Edmonds MD Acct.#: [id number] : 1945 Age: 72 Sex: F Location: EMERGENCY DEPARTMENT Exam Date: 10/10/170 ADM Status: REG ER Order Information: MRI CERVICAL SPINE WO Accession Number: [id number] CPT: 70045 HISTORY: Weakness to bilateral upper extremities, Parkinson's disease COMPARISONS: None TECHNIQUE: The following sequences were obtained of the cervical spine: Sagittal T1- and T2-weighted images, sagittal STIR images, axial T2 and gradient echo images. FINDINGS: Evaluation is somewhat limited by patient motion artifact. BRAIN AND SPINAL CORD: There is elevated signal within the cervical cord opposite of C4 ALIGNMENT: There is trace anterolisthesis of C3 on C4 and C7 on T1 VERTEBRAL BODIES: There is multilevel anterolateral marginal osteophyte formation. JOINTS: There is diffuse uncovertebral and facet osteoarthritis. There is osteoarthritis of the atlantoaxial articulation. MUSCULATURE: Unremarkable INTERVERTEBRAL DISCS: There is diffuse loss of intervertebral disc height and T2 signal throughout the spine. AXIAL IMAGES: C2-C3: There is bilateral uncovertebral and facet hypertrophy. There is severe bilateral neuroforaminal narrowing. There is mild narrowing of the central canal. C3-C4: There is a broad-based disc osteophyte complex with bilateral uncovertebral and facet hypertrophy. There is severe bilateral neuroforaminal narrowing. There is moderate to severe narrowing of the central canal. C4-C5: There is a broad-based disc osteophyte complex with bilateral uncovertebral and facet hypertrophy. There is severe bilateral neural foraminal narrowing. There is mild narrowing of the central canal. C5-C6: There is a broad-based disc osteophyte complex with bilateral uncovertebral, facet, and ligamentous hypertrophy. There is severe bilateral neural foraminal narrowing. There is moderate to severe narrowing of the central canal. C6-C7: There is a broad-based disc osteophyte complex with bilateral uncovertebral and facet hypertrophy. There is severe bilateral neural foraminal narrowing. There is moderate narrowing of the central canal. C7-T1: There is broad-based discussed effect complex with bilateral uncovertebral and facet hypertrophy. There is severe bilateral neuroforaminal narrowing. There is no significant central canal stenosis. SOFT TISSUES: The visualized soft tissues of the neck are unremarkable. OTHER: None. IMPRESSION: 1. DEGENERATIVE DISC DISEASE AND OSTEOARTHRITIS. 2. THERE IS MODERATE TO SEVERE NARROWING OF CENTRAL CANAL AT C3-C4 AND C5-C6 WITH MODERATE NARROWING AT C6-C7 AND MILD NARROWING AT C4-C5 AND C2-C3. 3. 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 <Electronically signed by Rod Drew MD in OV> 10/10/17 1635 Dictated By: Rod Drew MD 1 of 2 Patient Name: DORI COOPER Medical Record#: [id number] Ordering Physician: Jovan Edmonds MD Acct.#: [id number] : 1945 Age: 72 Sex: F Location: EMERGENCY DEPARTMENT Exam Date: 10/10/171907 ADM Status: REG ER Order Information: CT SPINE CERVICAL W/O Accession Number: [id number] CPT: 31701 HISTORY: Increasing weakness, history of Parkinson's COMPARISONS: MRI dated October 10, 2017 TECHNIQUE: Multiple contiguous axial CT scans were obtained of the cervical spine without intravenous contrast, with coronal and sagittal multiplanar reformations. FINDINGS: BRAIN: The visualized brain is unremarkable CENTRAL CANAL: Evaluation of the central canal is limited on CT technique; however, there is no obvious canalicular mass or epidural hemorrhage. ALIGNMENT: There is a scoliotic curvature of the spine. There is trace central spaces of C3 on C4 and C7 on T1. VERTEBRAL BODIES: There is multilevel anterolateral marginal osteophyte formation. JOINTS: There is uncovertebral, facet, and atlantoaxial osteoarthritis. MUSCULATURE: Unremarkable INTERVERTEBRAL DISCS: There is diffuse loss of intervertebral disc height. AXIAL IMAGES: C2-C3: There is left greater than right uncovertebral and facet hypertrophy. There is moderate left neural foraminal narrowing. There is no osseous central canal stenosis. C3-C4: There is bilateral uncovertebral and facet hypertrophy. There is severe left and moderate right neural foraminal narrowing. There is moderate osseous narrowing of central canal. C4-C5: There is bilateral uncovertebral and facet hypertrophy. There is severe bilateral neural foraminal narrowing. There is no osseous central canal stenosis. C5-C6: There is bilateral uncovertebral and facet hypertrophy. There is severe bilateral neural foraminal narrowing. There is moderate narrowing of the central canal. C6-C7: There is bilateral vertebral and facet hypertrophy. There is moderate bilateral neural foraminal area. There is mild narrowing of central canal. C7-T1: There is bilateral facet hypertrophy. There is mild bilateral neuroforaminal narrowing. There is no osseous central canal stenosis. SOFT TISSUES: Carotid calcifications are noted. OTHER: None. IMPRESSION: 1. DEGENERATIVE DISC DISEASE AND OSTEOARTHRITIS. 2. THERE IS MODERATE NARROWING OF THE OSSEOUS CENTRAL CANAL AT C3-C4 AND C5-C6 WITH MILD NARROWING AT C6-C7. 3. THERE IS MULTILEVEL NEURAL FORAMINAL NARROWING DESCRIBED ABOVE. <Electronically signed by Rod Drew MD in OV> 10/10/171939 Dictated By: Rod Drew MD Dictated Date/Time: 10/10/171939 Transcribed Date/Time: 10/10/171935 Copy to: 1 of 2 Patient Name: DORI COOPER Medical Record#: [id number] Ordering Physician: Jovan Edmonds MD Acct.#: [id number] : 1945 Age: 72 Sex: F Location: EMERGENCY DEPARTMENT Exam Date: 10/10/171907 ADM Status: REG ER Order Information: SP CERVICAL 2-3 VWS Accession Number: [id number] CPT: 21484 HISTORY: Preop COMPARISONS: CT dated October 10, 2014 VIEWS: 5, Frontal, lateral, and open-mouth odontoid views of the cervical spine. FINDINGS: The cervical spine is visualized from the skull base through C7-T1. ALIGNMENT: Again noted is trace anterolisthesis of C3 on C4. The C7-T1 alignment is not well visualized. VERTEBRAL BODIES: There is multilevel anterolateral marginal osteophyte formation most pronounced at C5-C6 and C6-C7. JOINTS: There is diffuse uncovertebral and facet osteoarthritis. INTERVERTEBRAL DISCS: There is diffuse loss of intervertebral disc height. SOFT TISSUE: The prevertebral soft tissues are normal. OTHER: The skull base is normal. The lung apices are clear. IMPRESSION: DEGENERATIVE DISC DISEASE AND OSTEOARTHRITIS <Electronically signed by Rod Drew MD in OV> 10/10/171958 Dictated By: Rod Drew MD Dictated Date/Time: 10/10/171958 Transcribed Date/Time: 10/10/171957 Copy to: CC:Jacques Kumar MD; Jovan Edmonds MD Imaging - [facility] Imaging - [facility] Imaging - [facility] [address] [address] ph [phone]) ph ([phone]) ph ([phone]) 1 of EKG Report: sinus rhythm rate 82 NJ 157 QTc 414 QRS axis 6 normal sinus rhythm Assessment - Problem List Assessment: Patient Problems Cervical stenosis of spinal canal (Acute) Leg muscle spasm (Acute) Quadriparesis (Acute) Weakness (Acute) Colitis (Chronic) Coronary artery disease (Chronic) Depression (Chronic) Endometrioid adenocarcinoma of uterus (Chronic) Essential hypertension (Chronic) History of falling (Chronic) History of hysterectomy for cancer (Chronic) Hyperlipidemia (Chronic) Lumbar radiculopathy (Chronic) Morbid obesity (Chronic) Parkinsons disease (Chronic) Prolonged QT interval (Chronic) Spinal stenosis of lumbar region (Chronic) Type 2 diabetes mellitus (Chronic) Plan: Cervical stenosis of spinal canal (Acute) Quadriparesis (Acute)Weakness (Acute) She has tight spinal stenosis C3/4 and C5/6, with mild stenosis C4/5, C2/C3 and moderate narrowing C5/6. I have reviewed Dr. Milton's opinion. I discussed management with the patient and her Elkin. Elkin is tentative about this and wonders if she would cope with the surgical approach. He understands it is a progressive condition without surgery, but is aware that surgery may not improve her weakness and there are the possibilities of complications. Dori wants to go ahead with the surgery. She appears to understand the situation. However, this needs to be explored carefully. Surgery has to wait until her brilinta is no longer causing signeficant anti- platelet effect. This provides an opportunity to ensure she has the best medical situation possible. She has developed urinary retention and I am placing a catheter. Leg muscle spasm (Acute) This may be due to both the cervical stenosis and perhaps the statin. However, she has not complained about this overnight Colitis (Chronic) inactive Coronary artery disease (Chronic) secondary diagnosis - EKG is fine. Depression (Chronic) stable Endometrioid adenocarcinoma of uterus (Chronic) secondary diagnosis Essential hypertension (Chronic) stable History of falling (Chronic) secondary diagnosis History of hysterectomy for cancer (Chronic) secondary diagnosis Hyperlipidemia (Chronic) secondary diagnosis Spinal stenosis of lumbar region (Chronic)Lumbar radiculopathy (Chronic) This contributes to her weakness of her legs Morbid obesity (Chronic) she has lost weight Parkinsons disease (Chronic) another comorbidity that will make rehabiliation difficult Prolonged QT interval (Chronic) not at present Type 2 diabetes mellitus (Chronic) controlled I spoke with the patient and her . They want to explore the surgical approach. I will discuss this with the neurosurgical team. Elkin wants neurology to consult. I discussed the prognosis with and without surgery ( including diaphragmatic paralysis with respiratory failure) and the likelihood she will require [facility] SNF placement regardless of approach.
[2017-10-11] MEDS: Carvedilol TAB* 6.25 MG PO SCH ×2 (08:49→20:19)
[2017-10-11] MEDS: Cetirizine* 10 MG TAB PO SCH (08:50)
[2017-10-11] MEDS: Pregabalin CAP(*) 50 MG PO SCH ×2 (08:50→20:21)
[2017-10-11] MEDS: Omeprazole CAP* 20 MG PO SCH (08:50)
[2017-10-11] MEDS: Primidone TAB(*) 50 MG PO SCH ×2 (08:50→20:21)
[2017-10-11] MEDS: Aspirin EC TAB* 81 MG TAB.EC PO SCH (08:50)
[2017-10-11] MEDS: Mirtazapine TAB* 15 MG PO SCH (08:50)
[2017-10-11] MEDS: Nystatin TOP POWDER* 15 GM BTL TOPICAL SCH ×3 (08:51→20:29)
[2017-10-11] MEDS: Carbidopa/Levodop 25/100 MG TAB(*) PO SCH ×3 (08:53→14:15)
[2017-10-11] MEDS: traMADol TAB* 50 MG PO PRN ×2 (12:21→20:20)
[2017-10-11] MEDS: Methocarbamol TAB* 500 MG PO PRN (12:21)
--- NOTE | 2017-10-11 13:15 | PN ---
Progress Note - Progress Note Date of Service: 10/11/17 SOAP: Subjective: [] No events ON. Objective: [] VSS AAOx3 ДМИТРИЙ, face symmetric Motor 1-2/5 in all extremities. Sensory grossly intact to light touch Assessment: []72 yo f severe spondylotic myelopathy, quadriparesis, hx of PD Plan: []Monitor VS, Neurochecks Discussed again in extend with patient and her regarding patient's condition and treatment options. Patient and her would like to proceed with surgical intervention, understanding the limitations, expectations and possible complications of the procedure. They understand the possibility of , respiratory failure, dependance on the ventilator, need for tracheostomy, gastrostomy and possible prolonged ICU care. Patient expressed her wish to proceed with surgery and ICU care for now. In case of need of prolonged ICU care or ventilation patient's will be making the decisions for further management per patient's wishes. Will proceed with scheduling/ medical clearance/ coagulation adjustments. Appreciate Dr Kumar's care. Myla Milton MD
--- NOTE | 2017-10-11 13:50 | CONS ---
CONSULTATION REPORT: DATE OF CONSULT: 10/11/17 REASON FOR CONSULT: Neurology was consulted by Atul Nevarez NP, to evaluate the patient for cervical spondylosis with myelopathy. The history was obtained by the patient and by the patient's , Mr. Cooper, at bedside. CHIEF COMPLAINT: Inability to move the hands, severe cramps in the left lower extremity. HISTORY OF PRESENT ILLNESS: Ms. Dori Cooper is a pleasant 72-year-old right handed female who has history of Parkinson's disease diagnosed 5 years ago, controlled on Sinemet 25/100 mg 1-1/2 tablets 3 times a day at 8 a.m., 11 a.m., and 2 p.m., extended release 1.5 tablets at 5 p.m. which the patient is not currently taking because of her tremors are under good control and extended release 50/200 mg 1 tablet at night which she takes regularly. The patient has not noticed significant tremors. She denied any swallowing difficulty, visual hallucinations, or any recent falls. The patient noticed difficulty ambulating starting February 2017. Prior to that at baseline, she was using a rollator and was walking independently. She had a hysterectomy at [facility] in February 2017. After the surgery, the patient reported losing the ability to move her hands. She lost her hand dexterity then started developing left lower extremity weakness that progressed into the right lower extremity. She again has not had any fall since July 2016 where she actually rolled on to the ground and did not have any loss of consciousness or head injuries. In May 2017, she was requiring significant geriatric assistant just to move from bed to commode and commode to a chair. Her noticed significant sudden onset of left hemiparesis. She was brought to the hospital for further evaluation for possible stroke. However, intracranial workup was negative. She also had an MRI of the lumbar spine, which showed extensive degenerative disk disease and osteoarthritis of the thoracic and lumbar spine and moderate narrowing of the central canal from T9 to T10, from L1 to L2, and severe narrowing of the central canal L2-L3 and L4-L5. She was deemed not a surgical candidate. She as treated for a UTI and was sent to rehab. After rehab, she did not have any significant improvement. However, over the last few months, the patient has noticed significant progressive weakness in the upper and lower extremities. She has painful cramps in the lower extremities, left worse than right. She has lost the ability to move her extremities above her head. This is constant. She denied any significant neck pain. There is some associated symptoms of severe constipation, although this can be related to her Parkinson disease. Today, the bedside nurse informed me that the patient was retaining urine and a urinary catheter was inserted. The patient denied any headaches, visual disturbance, swallowing difficulties. Recently, her primary care doctor stopped her statin therapy due to the cramps and started her on methocarbamol. PAST MEDICAL HISTORY: Restless leg syndrome; coronary artery disease, one stent placed in 2012. Since then she has been Brilinta and aspirin. PAST SURGICAL HISTORY: Stent placement, tonsillectomy, hysterectomy for uterine cancer. MEDICATION LIST: Home medications: Acetaminophen; ondansetron; tramadol; methocarbamol; carbidopa/levodopa 50/200 one tablet p.o. at bedtime; Carvedilol 6.25 mg p.o. b.i.d.; pregabalin 150 mg p.o. b.i.d.; primidone 50 mg p.o. b.i.d. ; carbidopa/levodopa 25/100 [id number]-[id number]-half tablet p.o. at 8 o'clock, 11 o'clock and 1400; aspirin 81 mg; cetirizine 10 mg p.o. daily; mirtazapine 15 mg p.o. daily; omeprazole 20 mg p.o. daily. ALLERGIES: EFFIENT, PENICILLIN, LISINOPRIL, CONTRAST DYE. FAMILY HISTORY: Father suffered heart disease and mother had kidney failure. SOCIAL HISTORY: She denied any tobacco use or alcohol consumption. 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 REVIEW OF SYSTEMS: A 10-point review of systems was obtained, reviewed, and otherwise negative except for what was mentioned in the HPI. PHYSICAL EXAM: Vitals: Temperature of 97.9, pulse of 87, respiration of 16, oxygen saturation 98, blood pressure 101/53. General: Ill appearing, frail and weak female, in no acute distress. She is alert and cooperative. Head: Normocephalic, atraumatic without obvious abnormality. Eyes: Conjunctivae and cornea are clear. Neck: She is tilting the neck towards the right side, but I was able to correct and place the neck on the left side. She has an external jugular IV placed on the left side. Lungs: Clear to auscultation bilaterally. Cardiovascular: Regular rate and rhythm. Normal S1, S2. Extremities: No hammertoes or high arches. Skin: Diffuse flaky skin, mostly seen in the anterior chest wall. Psych: Affect is broad and normal mood. She has an easy to establish rapport. Neurological Examination: Mental Status: Awake, alert, and oriented to person , place and time, and general circumstances. Speech and language including expression, naming, repetition, comprehensions were intact, but she does have hypophonic speech. Cranial Nerves: Normal to confrontation bilaterally. Pupils mid range and reactive to light with normal consensual response. Extraocular muscles are intact with no ptosis. Sensation intact on the forehead , cheeks, and jaw region bilaterally. No facial droop or facial asymmetry. She does have masked facies. Able to hear throughout the history process. Symmetric palate elevation. Normal strength against resistance. Tongue is symmetric and midline, no atrophy or most importantly no fasciculations. Motor Examination: She has no tremors surprisingly on examination. No cogwheel rigidity. She has a decrease in tone throughout, but definitely increased tone in the left lower extremity, left worse than right. No fasciculations were noted. Motor Exam (right/left): Shoulder abduction 2/2, elbow flexion 3/3, elbow extension 3-/3, wrist flexion 3/3, extension 2/2. Finger flexion 2/2, finger extension 1/1, finger abduction 1/1. Hip flexion 3/3, abduction 3/3. Knee flexion 3/2, knee extension 3/3. Ankle dorsiflexion 3/2, plantar flexion 3 /2. Great toe extension 0/0. Reflexes right/left: Brachioradialis 1/1, biceps 1/1, triceps 2/2, patellar trace/trace, ankle 0/0. Extensor plantar response bilaterally, right more than left. Sensation is intact to light touch throughout, except there is a sensory level at the C3-C4 region. Reduced vibration at the great toe to 3 seconds on the right and 2 seconds on the left. Impaired proprioception at the great toes bilaterally. Motor dysmetria bilaterally due to weakness. Gait was not assessed as the patient is nearly bedbound. DIAGNOSTIC STUDIES/LAB DATA: MRI of the cervical spine without contrast was completed on 10/10/17. There is rquezrlb-fw-nslhcp narrowing of the central canal at C3-4 and C5-6 with moderate narrowing at C6-7 and mild narrowing at C4- 5 and C2-3. There is elevated cord signal with myelomalacia from a compressing myelopathy. Cervical spine x-ray completed 10/10/17 showed degenerative disk disease and osteoarthritis. Cervical spine CT completed on 10/10/17 showed degenerative disk disease and osteoarthritis and moderate narrowing of the osseous central canal at C3-4, C5-6 , and C6-7. Laboratory values: WBC 6.6. Sodium 135. No urinary tract infection. ASSESSMENT: 1. Ms. Dori Cooper is a 72-year-old female with progressive quadriparesis secondary to severe cervical multilevel cervical stenosis. She has upper and lower extremity weakness and a sensory level at the mid cervical region. The patient was evaluated by Dr. Blayne Milton, neurosurgery, who offered the patient surgical intervention.. The patient verbalized the agreement in undergoing surgery understanding the risks and benefits. Mr. Cooper also stated today that he will respect his 's decision and move forward with whatever decision she would like to make. I discussed the case in detail with the patient and her at bedside today. I provided insight regarding her current condition. Unfortunately, her cervical spine disease will continue to progress over time. With surgical intervention, although there is no 100% guarantee she will improve but at least there is a small chance that hopefully she does not continue to progress. Her biggest issue and complaint today is the pain and cramp that she is experiencing mostly in the lower extremity and her inability to ambulate or even just move at all. She stated that if there is a small chance that this may improve, she is willing to undergo the surgery. Bottom line, the patient is currently stabilized from the Parkinson disease aspect. The pharmacological treatment of Parkinson's is optimized, and I would not change her current regiment. There are cases and studies that showed that patients with Parkinson disease are at risk of developing both cervical and lumbar spinal stenosis. With some cases, and I am not saying this is Ms. Cooper' s case, but there are some cases where actual intervention may cause diminished symptomatic pain and slight improvement in the quality of life, relative to control subjects. I do not suspect that the patient has underlying motor neuron disease, given my examination and given the concomitant findings of the cervical spine disease. 2. Parkinson disease. 3. Constipation. 4. Severe cramping. 5. Lumbar degenerative disk disease of the lumbar spine, multilevel. PLAN: Continue the patient's current regiment (Sinemet 25-100 1.5 tablets three times a day and 50-200 1 tablet at night). We discussed placing a different IV line than the current IV in her neck, so she can wear the cervical collar. If she cannot tolerate the [place] J collar then I would recommend providing her with a soft cervical collar. Please reposition the patient every 2 hours to prevent any ulceration. Consult Physical Therapy to do minimal range of motion exercises at bedside. Please make sure the patient has a bowel movement regularly. Continue Lyrica for the cramping. We may consider starting low dose magnesium supplementation. We will continue to follow. Dr. Baltazar will be covering this weekend and I am sure he will be checking back on to follow up. Please contact me for any questions or concerns. [id number]/CPS #: [id number] MTDD
[2017-10-11] MEDS: Acetaminophen TAB* 325 MG PO PRN (16:38)
[2017-10-11] MEDS: Carbidopa/Levodop CR 50/200(*) TAB.CR PO SCH (20:21)
[2017-10-12] MEDS ORDERED: NS 0.9% 500 ML* 500 ML IV ONE (00:06)
[2017-10-12] MEDS: traMADol TAB* 50 MG PO PRN ×3 (03:55→15:18)
[2017-10-12] MEDS: Heparin VIAL(*) 5000 UNITS/ML VIAL (FIVE THOUSAND) SUBCUT SCH ×3 (06:02→21:24)
[2017-10-12 06:41] LABS: ABS Basophils 0 10^3/ul (0-0.2); ABS Eosinophils 0.2 10^3/ul (0-0.6); ABS Lymphocytes 1.2 10^3/ul (1.0-4.8); ABS Monocytes 0.5 10^3/ul (0-0.8); ABS Neutrophils 3.8 10^3/ul (1.5-7.7); ABS Nucleated RBC 0 10^3/ul; Eosinophil % 3.6 % (0-6); Hematocrit 32 % (35-47); Hemoglobin 10.7 g/dl (12.0-16.0); Lymphocyte % 20.2 % (25-47); Mean Corpuscular HGB Conc 34 g/dl (31-36); Mean Corpuscular Hemoglobin 30 pg (27-31); Mean Corpuscular Volume 90 fL (80-97); Mean Platelet Volume 9.4 um3 (7.4-10.4); Nucleated Red Blood Cells % 0.1; Platelet Count 189 10^3/ul (150-450); Red Blood Count 3.52 10^6/ul (4.0-5.4); Red Cell Distribution Width 16 % (10.5-15); White Blood Count 5.7 10^3/ul (3.5-10.8)
[2017-10-12 06:50] LABS: INR 0.91 (0.77-1.02)
[2017-10-12 06:56] LABS: EGFR Non-African American 145.2 (>60)
[2017-10-12] MEDS: Cetirizine* 10 MG TAB PO SCH (09:34)
[2017-10-12] MEDS: Pregabalin CAP(*) 50 MG PO SCH ×2 (09:34→21:23)
[2017-10-12] MEDS: Carvedilol TAB* 6.25 MG PO SCH ×2 (09:34→23:58)
[2017-10-12] MEDS: Omeprazole CAP* 20 MG PO SCH (09:34)
[2017-10-12] MEDS: Aspirin EC TAB* 81 MG TAB.EC PO SCH (09:34)
[2017-10-12] MEDS: Methocarbamol TAB* 500 MG PO PRN ×2 (09:35→12:39)
[2017-10-12] MEDS: Carbidopa/Levodop 25/100 MG TAB(*) PO SCH ×3 (09:38→15:18)
[2017-10-12] MEDS: Primidone TAB(*) 50 MG PO SCH (09:39)
[2017-10-12] MEDS: Mirtazapine TAB* 15 MG PO SCH (09:39)
[2017-10-12] MEDS: Nystatin TOP POWDER* 15 GM BTL TOPICAL SCH ×3 (09:47→21:08)
[2017-10-12] MEDS: Acetaminophen TAB* 325 MG PO PRN (12:38)
[2017-10-12] MEDS: Baclofen TAB* 10 MG PO SCH ×2 (12:39→21:24)
[2017-10-12] MEDS: Morphine VIAL* 4 MG/ML VIAL (1 ml vial) IV PRN ×2 (16:54→21:25)
[2017-10-13] MEDS: Heparin VIAL(*) 5000 UNITS/ML VIAL (FIVE THOUSAND) SUBCUT SCH ×3 (05:58→20:57)
[2017-10-13 06:47] LABS: ABS Basophils 0 10^3/ul (0-0.2); ABS Eosinophils 0.2 10^3/ul (0-0.6); ABS Lymphocytes 1.5 10^3/ul (1.0-4.8); ABS Monocytes 0.6 10^3/ul (0-0.8); ABS Neutrophils 5.3 10^3/ul (1.5-7.7); ABS Nucleated RBC 0 10^3/ul; Hematocrit 37 % (35-47); Hemoglobin 12.6 g/dl (12.0-16.0); Lymphocyte % 19.6 % (25-47); Mean Corpuscular HGB Conc 34 g/dl (31-36); Mean Corpuscular Hemoglobin 30 pg (27-31); Mean Corpuscular Volume 90 fL (80-97); Mean Platelet Volume 9.2 um3 (7.4-10.4); Nucleated Red Blood Cells % 0; Platelet Count 210 10^3/ul (150-450); Red Blood Count 4.16 10^6/ul (4.0-5.4); Red Cell Distribution Width 16 % (10.5-15); White Blood Count 7.5 10^3/ul (3.5-10.8)
[2017-10-13 07:04] LABS: EGFR Non-African American 145.2 (>60)
--- NOTE | 2017-10-13 07:11 | PN ---
NEUROLOGY PROGRESS NOTE: DATE OF SERVICE: 10/12/17 Neurology is following for the evaluation of Parkinson's disease, spasticity, and cervical spine stenosis. CHIEF COMPLAINT: Spasticity and tremor. SUBJECTIVE: Overnight, the patient is complaining of tremors and spasticity mostly in the back and lower extremities. She is still having cramps in the legs. Baclofen has been started today by Dr. Baltazar. Her Sinemet medication is not being given on the same time, which she is used to taking. Sinemet was also decreased to 1 tablet 3 times a day. REVIEW OF SYSTEMS: She denied any chest pain, shortness of breath, or palpitations. She denied any new neck pain. She denied any difficulty swallowing. MEDICATIONS: 1. Acetaminophen. 2. Aspirin. 3. Baclofen. 4. Carbidopa/levodopa 25/100, 1 tablet 3 times a day. 5. Carvedilol. 6. Cetirizine. 7. Methocarbamol. 8. Mirtazapine. 9. Omeprazole. 10. Pregabalin. 11. Ultram. PHYSICAL EXAMINATION: Vital Signs: Temperature 98.8, heart rate 79, respiratory 16, oxygen 97%, blood pressure 108/68. General: Ill-appearing frail female, in no acute distress. Head: Normocephalic without obvious abnormality. She is not wearing the [place] J collar as it was uncomfortable, and it is only being used during transport. Lungs: Clear to auscultation bilaterally. Neurological Examination: Mental status: Awake and alert, oriented to person, place and time. She does have tremors of the chin, which was not apparent yesterday. Cranial Nerves: Pupils equal, round, and reactive to light with normal consensual response. Extraocular muscles are intact. No facial asymmetry. Tongue is symmetric and midline. Motor strength has not changed from yesterday and still ranging 1-2/5 in the upper proximal and distal, and lower proximal and distal muscles. Reflexes trace throughout with extensor plantar response bilaterally. Sensation is intact to light touch throughout except there is a sensory level at C3-4. ASSESSMENT: 1. Cervical spondylosis with myelopathy and T2 hyperintensity in the cervical spine. 2. Parkinson disease. 3. Spasticity and cramps. PLAN: Baclofen has been started by Dr. Baltazar for spasticity. I urged the patient to make sure to use the cervical collar as much as possible. Please reposition the patient every few hours as she feels uncomfortable and would like to be turned at least a few times a day. Pending spine surgery, hopefully will be done this upcoming week. Dr. Baltazar will be covering the weekend. Please contact us for any questions or concerns. We will clarify the Parkinson' s regimen as there have been changes today. [id number]/CPS #: [id number] MTDD
[2017-10-13] MEDS ORDERED: Naloxone* 0.4 MG/ML 1 ML VIAL IV PUSH ONE (12:09)
[2017-10-13] MEDS ORDERED: Naloxone* 0.4 MG/ML 1 ML VIAL ONE (12:12)
[2017-10-13] MEDS: Carbidopa/Levodop 25/100 MG TAB(*) PO SCH ×3 (12:16→15:08)
[2017-10-13] MEDS: Mirtazapine TAB* 15 MG PO SCH (12:34)
[2017-10-13] MEDS: Carvedilol TAB* 6.25 MG PO SCH ×2 (12:34→20:57)
[2017-10-13] MEDS: Aspirin EC TAB* 81 MG TAB.EC PO SCH (12:34)
[2017-10-13] MEDS: Cetirizine* 10 MG TAB PO SCH (12:34)
[2017-10-13] MEDS: Omeprazole CAP* 20 MG PO SCH (12:35)
[2017-10-13] MEDS: Pregabalin CAP(*) 50 MG PO SCH ×2 (12:35→20:58)
[2017-10-13] MEDS: Nystatin TOP POWDER* 15 GM BTL TOPICAL SCH ×3 (12:36→20:57)
--- NOTE | 2017-10-13 12:37 | CONSULT ---
Consult Consult: CRITICAL CARE MEDICINE DATE: 10/13/17 TIME: 1145 PRIMARY CARE PROVIDER: REFERRING PROVIDER: Jada Srivastava REASON/CHIEF COMPLAINT: declining ms and hypoxia HISTORY OF PRESENT ILLNESS: 72 F with h/o advanced PD followed by neurology who was evaluated for progressive weakness of arms and legs and workup revealing severe cervical spinal stenosis and myelpathy with NSGY consult and discussions for surgical plans while holding her brillinta. REVIEW OF SYSTEMS: As per HPI. Limted from pt sec to acuity. PAST MEDICAL HISTORY: As per HPI. Microscopic Colitis, Coronary artery disease with mi, Depression, Endometrioid adenocarcinoma of uterus, hypertension Hyperlipidemia, Lumbar radiculopathy Morbid obesity, Parkinsons disease Prolonged QT interval, Spinal stenosis of lumbar region, Diet controlled type 2 diabetes mellitus MEDICATIONS: Reviewed. ALLERGIES: Reviewed. SOCIAL HISTORY: Reviewed. FAMILY HISTORY: Noncontributory at present. PHYSICAL EXAM: Vital Signs: Reviewed. Neurologic: obtunded to stuporous. she can respond to painful stimuli with an "ouch" and resists eye opening. pupils small, not pin point, and reactive. triple reflex le, no ext spont movement other then this HEENT: anicteric, sonourous resps that improve with jaw thrust Cardiovascular: distant, tachy, s1, s2 Respiratory: has paradoxical chest movement with upper airway obstruction; non- labored, but with jaw thrust she has nml phase resp with abd protrusion but not working at all. Abdomen: soft Extremities: warm, mild dep edema Access: piv LABS: Reviewed. IMAGING: Reviewed. MEDICATIONS: Reviewed. ASSESSMENT: 72 F Cervical spinal stenosis with myelopathy and quadriparesis now with acute decompensated hypoxic resp failure, likely secondary to hypoventilation - question is whether this acute failure is secondary to recent medication ( baclofen, plus dose morphine last pm, and using other agents like tramadol and lyrica) and can this just be a mediation induced encephalopathy leading to hypoventilation and hypoxic failure from that alone. This may be better determine with blood gas eval which is pending; and shouldn't have A-a gradient. She needs to move to ICU regardless. Question of whether we can acutely use bipap as quick rescue if low level hypercapnic failure present will depend on gas as well. If no significant hypercapnic failure then we can wait o2 drug induced affects while monitoring etco2 and close ICU monitoring. May need nasal trumpet. Can try narcan dose for what its worth. I don't think this is neuromsk diaphragmatic failure but she is at high risk certainly and if she does fall behind unlikely to have reserve. Needs to wear C collar. Neurology f/u NSGY f/u Pt can transfer to ICU service for now Supportive and preventative care as ordered. SUP: ppi VTE prophylaxis: scds Nagel catheter given critical illness, urinary retention Disposition: ICU Code Status: Full presently Critical Care Time: 45min F. Gilles Gutierrez,
[2017-10-13] MEDS ORDERED: Baclofen TAB* 10 MG PO SCH (14:00)
--- NOTE | 2017-10-13 14:09 | CONS ---
NEUROLOGY FOLLOWUP NOTE: DATE OF FOLLOWUP: 10/13/17 REFERRING PHYSICIAN: Dr. Jada Srivastava LOCATION: She is inpatient in room 414. CHIEF COMPLAINT: Quadriplegia. INTERVAL HISTORY: Since yesterday Dori has become obtunded. She apparently was able to speak this morning, but then was very lethargic and not able to eat or take any oral meds. She had oxygen desa turation during the night and supplemental oxygen by mask has been added. In reviewing the vitals in the electronic medical record, it is a bit hard to sort out. She was said to have 100% oxygen satura tion on room air at 1457 on 10/10/17, but then 54 at 1521 on the same day. I was told by Dr. Caty stephens that her oxygen sats dropped to 80 this morning and oxygen was added, but the last one in record is oxygen saturation 98% on room air. In any case, she has been obtunded since this morning. MEDICATIONS: Medications are reviewed and she remains on Sinemet 25/100 one tablet 3 times per day, Coreg 6.25 mg p.o. b.i.d., heparin subcutaneous 5000 units q.8 hours, Robaxin 750 mg p.o. t.i.d., Rem betty 15 mg p.o. daily, Morphine 2 mg IV q.2 hours p.r.n. pain, 4 mg IV q.2 hours severe pain, ondanse tiffany 4 mg p.o. q.6 hours as needed for nausea, Lyrica 150 mg p.o. b.i.d., tramadol 50 mg p.o. q.6 cuauhtemoc rs. She was on baclofen that was discontinued this morning. PHYSICAL EXAMINATION: She is obtunded. She has oxygen by mask running. Temperature 97.8, most recen t blood pressure 149/79, heart rate is running in the 80s and seems regular, respiratory rates are fl uctuating from 18 to 26 and with supplemental oxygen is 98%. Heart is in a regular rhythm. Oral muc lore is moist, but lips are dry. Neurologically, pupils are small and reactive from about to 2.5 to 2 mm. Eye position is mid positio n. She does not have corneal reflexes or nasal tickle response. She does not have a gag response. Her right fundus was partially visualized and I did not see any papilledema. She has a flaccid quadr iplegia. She has triple flexion withdraw on the legs to plantar stimulation. With deep nail bed pre ssure, she starts to have jaw tremors and winces with symmetrical facial movement. After stimulation of both upper extremities, she responds with her eyes close "yes" to the question of Dori, do you hear me. Other than that, she does not follow commands. LABORATORY DATA: Today is notable for unremarkable CBC, chemistry profile likewise unremarkable. He r CRP is a little bit elevated 12.01. IMPRESSION: Obtundation possibly for medications, but very possibly from respiratory compromise. I have spoken with Dr. Srivastava prior to examining Dori and I have spoken with Dr. Moon just a zechariah rt while ago. She is going to be transferred to intensive care unit and her sedating medications wi ll be held. She will probably have an arterial blood gas drawn. After she gets settled into the int ensive care unit, then Neurosurgery should be updated as to her clinical status. I will continue to f km her with you. [id number]/[facility] #: [id number]
[2017-10-13] MEDS: Morphine VIAL* 4 MG/ML VIAL (1 ml vial) IV PRN ×2 (17:10→20:56)
[2017-10-14] MEDS: Morphine VIAL* 4 MG/ML VIAL (1 ml vial) IV PRN ×5 (00:02→18:16)
[2017-10-14] MEDS: Heparin VIAL(*) 5000 UNITS/ML VIAL (FIVE THOUSAND) SUBCUT SCH (05:56)
[2017-10-14 06:08] LABS: ABS Basophils 0.1 10^3/ul (0-0.2); ABS Eosinophils 0.1 10^3/ul (0-0.6); ABS Lymphocytes 2.2 10^3/ul (1.0-4.8); ABS Monocytes 0.9 10^3/ul (0-0.8); ABS Nucleated RBC 0 10^3/ul; Eosinophil % 1.3 % (0-6); Hematocrit 37 % (35-47); Hemoglobin 12.6 g/dl (12.0-16.0); Lymphocyte % 23.5 % (25-47); Mean Corpuscular HGB Conc 34 g/dl (31-36); Mean Corpuscular Hemoglobin 30 pg (27-31); Mean Corpuscular Volume 90 fL (80-97); Mean Platelet Volume 9.1 um3 (7.4-10.4); Nucleated Red Blood Cells % 0.1; Platelet Count 246 10^3/ul (150-450); Red Blood Count 4.14 10^6/ul (4.0-5.4); Red Cell Distribution Width 16 % (10.5-15); White Blood Count 9.2 10^3/ul (3.5-10.8)
[2017-10-14 06:35] LABS: EGFR Non-African American 134.3 (>60)
--- NOTE | 2017-10-14 08:58 | PN ---
Subjective Date of Service: 10/14/17 Interval History: Yesterday, she did receive Narcan X 1 with no real improvement. The nurse notes no significant changes overnight. She has been on room air, sating ok. ABG showed no hypercapnia yesterday. Since yesterday, she has received no PO medications. It appears prior to admission, she was taking Sinemet 25/100 1.5 tabs po tid and Sinemet CR at night. Her Sinemet dose has been reduced to 1 tab po tid but not at her normal times and since yesterday, she has not received it. She has a pronounced jaw tremor today. The nurse reports that she intermittent will respond with a vocal noise. This morning, no clear cut answers to questions. Objective Active Medications: Acetaminophen (Tylenol Tab*) 650 mg PO Q4H PRN PRN Reason: FEVER/PAIN Last Admin: 10/12/17 12:38 Dose: 650 mg Aspirin (Aspirin Ec Tab*) 81 mg PO DAILY [facility] Last Admin: 10/13/17 12:34 Dose: Not Given Carbidopa/Levodopa (Sinemet 25/100 Tab(*)) 1 tab PO 0800,1100,1400 [facility] Last Admin: 10/13/17 15:08 Dose: Not Given Carvedilol (Coreg Tab*) 6.25 mg PO BID [facility] Last Admin: 10/13/17 20:57 Dose: Not Given Cetirizine HCl (Zyrtec*) 10 mg PO DAILY [facility] Last Admin: 10/13/17 12:34 Dose: Not Given Heparin Sodium (Porcine) (Heparin Vial(*)) 5,000 units SUBCUT Q8HR [facility] Last Admin: 10/14/17 05:56 Dose: 5,000 units Methocarbamol (Robaxin Tab*) 750 mg PO TID PRN PRN Reason: PAIN Last Admin: 10/12/17 12:39 Dose: 750 mg Mirtazapine (Remeron Tab*) 15 mg PO DAILY [facility] Last Admin: 10/13/17 12:34 Dose: Not Given Morphine Sulfate (Morphine Vial*) 2 mg IV Q2H PRN PRN Reason: PAIN - MODERATE Last Admin: 10/12/17 21:25 Dose: 2 mg Morphine Sulfate (Morphine Vial*) 4 mg IV Q2H PRN PRN Reason: PAIN - SEVERE Last Admin: 10/14/17 05:56 Dose: 4 mg Nystatin (Nystatin Top Powder*) 1 applic TOPICAL TID [facility] Last Admin: 10/13/17 20:57 Dose: 1 applic Omeprazole (Prilosec Cap*) 20 mg PO DAILY [facility] PRN Reason: Protocol Last Admin: 10/13/17 12:35 Dose: Not Given Ondansetron HCl (Zofran Odt Tab*) 4 mg PO Q6H PRN PRN Reason: NAUSEA Pregabalin (Lyrica Cap(*)) 150 mg PO BID [facility] Last Admin: 10/13/17 20:58 Dose: Not Given Tramadol HCl (Ultram*) 50 mg PO Q6H PRN PRN Reason: PAIN Last Admin: 10/12/17 15:18 Dose: 50 mg Vital Signs 10/13/17 10/13/17 10/13/17 11:30 12:00 12:05 Temperature Pulse Rate 74 91 94 Respiratory 24 4 Rate Blood Pressure 103/58 166/106 (mmHg) O2 Sat by Pulse 100 99 99 Oximetry 10/13/17 10/13/17 10/13/17 12:15 12:30 12:45 Temperature 98.8 F Pulse Rate 100 104 84 Respiratory 16 9 5 Rate Blood Pressure 172/101 178/105 134/92 (mmHg) O2 Sat by Pulse 100 97 97 Oximetry 10/13/17 10/13/17 10/13/17 13:00 13:01 13:15 Temperature Pulse Rate 86 84 77 Respiratory Rate Blood Pressure 139/88 123/81 (mmHg) O2 Sat by Pulse 97 98 97 Oximetry 10/13/17 10/13/17 10/13/17 13:30 13:45 14:00 Temperature Pulse Rate 76 78 97 Respiratory Rate Blood Pressure 135/87 145/85 128/90 (mmHg) O2 Sat by Pulse 98 98 98 Oximetry 10/13/17 10/13/17 10/13/17 14:15 14:30 14:45 Temperature Pulse Rate 95 95 90 Respiratory Rate Blood Pressure 140/85 152/92 134/87 (mmHg) O2 Sat by Pulse 98 98 98 Oximetry 10/13/17 10/13/17 10/13/17 15:00 15:01 15:15 Temperature Pulse Rate 87 84 77 Respiratory Rate Blood Pressure 133/89 153/78 (mmHg) O2 Sat by Pulse 98 98 98 Oximetry 10/13/17 10/13/17 10/13/17 15:30 15:45 16:00 Temperature 97.9 F Pulse Rate 71 74 92 Respiratory Rate Blood Pressure 138/79 133/69 141/82 (mmHg) O2 Sat by Pulse 99 98 98 Oximetry 10/13/17 10/13/17 10/13/17 16:01 16:15 16:30 Temperature Pulse Rate 91 90 92 Respiratory Rate Blood Pressure 149/88 139/83 (mmHg) O2 Sat by Pulse 98 98 98 Oximetry 10/13/17 10/13/17 10/13/17 16:45 17:00 17:10 Temperature Pulse Rate 92 99 98 Respiratory 20 Rate Blood Pressure 160/88 147/98 (mmHg) O2 Sat by Pulse 98 96 97 Oximetry 10/13/17 10/13/17 10/13/17 17:15 17:30 17:45 Temperature Pulse Rate 98 95 96 Respiratory Rate Blood Pressure 136/79 146/88 142/86 (mmHg) O2 Sat by Pulse 96 96 96 Oximetry 10/13/17 10/13/17 10/13/17 18:00 18:15 18:30 Temperature Pulse Rate 96 87 92 Respiratory Rate Blood Pressure 140/92 141/81 137/80 (mmHg) O2 Sat by Pulse 95 96 95 Oximetry 10/13/17 10/13/17 10/13/17 18:45 19:00 19:15 Temperature Pulse Rate 91 91 96 Respiratory Rate Blood Pressure 147/86 149/86 152/81 (mmHg) O2 Sat by Pulse 95 95 95 Oximetry 10/13/17 10/13/17 10/13/17 19:30 19:45 20:00 Temperature 98.4 F Pulse Rate 96 95 95 Respiratory 16 Rate Blood Pressure 142/88 126/79 155/84 (mmHg) O2 Sat by Pulse 97 96 96 Oximetry 10/13/17 10/13/17 10/13/17 20:01 20:30 20:56 Temperature Pulse Rate 99 102 Respiratory 16 Rate Blood Pressure 129/89 (mmHg) O2 Sat by Pulse 97 96 Oximetry 10/13/17 10/13/17 10/13/17 21:00 21:30 22:00 Temperature Pulse Rate 97 99 96 Respiratory Rate Blood Pressure 137/84 157/96 131/84 (mmHg) O2 Sat by Pulse 96 98 96 Oximetry 10/13/17 10/13/17 10/13/17 22:05 22:30 23:00 Temperature Pulse Rate 98 95 99 Respiratory Rate Blood Pressure 141/80 143/79 (mmHg) O2 Sat by Pulse 97 95 94 Oximetry 10/14/17 10/14/17 10/14/17 00:00 00:02 01:00 Temperature 98.9 F Pulse Rate 97 99 Respiratory 15 Rate Blood Pressure 143/88 119/94 (mmHg) O2 Sat by Pulse 96 91 Oximetry 10/14/17 10/14/17 10/14/17 02:00 02:01 03:00 Temperature Pulse Rate 104 102 101 Respiratory 13 15 Rate Blood Pressure 118/89 126/78 (mmHg) O2 Sat by Pulse 91 92 93 Oximetry 10/14/17 10/14/17 10/14/17 03:01 03:03 03:18 Temperature Pulse Rate 101 Respiratory 16 Rate Blood Pressure (mmHg) O2 Sat by Pulse 92 92 Oximetry 10/14/17 10/14/17 10/14/17 04:00 05:00 05:01 Temperature 98.4 F Pulse Rate 103 103 100 Respiratory 9 15 Rate Blood Pressure 111/71 103/82 (mmHg) O2 Sat by Pulse 92 96 94 Oximetry 10/14/17 10/14/17 10/14/17 05:56 06:00 07:00 Temperature Pulse Rate 113 116 Respiratory 17 16 13 Rate Blood Pressure 138/75 153/95 (mmHg) O2 Sat by Pulse 93 94 Oximetry 10/14/17 10/14/17 10/14/17 07:01 07:18 07:22 Temperature 97.9 F Pulse Rate 116 Respiratory 19 Rate Blood Pressure (mmHg) O2 Sat by Pulse 94 Oximetry Oxygen Devices in Use Now: None Neurology Exam: General: HEENT: Normocephalic, sclera anicteric, mucous membranes dry Neck: In C-collar Chest: Clear to auscultation bilaterally Cardiovascular: Tachycardic, no murmurs appreciated Abdomen: Soft, no distension Extremities: Warm, 1+ edema in the feet to shins bilaterally. Neurological Findings: Eyes open, staring straight ahead, responds to voice by vocalizing but no words , not following commands. Will turn her head slightly to the right but will not make eye contact either right or left side. Speech: Will only vocalize, no words or fluent speech Cranial Nerve: PEERL 2.5-->2.0 sluggish, central gaze with no real lateral gaze , will not follow or track, unable to Doll's, VF: Does not blink to threat, no obvious, nystagmus, face symmetric, could not visualize palate well. tongue midline Motor: Markedly increased tone in the upper and lower extremities, Difficult to assess cogwheeling Sensation: W/D with triple flexion with pain at toes. Moans and winces with pain at nailbeds X 4 Deep Tendon Reflex: Difficult exam, down throughout No significant resting tremor other than pronounced tremor of the jaw. Result Diagrams: 10/14/17 05:59 10/14/17 05:59 Additional Lab and Data: Lab Results 10/10/17 Range/Units 15:36 Urine Color Yellow Urine Appearance Clear Urine pH 6.0 (5-9) Ur Specific [place] 1.015 (1.010-1.030) Urine Protein Negative (Negative) Urine Ketones Trace A (Negative) Urine Blood Negative (Negative) Urine Nitrate Negative (Negative) Urine Bilirubin 1+ A (Negative) Urine Urobilinogen Negative (Negative) Ur Leukocyte Esterase Negative (Negative) Urine Glucose Negative (Negative) Abnormal Lab Results 10/13/17 10/14/17 10/14/17 12:15 05:59 05:59 WBC 9.2 RBC 4.14 Hgb 12.6 Hct 37 MCV 90 MCH 30 MCHC 34 RDW 16 H Plt Count 246 MPV 9.1 Neut % (Auto) 64.8 Lymph % (Auto) 23.5 L [place] % (Auto) 9.2 H Eos % (Auto) 1.3 Baso % (Auto) 1.2 Absolute Neuts (auto) 6.0 Absolute Lymphs (auto) 2.2 Absolute Monos (auto) 0.9 H Absolute Eos (auto) 0.1 Absolute Basos (auto) 0.1 Absolute Nucleated RBC 0 Nucleated RBC % 0.1 Patient Temperature Not Reportable ABG pH 7.47 H ABG pH (Temp Correct) Not Reportable ABG pCO2 41 ABG pCO2 (Temp Corrct Not Reportable ABG pO2 167 H ABG pO2 (Temp Correct Not Reportable ABG HCO3 29.3 ABG O2 Saturation 99.9 H ABG Base Excess 5.6 H Respiration Rate Not Reportable O2 Delivery Device oxymask Ventilator Type Not Reportable Vent Mode Not Reportable FiO2 2 Inspiratory Time Not Reportable PEEP Not Reportable Pressure Support Not Reportable Pressure Control Not Reportable EPAP Not Reportable IPAP Not Reportable BiPAP Not Reportable Sodium 140 Potassium 4.2 Chloride 109 Carbon Dioxide 26 Anion Gap 5 BUN 16 Creatinine 0.46 L Est GFR ( Amer) 172.7 Est GFR (Non-Af Amer) 134.3 BUN/Creatinine Ratio 34.8 H Glucose 94 Calcium 9.2 Phosphorus 4.4 Magnesium 2.0 Assessment/Plan 72 year old with history of progressive PD typically on Sinemet 25/100 po tid and Sinemet CR at night. Prior admission in May for low back pain and leg weakness/parasthesias, found to have significant Lumbar disease but not a surgical candidate. Presented to Dr. Baltazar's office last week with partial quadriplegia and admitted with severe cervical spine disease, myelopathy, with plan for surgical decompression. Two night ago, she was given Baclofen and had decompensation in her respiratory and mental status and it was thought that her declining respiratory status could be either central vs. medication induced. She has also received some MS for chronic pain. Baclofen was held, Narcan with given with no significant improvement. ABGs showed no hypercapnia. The etiology of her AMS remains unclear but is likely multifactorial in nature. -Given polypharmacy including Sinemet changes, Lyrica, Tramadol, recent baclofen , MS, a medication encephalopathy is likely part of the picture although she is now off most medications and I would expect improvement over the next 24 hours. --Sinemet was initially reduced from 1.5 to 1 pill TID and for the last day, she has not received any Sinemet. While she does not have all of the classic findings of DAWS, she is tachycardic and obtunded and acute Dopamine w/d could be contributing to her symptoms. NGT to be placed and will try to give Sinemet that way, she how she does. She is very dystonic today on exam and her jaw tremor is significantly worse from what I remember in May which her notes happens when she goes without Sinemet -There has been no reported seizure activity, and she is responsive to me. Consider EEG if no improvement -No clear evidence of stroke but we can also consider MRI of her brain if no improvement today. In the setting of generalized dystonia and myelopathy, it could be difficult to lateralize any symptoms. -Would minimize sedating medications such as morphine to the least necessary dose for pain control. -Continue to follow her respiratory status although acute respiratory failure dose not seem to be the cause of her symptoms. Consider hypoxic brain injury as an initial insult. -Surgical plans are unclear at this point -Full code Neurology will continue to follow closely along.
[2017-10-14] MEDS: Pregabalin CAP(*) 50 MG PO SCH ×2 (10:09→21:04)
[2017-10-14] MEDS: Mirtazapine TAB* 15 MG PO SCH (10:09)
[2017-10-14] MEDS: Carvedilol TAB* 6.25 MG PO SCH (10:09)
[2017-10-14] MEDS: Omeprazole CAP* 20 MG PO SCH (10:09)
[2017-10-14] MEDS: Cetirizine* 10 MG TAB PO SCH (10:09)
[2017-10-14] MEDS: Aspirin EC TAB* 81 MG TAB.EC PO SCH (10:09)
[2017-10-14] MEDS: Carbidopa/Levodop 25/100 MG TAB(*) PO SCH (10:09)
[2017-10-14] MEDS: Nystatin TOP POWDER* 15 GM BTL TOPICAL SCH ×3 (10:37→21:04)
[2017-10-14] MEDS ORDERED: Pantoprazole IV* 40 MG IV SCH (11:00)
--- NOTE | 2017-10-14 11:24 | PN ---
Progress Note - Progress Note Date of Service: 10/14/17 Note: CRITICAL CARE MEDICINE DATE: 10/14/17 TIME: 1000 SUBJECTIVE: Patient seen and examined. PHYSICAL EXAM: Vital Signs: Reviewed. Neurologic: eyes open not purposefully responding but seems to have awareness. degree uncertain. no change in ext. tremor HEENT: anicteric, mm dry Cardiovascular: distant, tachy 110s Respiratory: poor excursion. rate ok and path of least resistance. inc rhonchi in R>L. couldnt produce cough Abdomen: soft Extremities: warm, dep edema Access: piv LABS: Reviewed. IMAGING: Reviewed. MEDICATIONS: Reviewed. ASSESSMENT: 72 F Cervical spinal stenosis with myelopathy and quadriparesis now with acute decompensated hypoxic resp failure weaned off O2 and holding her own but overall failing state. Improved from drug affect to maintain resp status without O2 needs but overall ability to thrive? D/w pts and daughter at length. We are all concerned about plans. will place ngt to give her meds and some nutrition. needs her pd meds. can use morphine and benzos to keep her comfortable. further family will gather. currently we are leaning against any surgical interventions. will change back to DNR, DNI. Will see if we can support her and allow her to be more comfortable and then make more definitive end of life plans over next 24hrs. Her resp status is going to continue to fail. keep in ICU currently while we better sort. Supportive and preventative care as ordered. SUP: ppi VTE prophylaxis: scds Nagel catheter given critical illness, urinary retention Disposition: ICU Code Status: DNR/DNI Critical Care Time: 35min Korina Gutierrez DO
--- NOTE | 2017-10-14 11:54 | RAD ---
INDICATION: NG tube placement. COMPARISON: Comparison is made with a prior study from May 28, 2017. TECHNIQUE: A portable view of the chest was obtained. FINDINGS: There is a nasogastric tube present which demonstrates normal course. The catheter projects below the left hemidiaphragm off the film. The heart is within normal limits in size. The patient's right arm projects over the right lung base. The lungs are grossly clear. No pleural effusion is seen. There is severe bilateral osteoarthritic change in the shoulders. IMPRESSION: 1. STATUS POST NG TUBE PLACEMENT. 2. NO EVIDENCE FOR ACUTE FINDING.
[2017-10-14] MEDS ORDERED: ALPRAZolam TAB* 0.5 MG PO PRN (12:07)
[2017-10-14] MEDS: Carbidopa/Levodop 25/100 MG TAB(*) G TUBE SCH ×3 (12:08→19:51)
--- NOTE | 2017-10-14 12:36 | PN ---
Progress Note - Progress Note Date of Service: 10/14/17 Note: CRITICAL CARE MEDICINE DATE: 10/14/17 TIME: 1200 D/w family again, further members present and one via facetime. discussed her dynamics at length and icu potentials and needs given her ailments. They express understanding and all in agreement pt would not want these measures. We have place ngt and will use for low level nutrition and more for meds to control PD. Start comfort care measures. Breathing may not amount usual response of tachypnea but nonetheless may be symptomatic. Concerns for anxiety component of course as well and can utilize meds there too as ordered. Family in complete agreement. Can get more comfortable here and then transition to floor. if she can be comfortable and communicate great, but if not, error on being comfortable. I explained I don't think she can survive well for more then days and may not be able to dispo from hospital but can have palliative care consult tomorrow and can always support planning. Code Status: DNR/DNI Critical Care Time: 15min Korina Gutierrez DO
[2017-10-14] MEDS: Morphine ORAL CONCENTRATE* 5 MG/0.25 ML ORAL.SYRIN PO PRN ×2 (12:46→14:17)
[2017-10-14] MEDS ORDERED: LORazepam INJ* 2 MG/ML 1 ML VIAL ONE (15:19)
[2017-10-14] MEDS: LORazepam INJ* 2 MG/ML 1 ML VIAL IV PUSH PRN ×2 (15:39→18:50)
[2017-10-14] MEDS: SALIVA SUBSTITUTE MT PRN (17:24)
[2017-10-15] MEDS: Morphine VIAL* 4 MG/ML VIAL (1 ml vial) IV PRN (06:17)
[2017-10-15] MEDS: Carbidopa/Levodop 25/100 MG TAB(*) G TUBE SCH ×4 (08:07→19:59)
[2017-10-15] MEDS: Pregabalin CAP(*) 50 MG PO SCH ×2 (08:08→20:01)
[2017-10-15] MEDS: Nystatin TOP POWDER* 15 GM BTL TOPICAL SCH ×2 (08:09→16:24)
[2017-10-15] MEDS: SALIVA SUBSTITUTE MT PRN ×3 (08:10→19:18)
[2017-10-15] MEDS: LORazepam INJ* 2 MG/ML 1 ML VIAL IV PUSH PRN ×5 (09:00→20:41)
--- NOTE | 2017-10-15 13:05 | PN ---
Progress Note - Progress Note Date of Service: 10/15/17 Note: Stopped in briefly after speaking with Dr. Gutierrez about this patient after reviewing her history. The family has decided to avoid surgical intervention and has opted for a [id number] approach. Dr. Gutierrez has already instituted comfort measures and updated the patient's status to DNR/DNI. The patient is comfortable and the entire family is very satisfied with her situation, and very appreciative of the care she is receiving. There is no need for palliative intervention at this point. Thanks
[2017-10-15 15:04] VITALS: BP 120/61
--- NOTE | 2017-10-15 18:58 | PN ---
Progress Note - Progress Note Date of Service: 10/15/17 Note: Patient was scheduled for surgical decompression after discussion with Dr Mosqueda for Brillinta effect, and his recommendation for 7 days off medication . Was contacted yesterday by Dr Moon to be notified that family decided to continue with care ad comfort measures only. Surgery was cancelled. Patient on TF. Daughter at bedside. Confirmed family's decision. Appreciate IM,ICU care. Will follow family's wishes. Myla Milton MD
[2017-10-15] MEDS: Morphine ORAL CONCENTRATE* 5 MG/0.25 ML ORAL.SYRIN PO PRN (20:06)
--- NOTE | 2017-10-16 00:53 | CONS ---
NEUROLOGY FOLLOWUP NOTE: DATE OF FOLLOWUP: 10/15/17. PRIMARY CARE PHYSICIAN: Dr. Kumar. LOCATION: She is in room 417. CHIEF COMPLAINT: Quadriplegia, Parkinson's disease. INTERVAL HISTORY: Dori is seen briefly just for a social visit. It has been decided to make her comfort care only. She does have an NG tube for levodopa therapy. Her and multiple family members are present. She still has quite a bit of jaw tremor, but she is not getting the spasms in her legs anymore. MEDICATIONS: Medications are reviewed and she is on: 1. Carbidopa and levodopa 1.5 tablets per G-tube four times per day. 2. Lorazepam 1 mg IV push q.1 hour as needed for anxiety. 3. Morphine sulfate 2 to 4 mg IV q.2 hours as needed for pain. 4. Lyrica 150 mg p.o. per G-tube. PHYSICAL EXAMINATION: I did not examine Dori today. IMPRESSION: Compressive cervical myelopathy with quadriplegia and Parkinson's disease. She had a marked decline in mental status and we decided to move to comfort care only, which I think is appropriate. I think continuing carbidopa and levodopa to control the jaw tremors will keep her more comfortable as well as using lorazepam as needed and morphine. I do not have any further suggestions at this point in time. [id number]/[facility] #: [id number] MTDD
[2017-10-16] MEDS: Morphine VIAL* 4 MG/ML VIAL (1 ml vial) IV PRN ×3 (05:27→18:03)
[2017-10-16] MEDS: Nystatin TOP POWDER* 15 GM BTL TOPICAL SCH ×3 (07:15→12:01)
[2017-10-16] MEDS: LORazepam INJ* 2 MG/ML 1 ML VIAL IV PUSH PRN ×2 (07:34→11:55)
[2017-10-16] MEDS: Morphine ORAL CONCENTRATE* 5 MG/0.25 ML ORAL.SYRIN PO PRN ×4 (07:34→20:25)
[2017-10-16] MEDS: Pregabalin CAP(*) 50 MG PO SCH ×2 (07:35→20:00)
[2017-10-16] MEDS: Carbidopa/Levodop 25/100 MG TAB(*) G TUBE SCH ×4 (07:35→20:00)
[2017-10-16] MEDS: SALIVA SUBSTITUTE MT PRN (16:00)
[2017-10-17] MEDS: Acetaminophen TAB* 325 MG PO PRN ×2 (00:32→22:45)
[2017-10-17] MEDS: Morphine VIAL* 4 MG/ML VIAL (1 ml vial) IV PRN ×6 (01:32→19:27)
[2017-10-17] MEDS: Nystatin TOP POWDER* 15 GM BTL TOPICAL SCH ×4 (01:48→19:37)
[2017-10-17] MEDS: Pregabalin CAP(*) 50 MG PO SCH ×2 (08:11→19:27)
[2017-10-17] MEDS: Carbidopa/Levodop 25/100 MG TAB(*) G TUBE SCH ×4 (08:11→19:27)
[2017-10-17] MEDS: LORazepam INJ* 2 MG/ML 1 ML VIAL IV PUSH PRN ×9 (08:23→22:06)
[2017-10-17] MEDS: Morphine ORAL CONCENTRATE* 5 MG/0.25 ML ORAL.SYRIN PO PRN ×6 (10:05→20:52)
[2017-10-18] MEDS: Morphine ORAL CONCENTRATE* 5 MG/0.25 ML ORAL.SYRIN PO PRN ×13 (00:25→22:13)
[2017-10-18] MEDS: LORazepam INJ* 2 MG/ML 1 ML VIAL IV PUSH PRN ×10 (06:10→23:01)
[2017-10-18] MEDS: Morphine VIAL* 4 MG/ML VIAL (1 ml vial) IV PRN ×5 (06:15→23:01)
[2017-10-18] MEDS: Atropine 1% (ORAL/SL)* 15 ML BTL SL PRN ×4 (09:21→16:30)
[2017-10-18] MEDS: Pregabalin CAP(*) 50 MG PO SCH ×2 (09:22→21:00)
[2017-10-18] MEDS: Carbidopa/Levodop 25/100 MG TAB(*) G TUBE SCH ×4 (09:22→21:01)
[2017-10-18] MEDS: Nystatin TOP POWDER* 15 GM BTL TOPICAL SCH ×3 (09:25→21:48)
[2017-10-18] MEDS: Acetaminophen TAB* 325 MG PO PRN ×3 (13:05→21:08)
[2017-10-19] MEDS: Morphine ORAL CONCENTRATE* 5 MG/0.25 ML ORAL.SYRIN PO PRN ×8 (00:03→23:05)
[2017-10-19] MEDS: Morphine VIAL* 4 MG/ML VIAL (1 ml vial) IV PRN ×3 (01:05→06:24)
[2017-10-19] MEDS: LORazepam INJ* 2 MG/ML 1 ML VIAL IV PUSH PRN ×8 (01:05→23:04)
[2017-10-19] MEDS: Pregabalin CAP(*) 50 MG PO SCH ×3 (06:25→21:08)
[2017-10-19] MEDS: Carbidopa/Levodop 25/100 MG TAB(*) G TUBE SCH ×4 (06:25→21:08)
[2017-10-19] MEDS: Morphine PCA ADULT* 5 MG/ML 30 ML PCA SCH ×2 (07:08→07:10)
[2017-10-19] MEDS: Nystatin TOP POWDER* 15 GM BTL TOPICAL SCH ×3 (07:20→21:08)
--- NOTE | 2017-10-19 09:10 | PN ---
Progress Note - Progress Note Date of Service: 10/19/17 Note: Stopped in to see patient, who has outlived her prior prognosis of 24 hours offered in the ICU on 10/15/17. When it became clear that the patient was not going to quickly, there were no [facility] beds available any more, which was what the family had requested. She has been getting fluids both for medication administration via NG tube and also from her current morphine DIABETES PHYSICIAN at 4 mg/hr with additional bolus doses. She remains well hydrated and well perfused at present, with warm extremities and good distal pulses, easy respirations, cor RRR, and is comfortable. Family desires to keep patient on medical floor indefinitely. She may survive another several days with slow decline in hydration status.
[2017-10-19] MEDS: Atropine 1% (ORAL/SL)* 15 ML BTL SL PRN (17:40)
[2017-10-20] MEDS: Morphine ORAL CONCENTRATE* 5 MG/0.25 ML ORAL.SYRIN PO PRN ×5 (00:14→06:32)
[2017-10-20] MEDS: LORazepam INJ* 2 MG/ML 1 ML VIAL IV PUSH PRN ×18 (00:14→22:45)
[2017-10-20] MEDS: Morphine VIAL* 4 MG/ML VIAL (1 ml vial) IV PRN ×2 (01:30→02:20)
[2017-10-20] MEDS: Carbidopa/Levodop 25/100 MG TAB(*) G TUBE SCH ×4 (08:52→18:47)
[2017-10-20] MEDS: Nystatin TOP POWDER* 15 GM BTL TOPICAL SCH ×3 (08:52→19:11)
[2017-10-20] MEDS: Pregabalin CAP(*) 50 MG PO SCH ×2 (08:52→19:11)
[2017-10-20] MEDS: Atropine 1% (ORAL/SL)* 15 ML BTL SL PRN (13:22)
[2017-10-20] MEDS: Morphine PCA ADULT* 5 MG/ML 30 ML PCA SCH (17:54)
[2017-10-21] MEDS: LORazepam INJ* 2 MG/ML 1 ML VIAL IV PUSH PRN ×9 (00:12→11:34)
[2017-10-21] MEDS: Pregabalin CAP(*) 50 MG PO SCH (08:17)
[2017-10-21] MEDS: Nystatin TOP POWDER* 15 GM BTL TOPICAL SCH ×2 (08:17→11:59)
[2017-10-21] MEDS: Carbidopa/Levodop 25/100 MG TAB(*) G TUBE SCH ×2 (08:17→11:58)
--- NOTE | 2017-11-02 10:06 | DS ---
SUMMARY: DATE OF ADMISSION: 10/10/17 DATE OF : 10/21/17 DIAGNOSES: 1. Acute decompensated hypoxic respiratory failure with marked change in mental status. 2. Cervical spinal stenosis with myelopathy and quadriparesis. 3. Parkinson's disease. 4. History of uterine cancer. 5. History of coronary artery disease, status post stenting. 6. History of hypertension. 7. History of lumbar radiculopathy. 8. Morbid obesity. 9. History of type 2 diabetes mellitus. HISTORY: Dori Cooper was a 72-year-old woman admitted with progressive weakness of her arms and legs with severe spasms. Please see the dictated admission note for details of the present illness, past medical history, family history, social and personal history, review of systems, and physical examination. LABORATORY DATA: CBC on admission: WBC 6.6, H and H 12.2/35, MCV 89, PLT 244K. INR and PTT normal. ABGs on 10/13/17, pH 7.47, pCO2 41, pO2 167, on OxyMask FiO2 2. Chemistries on admission: Sodium 135, potassium , chloride 100, CO2 28, BUN and creatinine 17/0.46, glucose 95, calcium 8.9. Troponin was 0. TSH normal at 2.29. Comprehensive metabolic panel done on 10/26 essentially within normal limits. CRP on 10/13/17 was 12.01. Urinalysis , yellow, clear, specific gravity 1.015, pH 6. Dipsticks positive for ketones trace, bilirubin 1+. IMAGING: Cervical spine MRI done on 10/10/17 showed degenerative disk disease, osteoarthritis, [id number] narrowing of the central canal at C3-4, C5-6 , moderate narrowing C6-7, mild narrowing C4-5 and C2-3. Elevated cord signal opposite of C4 suggesting myelomalacia from a comprehensive myelopathy. Cervical spine CT 10/10/17, degenerative disk disease, moderate narrowing of the osseous canal at C3-4, C5-6, mild narrowing at C6-7, multilevel neuroforaminal narrowing. Cervical spine x-rays 10/10/17 showed degenerative disk disease and osteoarthritis. Chest x-ray 10/14/17 showed status post tube placement. No evidence of acute findings. EKG on 10/10/17 showed normal EKG. HOSPITAL COURSE: The patient was initially admitted, felt to have weakness due to cervical myelopathy with consultation done by neurosurgeon, Dr. Milton, who planned to perform surgery on her the following week. She needed to be off Brilinta prior to surgery 4 to 5 days. He outlined the benefits and risks of surgery to her and her family. She seemed to be willing to do the surgery initially. Neurology was called in to consult. During the course of the next several days, she became quite obtunded, felt to be initially due to the muscle relaxant she was receiving, baclofen, for the muscle spasms she had been complaining of. These were stopped. Despite stopping medications, however, she did not regain her normal mental sensorium. She remained quite obtunded. She was transferred to the ICU under the care of the captain waiter, Dr. Gutierrez. He felt that she had acute decompensated hypoxic respiratory failure likely secondary to hypoventilation, possibly due to the recent medications, baclofen plus morphine as well as tramadol and Lyrica. He questioned whether he could acutely use BiPAP as quick rescue with low-level hypercapnic failure present depending on blood gas. He felt that there was no significant hypercapnic failure, she could just need to be closely monitored. On the day following transfer to the ICU, she still had not woken up. She was on oxygen initially. This was weaned off. He felt after discussing with the patient's family that it was not in her best interest to proceed with surgery, felt end of life plan should be discussed. It was decided by the family that she should just start on comfort care, that her prognosis was poor. She was seen by palliative care and it was felt that she should just be kept comfortable. She was placed on [employer] morphine. She remained comfortable throughout the rest of her hospital stay. She was pronounced at 12:32 on 10/21/17 with the family present in the room. [id number]/[facility] #: [id number] EVIE
== END 2017-10-21 13:05 | disposition expired | DRG 551 ==
LOC: ED 14:54 → MED 19:59 → ICU 10-13 12:38 → MED 10-15 14:14
PROVIDERS: ADMIT Hospitalist; ATTEND Internal Medicine Geriatric Medicine
DX: M47.12 Other spondylosis with myelopathy, cervical region (principal); G82.50 Quadriplegia, unspecified; J96.01 Acute respiratory failure with hypoxia; G92 Toxic encephalopathy; Z68.41 Body mass index [BMI] 40.0-44.9, adult; G95.89 Other specified diseases of spinal cord; M47.22 Other spondylosis with radiculopathy, cervical region; M47.894 Other spondylosis, thoracic region; M48.061 Spinal stenosis, lumbar region without neurogenic claudication; M50.30 Other cervical disc degeneration, unspecified cervical region; M51.16 Intervertebral disc disorders with radiculopathy, lumbar region; M51.34 Other intervertebral disc degeneration, thoracic region; E78.5 Hyperlipidemia, unspecified; M19.90 Unspecified osteoarthritis, unspecified site; F32.9 Major depressive disorder, single episode, unspecified; G20 Parkinson's disease; I25.10 Atherosclerotic heart disease of native coronary artery without angina pectoris; I11.9 Hypertensive heart disease without heart failure; T42.8X5A Adverse effect of antiparkinsonism drugs and other central muscle-tone depressants, initial encounter; Y92.230 Patient room in hospital as the place of occurrence of the external cause; E66.01 Morbid (severe) obesity due to excess calories; E11.9 Type 2 diabetes mellitus without complications; Z51.5 Encounter for palliative care; Z66 Do not resuscitate; I45.81 Long QT syndrome; G25.81 Restless legs syndrome; R33.9 Retention of urine, unspecified; K59.00 Constipation, unspecified; Z95.5 Presence of coronary angioplasty implant and graft; Z85.42 Personal history of malignant neoplasm of other parts of uterus; Z79.1 Long term (current) use of non-steroidal anti-inflammatories (NSAID); Z79.82 Long term (current) use of aspirin; Z79.899 Other long term (current) drug therapy; Z88.0 Allergy status to penicillin; Z88.8 Allergy status to other drugs, medicaments and biological substances; Z91.041 Radiographic dye allergy status; Z82.49 Family history of ischemic heart disease and other diseases of the circulatory system; Z84.1 Family history of disorders of kidney and ureter
CPT/HCPCS: 36415; 36600; 71045; 72040; 72125; 72141; 80048; 80053; 81003; 82803; 83735; 84100; 84443; 84484; 85025; 85610; 85730; 86140; 93005; 99285; A9270-GY; J1644; J2060; J2270; J2310